=== PATIENT | male | born 1950 | race Caucasian/White ===

== ENCOUNTER → 2017-12-14 | Outpatient (CLI) | payer MEDICARE ==
[~2017-12-14] MED LIST: ATROPINE SULFATE 0.1 MG/ML 10ML SYRINGE ONE; DOBUTamine DRIP for NUC MED 250 MG in DEXTROSE/WATER 1 250ML.BAG IV ONE; METOPROLOL TARTRATE 5 MG/5 ML VIAL IVP ONE
--- NOTE | 2017-12-14 11:55 | ECHOS ---
STRESS ECHOCARDIOGRAM INDICATIONS: Chest pain. BASELINE HEART RATE: 76 BASELINE BLOOD PRESSURE: 103/65 MAXIMUM HEART RATE: 143 MAXIMUM BLOOD PRESSURE: 210/33 85% MPHR: 132 100% MPHR: 155 MAXIMUM STAGE REACHED: 5 TOTAL EXERCISE TIME: 12:30 CLINICAL INFORMATION: Patient was given dobutamine infusion according to the standard protocol, Patient also received atropine. Peak heart rate of 143 was achieved. Maximum blood pressure of 210/33 mmHg was noted. Resting EKG shows normal sinus rhythm with normal [place] interval and QRS duration and normal ST-T waves. No ST-segment depression suggestive of ischemia was noted. The baseline echocardiographic images reveal normal left ventricular chamber size with normal left ventricular systolic function. At the peak dose of dobutamine infusion. Normal increase in the wall thickness and contractility is noted. FINAL IMPRESSION: 1. This dobutamine stress echocardiographic study is negative for stress-induced ischemia. 2. EKG portion of the stress test is not suggestive of ischemia. 3. Patient complained of atypical chest pain at the peak of dobutamine infusion, without any evidence of wall motion abnormality. MMODL / IJN: [id number] /
== END | disposition home or self-care (01) ==
LOC: RADNMMAIN 09:14
PROVIDERS: ATTEND Internal Medicine Cardiovascular Disease
DX: R07.89 Other chest pain (principal)
CPT/HCPCS: 93017; C8928; Q9950; J1250; 93350

== ENCOUNTER → 2019-02-08 | Outpatient (CLI) | payer MEDICARE ==
--- NOTE | 2019-02-08 17:18 | US ---
EXAMINATION TYPE: US venous doppler duplex LE LT DATE OF EXAM: 02/08/2019 4:55 PM COMPARISON: NONE CLINICAL HISTORY: R60.9 Edema. bump on outer leg from fall. SIDE PERFORMED: Left TECHNIQUE: The lower extremity deep venous system is examined utilizing real time linear array sonog tiana with graded compression, doppler sonography and color-flow sonography. VESSELS IMAGED: External Iliac Vein (EIV) Common Femoral Vein Deep Femoral Vein Greater Saphenous Vein * Femoral Vein Popliteal Vein Small Saphenous Vein * Proximal Calf Veins (* superficial vessels) Left Leg: Negative for DVT Edema noted lower leg. At area of bump, outer calf, there is a 7.1 x 1.5 x 5.5 cm fluid collection, p ossible hematoma. IMPRESSION: No evidence of deep venous thrombosis. Complex fluid collection in the area of the concer n which could be a hematoma or seroma.
== END | disposition home or self-care (01) ==
LOC: RADUSWWP 16:27
PROVIDERS: ATTEND Internal Medicine
DX: M25.48 Effusion, other site (principal)

== ENCOUNTER 2022-02-25 13:57 | Inpatient (IN) | payer MEDICARE ==
[2022-02-25] MEDS ORDERED: VANCOMYCIN IV PER PHARMACY 1 EACH MISC MISCELLANE PRN (14:49)
[2022-02-25] MEDS ORDERED: ASPIRIN 81 MG PO STA (14:49)
[2022-02-25] MEDS ORDERED: VANCOMYCIN 2,250 MG in SODIUM CHLORIDE 0.9% 500 ML 500 ML IVPB STA (14:58)
[2022-02-25] MEDS ORDERED: DIPH,PERTUS(ACELL)TETVAC-LF 0.5 ML VIAL IM ONE (15:00)
[2022-02-25 15:53] LABS: Anisocytosis Slight; Basophils # (A) 0.1 k/uL (0-0.2); Basophils % (A) 1 %; Eosinophils # (A) 0.4 k/uL (0-0.7); Eosinophils % (A) 3 %; HCT 47.5 % (39.0-53.0); HGB 15.3 gm/dL (13.0-17.5); Hypochromasia Slight; Lymphocytes # (A) 1.3 k/uL (1.0-4.8); Lymphocytes % (A) 10 %; MCH 28.7 pg (25.0-35.0); MCHC 32.2 g/dL (31.0-37.0); MCV 89.1 fL (80.0-100.0); Mean Platelet Volume 7.9; Monocytes # (A) 0.7 k/uL (0-1.0); Monocytes % (A) 5 %; Neutrophils # (A) 10.9 k/uL (1.3-7.7); Neutrophils % (A) 80 %; Platelet Count 284 k/uL (150-450); Poikilocytosis Slight; RBC 5.33 m/uL (4.30-5.90); RDW 18.1 % (11.5-15.5); WBC 13.6 k/uL (3.8-10.6)
[2022-02-25 15:54] LABS: ALT 19 U/L (4-49); AST 38 U/L (17-59); African American GFR (CKD) >90 (>60 ml/min/1.73 sqM); Albumin 4.7 g/dL (3.5-5.0); Alkaline Phosphatase 78 U/L (38-126); Anion Gap 10 mmol/L; Blood Urea Nitrogen 21 mg/dL (9-20); Calcium 9.5 mg/dL (8.4-10.2); Carbon Dioxide 28 mmol/L (22-30); Chloride 104 mmol/L (98-107); Glucose 88 mg/dL (74-99); Non-African American GFR(CKD) >90 (>60 ml/min/1.73 sqM); Potassium 4.3 mmol/L (3.5-5.1); Sodium 142 mmol/L (137-145); Total Bilirubin 1.2 mg/dL (0.2-1.3); Total Protein 8.5 g/dL (6.3-8.2)
--- NOTE | 2022-02-25 16:02 | XR ---
EXAMINATION TYPE: XR chest 2V DATE OF EXAM: 02/25/2022 COMPARISON: 7-14 HISTORY: Shortness of breath TECHNIQUE: Frontal and lateral views of the chest are obtained. FINDINGS: Scattered senescent parenchymal changes noted. Hyperinflation compatible with COPD. No evidence for infiltrate. No evidence for atelectasis. Heart size is stable. Mediastinal structures are stable and grossly unremarkable. No evidence for hilar prominence. Degenerative changes dorsal spine. IMPRESSION: 1. No evidence for acute pulmonary disease.
--- NOTE | 2022-02-25 16:03 | XR ---
EXAMINATION TYPE: XR tibia fibula bilateral DATE OF EXAM: 02/25/2022 CLINICAL HISTORY: pain TECHNIQUE: AP and lateral images of the right tibia and fibula are obtained. COMPARISON: None. FINDINGS: There is no acute fracture/dislocation evident. The joint spaces appear within normal haines its. Soft tissue edema noted. IMPRESSION: There is no acute fracture or dislocation seen. ICD 10 NO FRACTURE, INITIAL EVALUATION
[2022-02-25] MEDS ORDERED: FUROSEMIDE 10 MG/ML 4 ML VIAL IV STA (16:33)
--- NOTE | 2022-02-25 18:14 | ED ---
General Adult HPI - General Chief complaint: Extremity Problem,Nontraumatic Stated complaint: Cellulitus Time Seen by Provider: 02/25/22 14:21 Source: patient, RN notes reviewed, old records reviewed Mode of arrival: wheelchair Limitations: physical limitation - History of Present Illness Initial comments: Patient is a 71-year-old male with past medical history remarkable for asthma, CAD, hypertension, UT, seizure disorder, chronic lower extremity edema with chronic wounds who presents emergency department after being sent in by his PCP over concern for chronic bilaterals like cellulitis. Has been ongoing for quite some months but seems to be getting worse. Failed outpatient Keflex. Patient's PCP, Dr. Valdez called ahead and would like him admitted for evaluation by the patient's vascular surgeon as well as infectious disease. Recommended IV antibiotics. He endorses a weeping wound over the left anterior milian as well as a chronic wound over the right anterior milian. Redness has gotten worse and has somewhat spread. Denies any abdominal pain, chest pain, shortness breath. Denies any fevers. States this has been ongoing for multiple months. Appears to be getting worse. States he is minimally compliant with medications. He is endorsing worsening lower extremity edema as well as mild exertional shortness of breath. Denies any history of blood clots. States he has not been taking his Lasix as prescribed. Denies any PND but does endorse orthopnea. His no other acute complaints at this time.Patient is DO NOT RESUSCITATE, DO NOT INTUBATE. Patient is no code. Confirmed with patient's and the patient. - Related Data Home Medications Medication Instructions Recorded Confirmed Pramipexole [Mirapex] 1 mg PO TID 07/06/16 02/25/22 Pregabalin [Lyrica] 75 mg PO BID 06/28/18 02/25/22 carvediloL [Coreg] 3.125 mg PO BID 06/28/18 02/25/22 Furosemide [Lasix] 40 mg PO DAILY 02/25/22 02/25/22 Melatonin 10 mg PO HS 02/25/22 02/25/22 Spironolactone [Aldactone] 25 mg PO DAILY 02/25/22 02/25/22 Allergies Allergy/AdvReac Type Severity Reaction Status Date / Time codeine Allergy Dyspnea Verified 02/25/22 16:35 Penicillins Allergy Dyspnea Verified 02/25/22 16:35 Review of Systems ROS Statement: Those systems with pertinent positive or pertinent negative responses have been documented in the HPI. Review of Systems: CONST: Denies fever EYES: Denies blurry vision ENT: Denies nasal congestion C/V: Denies Chest pain RESP: Endorses somewhat chronic exertional dyspnea GI: Denies abdominal pain : Denies dysuria SKIN: Endorses lower extremity wounds MSK: Denies joint pain. NEURO: Denies headache ROS Other: All systems not noted in ROS Statement are negative. Past Medical History Past Medical History: Asthma, Coronary Artery Disease (CAD), Hyperlipidemia, Hypertension, Myocardial Infarction (UT), Seizure Disorder Additional Past Medical History / Comment(s): restless leg, cardiomyopathy, wounds RT legs, BLE SWOLLEN AND DARK IN COLOR, LAST SEIZURE 1 WEEK AGO ON LEFT SIDE, FELL 06/03/18 GETTING UP FROM CHAIR, irritant induced asthma, hand tremors, double vision Last Myocardial Infarction Date:: 1989 History of Any Multi-Drug Resistant Organisms: None Reported Past Surgical History: Back Surgery, Cholecystectomy Additional Past Surgical History / Comment(s): brain tumor SX, 2ND DIGIT LT FOOT REMOVED, COLONOSCOPY Past Anesthesia/Blood Transfusion Reactions: No Reported Reaction Past Psychological History: No Psychological Hx Reported Smoking Status: Never smoker Past Alcohol Use History: None Reported Past Drug Use History: None Reported - Past Family History Mother Family Medical History: Cancer Additional Family Medical History / Comment(s): pancreatic Father Family Medical History: Cancer Additional Family Medical History / Comment(s): melanoma Brother(s) Family Medical History: Deep Vein Thrombosis (DVT) Daughter(s) Family Medical History: Deep Vein Thrombosis (DVT), Pulmonary Embolus General Exam - General Exam Comments Initial Comments: General: Appears in no acute distress. HEAD: Normal with no signs of head trauma. EYES: PERRLA, EOMI, conjunctiva normal, no discharge. ENT: Hearing grossly intact, normal oropharynx. RESPIRATORY: Clear breath sounds bilaterally. No wheezes, rales, or rhonchi. No increased work of breathing. No hypoxia. C/V: Regular rate and rhythm. S1 and S2 auscultated. Peripheral pulses are 2+ and intact throughout. Patient has 2-3+ pitting edema bilaterally up to the level of the knees. It is symmetrical. ABD: Abd is soft, nontender, nondistended EXT: Normal range of motion, no obvious deformity SKIN: Patient is erythema as well as venous stasis ulcer wounds located over the bilateral anterior shins. Left is worse than right. Left is approximately 8 cm in circumference and is actively oozing what appears to be a purulent material. Per patient, this is chronic. There is somewhat circumferential erythema that the patient states is worse appears to be traveling proximally. This seemed to be set of the right anterior milian, however no active oozing venous stasis wounds. Erythema is slightly worse though. Neurovascular intact in bilateral lower extremities. NEURO: Alert and oriented 4. Neurovascular intact in bilateral lower extremities. Limitations: physical limitation Course Vital Signs 02/25/22 02/25/22 14:17 17:38 Temperature 98.4 F Pulse Rate 89 79 Respiratory 16 20 Rate Blood Pressure 122/73 121/78 O2 Sat by Pulse 95 92 L Oximetry Medical Decision Making - Medical Decision Making Based on the patient's presentation and physical exam, there is concern for bilateral lower extremity cellulitis that seems to be worsening. There is also concern for possible heart failure exacerbation. Therefore cardiac labs as well as infectious labs will be obtained including blood cultures. Wound cultures will also be obtained. Will be started on vancomycin. Fluids will be held at this time over concern for heart failure. He was in agreement with this plan. EKG showed no signs of acute ischemia. Chest x-ray showed no acute cardio pulmonary process. X-ray of the tibia and fibula bilaterally showed no acute bony abnormality. No signs of osteomyelitis. Laboratory studies were remarkable for a mild leukocytosis of 13.6. Lactic acid is within normal limits. Blood cultures are pending at this time. Troponin is negative. BNP is low at 29. The remainder the labs are unremarkable. I discussed the findings with the patient. We will continue treatment and admit. Patient's vascular surgeon, Dr. Broderick as well as infectious disease Dr. Amezquita were consulted. I spoke with the admitting physician, Dr. Valdez who was in agreement this plan. - Lab Data Result diagrams: 02/25/22 15:17 02/25/22 15:17 Lab Results 02/25/22 02/25/22 02/25/22 Range/Units 15:17 15:17 15:17 WBC 13.6 H (3.8-10.6) k/uL RBC 5.33 (4.30-5.90) m/uL Hgb 15.3 (13.0-17.5) gm/dL Hct 47.5 (39.0-53.0) % MCV 89.1 (80.0-100.0) fL MCH 28.7 (25.0-35.0) pg MCHC 32.2 (31.0-37.0) g/dL RDW 18.1 H (11.5-15.5) % Plt Count 284 (150-450) k/uL MPV 7.9 Neutrophils % 80 % Lymphocytes % 10 % Monocytes % 5 % Eosinophils % 3 % Basophils % 1 % Neutrophils # 10.9 H (1.3-7.7) k/uL Lymphocytes # 1.3 (1.0-4.8) k/uL Monocytes # 0.7 (0-1.0) k/uL Eosinophils # 0.4 (0-0.7) k/uL Basophils # 0.1 (0-0.2) k/uL Hypochromasia Slight Poikilocytosis Slight Anisocytosis Slight Sodium 142 (137-145) mmol/L Potassium 4.3 (3.5-5.1) mmol/L Chloride 104 (98-107) mmol/L Carbon Dioxide 28 (22-30) mmol/L Anion Gap 10 mmol/L BUN 21 H (9-20) mg/dL Creatinine 0.80 (0.66-1.25) mg/dL Est GFR (CKD-EPI)AfAm >90 (>60 ml/min/1.73 sqM) Est GFR (CKD-EPI)NonAf >90 (>60 ml/min/1.73 sqM) Glucose 88 (74-99) mg/dL Plasma Lactic Acid Tayo 1.3 (0.7-2.0) mmol/L Calcium 9.5 (8.4-10.2) mg/dL Total Bilirubin 1.2 (0.2-1.3) mg/dL AST 38 (17-59) U/L ALT 19 (4-49) U/L Alkaline Phosphatase 78 (38-126) U/L Troponin I (0.000-0.034) ng/mL NT-Pro-B Natriuret Pep pg/mL Total Protein 8.5 H (6.3-8.2) g/dL Albumin 4.7 (3.5-5.0) g/dL 02/25/22 02/25/22 Range/Units 15:17 15:17 WBC (3.8-10.6) k/uL RBC (4.30-5.90) m/uL Hgb (13.0-17.5) gm/dL Hct (39.0-53.0) % MCV (80.0-100.0) fL MCH (25.0-35.0) pg MCHC (31.0-37.0) g/dL RDW (11.5-15.5) % Plt Count (150-450) k/uL MPV Neutrophils % % Lymphocytes % % Monocytes % % Eosinophils % % Basophils % % Neutrophils # (1.3-7.7) k/uL Lymphocytes # (1.0-4.8) k/uL Monocytes # (0-1.0) k/uL Eosinophils # (0-0.7) k/uL Basophils # (0-0.2) k/uL Hypochromasia Poikilocytosis Anisocytosis Sodium (137-145) mmol/L Potassium (3.5-5.1) mmol/L Chloride (98-107) mmol/L Carbon Dioxide (22-30) mmol/L Anion Gap mmol/L BUN (9-20) mg/dL Creatinine (0.66-1.25) mg/dL Est GFR (CKD-EPI)AfAm (>60 ml/min/1.73 sqM) Est GFR (CKD-EPI)NonAf (>60 ml/min/1.73 sqM) Glucose (74-99) mg/dL Plasma Lactic Acid Tayo (0.7-2.0) mmol/L Calcium (8.4-10.2) mg/dL Total Bilirubin (0.2-1.3) mg/dL AST (17-59) U/L ALT (4-49) U/L Alkaline Phosphatase (38-126) U/L Troponin I <0.012 (0.000-0.034) ng/mL NT-Pro-B Natriuret Pep 29 pg/mL Total Protein (6.3-8.2) g/dL Albumin (3.5-5.0) g/dL - EKG Data -: EKG Interpreted by Me EKG Comments: 12-lead Electrocardiogram Interpretation Note EKG was reviewed and interpreted by myself. 12-lead ECG performed at 1525 is interpreted by me as revealing normal sinus rhythm at a rate of at 80 beats per minute. [place] is normal. [place] interval is 190 ms, QRS durations 117 ms, QTc is 437 ms.. There were no ST or T wave abnormalities to suggest myocardial ischemia or injury. R-wave progression across the distal leg.. By my interpretation this EKG is non-diagnostic for acute ischemia. Disposition Clinical Impression: Cellulitis, Volume overload Disposition: ADMITTED IP TO THIS HOSP Condition: Stable Referrals: Niko Valdez MD [Primary Care Provider] - 1-2 days Time of Disposition: 16:34
[2022-02-25] MEDS: MELATONIN 5 MG TABLET PO SCH (22:38)
[2022-02-25] MEDS: carvediloL 3.125 MG TAB PO SCH (22:38)
[2022-02-25] MEDS: PRAMIPEXOLE 1 MG TAB PO SCH (22:38)
[2022-02-25] MEDS: PREGABALIN 75 MG CAP PO SCH (22:42)
[2022-02-26] MEDS: HEPARIN SODIUM,PORCINE/PF 5,000 UNIT/0.5 ML SYRINGE SQ SCH ×4 (00:33→23:49)
[2022-02-26] MEDS: HYDROcodone/APAP 10-325MG 1 EACH TAB PO PRN ×3 (02:04→20:12)
[2022-02-26] MEDS ORDERED: VANCOMYCIN 2,500 MG in SODIUM CHLORIDE 0.9% 500 ML 500 ML IVPB SCH (06:00)
[2022-02-26] MEDS ORDERED: FUROSEMIDE 40 MG TAB PO SCH (09:00)
[2022-02-26 09:27] LABS: HCT 39.5 % (39.6-50.0); HGB 11.7 g/dL (13.0-17.0); MCH 27.3 pg (27.0-32.0); MCHC 29.6 g/dL (32.0-37.0); MCV 92.3 fL (80.0-97.0); Mean Platelet Volume 10.1 fL (9.5-12.2); NRBC Per 100 WBC 0 /100 WBCS (0.0-0.0); Platelet Count 253 X 10*3/uL (140-440); RBC 4.28 X 10*6/uL (4.40-5.60); RDW 18.6 % (11.5-14.5); WBC 16.05 X 10*3/uL (4.50-10.00)
[2022-02-26 09:32] LABS: African American GFR (CKD) 107.4 (60.0-200.0); Anion Gap 9.8 mmol/L (10.00-18.00); BUN/Creat Ratio 23.96 Ratio (12.00-20.00); Blood Urea Nitrogen 18.4 mg/dL (9.0-27.0); Calcium 8.8 mg/dL (8.7-10.3); Non-African American GFR(CKD) 92.7 (60.0-200.0); Potassium 4.3 mmol/L (3.5-5.5)
[2022-02-26] MEDS: FUROSEMIDE 80 MG TAB PO SCH (09:49)
[2022-02-26] MEDS: carvediloL 3.125 MG TAB PO SCH ×2 (09:49→15:48)
[2022-02-26] MEDS: OXcarbazepine 150 MG TAB PO SCH ×2 (09:49→20:12)
[2022-02-26] MEDS: SPIRONOLACTONE 25 MG TAB PO SCH (09:49)
[2022-02-26] MEDS: PREGABALIN 75 MG CAP PO SCH ×2 (09:49→20:12)
[2022-02-26] MEDS: PRAMIPEXOLE 1 MG TAB PO SCH ×3 (09:50→20:12)
[2022-02-26 10:28] LABS: Basophils # (M) 0.16 X 10*3/uL (0.00-0.10); Eosinophils # (M) 0.64 X 10*3/uL (0.04-0.35); Lymphocytes # (M) 0.96 X 10*3/uL (0.90-5.00); Microcytosis (M) 2+; Monocytes # (M) 1.12 X 10*3/uL (0.20-1.00); Neutrophils % (M) 81 %; Promyelocytes # (M) 0.16 k/uL (0); Promyelocytes % 1 % (0-0)
--- NOTE | 2022-02-26 15:40 | P.HPIM ---
History of Present Illness H&P Date: 02/26/22 HISTORY OF PRESENT ILLNESS This is a 71-year-old male patient with past medical history of hypertension, hyperlipidemia, CVA, mild persistent ALLERGIC asthma, seizure disorder, Parkinson's disease, chronic diastolic heart failure, stasis dermatitis of the left lower extremity due to peripheral venous hypertension, spondylosis of the lumbar spine, obstructive sleep apnea. Patient was seen in the office yesterday for cellulitis of the both lower extremities. Patient had been on oral antibiotics for the past month without improvement and presented with a large vascular ulcer to the left lower extremity pretibial area as well as cellulitis to bilateral lower extremities. Patient was sent directly over the emergency center at [facility] for further evaluation and treatment. Patient was found to be afebrile, heart rate in the 70s and 80s, blood pressure 116/81, pulse ox 94% on room air. WBC 13.6, hemoglobin 15.3, platelet count 284. Electrolytes normal, BUN 21 creatinine 0.8. Liver function tests were normal. Lactic acid 1.3. Troponin negative. ProBNP 29. Recent hemoglobin A1c was 6.25 Nov 2021. X-ray tibia-fibula bilaterally showed no fracture. Chest x-ray revealed no acute pulmonary disease. Patient has been started on Vancomycin, Silvadene wraps, admitted to the [facility] floor and consult with Dr. Amezquita, Dr. Broderick [facility]. REVIEW OF SYSTEMS Constitutional: No fever, no chills, no night sweats. No weight change. No weakness, fatigue or lethargy. No daytime sleepiness. EENT: No headache. No blurred vision or double vision, no loss of vision. No l oss of Hearing, no ringing in the ears, no dizziness. No nasal drainage or congestion. No epistaxis. No sore throat. Lungs:Chronic shortness of breath, cough, no sputum production. No wheezing.Ch ronic dyspnea with exertion. Cardiovascular: No chest pain,reports lower extremity edema. No palpitations. No paroxysmal nocturnal dyspnea. No orthopnea. No lightheadedness or dizziness. No syncopal episodes. Abdominal: No abdominal pain. No nausea, vomiting. No diarrhea. No constipation. No bloody or tarry stools. No loss of appetite. Genitourinary: No dysuria, increased frequency, urgency. No urinary retention. Musculoskeletal: No myalgias. No muscle weakness, no gait dysfunction, no frequent falls. No back pain. No neck pain. Integumentary:Reports wounds to the bilateral lower extremities. No rash or pruritus. No unusual bruising. No change in hair or nails. Neurologic: No aphasia. No facial droop. No change in mentation. No head injury. No headache. No paralysis. No paresthesia. Psychiatric: No depression. No anxiety. No mood swings. Endocrine: No abnormal blood sugars. No weight change. No excessive sweating or thirst. No cold intolerance. MEDICAL HISTORY Hypertension Hyperlipidemia CVA Mild persistent ALLERGIC asthma Seizure disorder Parkinson's disease Chronic diastolic heart failure Stasis dermatitis Peripheral venous hypertension Spondylosis of the lumbar spine Obstructive sleep apnea SURGICAL HISTORY Meningioma brain tumor removal with right-sided craniotomy in 2003 Laminectomy in 2005 followed by PLDF in 2008 Cholecystectomy 1992 Left foot second toe amputation 1981 Colonoscopy and EGD 2016 Spinal cord stimulator 2011 SOCIAL HISTORY Patient is a nonsmoker, no alcohol use, no illicit drug use. He lives at home with his . FAMILY HISTORY Father at age 73 from metastatic melanoma with history of Parkinson's and coronary artery disease status post CABG. Mother at age 68 from pancreatic cancer and also had diabetes type 2 and coronary artery disease. Patient is 5 brothers and one has history of head and neck cancer and one with sarcoma. Other brothers have no major medical problems. Patient has 2 sisters one has squamous cell cancer and the other has no major medical problems. Patient has 4 daughters and one has SLE. PHYSICAL EXAMINATION Gen: This is a morbidly obese 71-year-old male patient sitting on the edge of the bed and appears to be in no acute respiratory distress. HEENT: Head is atraumatic, normocephalic. Pupils equal, round. Sclerae is anicteric. NECK: Supple. No JVD. No lymphadenopathy. No thyromegaly. LUNGS: Clear to auscultation. No wheezes or rhonchi. No intercostal retrac tions. HEART: First heart sound is depressed, second heart sound is normal, there is a 2/6 systolic ejection murmur at the left sternal border, no S3, no S4.. ABDOMEN: Soft. Bowel sounds are present. No masses. No tenderness. EXTREMITIES: 2+ bilateral pitting pedal edema with erythema. Also noted to the left pretibial area. Please see nursing documentation for details. NEUROLOGICAL: Patient is awake, alert and oriented x3. Cranial nerves 2 through 12 are grossly intact. ASSESSMENT AND PLAN 1. Bilateral lower extremity cellulitis. Wound culture is in progress, consult with Dr. Wynne appreciated, vancomycin has been transitioned to Salt 2 g IV piggyback every 8 hours, continue local wound care with Silvadene wraps with Moody wrap and elevation. 2. Hypertension. Continue Coreg 3.125 mg twice daily, Lasix 80 mg daily. 3. Hyperlipidemia. Low cholesterol diet. 4. History of CVA. 5. Parkinson's disease. Continue Mirapex 1 mg 3 times daily. 6. Chronic diastolic heart failure. Continue patient on Lasix 40 mg oral daily, Coreg 3.125 mg twice daily, Aldactone 25 mg daily. 7. Spondylosis of the lumbar spine. Continue Lyrica 75 mg twice daily. 8. Obstructive sleep apnea. 9. GI prophylaxis. Protonix 40 mg daily oral. 10. DVT prophylaxis. Heparin subcu. Patient will be admitted to the hospital for a minimum of 2 night stay. DISCHARGE PLAN Subacute rehab at [facility]. PT and OT consults. Impression and plan of care have been directed as dictated by the signing physician. Caitie Breaux nurse practitioner acting as scribe for signing physician. Past Medical History Past Medical History: Asthma, Coronary Artery Disease (CAD), Hyperlipidemia, Hypertension, Myocardial Infarction (VT), Seizure Disorder Additional Past Medical History / Comment(s): restless leg, cardiomyopathy, wounds RT legs, BLE SWOLLEN AND DARK IN COLOR, LAST SEIZURE 1 WEEK AGO ON LEFT SIDE, FELL 06/03/18 GETTING UP FROM CHAIR, irritant induced asthma, hand tremors, double vision Last Myocardial Infarction Date:: 1989 History of Any Multi-Drug Resistant Organisms: None Reported Past Surgical History: Back Surgery, Cholecystectomy Additional Past Surgical History / Comment(s): brain tumor SX, 2ND DIGIT LT FOOT REMOVED, COLONOSCOPY Past Anesthesia/Blood Transfusion Reactions: No Reported Reaction Past Psychological History: No Psychological Hx Reported Smoking Status: Never smoker Past Alcohol Use History: None Reported Past Drug Use History: None Reported - Past Family History Mother Family Medical History: Cancer Additional Family Medical History / Comment(s): pancreatic Father Family Medical History: Cancer Additional Family Medical History / Comment(s): melanoma Brother(s) Family Medical History: Deep Vein Thrombosis (DVT) Daughter(s) Family Medical History: Deep Vein Thrombosis (DVT), Pulmonary Embolus Medications and Allergies Home Medications Medication Instructions Recorded Confirmed Type Pramipexole [Mirapex] 1 mg PO TID 07/06/16 02/25/22 History Pregabalin [Lyrica] 75 mg PO BID 06/28/18 02/25/22 History carvediloL [Coreg] 3.125 mg PO BID 06/28/18 02/25/22 History Furosemide [Lasix] 40 mg PO DAILY 02/25/22 02/25/22 History Melatonin 10 mg PO HS 02/25/22 02/25/22 History Spironolactone [Aldactone] 25 mg PO DAILY 02/25/22 02/25/22 History Allergies Allergy/AdvReac Type Severity Reaction Status Date / Time codeine Allergy Dyspnea Verified 02/25/22 16:35 Penicillins Allergy Dyspnea Verified 02/25/22 16:35 Physical Exam Vitals: Vital Signs Temp Pulse Pulse Resp BP BP Pulse Ox 02/26/22 08:00 97.5 F L 76 16 128/66 89 L 02/26/22 02:47 97.4 F L 69 18 115/68 93 L 02/25/22 23:27 97.7 F 76 18 116/81 94 L 02/25/22 21:27 82 18 132/84 94 L 02/25/22 17:38 79 20 121/78 92 L 02/25/22 14:17 98.4 F 89 16 122/73 95 Intake and Output 02/25/22 02/26/22 02/26/22 22:59 06:59 14:59 Output Total 700 Balance -700 Output: Urine 700 Other: # Voids 2 Weight 168.283 kg Results CBC & Chem 7: 02/26/22 05:00 02/26/22 05:00 Labs: Abnormal Lab Results - Last 24 Hours (Table) 02/25/22 02/25/22 02/26/22 Range/Units 15:17 15:17 05:00 WBC 13.6 H 16.05 H (3.8-10.6) k/uL RBC 4.28 L (4.40-5.60) X 10*6/uL Hgb 11.7 L (13.0-17.0) g/dL Hct 39.5 L (39.6-50.0) % MCHC 29.6 L (32.0-37.0) g/dL RDW 18.1 H 18.6 H (11.5-15.5) % Promyelocytes % 1 H (0-0) % Neutrophils # 10.9 H (1.3-7.7) k/uL Neutrophils # (Manual) 13.00 H (2.00-8.90) X 10*3/uL Monocytes # (Manual) 1.12 H (0.20-1.00) X 10*3/uL Eosinophils # (Manual) 0.64 H (0.04-0.35) X 10*3/uL Basophils # (Manual) 0.16 H (0.00-0.10) X 10*3/uL Carbon Dioxide (20.0-27.5) mmol/L Anion Gap (10.00-18.00) mmol/L BUN 21 H (9-20) mg/dL BUN/Creatinine Ratio (12.00-20.00) Ratio Glucose (70-110) mg/dL Total Protein 8.5 H (6.3-8.2) g/dL /04/14 Range/Units 05:00 WBC (3.8-10.6) k/uL RBC (4.40-5.60) X 10*6/uL Hgb (13.0-17.0) g/dL Hct (39.6-50.0) % MCHC (32.0-37.0) g/dL RDW (11.5-15.5) % Promyelocytes % (0-0) % Neutrophils # (1.3-7.7) k/uL Neutrophils # (Manual) (2.00-8.90) X 10*3/uL Monocytes # (Manual) (0.20-1.00) X 10*3/uL Eosinophils # (Manual) (0.04-0.35) X 10*3/uL Basophils # (Manual) (0.00-0.10) X 10*3/uL Carbon Dioxide 29.0 H (20.0-27.5) mmol/L Anion Gap 9.80 L (10.00-18.00) mmol/L BUN (9-20) mg/dL BUN/Creatinine Ratio 23.96 H (12.00-20.00) Ratio Glucose 122 H (70-110) mg/dL Total Protein (6.3-8.2) g/dL Microbiology - Last 24 Hours (Table) 02/25/22 15:17 Gram Stain - Preliminary Leg - Left Wound Culture - Preliminary 02/25/22 15:17 Anaerobic Culture - Preliminary Leg - Left Thrombosis Risk Factor Assmnt - Choose All That Apply Each Factor Represents 1 point: Obesity (BMI >25), Swollen legs (current) Other Risk Factors: Yes Each Risk Factor Represents 2 Points: Age 61-74 years Thrombosis Risk Factor Assessment Total Risk Factor Score: 4 Thrombosis Risk Factor Assessment Level: Moderate Risk
[2022-02-26] MEDS: SENNOSIDES-DOCUSATE SODIUM 1 EACH TAB PO SCH (15:49)
[2022-02-26] MEDS: MELATONIN 5 MG TABLET PO SCH (20:12)
--- NOTE | 2022-02-26 23:51 | P.CONS ---
History of Present Illness - Reason for Consult Consult date: 02/26/22 Bilateral lower extremity cellulitis Requesting physician: Niko Valdez - Chief Complaint Increasing swelling or redness of the lower extremity x few days - History of Present Illness Patient is a 71-year male with a past medical history significant for lower extremity cellulitis and venous stasis ulcers, asthma coronary disease hypertension patient presented to [facility] ER last evening by advice of his PCP for with concern for bilateral lower extremity cellulitis apparently the patient has been complaining of increasing swelling and redness to bilateral lower extremity especially with the left leg and this patient who did have a open wound and some yellowish drainage patient been complaining of pain to the lower extremity more of a dull aching at times sharp 5-6 out of 10 and no radiation with the symptom the patient has been evaluated by ER physician on arrival to the ER patient was afebrile and no fever has been recorded subsequently patient did have white count of 13 point 6 repeat is up to 16.05 creatinine has been normal patient did have cultures obtained from the leg which are currently showing gram-negative patient has been started on vancomycin admitted to hospital infectious disease was consulted for further management of antibiotic therapy Review of Systems Positive point has been mentioned in the HPI rest of the systems are negative Past Medical History Past Medical History: Asthma, Coronary Artery Disease (CAD), Hyperlipidemia, Hypertension, Myocardial Infarction ([place]), Seizure Disorder Additional Past Medical History / Comment(s): restless leg, cardiomyopathy, wounds RT legs, BLE SWOLLEN AND DARK IN COLOR, LAST SEIZURE 1 WEEK AGO ON LEFT SIDE, FELL 06/03/18 GETTING UP FROM CHAIR, irritant induced asthma, hand tremors, double vision Last Myocardial Infarction Date:: 1989 History of Any Multi-Drug Resistant Organisms: None Reported Past Surgical History: Back Surgery, Cholecystectomy Additional Past Surgical History / Comment(s): brain tumor SX, 2ND DIGIT LT FOOT REMOVED, COLONOSCOPY Past Anesthesia/Blood Transfusion Reactions: No Reported Reaction Past Psychological History: No Psychological Hx Reported Smoking Status: Never smoker Past Alcohol Use History: None Reported Past Drug Use History: None Reported - Past Family History Mother Family Medical History: Cancer Additional Family Medical History / Comment(s): pancreatic Father Family Medical History: Cancer Additional Family Medical History / Comment(s): melanoma Brother(s) Family Medical History: Deep Vein Thrombosis (DVT) Daughter(s) Family Medical History: Deep Vein Thrombosis (DVT), Pulmonary Embolus Medications and Allergies Home Medications Medication Instructions Recorded Confirmed Type Pramipexole [Mirapex] 1 mg PO TID 07/06/16 02/25/22 History Pregabalin [Lyrica] 75 mg PO BID 06/28/18 02/25/22 History carvediloL [Coreg] 3.125 mg PO BID 06/28/18 02/25/22 History Furosemide [Lasix] 40 mg PO DAILY 02/25/22 02/25/22 History Melatonin 10 mg PO HS 02/25/22 02/25/22 History Spironolactone [Aldactone] 25 mg PO DAILY 02/25/22 02/25/22 History Allergies Allergy/AdvReac Type Severity Reaction Status Date / Time codeine Allergy Dyspnea Verified 02/25/22 16:35 Penicillins Allergy Dyspnea Verified 02/25/22 16:35 Physical Exam Vitals: Vital Signs Temp Pulse Pulse Resp BP BP Pulse Ox 02/26/22 14:00 98.1 F 75 17 118/74 91 L 02/26/22 08:00 97.5 F L 76 16 128/66 89 L 02/26/22 02:47 97.4 F L 69 18 115/68 93 L 02/25/22 23:27 97.7 F 76 18 116/81 94 L 02/25/22 21:27 82 18 132/84 94 L 02/25/22 17:38 79 20 121/78 92 L Intake and Output 02/26/22 02/26/22 02/26/22 06:59 14:59 22:59 Output Total 700 Balance -700 Output: Urine 700 Other: # Voids 2 Weight 168.283 kg GENERAL DESCRIPTION: Elderly male lying in bed, no distress. No tachypnea or accessory muscle of respiration use. HEENT: Shows Pallor , no scleral icterus. Oral mucous membrane is dry. No pharyngeal erythema or thrush NECK: Trachea central, no thyromegaly. LUNGS: Unlabored breathing. Clear to auscultation anteriorly. No wheeze or crackle. HEART: S1, S2, regular rate and rhythm. No loud murmur ABDOMEN: Soft, no tenderness , guarding or rigidity, no organomegaly EXTREMITIES: Diffuse swelling to bilateral lower extremity left anterior leg did have a wound with some slough tissue surrounding redness SKIN: No rash, no masses palpable. NEUROLOGICAL: The patient is awake, alert, oriented x3, mood and affect normal. Results CBC & Chem 7: 02/26/22 05:00 02/26/22 05:00 Labs: Abnormal Lab Results - Last 24 Hours (Table) 02/26/22 02/26/22 Range/Units 05:00 05:00 WBC 16.05 H (4.50-10.00) X 10*3/uL RBC 4.28 L (4.40-5.60) X 10*6/uL Hgb 11.7 L (13.0-17.0) g/dL Hct 39.5 L (39.6-50.0) % MCHC 29.6 L (32.0-37.0) g/dL RDW 18.6 H (11.5-14.5) % Promyelocytes % 1 H (0-0) % Neutrophils # (Manual) 13.00 H (2.00-8.90) X 10*3/uL Monocytes # (Manual) 1.12 H (0.20-1.00) X 10*3/uL Eosinophils # (Manual) 0.64 H (0.04-0.35) X 10*3/uL Basophils # (Manual) 0.16 H (0.00-0.10) X 10*3/uL Carbon Dioxide 29.0 H (20.0-27.5) mmol/L Anion Gap 9.80 L (10.00-18.00) mmol/L BUN/Creatinine Ratio 23.96 H (12.00-20.00) Ratio Glucose 122 H (70-110) mg/dL Microbiology - Last 24 Hours (Table) 02/25/22 15:17 Gram Stain - Preliminary Leg - Left Wound Culture - Preliminary 02/25/22 15:17 Anaerobic Culture - Preliminary Leg - Left Assessment and Plan (1) Cellulitis Current Visit: Yes Status: Acute Code(s): L03.90 - CELLULITIS, UNSPECIFIED SNOMED Code(s): 379771266 Plan: 1patient with bilateral lower extremity cellulitis left greater than the right especially with the venous stasis ulcer to the left leg and some drainage failing outpatient oral Keflex now with a local culture showing gram-negative bacilli. 2discontinue vancomycin. 3start the patient on cefepime 2 g every 8 hours 4local wound care with the Medihoney followed by moist dressing and Moody wrap to the leg to keep the swelling down. We will follow on clinical condition and cultures to further adjust medication if needed Thank you for this consultation will follow this patient along with you Time with Patient: Greater than 30
[2022-02-27] MEDS: CEFEPIME 2 GM in SODIUM CHLORIDE 0.9% 100 ML IVPB SCH ×4 (00:28→23:20)
[2022-02-27 05:27] LABS: African American GFR (CKD) >90 (>60 ml/min/1.73 sqM); Non-African American GFR(CKD) >90 (>60 ml/min/1.73 sqM)
[2022-02-27] MEDS: HYDROcodone/APAP 10-325MG 1 EACH TAB PO PRN (05:44)
[2022-02-27] MEDS: HEPARIN SODIUM,PORCINE/PF 5,000 UNIT/0.5 ML SYRINGE SQ SCH ×3 (07:56→23:23)
[2022-02-27] MEDS: PREGABALIN 75 MG CAP PO SCH ×2 (07:58→20:24)
[2022-02-27] MEDS: SPIRONOLACTONE 25 MG TAB PO SCH (07:58)
[2022-02-27] MEDS: SENNOSIDES-DOCUSATE SODIUM 1 EACH TAB PO SCH (07:58)
[2022-02-27] MEDS: OXcarbazepine 150 MG TAB PO SCH ×2 (07:59→20:25)
[2022-02-27] MEDS: FUROSEMIDE 80 MG TAB PO SCH (07:59)
[2022-02-27] MEDS: carvediloL 3.125 MG TAB PO SCH ×2 (07:59→17:02)
[2022-02-27] MEDS: PRAMIPEXOLE 1 MG TAB PO SCH ×3 (07:59→20:24)
[2022-02-27] MEDS: LOSARTAN 25 MG TAB PO SCH (13:35)
--- NOTE | 2022-02-27 13:52 | P.PN ---
Subjective Progress Note Date: 02/27/22 HISTORY OF PRESENT ILLNESS This is a 71-year-old male patient with past medical history of hypertension, h yperlipidemia, CVA, mild persistent ALLERGIC asthma, seizure disorder, Parkinson's disease, chronic diastolic heart failure, stasis dermatitis of the left lower extremity due to peripheral venous hypertension, spondylosis of the lumbar spine, obstructive sleep apnea. Patient was seen in the office yesterday for cellulitis of the both lower extremities. Patient had been on oral antibiotics for the past month without improvement and presented with a large vascular ulcer to the left lower extremity pretibial area as well as cellulitis to bilateral lower extremities. Patient was sent directly over the emergency center at [facility] for further evaluation and treatment. Patient was found to be afebrile, heart rate in the 70s and 80s, blood pressure 116/81, pulse ox 94% on room air. WBC 13.6, hemoglobin 15.3, platelet count 284. Electrolytes normal, BUN 21 creatinine 0.8. Liver function tests were normal. Lactic acid 1.3. Troponin negative. ProBNP 29. Recent hemoglobin A1c was 6.25 Nov 2021. X-ray tibia-fibula bilaterally showed no fracture. Chest x-ray revealed no acute pulmonary disease. Patient has been started on Vancomycin, Silvadene wraps, admitted to the [facility] floor and consult with Dr. Amezquita, Dr. [facility]. 02/27: Patient sitting up in the edge of the bed, he is doing better today, he continues to be on vancomycin, he continues to be on Silvadene wraps with a right lower extremity admitted honey to the left lower extremity, he has been seen in consultation by infectious disease, we'll continue current treatment plan, the plan is to transfer the patient to [facility] in the next few days when his cellulitis is better. REVIEW OF SYSTEMS Constitutional: No fever, no chills, no night sweats. No weight change. No weakness, fatigue or lethargy. No daytime sleepiness. EENT: No headache. No blurred vision or double vision, no loss of vision. No loss of Hearing, no ringing in the ears, no dizziness. No nasal drainage or congestion. No epistaxis. No sore throat. Lungs:Chronic shortness of breath, cough, no sputum production. No whe ezing.Chronic dyspnea with exertion. Cardiovascular: No chest pain,reports lower extremity edema. No palpitations. No paroxysmal nocturnal dyspnea. No orthopnea. No lightheadedness or dizziness . No syncopal episodes. Abdominal: No abdominal pain. No nausea, vomiting. No diarrhea. No const ipation. No bloody or tarry stools. No loss of appetite. Genitourinary: No dysuria, increased frequency, urgency. No urinary retention. Musculoskeletal: No myalgias. No muscle weakness, no gait dysfunction, no frequent falls. No back pain. No neck pain. Integumentary:Reports wounds to the bilateral lower extremities. No rash or pruritus. No unusual bruising. No change in hair or nails. Neurologic: No aphasia. No facial droop. No change in mentation. No head injury. No headache. No paralysis. No paresthesia. Psychiatric: No depression. No anxiety. No mood swings. Endocrine: No abnormal blood sugars. No weight change. No excessive sweating or thirst. No cold intolerance. PHYSICAL EXAMINATION Gen: This is a morbidly obese 71-year-old male patient sitting on the edge of the bed and appears to be in no acute respiratory distress. HEENT: Head is atraumatic, normocephalic. Pupils equal, round. Sclerae is anicteric. NECK: Supple. No JVD. No lymphadenopathy. No thyromegaly. LUNGS: Clear to auscultation. No wheezes or rhonchi. No intercostal retractions. HEART: First heart sound is depressed, second heart sound is normal, there is a 2/6 systolic ejection murmur at the left sternal border, no S3, no S4.. ABDOMEN: Soft. Bowel sounds are present. No masses. No tenderness. EXTREMITIES: 2+ bilateral pitting pedal edema with erythema. Also noted to the left pretibial area. Please see nursing documentation for details. NEUROLOGICAL: Patient is awake, alert and oriented x3. Cranial nerves 2 through 12 are grossly intact. ASSESSMENT AND PLAN 1. Bilateral lower extremity cellulitis. Wound culture is in progress, consult with Dr. Alirio thomas, patient was started on cefepime 2 g IV piggyback every 8 hours, continue local wound care with Silvadene wraps to the right lower extremity as well as many honey to the left lower extremity keep the leg elevated, monitor the patient very closely. Continue Lasix 80 mg orally once every day. 2. Hypertension and hypertensive cardiovascular disease. Continue Coreg 3.125 mg twice daily, we will continue to monitor the patient blood pressure very closely. 3. Hyperlipidemia. Low cholesterol diet, start the patient on atorvastatin 40 mg orally once every day. 4. History of CVA. Patient will need to be continued on aspirin 81 mg once every day as well as atorvastatin 40 mg orally once every day. 5. . Parkinsonism. Continue Mirapex 1 mg 3 times daily. 6. Chronic diastolic heart failure. Continue patient on Lasix 80 mg oral daily, Coreg 3.125 mg twice daily, Aldactone 25 mg daily, add losartan 25 mg orally once every day. 7. Spondylosis of the lumbar spine. Continue hydrocodone/acetaminophen 10/325 mg orally 1 tablet every 6 hours as needed, continue pregabalin 75 minute gram orally twice every day. 8. Obstructive sleep apnea. patient does not have any CPAP machine. 9. GI prophylaxis. Protonix 40 mg daily oral. 10. DVT prophylaxis. Heparin 5000 units subcutaneously every 8 hours. 11. Physical therapy evaluation. 12. psychotherapist social worker consultation. Objective - Vital Signs Vital signs: Vital Signs Temp 97.6 F 02/27/22 08:00 Pulse 75 02/27/22 08:00 Resp 16 02/27/22 08:00 BP 140/67 02/27/22 08:00 Pulse Ox 90 L 02/27/22 08:00 Intake & Output 02/26/22 02/27/22 02/27/22 18:59 06:59 18:59 Output Total 700 500 Balance -700 -500 Output: Urine 700 500 Other: Voiding Method Toilet Urinal # Voids 2 - Labs CBC & Chem 7: 02/26/22 05:00 02/27/22 04:43 Labs: Microbiology - Last 24 Hours (Table) 02/25/22 15:17 Gram Stain - Preliminary Leg - Left Wound Culture - Preliminary Gram Neg Bacilli 02/25/22 15:15 Blood Culture - Preliminary Blood No Growth after 24 hours 02/25/22 15:17 Blood Culture - Preliminary Blood No Growth after 24 hours
[2022-02-27] MEDS: MELATONIN 5 MG TABLET PO SCH (20:24)
[2022-02-27] MEDS: ATORVASTATIN 40 MG TAB PO SCH (20:24)
--- NOTE | 2022-02-28 00:20 | P.PN ---
Subjective Progress Note Date: 02/27/22 Principal diagnosis: Left leg wound and bilateral lower extremity cellulitis Patient is a 71 year male with a past medical history significant for venous stasis ulcer and recurrent lower extremity cellulitis admitted to the hospital with worsening swelling and redness and warmth of the left leg. On today's evaluation that is 02/27/2022, the patient denies having any fever or any chills, the patient is breathing comfortably, denies having any chest pain shortness will call for lower extremity pain and swelling has slightly decreased and no drainage Objective - Vital Signs Vital signs: Vital Signs Temp 97.6 F 02/27/22 08:00 Pulse 75 02/27/22 08:00 Resp 16 02/27/22 08:00 BP 140/67 02/27/22 08:00 Pulse Ox 90 L 02/27/22 08:00 Intake & Output 02/26/22 02/27/22 02/27/22 18:59 06:59 18:59 Output Total 700 500 Balance -700 -500 Output: Urine 700 500 Other: Voiding Method Toilet Urinal # Voids 2 - Exam GENERAL DESCRIPTION: An elderly male lying in bed in no distress RESPIRATORY SYSTEM: Unlabored breathing , decreased breath sounds at bases HEART: S1 S2 regular rate and rhythm , ABDOMEN: Soft , no tenderness EXTREMITIES: Bilateral legs are currently wrapped No drainage on the dressing - Labs CBC & Chem 7: 02/26/22 05:00 02/27/22 04:43 Labs: Microbiology - Last 24 Hours (Table) 02/25/22 15:17 Gram Stain - Preliminary Leg - Left Wound Culture - Preliminary Gram Neg Bacilli 02/25/22 15:15 Blood Culture - Preliminary Blood No Growth after 24 hours 02/25/22 15:17 Blood Culture - Preliminary Blood No Growth after 24 hours Assessment and Plan (1) Cellulitis Current Visit: Yes Status: Acute Code(s): L03.90 - CELLULITIS, UNSPECIFIED SNOMED Code(s): 911714173 Plan: 1patient with bilateral lower extremity cellulitis left greater than the right especially with the venous stasis ulcer to the left leg and some drainage faili ng outpatient oral Keflex now with a local culture showing gram-negative bacilli. 2patient to continue with cefepime 2 g every 8 hours 3-local wound care with the Medihoney followed by moist dressing and Moody wrap to the leg to keep the swelling down. Time with Patient: Less than 30
[2022-02-28] MEDS: HYDROcodone/APAP 10-325MG 1 EACH TAB PO PRN ×3 (00:58→23:43)
[2022-02-28] MEDS ORDERED: VANCOMYCIN TROUGH DUE 1 EACH MISC MISCELLANE ONE (05:00)
[2022-02-28 05:53] LABS: ALT 16 U/L (4-49); AST 31 U/L (17-59); African American GFR (CKD) >90 (>60 ml/min/1.73 sqM); Albumin 3.9 g/dL (3.5-5.0); Albumin/Globulin Ratio 1.1; Alkaline Phosphatase 69 U/L (38-126); Anion Gap 5 mmol/L; Blood Urea Nitrogen 24 mg/dL (9-20); Carbon Dioxide 36 mmol/L (22-30); Chloride 98 mmol/L (98-107); Globulin 3.4 g/dL; Glucose 112 mg/dL (74-99); Non-African American GFR(CKD) >90 (>60 ml/min/1.73 sqM); Potassium 4.5 mmol/L (3.5-5.1); Sodium 139 mmol/L (137-145); Total Bilirubin 1.1 mg/dL (0.2-1.3); Total Protein 7.3 g/dL (6.3-8.2)
[2022-02-28] MEDS: CEFEPIME 2 GM in SODIUM CHLORIDE 0.9% 100 ML IVPB SCH ×3 (08:11→23:42)
[2022-02-28] MEDS: carvediloL 3.125 MG TAB PO SCH ×2 (08:12→17:18)
[2022-02-28] MEDS: PREGABALIN 75 MG CAP PO SCH ×2 (08:12→20:25)
[2022-02-28] MEDS: ASPIRIN 81 MG PO SCH (08:12)
[2022-02-28] MEDS: PRAMIPEXOLE 1 MG TAB PO SCH ×3 (08:12→20:25)
[2022-02-28] MEDS: LOSARTAN 25 MG TAB PO SCH (08:12)
[2022-02-28] MEDS: HEPARIN SODIUM,PORCINE/PF 5,000 UNIT/0.5 ML SYRINGE SQ SCH ×3 (08:12→23:43)
[2022-02-28] MEDS: SPIRONOLACTONE 25 MG TAB PO SCH ×2 (08:12→09:02)
[2022-02-28] MEDS: OXcarbazepine 150 MG TAB PO SCH ×2 (08:12→20:25)
[2022-02-28] MEDS: FUROSEMIDE 80 MG TAB PO SCH (08:12)
[2022-02-28] MEDS: SENNOSIDES-DOCUSATE SODIUM 1 EACH TAB PO SCH (08:12)
[2022-02-28] MEDS ORDERED: IPRATROPIUM-ALBUTEROL 3 ML NEB INHALATION PRN (08:47)
[2022-02-28] MEDS: FUROSEMIDE 40 MG TAB PO SCH (09:01)
[2022-02-28 09:11] LABS: HCT 42.5 % (39.6-50.0); HGB 12.6 g/dL (13.0-17.0); MCHC 29.6 g/dL (32.0-37.0); MCV 91.2 fL (80.0-97.0); Mean Platelet Volume 10.7 fL (9.5-12.2); NRBC Per 100 WBC 0.1 /100 WBCS (0.0-0.0); Platelet Count 272 X 10*3/uL (140-440); RBC 4.66 X 10*6/uL (4.40-5.60); RDW 18.5 % (11.5-14.5); WBC 15.98 X 10*3/uL (4.50-10.00)
[2022-02-28 11:08] LABS: Basophils # (M) 0 X 10*3/uL (0.00-0.10); Eosinophils # (M) 1.28 X 10*3/uL (0.04-0.35); Lymphocytes # (M) 1.44 X 10*3/uL (0.90-5.00); Metamyelocytes % 1 % (0-0); Monocytes # (M) 0.48 X 10*3/uL (0.20-1.00); Myelocytes % 4 % (0-0); Neutrophils # (M) 11.99 X 10*3/uL (2.00-8.90); Neutrophils % (M) 75 %
[2022-02-28] MEDS: ATORVASTATIN 40 MG TAB PO SCH (20:25)
[2022-02-28] MEDS: MELATONIN 5 MG TABLET PO SCH (20:25)
--- NOTE | 2022-03-01 07:49 | P.PN ---
Subjective Progress Note Date: 02/28/22 Principal diagnosis: Left leg wound and bilateral lower extremity cellulitis Patient is a 71 year male with a past medical history significant for venous stasis ulcer and recurrent lower extremity cellulitis admitted to the hospital with worsening swelling and redness and warmth of the left leg. On today's evaluation that is 02/28/2022, the patient remains to be afebrile, the patient is breathing comfortably, the patient denies having any chest pain shortness of breath, the patient lower extremity pain and swelling has slightly decreased and no drainage Objective - Vital Signs Vital signs: Vital Signs Temp 97.8 F 02/28/22 08:00 Pulse 67 02/28/22 08:00 Resp 18 02/28/22 08:00 BP 136/69 02/28/22 08:00 Pulse Ox 98 02/28/22 08:00 Intake & Output 02/27/22 02/28/22 02/28/22 18:59 06:59 18:59 Output Total 2100 825 Balance -2100 -825 Output: Urine 2100 825 Other: Voiding Method Toilet Toilet Urinal Urinal - Exam GENERAL DESCRIPTION: An elderly male lying in bed in no distress RESPIRATORY SYSTEM: Unlabored breathing , decreased breath sounds at bases HEART: S1 S2 regular rate and rhythm , ABDOMEN: Soft , no tenderness EXTREMITIES: Left lower extremity wound with less slough tissue surrounding re dness has decreased - Labs CBC & Chem 7: 02/28/22 05:08 02/28/22 05:08 Labs: Abnormal Lab Results - Last 24 Hours (Table) 02/28/22 02/28/22 Range/Units 05:08 05:08 WBC 15.98 H (4.50-10.00) X 10*3/uL Hgb 12.6 L (13.0-17.0) g/dL MCHC 29.6 L (32.0-37.0) g/dL RDW 18.5 H (11.5-14.5) % Absolute Nucleated RBC 0.02 H (0.00-0.00) X 10*3/uL Metamyelocytes % 1 H (0-0) % Myelocytes % 4 H (0-0) % Neutrophils # (Manual) 11.99 H (2.00-8.90) X 10*3/uL Eosinophils # (Manual) 1.28 H (0.04-0.35) X 10*3/uL NRBC/100 WBC Diff 0.1 H (0.0-0.0) /100 WBCS Carbon Dioxide 36 H (22-30) mmol/L BUN 24 H (9-20) mg/dL Glucose 112 H (74-99) mg/dL Microbiology - Last 24 Hours (Table) 02/25/22 15:17 Gram Stain - Final Leg - Left Wound Culture - Final Pseudomonas aeruginosa 02/25/22 15:15 Blood Culture - Preliminary Blood No Growth after 48 hours 02/25/22 15:17 Blood Culture - Preliminary Blood No Growth after 48 hours 02/25/22 15:17 Anaerobic Culture - Preliminary Leg - Left Assessment and Plan (1) Cellulitis Current Visit: Yes Status: Acute Code(s): L03.90 - CELLULITIS, UNSPECIFIED SNOMED Code(s): 814315416 Plan: 1patient with bilateral lower extremity cellulitis left greater than the right especially with the venous stasis ulcer to the left leg and some drainage failing outpatient oral Keflex now with a local culture showing gram-negative bacilli. 2patient to continue with cefepime 2 g every 8 hours for another 24 hours 3[facility] and Moody wrap to the leg to keep the swelling down. Time with Patient: Less than 30
[2022-03-01] MEDS: FUROSEMIDE 40 MG TAB PO SCH (08:04)
[2022-03-01] MEDS: carvediloL 3.125 MG TAB PO SCH ×2 (08:04→16:40)
[2022-03-01] MEDS: SENNOSIDES-DOCUSATE SODIUM 1 EACH TAB PO SCH (08:04)
[2022-03-01] MEDS: LOSARTAN 25 MG TAB PO SCH (08:04)
[2022-03-01] MEDS: ASPIRIN 81 MG PO SCH (08:04)
[2022-03-01] MEDS: PREGABALIN 75 MG CAP PO SCH ×2 (08:05→20:36)
[2022-03-01] MEDS: SPIRONOLACTONE 25 MG TAB PO SCH (08:05)
[2022-03-01] MEDS: CEFEPIME 2 GM in SODIUM CHLORIDE 0.9% 100 ML IVPB SCH ×2 (08:06→16:41)
[2022-03-01] MEDS: HEPARIN SODIUM,PORCINE/PF 5,000 UNIT/0.5 ML SYRINGE SQ SCH ×2 (08:06→16:41)
[2022-03-01] MEDS: PRAMIPEXOLE 1 MG TAB PO SCH ×3 (08:07→20:36)
[2022-03-01] MEDS: OXcarbazepine 150 MG TAB PO SCH ×2 (08:07→20:36)
[2022-03-01] MEDS: HYDROcodone/APAP 10-325MG 1 EACH TAB PO PRN ×2 (08:08→20:36)
[2022-03-01 08:23] LABS: ALT 21 U/L (4-49); AST 36 U/L (17-59); African American GFR (CKD) >90 (>60 ml/min/1.73 sqM); Albumin 4.3 g/dL (3.5-5.0); Albumin/Globulin Ratio 1.1; Alkaline Phosphatase 76 U/L (38-126); Anion Gap 7 mmol/L; Blood Urea Nitrogen 26 mg/dL (9-20); Calcium 9.2 mg/dL (8.4-10.2); Carbon Dioxide 37 mmol/L (22-30); Chloride 98 mmol/L (98-107); Globulin 3.8 g/dL; Glucose 119 mg/dL (74-99); Non-African American GFR(CKD) >90 (>60 ml/min/1.73 sqM); Potassium 4.5 mmol/L (3.5-5.1); Sodium 142 mmol/L (137-145); Total Bilirubin 1.1 mg/dL (0.2-1.3); Total Protein 8.1 g/dL (6.3-8.2)
[2022-03-01 09:24] LABS: Magnesium 2.3 mg/dL (1.6-2.3)
[2022-03-01 11:52] LABS: HCT 45.5 % (39.6-50.0); HGB 13.8 g/dL (13.0-17.0); MCH 27.6 pg (27.0-32.0); MCHC 30.3 g/dL (32.0-37.0); Mean Platelet Volume 10.9 fL (9.5-12.2); NRBC Per 100 WBC 0 /100 WBCS (0.0-0.0); Platelet Count 299 X 10*3/uL (140-440); RDW 18.7 % (11.5-14.5); WBC 15.73 X 10*3/uL (4.50-10.00)
[2022-03-01 11:53] LABS: Basophils # (M) 0.31 X 10*3/uL (0.00-0.10); Eosinophils # (M) 0.31 X 10*3/uL (0.04-0.35); Lymphocytes # (M) 1.89 X 10*3/uL (0.90-5.00); Metamyelocytes % 1 % (0-0); Monocytes # (M) 0.63 X 10*3/uL (0.20-1.00); Myelocytes % 3 % (0-0); Neutrophils % (M) 75 %; Promyelocytes % 1 % (0-0); RBC Morphology NORMAL
[2022-03-01] MEDS: DULoxetine HCL 30 MG CAPSULE.DR PO SCH (14:30)
--- NOTE | 2022-03-01 14:45 | P.PN ---
Subjective Progress Note Date: 03/01/22 HISTORY OF PRESENT ILLNESS This is a 71-year-old male patient with past medical history of hypertension, h yperlipidemia, CVA, mild persistent ALLERGIC asthma, seizure disorder, Parkinson's disease, chronic diastolic heart failure, stasis dermatitis of the left lower extremity due to peripheral venous hypertension, spondylosis of the lumbar spine, obstructive sleep apnea. Patient was seen in the office yesterday for cellulitis of the both lower extremities. Patient had been on oral antibiotics for the past month without improvement and presented with a large vascular ulcer to the left lower extremity pretibial area as well as cellulitis to bilateral lower extremities. Patient was sent directly over the emergency center at [facility] for further evaluation and treatment. Patient was found to be afebrile, heart rate in the 70s and 80s, blood pressure 116/81, pulse ox 94% on room air. WBC 13.6, hemoglobin 15.3, platelet count 284. Electrolytes normal, BUN 21 creatinine 0.8. Liver function tests were normal. Lactic acid 1.3. Troponin negative. ProBNP 29. Recent hemoglobin A1c was 6.25 Nov 2021. X-ray tibia-fibula bilaterally showed no fracture. Chest x-ray revealed no acute pulmonary disease. Patient has been started on Vancomycin, Silvadene wraps, admitted to the MedSur floor and consult with Dr. Amezquita, [facility]. 02/27: Patient sitting up in the edge of the bed, he is doing better today, he continues to be on vancomycin, he continues to be on Silvadene wraps with a right lower extremity admitted honey to the left lower extremity, he has been seen in consultation by infectious disease, we'll continue current treatment plan, the plan is to transfer the patient to [facility] in the next few days when his cellulitis is better. 03/01: Patient is sitting up in recliner and edema and wounds are improving to the lower extremity. He states he has had a little chest pain but breathing is easier. Patient's been afebrile, heart rate 77, blood pressure 128/86, pulse ox 97% on 3 L nasal cannula. Patient started on Cymbalta 30 mg daily for depression. He denies having any headache today improved from yesterday. Repeat blood work reveals WBC 15.7, hemoglobin 13.8, platelet count 299. CO2 is 37, BUN 26 and creatinine 0.73. Blood sugar 119. Wound culture is pseudomonas aeruginosa pansensitive and patient is on cefepime. Patient has been followed by Dr. Broderick and Dr. Amezquita. REVIEW OF SYSTEMS Constitutional: No fever, no chills, no night sweats. No weight change. No weakness, fatigue or lethargy. No daytime sleepiness. EENT: No headache. No blurred vision or double vision, no loss of vision. No loss of Hearing, no ringing in the ears, no dizziness. No nasal drainage or congestion. No epistaxis. No sore throat. Lungs:Chronic shortness of breath, cough, no sputum production. No wheezing.Chronic dyspnea with exertion. Cardiovascular: No chest pain,reports lower extremity edema is improving. No palpitations. No paroxysmal nocturnal dyspnea. No orthopnea. No lightheadedness or dizziness. No syncopal episodes. Abdominal: No abdominal pain. No nausea, vomiting. No diarrhea. No constipation. No bloody or tarry stools. No loss of appetite. Genitourinary: No dysuria, increased frequency, urgency. No urinary retention. Musculoskeletal: No myalgias. No muscle weakness, no gait dysfunction, no frequent falls. No back pain. No neck pain. Integumentary:Reports wounds to the bilateral lower extremities. No rash or pruritus. No unusual bruising. No change in hair or nails. Neurologic: No aphasia. No facial droop. No change in mentation. No head injury. No headache. No paralysis. No paresthesia. Psychiatric: No depression. No anxiety. No mood swings. Endocrine: No abnormal blood sugars. No weight change. No excessive sweating or thirst. No cold intolerance. PHYSICAL EXAMINATION Gen: This is a morbidly obese 71-year-old male patient sitting in recliner and appears to be in no acute respiratory distress. HEENT: Head is atraumatic, normocephalic. Pupils equal, round. Sclerae is an icteric. NECK: Supple. No JVD. No lymphadenopathy. No thyromegaly. LUNGS: Clear to auscultation. No wheezes or rhonchi. No intercostal retractions. HEART: First heart sound is depressed, second heart sound is normal, there is a 2/6 systolic ejection murmur at the left sternal border, no S3, no S4.. ABDOMEN: Soft. Bowel sounds are present. No masses. No tenderness. EXTREMITIES: 2+ bilateral pitting pedal edema with minimal erythema. Also noted to the left pretibial area. Please see nursing documentation for details. NEUROLOGICAL: Patient is awake, alert and oriented x3. Cranial nerves 2 through 12 are grossly intact. ASSESSMENT AND PLAN 1. Bilateral lower extremity cellulitis. Wound culture is in progress, consult with Dr. Amezquita appreciated, patient was started on cefepime 2 g IV piggyback every 8 hours, continue local wound care with Silvadene wraps to the right lower extremity as well as medihoney to the left lower extremity keep the leg elevated, monitor the patient very closely. Continue Lasix 40 mg orally once every day. 2. Hypertension and hypertensive cardiovascular disease. Continue Coreg 3.125 mg twice daily, we will continue to monitor the patient blood pressure very closely. 3. Hyperlipidemia. Low cholesterol diet, start the patient on atorvastatin 40 mg orally once every day. 4. History of CVA. Patient will need to be continued on aspirin 81 mg once every day as well as atorvastatin 40 mg orally once every day. 5. Parkinsonism. Continue Mirapex 1 mg 3 times daily. 6. Chronic diastolic heart failure. Continue patient on Lasix 80 mg oral daily, Coreg 3.125 mg twice daily, Aldactone 25 mg daily, add losartan 25 mg orally once every day. 7. Spondylosis of the lumbar spine. Continue hydrocodone/acetaminophen 10/325 mg orally 1 tablet every 6 hours as needed, continue pregabalin 75 minute gram orally twice every day. 8. Obstructive sleep apnea. patient does not have any CPAP machine. 9. GI prophylaxis. Protonix 40 mg daily oral. 10. DVT prophylaxis. Heparin 5000 units subcutaneously every 8 hours. 11. Physical therapy evaluation. DISCHARGE PLAN Subacute rehab at [facility] most likely in the next 24 hours Impression and plan of care have been directed as dictated by the signing physician. Caitie Breaux nurse practitioner acting as scribe for signing physician. Objective - Vital Signs Vital signs: Vital Signs Temp 97.8 F 03/01/22 08:00 Pulse 77 03/01/22 08:00 Resp 18 03/01/22 08:00 BP 128/86 03/01/22 08:00 Pulse Ox 97 03/01/22 08:00 Intake & Output 02/28/22 03/01/22 03/01/22 18:59 06:59 18:59 Intake Total 100 Output Total 1000 400 150 Balance -900 -400 -150 Intake: IV 100 Cefepime 2 gm In Sodium 100 Chloride 0.9% 100 ml @ 25 mls/hr IVPB Q8HR [facility] Rx# :[id number] Output: Urine 1000 400 150 Other: Voiding Method Toilet Toilet Toilet Urinal Urinal Urinal # Bowel Movements 1 - Labs CBC & Chem 7: 03/01/22 07:25 03/01/22 07:25 Labs: Abnormal Lab Results - Last 24 Hours (Table) 02/26/22 03/01/22 03/01/22 Range/Units 05:00 07:25 07:25 WBC 15.73 H (4.50-10.00) X 10*3/uL MCHC 30.3 L (32.0-37.0) g/dL RDW 18.7 H (11.5-14.5) % Metamyelocytes % 1 H (0-0) % Myelocytes % 3 H (0-0) % Promyelocytes % 1 H (0-0) % Neutrophils # (Manual) 11.80 H (2.00-8.90) X 10*3/uL Basophils # (Manual) 0.31 H (0.00-0.10) X 10*3/uL Promyelocytes # (Man) 0.16 H (0) k/uL Carbon Dioxide 37 H (22-30) mmol/L BUN 26 H (9-20) mg/dL Glucose 119 H (74-99) mg/dL Microbiology - Last 24 Hours (Table) 02/25/22 15:15 Blood Culture - Preliminary Blood No Growth after 72 hours 02/25/22 15:17 Blood Culture - Preliminary Blood No Growth after 72 hours
--- NOTE | 2022-03-01 15:36 | P.GSCN ---
History of Present Illness History of present illness: 71-year-old gentleman well known to me from the past patient was seen in my office in the past had a venous study done patient has a chronic venous hypertension patient has been admitted with bilateral lower extremity cellulitis and patient has a large venous ulcer left lower extremity. Patient also has a history of coronary artery disease hypertension COPD Chest i first and second sound present patient has a crackles bilateral lung bases Abdomen is soft nontender Vascular femorals are 1+ bilateral patient has a severe bilateral lower extremity cellulitis with Brown induration the both lower extremity patient has a large venous stasis ulcer left lower extremity Plan is I will review his venous study from from my office tomorrow in the meantime continue with the local wound care and IV antibiotic follow with you Past Medical History Past Medical History: Asthma, Coronary Artery Disease (CAD), Hyperlipidemia, Hypertension, Myocardial Infarction ([place]), Seizure Disorder Additional Past Medical History / Comment(s): restless leg, cardiomyopathy, wounds RT legs, BLE SWOLLEN AND DARK IN COLOR, LAST SEIZURE 1 WEEK AGO ON LEFT SIDE, FELL 06/03/18 GETTING UP FROM CHAIR, irritant induced asthma, hand tremors, double vision Last Myocardial Infarction Date:: 1989 History of Any Multi-Drug Resistant Organisms: None Reported Past Surgical History: Back Surgery, Cholecystectomy Additional Past Surgical History / Comment(s): brain tumor SX, 2ND DIGIT LT FOOT REMOVED, COLONOSCOPY Past Anesthesia/Blood Transfusion Reactions: No Reported Reaction Past Psychological History: No Psychological Hx Reported Smoking Status: Never smoker Past Alcohol Use History: None Reported Past Drug Use History: None Reported - Past Family History Mother Family Medical History: Cancer Additional Family Medical History / Comment(s): pancreatic Father Family Medical History: Cancer Additional Family Medical History / Comment(s): melanoma Brother(s) Family Medical History: Deep Vein Thrombosis (DVT) Daughter(s) Family Medical History: Deep Vein Thrombosis (DVT), Pulmonary Embolus Medications and Allergies Home Medications Medication Instructions Recorded Confirmed Type Pramipexole [Mirapex] 1 mg PO TID 07/06/16 02/25/22 History Pregabalin [Lyrica] 75 mg PO BID 06/28/18 02/25/22 History carvediloL [Coreg] 3.125 mg PO BID 06/28/18 02/25/22 History Furosemide [Lasix] 40 mg PO DAILY 02/25/22 02/25/22 History Melatonin 10 mg PO HS 02/25/22 02/25/22 History Spironolactone [Aldactone] 25 mg PO DAILY 02/25/22 02/25/22 History Allergies Allergy/AdvReac Type Severity Reaction Status Date / Time codeine Allergy Dyspnea Verified 02/25/22 16:35 Penicillins Allergy Dyspnea Verified 02/25/22 16:35 Surgical - Exam Vital Signs Temp Pulse Resp BP Pulse Ox 98.4 F 89 16 122/73 95 02/25/22 14:17 02/25/22 14:17 02/25/22 14:17 02/25/22 14:17 02/25/22 14:17 Results - Labs 03/01/22 07:25 03/01/22 07:25 Abnormal Lab Results - Last 24 Hours (Table) 02/26/22 03/01/22 03/01/22 Range/Units 05:00 07:25 07:25 WBC 15.73 H (4.50-10.00) X 10*3/uL MCHC 30.3 L (32.0-37.0) g/dL RDW 18.7 H (11.5-14.5) % Metamyelocytes % 1 H (0-0) % Myelocytes % 3 H (0-0) % Promyelocytes % 1 H (0-0) % Neutrophils # (Manual) 11.80 H (2.00-8.90) X 10*3/uL Basophils # (Manual) 0.31 H (0.00-0.10) X 10*3/uL Promyelocytes # (Man) 0.16 H (0) k/uL Carbon Dioxide 37 H (22-30) mmol/L BUN 26 H (9-20) mg/dL Glucose 119 H (74-99) mg/dL Microbiology - Last 24 Hours (Table) 02/25/22 15:15 Blood Culture - Preliminary Blood No Growth after 72 hours 02/25/22 15:17 Blood Culture - Preliminary Blood No Growth after 72 hours Diabetes panel 03/01/22 Range/Units 07:25 Sodium 142 (137-145) mmol/L Potassium 4.5 (3.5-5.1) mmol/L Chloride 98 (98-107) mmol/L Carbon Dioxide 37 H (22-30) mmol/L BUN 26 H (9-20) mg/dL Creatinine 0.73 (0.66-1.25) mg/dL Glucose 119 H (74-99) mg/dL Calcium 9.2 (8.4-10.2) mg/dL AST 36 (17-59) U/L ALT 21 (4-49) U/L Alkaline Phosphatase 76 (38-126) U/L Total Protein 8.1 (6.3-8.2) g/dL Albumin 4.3 (3.5-5.0) g/dL Calcium panel 03/01/22 Range/Units 07:25 Calcium 9.2 (8.4-10.2) mg/dL Albumin 4.3 (3.5-5.0) g/dL Pituitary panel 03/01/22 Range/Units 07:25 Sodium 142 (137-145) mmol/L Potassium 4.5 (3.5-5.1) mmol/L Chloride 98 (98-107) mmol/L Carbon Dioxide 37 H (22-30) mmol/L BUN 26 H (9-20) mg/dL Creatinine 0.73 (0.66-1.25) mg/dL Glucose 119 H (74-99) mg/dL Calcium 9.2 (8.4-10.2) mg/dL Adrenal panel 03/01/22 Range/Units 07:25 Sodium 142 (137-145) mmol/L Potassium 4.5 (3.5-5.1) mmol/L Chloride 98 (98-107) mmol/L Carbon Dioxide 37 H (22-30) mmol/L BUN 26 H (9-20) mg/dL Creatinine 0.73 (0.66-1.25) mg/dL Glucose 119 H (74-99) mg/dL Calcium 9.2 (8.4-10.2) mg/dL Total Bilirubin 1.1 (0.2-1.3) mg/dL AST 36 (17-59) U/L ALT 21 (4-49) U/L Alkaline Phosphatase 76 (38-126) U/L Total Protein 8.1 (6.3-8.2) g/dL Albumin 4.3 (3.5-5.0) g/dL
--- NOTE | 2022-03-01 20:06 | P.PN ---
Subjective Progress Note Date: 02/28/22 HISTORY OF PRESENT ILLNESS This is a 71-year-old male patient with past medical history of hypertension, h yperlipidemia, CVA, mild persistent ALLERGIC asthma, seizure disorder, Parkinson's disease, chronic diastolic heart failure, stasis dermatitis of the left lower extremity due to peripheral venous hypertension, spondylosis of the lumbar spine, obstructive sleep apnea. Patient was seen in the office yesterday for cellulitis of the both lower extremities. Patient had been on oral antibiotics for the past month without improvement and presented with a large vascular ulcer to the left lower extremity pretibial area as well as cellulitis to bilateral lower extremities. Patient was sent directly over the emergency center at [facility] for further evaluation and treatment. Patient was found to be afebrile, heart rate in the 70s and 80s, blood pressure 116/81, pulse ox 94% on room air. WBC 13.6, hemoglobin 15.3, platelet count 284. Electrolytes normal, BUN 21 creatinine 0.8. Liver function tests were normal. Lactic acid 1.3. Troponin negative. ProBNP 29. Recent hemoglobin A1c was 6.25 Nov 2021. X-ray tibia-fibula bilaterally showed no fracture. Chest x-ray revealed no acute pulmonary disease. Patient has been started on Vancomycin, Silvadene wraps, admitted to the MedSur floor and consult with Dr. Amezquita, [facility]. 02/27: Patient sitting up in the edge of the bed, he is doing better today, he continues to be on vancomycin, he continues to be on Silvadene wraps with a right lower extremity admitted honey to the left lower extremity, he has been seen in consultation by infectious disease, we'll continue current treatment plan, the plan is to transfer the patient to [facility] in the next few days when his cellulitis is better. 02/28: patient is lying down in bed appears very depressed due to his condition and he continues to have issues with pain in the left leg along with weakness due to huge body habitus, he denies any chest pain, somewhat short of breath, less edema in both legs, no sore throat, dry mouth and no diarrhea. REVIEW OF SYSTEMS Constitutional: No fever, no chills, no night sweats. No weight change. No weakness, fatigue or lethargy. No daytime sleepiness. EENT: No headache. No blurred vision or double vision, no loss of vision. No loss of Hearing, no ringing in the ears, no dizziness. No nasal drainage or congestion. No epistaxis. No sore throat. Lungs:Chronic shortness of breath, cough, no sputum production. No wheezing.Chronic dyspnea with exertion. Cardiovascular: No chest pain,reports lower extremity edema. No palpitations. No paroxysmal nocturnal dyspnea. No orthopnea. No lightheadedness or dizzin ess. No syncopal episodes. Abdominal: No abdominal pain. No nausea, vomiting. No diarrhea. No co nstipation. No bloody or tarry stools. No loss of appetite. Genitourinary: No dysuria, increased frequency, urgency. No urinary retention. Musculoskeletal: No myalgias. No muscle weakness, no gait dysfunction, no frequent falls. No back pain. No neck pain. Integumentary:Reports wounds to the bilateral lower extremities. No rash or pruritus. No unusual bruising. No change in hair or nails. Neurologic: No aphasia. No facial droop. No change in mentation. No head injury. No headache. No paralysis. No paresthesia. Psychiatric: No depression. No anxiety. No mood swings. Endocrine: No abnormal blood sugars. No weight change. No excessive sweating or thirst. No cold intolerance. PHYSICAL EXAMINATION Gen: This is a morbidly obese 71-year-old male patient sitting on the edge of the bed and appears to be in no acute respiratory distress. HEENT: Head is atraumatic, normocephalic. Pupils equal, round. Sclerae is anicteric. NECK: Supple. No JVD. No lymphadenopathy. No thyromegaly. LUNGS: Clear to auscultation. No wheezes or rhonchi. No intercostal retractions. HEART: First heart sound is depressed, second heart sound is normal, there is a 2/6 systolic ejection murmur at the left sternal border, no S3, no S4.. ABDOMEN: Soft. Bowel sounds are present. No masses. No tenderness. EXTREMITIES: 2+ bilateral pitting pedal edema with erythema. Also noted to the left pretibial area. Please see nursing documentation for details. NEUROLOGICAL: Patient is awake, alert and oriented x3. Cranial nerves 2 through 12 are grossly intact. ASSESSMENT AND PLAN 1. Bilateral lower extremity cellulitis. Wound culture is in progress, consult with Dr. Amezquita appreciated, patient was started on cefepime 2 g IV piggyback every 8 hours, continue local wound care with Silvadene wraps to the right lower extremity as well as many honey to the left lower extremity keep the leg elevated, monitor the patient very closely. Continue Lasix 80 mg orally once every day. 2. Hypertension and hypertensive cardiovascular disease. Continue Coreg 3.125 mg twice daily, we will continue to monitor the patient blood pressure very closely. 3. Hyperlipidemia. Low cholesterol diet, start the patient on atorvastatin 40 mg orally once every day. 4. History of CVA. Patient will need to be continued on aspirin 81 mg once every day as well as atorvastatin 40 mg orally once every day. 5. . Parkinsonism. Continue Mirapex 1 mg 3 times daily. 6. Chronic diastolic heart failure. Continue patient on Lasix 80 mg oral daily, Coreg 3.125 mg twice daily, Aldactone 25 mg daily, add losartan 25 mg orally once every day. 7. Spondylosis of the lumbar spine. Continue hydrocodone/acetaminophen 10/325 mg orally 1 tablet every 6 hours as needed, continue pregabalin 75 minute gram orally twice every day. 8. Obstructive sleep apnea. patient does not have any CPAP machine. 9. GI prophylaxis. Protonix 40 mg daily oral. 10. DVT prophylaxis. Heparin 5000 units subcutaneously every 8 hours. 11. Physical therapy evaluation. 12. hothouse worker consultation. Objective - Vital Signs Vital signs: Vital Signs Temp 97.4 F L 02/28/22 02:00 Pulse 63 02/28/22 02:00 Resp 20 02/28/22 02:00 BP 119/67 02/28/22 02:00 Pulse Ox 95 02/28/22 02:00 Intake & Output 02/27/22 02/28/22 02/28/22 18:59 06:59 18:59 Output Total 2100 825 Balance -2100 -825 Output: Urine 2100 825 Other: Voiding Method Toilet Urinal - Labs CBC & Chem 7: 02/26/22 05:00 02/28/22 05:08 Labs: Abnormal Lab Results - Last 24 Hours (Table) 02/28/22 Range/Units 05:08 Carbon Dioxide 36 H (22-30) mmol/L BUN 24 H (9-20) mg/dL Glucose 112 H (74-99) mg/dL Microbiology - Last 24 Hours (Table) 02/25/22 15:17 Gram Stain - Final Leg - Left Wound Culture - Final Pseudomonas aeruginosa 02/25/22 15:15 Blood Culture - Preliminary Blood No Growth after 48 hours 02/25/22 15:17 Blood Culture - Preliminary Blood No Growth after 48 hours 02/25/22 15:17 Anaerobic Culture - Preliminary Leg - Left
[2022-03-01] MEDS: MELATONIN 5 MG TABLET PO SCH (20:35)
[2022-03-01] MEDS: ATORVASTATIN 40 MG TAB PO SCH (20:36)
--- NOTE | 2022-03-01 21:43 | P.PN ---
Subjective Progress Note Date: 03/01/22 Principal diagnosis: Left leg wound and bilateral lower extremity cellulitis Patient is a 71 year male with a past medical history significant for venous stasis ulcer and recurrent lower extremity cellulitis admitted to the hospital with worsening swelling and redness and warmth of the left leg. On today's evaluation that is 03/01/2022, the patient denies any fever or chills, the patient is breathing comfortably on nasal cannula oxygen, the patient denies having any chest pain shortness of breath, the patient lower extremity pain and swelling has slightly decreased and no further drainage Objective - Vital Signs Vital signs: Vital Signs Temp 97.8 F 03/01/22 08:00 Pulse 77 03/01/22 08:00 Resp 18 03/01/22 08:00 BP 128/86 03/01/22 08:00 Pulse Ox 97 03/01/22 08:00 Intake & Output 02/28/22 03/01/22 03/01/22 18:59 06:59 18:59 Intake Total 100 Output Total 1000 400 Balance -900 -400 Intake: IV 100 Cefepime 2 gm In Sodium 100 Chloride 0.9% 100 ml @ 25 mls/hr IVPB Q8HR [facility] Rx# :[id number] Output: Urine 1000 400 Other: Voiding Method Toilet Toilet Urinal Urinal # Bowel Movements 1 - Exam GENERAL DESCRIPTION: An elderly male lying in bed in no distress RESPIRATORY SYSTEM: Unlabored breathing , decreased breath sounds at bases HEART: S1 S2 regular rate and rhythm , ABDOMEN: Soft , no tenderness EXTREMITIES: Left lower extremity wound with less slough tissue surrounding redness has decreased - Labs CBC & Chem 7: 03/01/22 07:25 03/01/22 07:25 Labs: Abnormal Lab Results - Last 24 Hours (Table) 02/26/22 02/28/22 03/01/22 Range/Units 05:00 05:08 07:25 Metamyelocytes % 1 H (0-0) % Myelocytes % 4 H (0-0) % Neutrophils # (Manual) 11.99 H (2.00-8.90) X 10*3/uL Eosinophils # (Manual) 1.28 H (0.04-0.35) X 10*3/uL Promyelocytes # (Man) 0.16 H (0) k/uL Carbon Dioxide 37 H (22-30) mmol/L BUN 26 H (9-20) mg/dL Glucose 119 H (74-99) mg/dL Microbiology - Last 24 Hours (Table) 02/25/22 15:15 Blood Culture - Preliminary Blood No Growth after 72 hours 02/25/22 15:17 Blood Culture - Preliminary Blood No Growth after 72 hours Assessment and Plan (1) Cellulitis Current Visit: Yes Status: Acute Code(s): L03.90 - CELLULITIS, UNSPECIFIED SNOMED Code(s): 102325156 Plan: 1patient with bilateral lower extremity cellulitis left greater than the right especially with the venous stasis ulcer to the left leg and some drainage failing outpatient oral Keflex now with a local culture showing gram-negative bacilli. 2patient seemed to showing clinical improvement and will continue with cefepime 2 g every 8 hours, with a possible plan to go to the prison advised to get the midline and continue with IV cefepime for about a week 3-local wound care with the Medihoney followed by moist dressing and Moody wrap to the leg to keep the swelling down. Time with Patient: Less than 30
[2022-03-02] MEDS: CEFEPIME 2 GM in SODIUM CHLORIDE 0.9% 100 ML IVPB SCH ×3 (01:10→14:10)
[2022-03-02] MEDS: HEPARIN SODIUM,PORCINE/PF 5,000 UNIT/0.5 ML SYRINGE SQ SCH ×2 (01:10→09:55)
[2022-03-02 02:09] VITALS: RESP 16
[2022-03-02 09:29] VITALS: PULSE 63
[2022-03-02] MEDS: ASPIRIN 81 MG PO SCH (09:54)
[2022-03-02] MEDS: LOSARTAN 25 MG TAB PO SCH (09:54)
[2022-03-02] MEDS: PREGABALIN 75 MG CAP PO SCH (09:54)
[2022-03-02] MEDS: FUROSEMIDE 40 MG TAB PO SCH (09:54)
[2022-03-02] MEDS: OXcarbazepine 150 MG TAB PO SCH (09:54)
[2022-03-02] MEDS: SENNOSIDES-DOCUSATE SODIUM 1 EACH TAB PO SCH (09:54)
[2022-03-02] MEDS: carvediloL 3.125 MG TAB PO SCH (09:55)
[2022-03-02] MEDS: DULoxetine HCL 30 MG CAPSULE.DR PO SCH (09:55)
[2022-03-02] MEDS: PRAMIPEXOLE 1 MG TAB PO SCH (09:55)
[2022-03-02] MEDS: SPIRONOLACTONE 25 MG TAB PO SCH (09:55)
--- NOTE | 2022-03-02 11:09 | P.PN ---
Subjective Progress Note Date: 03/02/22 Principal diagnosis: Left leg wound and bilateral lower extremity cellulitis Patient is a 71 year male with a past medical history significant for venous stasis ulcer and recurrent lower extremity cellulitis admitted to the hospital with worsening swelling and redness and warmth of the left leg. On today's evaluation that is 03/02/2022, the patient remains to be afebrile, the patient is breathing comfortably on nasal cannula oxygen, the patient denies chest pain shortness of breath, patient did have occasional dry cough the patient lower extremity pain and swelling has slightly decreased and no further drainage Objective - Vital Signs Vital signs: Vital Signs Temp 97.8 F 03/02/22 08:00 Pulse 63 03/02/22 08:00 Resp 16 03/02/22 08:00 BP 134/77 03/02/22 08:00 Pulse Ox 96 03/02/22 08:00 Intake & Output 03/01/22 03/02/22 03/02/22 18:59 06:59 18:59 Intake Total 1080 Output Total 450 100 Balance 630 -100 Intake: Oral 1080 Output: Urine 450 100 Other: Voiding Method Toilet Toilet Urinal Urinal - Exam GENERAL DESCRIPTION: An elderly male lying in bed in no distress RESPIRATORY SYSTEM: Unlabored breathing , decreased breath sounds at bases HEART: S1 S2 regular rate and rhythm , ABDOMEN: Soft , no tenderness EXTREMITIES: Left lower extremity wound with less slough tissue surrounding redness has decreased - Labs CBC & Chem 7: 03/01/22 07:25 03/01/22 07:25 Labs: Abnormal Lab Results - Last 24 Hours (Table) 03/01/22 Range/Units 07:25 WBC 15.73 H (4.50-10.00) X 10*3/uL MCHC 30.3 L (32.0-37.0) g/dL RDW 18.7 H (11.5-14.5) % Metamyelocytes % 1 H (0-0) % Myelocytes % 3 H (0-0) % Promyelocytes % 1 H (0-0) % Neutrophils # (Manual) 11.80 H (2.00-8.90) X 10*3/uL Basophils # (Manual) 0.31 H (0.00-0.10) X 10*3/uL Microbiology - Last 24 Hours (Table) 02/25/22 15:17 Anaerobic Culture - Final Leg - Left 02/25/22 15:15 Blood Culture - Preliminary Blood No Growth after 96 hours 02/25/22 15:17 Blood Culture - Preliminary Blood No Growth after 96 hours Assessment and Plan (1) Cellulitis Current Visit: Yes Status: Acute Code(s): L03.90 - CELLULITIS, UNSPECIFIED SNOMED Code(s): 503940833 Plan: 1patient with bilateral lower extremity cellulitis left greater than the right especially with the venous stasis ulcer to the left leg and some drainage failing outpatient oral Keflex now with a local culture showing gram-negative bacilli. 2patient has showing overall clinical improvement and will continue with cefepime 2 g every 8 hours, patient will get the midline and continue with IV cefepime for about a week on [facility] 3-local wound care with the Medihoney followed by moist dressing and Moody wrap to the leg to keep the swelling down. Time with Patient: Less than 30
--- NOTE | 2022-03-02 11:49 | P.DS ---
Providers Date of admission: 02/25/22 16:34 Expected date of discharge: 03/02/22 Attending physician: Niko Valdez Consults: 02/25/22 16:34 Consult Physician Routine Consulting Provider: Efe Broderick Consult Reason/Comments: BLLE cellulitis Do you want consulting provider notified?: Yes 02/25/22 16:35 Consult Physician Routine Consulting Provider: Manny Amezquita Consult Reason/Comments: BLLE cellulitis Do you want consulting provider notified?: Yes Primary care physician: Niko Valdez [facility] Course: HISTORY OF PRESENT ILLNESS This is a 71-year-old male patient with past medical history of hypertension, hyperlipidemia, CVA, mild persistent ALLERGIC asthma, seizure disorder, Parkinson's disease, chronic diastolic heart failure, stasis dermatitis of the left lower extremity due to peripheral venous hypertension, spondylosis of the lumbar spine, obstructive sleep apnea. Patient was seen in the office yesterday for cellulitis of the both lower extremities. Patient had been on oral antibiotics for the past month without improvement and presented with a large vascular ulcer to the left lower extremity pretibial area as well as cellulitis to bilateral lower extremities. Patient was sent directly over the emergency center at [facility] for further evaluation and treatment. Patient was found to be afebrile, heart rate in the 70s and 80s, blood pressure 116/81, pulse ox 94% on room air. WBC 13.6, hemoglobin 15.3, platelet count 284. Electrolytes normal, BUN 21 creatinine 0.8. Liver function tests were normal. Lactic acid 1.3. Troponin negative. ProBNP 29. Recent hemoglobin A1c was 6.25 Nov 2021. X-ray tibia-fibula bilaterally showed no fracture. Chest x-ray revealed no acute pulmonary disease. Patient has been started on Vancomycin, Silvadene wraps, [facility] and consult with Dr. Amezquita, Dr. Broderick [facility]. 02/27: Patient sitting up in the edge of the bed, he is doing better today, he continues to be on vancomycin, he continues to be on Silvadene wraps with a right lower extremity admitted honey to the left lower extremity, he has been seen in consultation by infectious disease, we'll continue current treatment plan, the plan is to transfer the patient to [facility] in the next few days when his cellulitis is better. 03/01: Patient is sitting up in recliner and edema and wounds are improving to the lower extremity. He states he has had a little chest pain but breathing is easier. Patient's been afebrile, heart rate 77, blood pressure 128/86, pulse ox 97% on 3 L nasal cannula. Patient started on Cymbalta 30 mg daily for depression. He denies having any headache today improved from yesterday. Repeat blood work reveals WBC 15.7, hemoglobin 13.8, platelet count 299. CO2 is 37, BUN 26 and creatinine 0.73. Blood sugar 119. Wound culture is pseudomonas aeruginosa pansensitive and patient is on cefepime. Patient has been followed by Dr. Broderick and Dr. Amezquita. 03/02: Dr. Amezquita has recommended midline and IV cefepime for a week. Patient has been afebrile, heart rate 63, blood pressure 134/77, pulse ox 96% on 3 L nasal cannula. lower extremity edema is improved. Patient states that he is not eating well, not much appetite. Discharge plan is for subacute rehab at [facility]. Patient will be discharged to [facility] once arrangements are completed. DISCHARGE DIAGNOSES 1. Bilateral lower extremity cellulitis. Continue local wound care with Silvadene wraps to the right lower extremity as well as medihoney to the left lower extremity keep the leg elevated. 2. Hypertension and hypertensive cardiovascular disease. 3. Hyperlipidemia. 4. History of CVA. 5. Parkinsonism. 6. Chronic diastolic heart failure. 7. Spondylosis of the lumbar spine. 8. Obstructive sleep apnea. . DISCHARGE PLAN Subacute rehab at [facility] Greater than 35 minutes was utilized and coordinating patient's discharge. Impression and plan of care have been directed as dictated by the signing physic ian. Caitie Breaux nurse practitioner acting as scribe for signing physician. Patient Condition at Discharge: Stable Plan - Discharge Summary Discharge Rx Participant: Yes New Discharge Prescriptions: New Losartan [Cozaar] 25 mg PO DAILY tab DULoxetine HCL [Cymbalta] 30 mg PO DAILY Atorvastatin [Lipitor] 40 mg PO HS tab OXcarbazepine [Trileptal] 150 mg PO BID tab Spironolactone [Aldactone] 12.5 mg PO DAILY #30 tab Aspirin 81 mg PO DAILY Ipratropium-Albuterol Nebulize [Duoneb 0.5 mg-3 mg/3 ml Soln] 3 ml INHALATION RT-QID PRN ml PRN Reason: Shortness Of Breath Or Wheezing Cefepime [Maxipime] 2 gm IVPB Q8HR #21 each HYDROcodone/APAP 10-325MG [Bayard 10-325] 1 each PO Q6HR PRN #12 tab PRN Reason: Pain Sennosides-Docusate Sodium [Senokot-S] 2 each PO DAILY tab SILVER sulfADIAZINE CREAM [Silvadene Cream] 1 applic TOPICAL DAILY cream Continue Pramipexole [Mirapex] 1 mg PO TID carvediloL [Coreg] 3.125 mg PO BID Furosemide [Lasix] 40 mg PO DAILY Melatonin 10 mg PO HS Pregabalin [Lyrica] 75 mg PO BID #6 cap Discontinued Spironolactone [Aldactone] 25 mg PO DAILY Discharge Medication List Pramipexole [Mirapex] 1 mg PO TID 07/06/16 [History] carvediloL [Coreg] 3.125 mg PO BID 06/28/18 [History] Furosemide [Lasix] 40 mg PO DAILY 02/25/22 [History] Melatonin 10 mg PO HS 02/25/22 [History] Aspirin 81 mg PO DAILY 03/02/22 [Rx] Atorvastatin [Lipitor] 40 mg PO HS tab 03/02/22 [Rx] Cefepime [Maxipime] 2 gm IVPB Q8HR #21 each 03/02/22 [Rx] DULoxetine HCL [Cymbalta] 30 mg PO DAILY 03/02/22 [Rx] HYDROcodone/APAP 10-325MG [Bayard 10-325] 1 each PO Q6HR PRN #12 tab 03/02/22 [Rx] Ipratropium-Albuterol Nebulize [Duoneb 0.5 mg-3 mg/3 ml Soln] 3 ml INHALATION RT-QID PRN ml 03/02/22 [Rx] Losartan [Cozaar] 25 mg PO DAILY tab 03/02/22 [Rx] OXcarbazepine [Trileptal] 150 mg PO BID tab 03/02/22 [Rx] Pregabalin [Lyrica] 75 mg PO BID #6 cap 03/02/22 [Rx] SILVER sulfADIAZINE CREAM [Silvadene Cream] 1 applic TOPICAL DAILY cream 03/02/22 [Rx] Sennosides-Docusate Sodium [Senokot-S] 2 each PO DAILY tab 03/02/22 [Rx] Spironolactone [Aldactone] 12.5 mg PO DAILY #30 tab 03/02/22 [Rx] Follow up Appointment(s)/Referral(s): Niko Valdez MD [Primary Care Provider] - 1 Week (at [facility] [NON-STAFF] - 1 Week (w Dr. Broderick ) Patient Instructions/Handouts: Cellulitis (GEN) Activity/Diet/Wound Care/Special Instructions: Daily Wound Care: 1. Right Leg - apply silvadene, cover wounds with ABD pad, wrap with kerlex, then wrap with RAMOS wrap from calf to just above the toes. 2. Left Leg - apply metahoney to open wound and wrap with RAMOS wrap from calf to just above the toes. Discharge Disposition: TRANSFER TO SNF/ECF
[2022-03-02] MEDS ORDERED: LIDOCAINE 1% INJ 10MG/ML (5 ML VIAL-PF) SQ ONE ×2 (15:18→15:21)
[2022-03-02 16:31] VITALS: BP 117/68; TEMP 97.5
--- NOTE | 2022-03-03 09:14 | IR ---
PICC LINE PLACEMENT: HISTORY: Infection requiring long-term antibiotic therapy PROCEDURE: Ultrasound and fluoroscopic guidance of PICC line placement. COMPLICATIONS: None ANESTHESIA: 1. 1% Lidocaine locally. FINDINGS/TECHNIQUE: The procedure was explained to the patient. The risks, complications, benefits and alternatives were discussed and any questions were answered. Informed consent was obtained. The patient was placed supine on the fluoroscopic table and prepped and draped in the usual sterile fash ion. Utilizing a 21 gauge needle and sonographic and fluoroscopic guidance, access in the left basi lic vein was achieved and there is placement of a 0.018 guidewire. The vein is patent. A 4-F sheath was placed over the guidewire. The guidewire and dilator were removed and a 4-F. PICC line was plac ed through the sheath with the tip at the level of the SVC. The sheath was removed, the catheter was flushed and sutured into position. The patient was stable throughout the procedure and remained sta ble upon discharge from the Department of Radiology. The vein puncture was patent under ultrasound. A storm scale image was obtained to document patency of the vein punctured. All elements of the maximal barrier technique were utilized. FLUOROSCOPY TIME: 0.2 minutes and 1 images submitted IMPRESSION: Successful PICC line placement under ultrasound and fluoroscopic guidance.
== END 2022-03-02 16:41 | DRG 300 ==
LOC: EC 13:57 → 4SSUR 16:34
PROVIDERS: ADMIT Internal Medicine; ATTEND Internal Medicine
PROC: B518YZA Fluoroscopy of Superior Vena Cava using Other Contrast, Guidance (ICD-10-PCS; 2022-03-02)
PROC: B548ZZA Ultrasonography of Superior Vena Cava, Guidance (ICD-10-PCS; 2022-03-02)
PROC: 02HV33Z Insertion of Infusion Device into Superior Vena Cava, Percutaneous Approach (ICD-10-PCS; principal; 2022-03-02 17:55)
DX: I83.228 Varicose veins of left lower extremity with both ulcer of other part of lower extremity and inflammation (principal); L03.116 Cellulitis of left lower limb; I50.32 Chronic diastolic (congestive) heart failure; I42.9 Cardiomyopathy, unspecified; L03.115 Cellulitis of right lower limb; Z20.822 Contact with and (suspected) exposure to COVID-19; E78.5 Hyperlipidemia, unspecified; G47.33 Obstructive sleep apnea (adult) (pediatric); I11.0 Hypertensive heart disease with heart failure; M47.816 Spondylosis without myelopathy or radiculopathy, lumbar region; I25.10 Atherosclerotic heart disease of native coronary artery without angina pectoris; J44.9 Chronic obstructive pulmonary disease, unspecified; F32.A Depression, unspecified; T50.1X6A Underdosing of loop [high-ceiling] diuretics, initial encounter; Z66 Do not resuscitate; G20 Parkinson's disease; G25.81 Restless legs syndrome; J45.30 Mild persistent asthma, uncomplicated; G40.909 Epilepsy, unspecified, not intractable, without status epilepticus; Z88.0 Allergy status to penicillin; I25.2 Old myocardial infarction; Z79.899 Other long term (current) drug therapy; Z86.73 Personal history of transient ischemic attack (TIA), and cerebral infarction without residual deficits; Z89.422 Acquired absence of other left toe(s); Z90.49 Acquired absence of other specified parts of digestive tract; Z80.0 Family history of malignant neoplasm of digestive organs; Z80.8 Family history of malignant neoplasm of other organs or systems; Z82.0 Family history of epilepsy and other diseases of the nervous system; Z82.49 Family history of ischemic heart disease and other diseases of the circulatory system; Z83.3 Family history of diabetes mellitus
CPT/HCPCS: 36410; 36415; 36573; 71046; 76937; 80048; 80053; 82565; 83605; 83735; 83880; 84484; 85025; 87040; 87070; 87075; 87077; 87186; 87205; 87635; 90471; 90715; 93005; 94640; 94760; 96365; 96366; 96375; 99285

== ENCOUNTER 2022-05-10 13:17 | Inpatient (IN) | payer MEDICARE ==
[2022-05-10] MEDS ORDERED: SODIUM CHLORIDE 0.9% 1,000 ML IV STA (15:25)
[2022-05-10] MEDS ORDERED: HYDROcodone/APAP 7.5-325MG 1 EACH TAB PO ONE (15:27)
--- NOTE | 2022-05-10 15:37 | ED ---
Extremity Problem HPI - General Source: patient, RN notes reviewed Mode of arrival: ambulatory Limitations: no limitations - History of Present Illness MD Complaint: extremity pain, extremity swelling Location: bilateral lower extremity Radiation: distal Quality: burning <Yanna Moss - Last Filed: 05/10/22 17:15> <PavanbeatrizBam Kyaw - Last Filed: 05/10/22 18:53> - General Chief complaint: Extremity Problem,Nontraumatic Stated complaint: wound care, cellulitis Time Seen by Provider: 05/10/22 15:02 - History of Present Illness Initial comments: This is a 71-year-old male who presents to the emergency department for bilateral lower extremity cellulitis. He was admitted here from 02/25 - 03/02 for the same issue and was discharged with a midline with IV cefepime for one week. He is following up with Dr. Broderick at the wound center, and was getting progressively better until this morning, when he noticed a substantial increase in swelling and redness to the lower extremities. Also states that they are burning. He contacted the wound center, who called his primary care provider's office, and both of them instructed him to come to the emergency department. Denies any fevers, chills, sore throat, cough, dyspnea, chest pain, palpitations, abdominal pain, nausea, vomiting, diarrhea, back pain, or headaches. (Yanna Moss) - Related Data Home Medications Medication Instructions Recorded Confirmed Pramipexole [Mirapex] 1 mg PO TID 07/06/16 05/10/22 carvediloL [Coreg] 3.125 mg PO BID 06/28/18 05/10/22 Furosemide [Lasix] 40 mg PO DAILY 02/25/22 05/10/22 Melatonin [Melatonin ER] 10 mg PO HS 02/25/22 05/10/22 Atorvastatin [Lipitor] 40 mg PO DAILY 05/10/22 05/10/22 HYDROcodone/APAP 10-325MG [Foristell 1 tab PO BID 05/10/22 05/10/22 10-325] Previous Rx's Medication Instructions Recorded Aspirin 81 mg PO DAILY 03/02/22 DULoxetine HCL [Cymbalta] 30 mg PO DAILY 03/02/22 Ipratropium-Albuterol Nebulize 3 ml INHALATION RT-QID PRN ml 03/02/22 [Duoneb 0.5 mg-3 mg/3 ml Soln] Losartan [Cozaar] 25 mg PO DAILY tab 03/02/22 Pregabalin [Lyrica] 75 mg PO BID #6 cap 03/02/22 Spironolactone [Aldactone] 12.5 mg PO DAILY #30 tab 03/02/22 Allergies Allergy/AdvReac Type Severity Reaction Status Date / Time codeine Allergy Dyspnea Verified 05/10/22 16:55 Penicillins Allergy Dyspnea Verified 05/10/22 16:55 Review of Systems ROS Other: All systems not noted in ROS Statement are negative. <Yanna Moss - Last Filed: 05/10/22 17:15> ROS Other: All systems not noted in ROS Statement are negative. <Bam Pereira - Last Filed: 05/10/22 18:53> ROS Statement: Those systems with pertinent positive or pertinent negative responses have been documented in the HPI. Past Medical History Past Medical History: Asthma, Coronary Artery Disease (CAD), Hyperlipidemia, Hypertension, Myocardial Infarction ([place]), Seizure Disorder Additional Past Medical History / Comment(s): restless leg, cardiomyopathy, wounds RT legs, BLE SWOLLEN AND DARK IN COLOR, LAST SEIZURE 1 WEEK AGO ON LEFT SIDE, FELL 06/03/18 GETTING UP FROM CHAIR, irritant induced asthma, hand tremors, double vision Last Myocardial Infarction Date:: 1989 History of Any Multi-Drug Resistant Organisms: None Reported Past Surgical History: Back Surgery, Cholecystectomy Additional Past Surgical History / Comment(s): brain tumor SX, 2ND DIGIT LT FOOT REMOVED, COLONOSCOPY Past Anesthesia/Blood Transfusion Reactions: No Reported Reaction Past Psychological History: No Psychological Hx Reported Smoking Status: Never smoker Past Alcohol Use History: None Reported Past Drug Use History: None Reported - Past Family History Mother Family Medical History: Cancer Additional Family Medical History / Comment(s): pancreatic Father Family Medical History: Cancer Additional Family Medical History / Comment(s): melanoma Brother(s) Family Medical History: Deep Vein Thrombosis (DVT) Daughter(s) Family Medical History: Deep Vein Thrombosis (DVT), Pulmonary Embolus <Yanna Moss - Last Filed: 05/10/22 17:15> General Exam Limitations: no limitations General appearance: alert, in distress Head exam: Present: atraumatic, normocephalic, normal inspection Respiratory exam: Present: normal lung sounds bilaterally. Absent: respiratory distress, wheezes, rales, rhonchi, stridor Cardiovascular Exam: Present: regular rate, normal rhythm, normal heart sounds. Absent: systolic murmur, diastolic murmur, rubs, gallop, clicks Extremities exam: Present: other (Swelling, erythema, and increased heat to the bilateral lower extremities beginning just below the patellas and spreading distally. 2+ dorsalis pedis and tibialis posterior pulses bilaterally. Capillary refill less than 1 second.) Neurological exam: Present: alert, oriented X3, CN II-XII intact Psychiatric exam: Present: normal affect, normal mood Skin exam: Present: warm, dry <Yanna Moss - Last Filed: 05/10/22 17:15> Course Vital Signs 05/10/22 05/10/22 05/10/22 13:37 15:11 18:46 Temperature 99.1 F 98.2 F 98 F Pulse Rate 80 75 Respiratory 20 24 18 Rate Blood Pressure 126/61 148/73 O2 Sat by Pulse 96 100 Oximetry Medical Decision Making - Lab Data Result diagrams: 05/10/22 14:25 05/10/22 14:25 - Radiology Data Radiology results: report reviewed, image reviewed <Yanna Moss - Last Filed: 05/10/22 17:15> - Lab Data Result diagrams: 05/10/22 14:25 05/10/22 14:25 <Bam Pereira - Last Filed: 05/10/22 18:53> - Medical Decision Making This is a 71-year-old male who presents to the emergency department for bilateral lower extremity cellulitis. Lab work, including wound and blood cultures obtained. The patient will be started on IV cefepime, which he was on last time and this treated the infection effectively. Consults placed for Dr. Broderick, vascular surgery, and Dr. Amezquita, infectious disease. Patient will be admitted to medicine for IV antibiotics and further management. This case was discussed in detail with the attending ED physician. Presentation, findings, and treatment plan discussed in detail as well. (Yanna Moss) - Lab Data Lab Results 07/18/22 07/18/22 07/18/22 Range/Units 14:25 14:25 14:25 WBC 19.0 H (3.8-10.6) k/uL RBC 4.09 L (4.30-5.90) m/uL Hgb 11.8 L (13.0-17.5) gm/dL Hct 37.4 L (39.0-53.0) % MCV 91.4 (80.0-100.0) fL MCH 28.9 (25.0-35.0) pg MCHC 31.7 (31.0-37.0) g/dL RDW 17.9 H (11.5-15.5) % Plt Count 271 (150-450) k/uL MPV 7.9 Neutrophils % 84 % Lymphocytes % 6 % Monocytes % 5 % Eosinophils % 3 % Basophils % 1 % Neutrophils # 15.9 H (1.3-7.7) k/uL Lymphocytes # 1.1 (1.0-4.8) k/uL Monocytes # 1.0 (0-1.0) k/uL Eosinophils # 0.6 (0-0.7) k/uL Basophils # 0.1 (0-0.2) k/uL Hypochromasia Slight Anisocytosis Slight Sodium 138 (137-145) mmol/L Potassium 4.3 (3.5-5.1) mmol/L Chloride 100 (98-107) mmol/L Carbon Dioxide 33 H (22-30) mmol/L Anion Gap 5 mmol/L BUN 14 (9-20) mg/dL Creatinine 0.62 L (0.66-1.25) mg/dL Est GFR (CKD-EPI)AfAm >90 (>60 ml/min/1.73 sqM) Est GFR (CKD-EPI)NonAf >90 (>60 ml/min/1.73 sqM) Glucose 86 (74-99) mg/dL Plasma Lactic Acid Tayo 1.0 (0.7-2.0) mmol/L Calcium 9.1 (8.4-10.2) mg/dL Total Bilirubin 1.1 (0.2-1.3) mg/dL AST 25 (17-59) U/L ALT 19 (4-49) U/L Alkaline Phosphatase 74 (38-126) U/L Total Protein 6.5 (6.3-8.2) g/dL Albumin 3.7 (3.5-5.0) g/dL Disposition <Yanna Moss - Last Filed: 05/10/22 17:15> <Bam Pereira - Last Filed: 05/10/22 18:53> Clinical Impression: Bilateral lower leg cellulitis Disposition: ADMITTED IP TO THIS HOSP
[2022-05-10] MEDS ORDERED: HYDROcodone/APAP 5-325MG 1 EACH TAB PO PRN (15:39)
[2022-05-10] MEDS ORDERED: NALOXONE 0.4 MG/ML 1 ML VIAL IV PRN (15:39)
[2022-05-10] MEDS ORDERED: ACETAMINOPHEN TAB 325 MG TAB PO PRN (15:39)
[2022-05-10] MEDS ORDERED: HYDROcodone/APAP 10-325MG 1 EACH TAB PO PRN (15:46)
[2022-05-10] MEDS ORDERED: CEFEPIME 2 GM in SODIUM CHLORIDE 0.9% 100 ML IVPB STA (15:51)
[2022-05-10 16:40] LABS: Anisocytosis Slight; Basophils # (A) 0.1 k/uL (0-0.2); Basophils % (A) 1 %; Eosinophils # (A) 0.6 k/uL (0-0.7); Eosinophils % (A) 3 %; HCT 37.4 % (39.0-53.0); HGB 11.8 gm/dL (13.0-17.5); Hypochromasia Slight; Lymphocytes # (A) 1.1 k/uL (1.0-4.8); Lymphocytes % (A) 6 %; MCH 28.9 pg (25.0-35.0); MCHC 31.7 g/dL (31.0-37.0); MCV 91.4 fL (80.0-100.0); Mean Platelet Volume 7.9; Monocytes % (A) 5 %; Neutrophils # (A) 15.9 k/uL (1.3-7.7); Neutrophils % (A) 84 %; Platelet Count 271 k/uL (150-450); RBC 4.09 m/uL (4.30-5.90); RDW 17.9 % (11.5-15.5)
[2022-05-10 16:50] LABS: ALT 19 U/L (4-49); AST 25 U/L (17-59); African American GFR (CKD) >90 (>60 ml/min/1.73 sqM); Albumin 3.7 g/dL (3.5-5.0); Alkaline Phosphatase 74 U/L (38-126); Anion Gap 5 mmol/L; Blood Urea Nitrogen 14 mg/dL (9-20); Calcium 9.1 mg/dL (8.4-10.2); Carbon Dioxide 33 mmol/L (22-30); Chloride 100 mmol/L (98-107); Glucose 86 mg/dL (74-99); Non-African American GFR(CKD) >90 (>60 ml/min/1.73 sqM); Potassium 4.3 mmol/L (3.5-5.1); Sodium 138 mmol/L (137-145); Total Bilirubin 1.1 mg/dL (0.2-1.3); Total Protein 6.5 g/dL (6.3-8.2)
[2022-05-10] MEDS ORDERED: CLINDAMYCIN 150 MG CAP PO SCH (18:30)
[2022-05-10] MEDS ORDERED: IPRATROPIUM-ALBUTEROL 3 ML NEB INHALATION PRN (20:02)
[2022-05-10] MEDS ORDERED: SILVER sulfADIAZINE Cream 400 GM 1 APPLIC APPLIC TOPICAL SCH (21:00)
[2022-05-10] MEDS: MELATONIN 5 MG TABLET PO SCH (21:09)
[2022-05-10] MEDS: carvediloL 3.125 MG TAB PO SCH (21:09)
[2022-05-10] MEDS: PREGABALIN 75 MG CAP PO SCH (21:09)
[2022-05-10] MEDS: FUROSEMIDE 10 MG/ML 10 ML VIAL IV SCH (21:10)
[2022-05-10] MEDS: CEFEPIME 2 GM in SODIUM CHLORIDE 0.9% 100 ML IVPB SCH (21:10)
[2022-05-10] MEDS: PRAMIPEXOLE 1 MG TAB PO SCH (21:23)
[2022-05-10] MEDS: HYDROcodone/APAP 10-325MG 1 EACH TAB PO PRN (23:37)
[2022-05-11] MEDS: CEFEPIME 2 GM in SODIUM CHLORIDE 0.9% 100 ML IVPB SCH ×3 (06:27→21:13)
[2022-05-11] MEDS: DULoxetine HCL 30 MG CAPSULE.DR PO SCH (08:08)
[2022-05-11] MEDS: PREGABALIN 75 MG CAP PO SCH ×2 (08:08→21:13)
[2022-05-11] MEDS: SPIRONOLACTONE 25 MG TAB PO SCH (08:08)
[2022-05-11] MEDS: LOSARTAN 25 MG TAB PO SCH (08:08)
[2022-05-11] MEDS: carvediloL 3.125 MG TAB PO SCH ×2 (08:08→16:33)
[2022-05-11] MEDS: ENOXAPARIN 40 MG/0.4 ML SYRINGE SQ SCH (08:08)
[2022-05-11] MEDS: ASPIRIN 81 MG PO SCH (08:08)
[2022-05-11] MEDS: PRAMIPEXOLE 1 MG TAB PO SCH ×3 (08:08→21:13)
[2022-05-11] MEDS: ATORVASTATIN 40 MG TAB PO SCH (08:08)
[2022-05-11] MEDS: FUROSEMIDE 10 MG/ML 10 ML VIAL IV SCH ×3 (09:07→20:15)
[2022-05-11 09:23] LABS: Anisocytosis Slight; Basophils # (A) 0.1 k/uL (0-0.2); Basophils % (A) 1 %; Eosinophils # (A) 0.6 k/uL (0-0.7); Eosinophils % (A) 4 %; HCT 36.3 % (39.0-53.0); HGB 11.8 gm/dL (13.0-17.5); Hypochromasia Slight; Lymphocytes # (A) 0.8 k/uL (1.0-4.8); Lymphocytes % (A) 5 %; MCH 30.3 pg (25.0-35.0); MCHC 32.4 g/dL (31.0-37.0); MCV 93.5 fL (80.0-100.0); Mean Platelet Volume 8.4; Monocytes # (A) 0.8 k/uL (0-1.0); Monocytes % (A) 5 %; Neutrophils # (A) 15.1 k/uL (1.3-7.7); Neutrophils % (A) 85 %; Platelet Count 283 k/uL (150-450); Poikilocytosis Slight; RBC 3.88 m/uL (4.30-5.90); RDW 18.2 % (11.5-15.5); WBC 17.7 k/uL (3.8-10.6)
[2022-05-11 09:24] LABS: ALT 20 U/L (4-49); AST 24 U/L (17-59); African American GFR (CKD) >90 (>60 ml/min/1.73 sqM); Albumin 3.5 g/dL (3.5-5.0); Albumin/Globulin Ratio 1.3; Alkaline Phosphatase 76 U/L (38-126); Anion Gap 3 mmol/L; Blood Urea Nitrogen 16 mg/dL (9-20); Calcium 8.3 mg/dL (8.4-10.2); Carbon Dioxide 33 mmol/L (22-30); Chloride 102 mmol/L (98-107); Globulin 2.8 g/dL; Glucose 148 mg/dL (74-99); Non-African American GFR(CKD) >90 (>60 ml/min/1.73 sqM); Potassium 4.7 mmol/L (3.5-5.1); Sodium 138 mmol/L (137-145); Total Bilirubin 1.4 mg/dL (0.2-1.3); Total Protein 6.3 g/dL (6.3-8.2)
--- NOTE | 2022-05-11 14:28 | P.GSCN ---
History of Present Illness History of present illness: 71-year-old gentleman patient has been coming to the wound clinic for bilateral leg swelling. Patient has been admitted before with marked cellulitis of the both lower extremity in the past treated with an IV antibiotic and local care yesterday came to the wound clinic he had a marked swelling of the both lower extremity with redness and cellulitis and very short of breath great patient has history of coronary artery disease also patient has a history of hypertension controlled with medication Neck is supple Chest the patient has a distant breath sound bilateral first and second sound present Abdomen protuberant no peritoneal sign vascular femorals are 1+ bilateral patient has a marked cellulitis and swelling of the both lower extremity below the knee bilaterally. Plan is patient was seen by infectious disease patient IV antibiotic both lower extremity leg elevation with the one pillow follow with you Past Medical History Past Medical History: Asthma, Coronary Artery Disease (CAD), Hyperlipidemia, Hypertension, Myocardial Infarction ([place]), Seizure Disorder Additional Past Medical History / Comment(s): restless leg, cardiomyopathy, wounds RT legs, BLE SWOLLEN AND DARK IN COLOR, frequent falls, irritant induced asthma, hand tremors, double vision Last Myocardial Infarction Date:: 1989 History of Any Multi-Drug Resistant Organisms: None Reported Past Surgical History: Back Surgery, Cholecystectomy Additional Past Surgical History / Comment(s): brain tumor SX, 2ND DIGIT LT FOOT REMOVED, COLONOSCOPY Past Anesthesia/Blood Transfusion Reactions: No Reported Reaction Past Psychological History: No Psychological Hx Reported Smoking Status: Never smoker Past Alcohol Use History: None Reported Past Drug Use History: None Reported - Past Family History Mother Family Medical History: Cancer Additional Family Medical History / Comment(s): pancreatic Father Family Medical History: Cancer Additional Family Medical History / Comment(s): melanoma Brother(s) Family Medical History: Deep Vein Thrombosis (DVT) Daughter(s) Family Medical History: Deep Vein Thrombosis (DVT), Pulmonary Embolus Medications and Allergies Home Medications Medication Instructions Recorded Confirmed Type Pramipexole [Mirapex] 1 mg PO TID 07/06/16 05/10/22 History carvediloL [Coreg] 3.125 mg PO BID 06/28/18 05/10/22 History Furosemide [Lasix] 40 mg PO DAILY 02/25/22 05/10/22 History Melatonin [Melatonin ER] 10 mg PO HS 02/25/22 05/10/22 History Aspirin 81 mg PO DAILY 03/02/22 05/10/22 Rx DULoxetine HCL [Cymbalta] 30 mg PO DAILY 03/02/22 05/10/22 Rx Ipratropium-Albuterol Nebulize 3 ml INHALATION RT-QID PRN ml 03/02/22 05/10/22 Rx [Duoneb 0.5 mg-3 mg/3 ml Soln] Losartan [Cozaar] 25 mg PO DAILY tab 03/02/22 05/10/22 Rx Pregabalin [Lyrica] 75 mg PO BID #6 cap 03/02/22 05/10/22 Rx Spironolactone [Aldactone] 12.5 mg PO DAILY #30 tab 03/02/22 05/10/22 Rx Atorvastatin [Lipitor] 40 mg PO DAILY 05/10/22 05/10/22 History HYDROcodone/APAP 10-325MG [[place] 1 tab PO BID 05/10/22 05/10/22 History 10-325] Allergies Allergy/AdvReac Type Severity Reaction Status Date / Time codeine Allergy Dyspnea Verified 05/10/22 16:55 Penicillins Allergy Dyspnea Verified 05/10/22 16:55 Surgical - Exam Vital Signs Temp Pulse Resp BP Pulse Ox 99.1 F 80 20 126/61 96 05/10/22 13:37 05/10/22 13:37 05/10/22 13:37 05/10/22 13:37 05/10/22 13:37 Results - Labs 05/11/22 08:52 05/11/22 08:52 Abnormal Lab Results - Last 24 Hours (Table) 05/10/22 05/10/22 05/11/22 Range/Units 14:25 14:25 08:52 WBC 19.0 H 17.7 H (3.8-10.6) k/uL RBC 4.09 L 3.88 L (4.30-5.90) m/uL Hgb 11.8 L 11.8 L (13.0-17.5) gm/dL Hct 37.4 L 36.3 L (39.0-53.0) % RDW 17.9 H 18.2 H (11.5-15.5) % Neutrophils # 15.9 H 15.1 H (1.3-7.7) k/uL Lymphocytes # 0.8 L (1.0-4.8) k/uL Carbon Dioxide 33 H (22-30) mmol/L Creatinine 0.62 L (0.66-1.25) mg/dL Glucose (74-99) mg/dL Calcium (8.4-10.2) mg/dL Total Bilirubin (0.2-1.3) mg/dL 05/11/22 Range/Units 08:52 WBC (3.8-10.6) k/uL RBC (4.30-5.90) m/uL Hgb (13.0-17.5) gm/dL Hct (39.0-53.0) % RDW (11.5-15.5) % Neutrophils # (1.3-7.7) k/uL Lymphocytes # (1.0-4.8) k/uL Carbon Dioxide 33 H (22-30) mmol/L Creatinine (0.66-1.25) mg/dL Glucose 148 H (74-99) mg/dL Calcium 8.3 L (8.4-10.2) mg/dL Total Bilirubin 1.4 H (0.2-1.3) mg/dL Diabetes panel 05/10/22 05/11/22 Range/Units 14:25 08:52 Sodium 138 138 (137-145) mmol/L Potassium 4.3 4.7 (3.5-5.1) mmol/L Chloride 100 102 (98-107) mmol/L Carbon Dioxide 33 H 33 H (22-30) mmol/L BUN 14 16 (9-20) mg/dL Creatinine 0.62 L 0.66 (0.66-1.25) mg/dL Glucose 86 148 H (74-99) mg/dL Calcium 9.1 8.3 L (8.4-10.2) mg/dL AST 25 24 (17-59) U/L ALT 19 20 (4-49) U/L Alkaline Phosphatase 74 76 (38-126) U/L Total Protein 6.5 6.3 (6.3-8.2) g/dL Albumin 3.7 3.5 (3.5-5.0) g/dL Calcium panel 05/10/22 05/11/22 Range/Units 14:25 08:52 Calcium 9.1 8.3 L (8.4-10.2) mg/dL Albumin 3.7 3.5 (3.5-5.0) g/dL Pituitary panel 05/10/22 05/11/22 Range/Units 14:25 08:52 Sodium 138 138 (137-145) mmol/L Potassium 4.3 4.7 (3.5-5.1) mmol/L Chloride 100 102 (98-107) mmol/L Carbon Dioxide 33 H 33 H (22-30) mmol/L BUN 14 16 (9-20) mg/dL Creatinine 0.62 L 0.66 (0.66-1.25) mg/dL Glucose 86 148 H (74-99) mg/dL Calcium 9.1 8.3 L (8.4-10.2) mg/dL Adrenal panel 05/10/22 05/11/22 Range/Units 14:25 08:52 Sodium 138 138 (137-145) mmol/L Potassium 4.3 4.7 (3.5-5.1) mmol/L Chloride 100 102 (98-107) mmol/L Carbon Dioxide 33 H 33 H (22-30) mmol/L BUN 14 16 (9-20) mg/dL Creatinine 0.62 L 0.66 (0.66-1.25) mg/dL Glucose 86 148 H (74-99) mg/dL Calcium 9.1 8.3 L (8.4-10.2) mg/dL Total Bilirubin 1.1 1.4 H (0.2-1.3) mg/dL AST 25 24 (17-59) U/L ALT 19 20 (4-49) U/L Alkaline Phosphatase 74 76 (38-126) U/L Total Protein 6.5 6.3 (6.3-8.2) g/dL Albumin 3.7 3.5 (3.5-5.0) g/dL
[2022-05-11] MEDS ORDERED: FUROSEMIDE 40 MG TAB PO STA (17:26)
[2022-05-11] MEDS: MELATONIN 5 MG TABLET PO SCH (21:13)
--- NOTE | 2022-05-11 23:38 | P.CONS ---
History of Present Illness - Reason for Consult Consult date: 05/11/22 Bilateral lower extremity cellulitis Requesting physician: Yanna Moss - Chief Complaint Increasing swelling redness to lower extremity x few days - History of Present Illness Patient is a 71-year male with a past medical he significant for bilateral lower extremity venous stasis ulcer and cellulitis for the patient to follow with the wound care physician apparently mentioned wounds are all healed up however patient was evaluated in the wound care center yesterday and was noticed to have significant swelling to bilateral lower extremity concerning for cellulitis for the patient was sent to the ER patient mention his legs have been getting more swollen and red over the last few days patient denies any history of any trauma patient complaining of pain to the leg more for the leg and to sharp 5-6 out of 10 no radiation patient on presentation the hospital did have low-grade fever of 99.1 F patient did have white count of 20,000 with a left shift kidney function has been normal blood cultures obtained which are currently pending patient was started on cefepime admit to the hospital infectious disease was consulted for further management of antibiotic therapy Review of Systems Positive point has been mentioned in the HPI rest of the systems are negative Past Medical History Past Medical History: Asthma, Coronary Artery Disease (CAD), Hyperlipidemia, Hypertension, Myocardial Infarction ([place]), Seizure Disorder Additional Past Medical History / Comment(s): restless leg, cardiomyopathy, wounds RT legs, BLE SWOLLEN AND DARK IN COLOR, frequent falls, irritant induced asthma, hand tremors, double vision Last Myocardial Infarction Date:: 1989 History of Any Multi-Drug Resistant Organisms: None Reported Past Surgical History: Back Surgery, Cholecystectomy Additional Past Surgical History / Comment(s): brain tumor SX, 2ND DIGIT LT FOOT REMOVED, COLONOSCOPY Past Anesthesia/Blood Transfusion Reactions: No Reported Reaction Past Psychological History: No Psychological Hx Reported Smoking Status: Never smoker Past Alcohol Use History: None Reported Past Drug Use History: None Reported - Past Family History Mother Family Medical History: Cancer Additional Family Medical History / Comment(s): pancreatic Father Family Medical History: Cancer Additional Family Medical History / Comment(s): melanoma Brother(s) Family Medical History: Deep Vein Thrombosis (DVT) Daughter(s) Family Medical History: Deep Vein Thrombosis (DVT), Pulmonary Embolus Medications and Allergies Home Medications Medication Instructions Recorded Confirmed Type Pramipexole [Mirapex] 1 mg PO TID 07/06/16 05/10/22 History carvediloL [Coreg] 3.125 mg PO BID 06/28/18 05/10/22 History Melatonin [Melatonin ER] 10 mg PO HS 02/25/22 05/10/22 History Aspirin 81 mg PO DAILY 03/02/22 05/10/22 Rx DULoxetine HCL [Cymbalta] 30 mg PO DAILY 03/02/22 05/10/22 Rx Ipratropium-Albuterol Nebulize 3 ml INHALATION RT-QID PRN ml 03/02/22 05/10/22 Rx [Duoneb 0.5 mg-3 mg/3 ml Soln] Losartan [Cozaar] 25 mg PO DAILY tab 03/02/22 05/10/22 Rx Spironolactone [Aldactone] 12.5 mg PO DAILY #30 tab 03/02/22 05/10/22 Rx Atorvastatin [Lipitor] 40 mg PO DAILY 05/10/22 05/10/22 History Acetaminophen Tab [Tylenol] 650 mg PO Q6HR PRN tab 05/19/22 Rx Enoxaparin [Lovenox] 40 mg SQ DAILY each 05/19/22 Rx Fluconazole [Diflucan] 200 mg PO DAILY 10 Days #20 tab 05/19/22 Rx Furosemide [Lasix] 40 mg PO BID #0 05/19/22 05/10/22 Rx HYDROcodone/APAP 10-325MG [[place] 1 tab PO BID #6 tab 05/19/22 Rx 10-325] Pantoprazole [Protonix] 40 mg PO AC-BRKFST tab 05/19/22 Rx Pregabalin [Lyrica] 75 mg PO BID #6 cap 05/19/22 Rx Sennosides-Docusate Sodium 1 each PO BID tab 05/19/22 Rx [Senokot-S] Vancomycin 2,000 mg IVPB Q12HR 10 Days #20 05/19/22 Rx each Allergies Allergy/AdvReac Type Severity Reaction Status Date / Time codeine Allergy Dyspnea Verified 05/10/22 16:55 Penicillins Allergy Dyspnea Verified 05/10/22 16:55 Physical Exam Vitals: Vital Signs Temp Pulse Pulse Pulse Resp BP BP 05/11/22 04:44 97.4 F L 80 18 102/68 05/10/22 23:35 88 20 116/74 05/10/22 20:20 98.6 F 81 81 18 147/91 05/10/22 18:46 98 F 75 18 148/73 05/10/22 15:11 98.2 F 24 05/10/22 13:37 99.1 F 80 20 126/61 Pulse Ox 05/11/22 04:44 94 L 05/10/22 23:35 92 L 05/10/22 20:20 94 L 05/10/22 18:46 100 05/10/22 15:11 05/10/22 13:37 96 Intake and Output 05/10/22 05/11/22 05/11/22 22:59 06:59 14:59 Intake Total 520 240 Output Total 200 600 Balance 320 -360 Intake: Oral 520 240 Output: Urine 200 600 Other: Voiding Method Urinal Urinal Weight 158.757 kg GENERAL DESCRIPTION: And daily male lying in bed, no distress. No tachypnea or accessory muscle of respiration use. HEENT: Shows Pallor , no scleral icterus. Oral mucous membrane is dry. No pharyngeal erythema or thrush NECK: Trachea central, no thyromegaly. LUNGS: Unlabored breathing. Clear to auscultation anteriorly. No wheeze or crackle. HEART: S1, S2, regular rate and rhythm. No loud murmur ABDOMEN: Soft, no tenderness , guarding or rigidity, no organomegaly EXTREMITIES: Bilateral lower extremity with diffuse swelling and redness which is warm and tender to touch SKIN: No rash, no masses palpable. NEUROLOGICAL: The patient is awake, alert, oriented x3, mood and affect normal. Results CBC & Chem 7: 05/19/22 07:12 05/19/22 07:12 Labs: Abnormal Lab Results - Last 24 Hours (Table) 05/10/22 05/10/22 05/11/22 Range/Units 14:25 14:25 08:52 WBC 19.0 H 17.7 H (3.8-10.6) k/uL RBC 4.09 L 3.88 L (4.30-5.90) m/uL Hgb 11.8 L 11.8 L (13.0-17.5) gm/dL Hct 37.4 L 36.3 L (39.0-53.0) % RDW 17.9 H 18.2 H (11.5-15.5) % Neutrophils # 15.9 H 15.1 H (1.3-7.7) k/uL Lymphocytes # 0.8 L (1.0-4.8) k/uL Carbon Dioxide 33 H (22-30) mmol/L Creatinine 0.62 L (0.66-1.25) mg/dL Glucose (74-99) mg/dL Calcium (8.4-10.2) mg/dL Total Bilirubin (0.2-1.3) mg/dL 05/11/22 Range/Units 08:52 WBC (3.8-10.6) k/uL RBC (4.30-5.90) m/uL Hgb (13.0-17.5) gm/dL Hct (39.0-53.0) % RDW (11.5-15.5) % Neutrophils # (1.3-7.7) k/uL Lymphocytes # (1.0-4.8) k/uL Carbon Dioxide 33 H (22-30) mmol/L Creatinine (0.66-1.25) mg/dL Glucose 148 H (74-99) mg/dL Calcium 8.3 L (8.4-10.2) mg/dL Total Bilirubin 1.4 H (0.2-1.3) mg/dL Assessment and Plan (1) Bilateral lower leg cellulitis Status: Acute Code(s): L03.116 - CELLULITIS OF LEFT LOWER LIMB; L03.115 - CELLULITIS OF RIGHT LOWER LIMB SNOMED Code(s): 483470445 Plan: 1patient presented hospital with increasing swelling and redness to bilateral lower extremity in this patient did have a history of recurrent lower extremity cellulitis likely from gram-positive skin hayden gram-negative infection less likely but not entirely l excluded. 2penicillin allergy regimen number of antibiotics safe to use. 3Marked area of redness and apply Moody wrap from just above the toe to below the knee to keep the swelling down. 4continue cefepime 2 g every 8 hours. We will follow on clinical condition and cultures to further adjust medication if needed Thank you for this consultation will follow this patient along with you Time with Patient: Greater than 30
[2022-05-12] MEDS: HYDROcodone/APAP 10-325MG 1 EACH TAB PO PRN (02:54)
[2022-05-12] MEDS: CEFEPIME 2 GM in SODIUM CHLORIDE 0.9% 100 ML IVPB SCH ×3 (06:09→21:39)
[2022-05-12] MEDS ORDERED: FUROSEMIDE 20 MG TAB PO STA (07:33)
[2022-05-12] MEDS: FUROSEMIDE 10 MG/ML 10 ML VIAL IV SCH ×2 (07:35→15:42)
--- NOTE | 2022-05-12 07:35 | P.PN ---
Subjective Progress Note Date: 05/11/22 HISTORY OF PRESENT ILLNESS This is a 71-year-old male patient with past medical history of hypertension, h yperlipidemia, CVA, mild persistent ALLERGIC asthma, seizure disorder, Parkinson's disease, chronic diastolic heart failure, stasis dermatitis of the left lower extremity due to peripheral venous hypertension, spondylosis of the lumbar spine, obstructive sleep apnea. Patient was seen in the office yesterday for cellulitis of the both lower extremities. Patient had been on oral antibiotics for the past month without improvement and presented with a large vascular ulcer to the left lower extremity pretibial area as well as cellulitis to bilateral lower extremities. Patient was sent directly over the emergency center at [facility] for further evaluation and treatment. Patient was found to be afebrile, heart rate in the 70s and 80s, blood pressure 116/81, pulse ox 94% on room air. WBC 13.6, hemoglobin 15.3, platelet count 284. Electrolytes normal, BUN 21 creatinine 0.8. Liver function tests were normal. Lactic acid 1.3. Troponin negative. ProBNP 29. Recent hemoglobin A1c was 6.25 Nov 2021. X-ray tibia-fibula bilaterally showed no fracture. Chest x-ray revealed no acute pulmonary disease. Patient has been started on Vancomycin, Silvadene wraps, admitted to the MedSurg floor and consult with Dr. Amezquita, Dr. Broderick and [facility]. 05/11: Infectious disease recommends cefepime 2 g IV every 8 hours and consult is in place with Dr. Broderick his wound care physician. Accicath placed for IV access. No surgical intervention is planned. Patient has been afebrile and hem odynamically stable. Leukocytosis slightly improved at 17.7. Troponins are negative on 3 draws. Blood cultures showing no growth at 24 hours. Wound cultures uncollected. REVIEW OF SYSTEMS Constitutional: No fever, no chills, no night sweats. No weight change. No weakness, fatigue or lethargy. No daytime sleepiness. EENT: No headache. No blurred vision or double vision, no loss of vision. No loss of Hearing, no ringing in the ears, no dizziness. No nasal drainage or congestion. No epistaxis. No sore throat. Lungs:Chronic shortness of breath, cough, no sputum production. No wheezi ng.Chronic dyspnea with exertion. Cardiovascular: No chest pain,reports lower extremity edema. No palpitations. No paroxysmal nocturnal dyspnea. No orthopnea. No lightheadedness or dizziness. No syncopal episodes. Abdominal: No abdominal pain. No nausea, vomiting. No diarrhea. No constipa tion. No bloody or tarry stools. No loss of appetite. Genitourinary: No dysuria, increased frequency, urgency. No urinary retention. Musculoskeletal: No myalgias. No muscle weakness, no gait dysfunction, no frequent falls. No back pain. No neck pain. Integumentary:Reports wounds to the bilateral lower extremities. No rash or pruritus. No unusual bruising. No change in hair or nails. Neurologic: No aphasia. No facial droop. No change in mentation. No head injury. No headache. No paralysis. No paresthesia. Psychiatric: No depression. No anxiety. No mood swings. Endocrine: No abnormal blood sugars. No weight change. No excessive sweating or thirst. PHYSICAL EXAMINATION Gen: This is a morbidly obese 71-year-old male patient sitting on the edge of the bed and appears to be in no acute respiratory distress. HEENT: Head is atraumatic, normocephalic. Pupils equal, round. Sclerae is anicteric. NECK: Supple. No JVD. No lymphadenopathy. No thyromegaly. LUNGS: Clear to auscultation. No wheezes or rhonchi. No intercostal retractions. HEART: First heart sound is depressed, second heart sound is normal, there is a 2/6 systolic ejection murmur at the left sternal border, no S3, no S4.. ABDOMEN: Soft. Bowel sounds are present. No masses. No tenderness. EXTREMITIES: 2+ bilateral pitting pedal edema with erythema. Also noted to the left pretibial area. Please see nursing documentation for details. NEUROLOGICAL: Patient is awake, alert and oriented x3. Cranial nerves 2 through 12 are grossly intact. ASSESSMENT AND PLAN 1. Bilateral lower extremity cellulitis. Wound culture is not collected, consult with Dr. Amezquita appreciated, vancomycin has been transitioned to cefepime 2 g IV piggyback every 8 hours, continue local wound care with Silvadene wraps with Moody wrap and elevation. 2. Hypertension. Continue Coreg 3.125 mg twice daily, Lasix 80 mg daily. 3. Hyperlipidemia. Low cholesterol diet. 4. History of CVA. 5. Parkinson's disease. Continue Mirapex 1 mg 3 times daily. 6. Chronic diastolic heart failure. Continue patient on Lasix 40 mg oral daily, Coreg 3.125 mg twice daily, Aldactone 25 mg daily. 7. Spondylosis of the lumbar spine. Continue Lyrica 75 mg twice daily. 8. Obstructive sleep apnea. 9. GI prophylaxis. Protonix 40 mg daily oral. 10. DVT prophylaxis. Heparin subcu. Objective - Vital Signs Vital signs: Vital Signs Temp 97.9 F 05/11/22 11:10 Pulse 78 05/11/22 11:10 Resp 18 05/11/22 11:10 BP 119/70 05/11/22 11:10 Pulse Ox 92 L 05/11/22 11:10 FiO2 Intake & Output 05/10/22 05/11/22 05/11/22 18:59 06:59 18:59 Intake Total 760 Output Total 800 Balance -40 Weight 158.757 kg 158.757 kg Intake: Oral 760 Output: Urine 800 Other: Voiding Method Urinal Urinal - Labs CBC & Chem 7: 05/11/22 08:52 05/11/22 08:52 Labs: Abnormal Lab Results - Last 24 Hours (Table) 05/10/22 05/10/22 05/11/22 Range/Units 14:25 14:25 08:52 WBC 19.0 H 17.7 H (3.8-10.6) k/uL RBC 4.09 L 3.88 L (4.30-5.90) m/uL Hgb 11.8 L 11.8 L (13.0-17.5) gm/dL Hct 37.4 L 36.3 L (39.0-53.0) % RDW 17.9 H 18.2 H (11.5-15.5) % Neutrophils # 15.9 H 15.1 H (1.3-7.7) k/uL Lymphocytes # 0.8 L (1.0-4.8) k/uL Carbon Dioxide 33 H (22-30) mmol/L Creatinine 0.62 L (0.66-1.25) mg/dL Glucose (74-99) mg/dL Calcium (8.4-10.2) mg/dL Total Bilirubin (0.2-1.3) mg/dL 05/11/22 Range/Units 08:52 WBC (3.8-10.6) k/uL RBC (4.30-5.90) m/uL Hgb (13.0-17.5) gm/dL Hct (39.0-53.0) % RDW (11.5-15.5) % Neutrophils # (1.3-7.7) k/uL Lymphocytes # (1.0-4.8) k/uL Carbon Dioxide 33 H (22-30) mmol/L Creatinine (0.66-1.25) mg/dL Glucose 148 H (74-99) mg/dL Calcium 8.3 L (8.4-10.2) mg/dL Total Bilirubin 1.4 H (0.2-1.3) mg/dL
[2022-05-12] MEDS: DULoxetine HCL 30 MG CAPSULE.DR PO SCH (08:00)
[2022-05-12] MEDS: PREGABALIN 75 MG CAP PO SCH ×2 (08:00→21:38)
--- NOTE | 2022-05-12 08:00 | P.PN ---
Progress Note - Text 71-year-old gentleman history of obesity, history of shortness of breath patient has been coming to the wound clinic he came with marked cellulitis or swelling of the both lower extremity patient was treated with IV antibiotic under both leg elevation patient is under care of of the internal medicine cellulitis of the lower extremity is less we will continue with IV antibiotic and both leg elevation
[2022-05-12] MEDS: carvediloL 3.125 MG TAB PO SCH ×2 (08:01→15:42)
[2022-05-12] MEDS: ASPIRIN 81 MG PO SCH (08:01)
[2022-05-12] MEDS: ATORVASTATIN 40 MG TAB PO SCH (08:01)
[2022-05-12] MEDS: ENOXAPARIN 40 MG/0.4 ML SYRINGE SQ SCH (08:01)
[2022-05-12] MEDS: LOSARTAN 25 MG TAB PO SCH (08:01)
[2022-05-12] MEDS: SPIRONOLACTONE 25 MG TAB PO SCH (08:02)
[2022-05-12] MEDS: PRAMIPEXOLE 1 MG TAB PO SCH ×3 (08:02→21:38)
[2022-05-12] MEDS ORDERED: LIDOCAINE 1% INJ 10MG/ML (5 ML VIAL-PF) SQ ONE (09:14)
--- NOTE | 2022-05-12 09:39 | IR ---
PICC LINE PLACEMENT: HISTORY: Infection requiring long-term antibiotic therapy PROCEDURE: Ultrasound and fluoroscopic guidance of PICC line placement. COMPLICATIONS: None ANESTHESIA: 1. 1% Lidocaine locally. FINDINGS/TECHNIQUE: The procedure was explained to the patient. The risks, complications, benefits and alternatives were discussed and any questions were answered. Informed consent was obtained. The patient was placed supine on the fluoroscopic table and prepped and draped in the usual sterile fash ion. Utilizing a 21 gauge needle and sonographic and fluoroscopic guidance, access in the left basi lic vein was achieved and there is placement of a 0.018 guidewire. The vein is patent. A 4-F sheath was placed over the guidewire. The guidewire and dilator were removed and a 4-F. PICC line was plac ed through the sheath with the tip at the level of the SVC. The sheath was removed, the catheter was flushed and sutured into position. The patient was stable throughout the procedure and remained sta ble upon discharge from the Department of Radiology. The vein puncture was patent under ultrasound. A storm scale image was obtained to document patency of the vein punctured. All elements of the maximal barrier technique were utilized. FLUOROSCOPY TIME: 0.2 minutes of fluoroscopy and one image submitted IMPRESSION: Successful PICC line placement under ultrasound and fluoroscopic guidance.
[2022-05-12 09:42] LABS: HCT 35.6 % (39.6-50.0); HGB 10.8 g/dL (13.0-17.0); MCH 28.3 pg (27.0-32.0); MCHC 30.3 g/dL (32.0-37.0); MCV 93.4 fL (80.0-97.0); Mean Platelet Volume 10.8 fL (9.5-12.2); NRBC Per 100 WBC 0 /100 WBCS (0.0-0.0); Platelet Count 271 X 10*3/uL (140-440); RBC 3.81 X 10*6/uL (4.40-5.60); RDW 18.3 % (11.5-14.5); WBC 19.22 X 10*3/uL (4.50-10.00)
[2022-05-12 09:51] LABS: African American GFR (CKD) 122.1 (60.0-200.0); Anion Gap 10.2 mmol/L (10.00-18.00); BUN/Creat Ratio 31.49 Ratio (12.00-20.00); Blood Urea Nitrogen 17.7 mg/dL (9.0-27.0); Calcium 8.7 mg/dL (8.7-10.3); Carbon Dioxide 30.3 mmol/L (20.0-27.5); INR 1.01 (0.90-1.11); Non-African American GFR(CKD) 105.4 (60.0-200.0); Potassium 4.2 mmol/L (3.5-5.5); Prothrombin Time 11.4 sec (9.9-11.9)
[2022-05-12 10:29] LABS: Basophils # (M) 0 X 10*3/uL (0.00-0.10); Eosinophils # (M) 0.77 X 10*3/uL (0.04-0.35); Lymphocytes # (M) 1.73 X 10*3/uL (0.90-5.00); Monocytes # (M) 1.73 X 10*3/uL (0.20-1.00); Myelocytes % 2 % (0-0); Neutrophils # (M) 14.61 X 10*3/uL (2.00-8.90); Neutrophils % (M) 76 %
--- NOTE | 2022-05-12 10:35 | P.CONS ---
History of Present Illness - Reason for Consult Consult date: 05/12/22 wound care - History of Present Illness This is a 71 y/o male being seen by the wound care center for open ulceration of left anterior lower extremity. Patient follows with Dr. Broderick in the wound care center. Dr. Broderick did order Silvadene cream to the site and previous to that he ordered Hydrofera Blue. Patient states that the Silvadene cream does not help and he refused it last night. Due to the difficulty of getting Hydrofera Blue in the inpatient setting we will change to absorptive Silver at this time. Patient has a non-pressure ulceration to the left anterior lower extremity measuring approximately 1.5 x 0.1 x 0.2 cm with fat layer exposure minimal slough noted with granulation wound edges are attached to the wound base. Patient will return to the wound care center upon discharge. Review Of Systems: Constitutional: No fever, no chills, no night sweats. No weight change. No weakness, fatigue or lethargy. No daytime sleepiness. Integumentary:reports wounds, no lesions. No rash or pruritus. No unusual bruising. No change in hair or nails. Physical exam: General Appearance: Alert, cooperative, no distress, appears stated age. Skin: See HPI all other Skin color, texture, tugor normal, no rashes or lesions. Neurologic: Alert oriented x3 Assessment: 1. Nonpressure ulceration of left anterior lower extremity with fat layer exposure 2. Cellulitis bilateral lower extremities Plan: 1. Apply absorptive silver moistened, saline moistened gauze, dry gauze, rolled gauze and secure with paper tape. May utilize Eucerin to any dry areas including the feet. Patient will follow-up in the wound care center upon discharge the wound care center will call the patient with the appointment time. Thank you for the consultation any questions to contact the wound care center DNP note has been reviewed and discussed with Dr. Gonzalez and the impression and plan of care has been directed as dictated. Past Medical History Past Medical History: Asthma, Coronary Artery Disease (CAD), Hyperlipidemia, Hypertension, Myocardial Infarction ([place]), Seizure Disorder Additional Past Medical History / Comment(s): restless leg, cardiomyopathy, wounds RT legs, BLE SWOLLEN AND DARK IN COLOR, frequent falls, irritant induced asthma, hand tremors, double vision Last Myocardial Infarction Date:: 1989 History of Any Multi-Drug Resistant Organisms: None Reported Past Surgical History: Back Surgery, Cholecystectomy Additional Past Surgical History / Comment(s): brain tumor SX, 2ND DIGIT LT FOOT REMOVED, COLONOSCOPY Past Anesthesia/Blood Transfusion Reactions: No Reported Reaction Past Psychological History: No Psychological Hx Reported Smoking Status: Never smoker Past Alcohol Use History: None Reported Past Drug Use History: None Reported - Past Family History Mother Family Medical History: Cancer Additional Family Medical History / Comment(s): pancreatic Father Family Medical History: Cancer Additional Family Medical History / Comment(s): melanoma Brother(s) Family Medical History: Deep Vein Thrombosis (DVT) Daughter(s) Family Medical History: Deep Vein Thrombosis (DVT), Pulmonary Embolus Medications and Allergies Home Medications Medication Instructions Recorded Confirmed Type Pramipexole [Mirapex] 1 mg PO TID 07/06/16 05/10/22 History carvediloL [Coreg] 3.125 mg PO BID 06/28/18 05/10/22 History Furosemide [Lasix] 40 mg PO DAILY 02/25/22 05/10/22 History Melatonin [Melatonin ER] 10 mg PO HS 02/25/22 05/10/22 History Aspirin 81 mg PO DAILY 03/02/22 05/10/22 Rx DULoxetine HCL [Cymbalta] 30 mg PO DAILY 03/02/22 05/10/22 Rx Ipratropium-Albuterol Nebulize 3 ml INHALATION RT-QID PRN ml 03/02/22 05/10/22 Rx [Duoneb 0.5 mg-3 mg/3 ml Soln] Losartan [Cozaar] 25 mg PO DAILY tab 03/02/22 05/10/22 Rx Pregabalin [Lyrica] 75 mg PO BID #6 cap 03/02/22 05/10/22 Rx Spironolactone [Aldactone] 12.5 mg PO DAILY #30 tab 03/02/22 05/10/22 Rx Atorvastatin [Lipitor] 40 mg PO DAILY 05/10/22 05/10/22 History HYDROcodone/APAP 10-325MG [Man 1 tab PO BID 05/10/22 05/10/22 History 10-325] Allergies Allergy/AdvReac Type Severity Reaction Status Date / Time codeine Allergy Dyspnea Verified 05/10/22 16:55 Penicillins Allergy Dyspnea Verified 05/10/22 16:55 Physical Exam Vitals: Vital Signs Temp Pulse Pulse Resp BP Pulse Ox 05/12/22 07:55 74 132/69 05/12/22 05:00 97.8 F 69 16 124/73 96 05/11/22 21:00 97.4 F L 65 16 96/52 92 L 05/11/22 11:10 97.9 F 78 18 119/70 92 L Intake and Output 05/11/22 05/12/22 05/12/22 22:59 06:59 14:59 Output Total 300 525 125 Balance -300 -525 -125 Output: Urine 300 525 125 Other: Voiding Method Urinal # Voids 3 Results CBC & Chem 7: 05/12/22 05:35 05/12/22 05:35 Labs: Abnormal Lab Results - Last 24 Hours (Table) 05/12/22 05/12/22 Range/Units 05:35 05:35 WBC 19.22 H (4.50-10.00) X 10*3/uL RBC 3.81 L (4.40-5.60) X 10*6/uL Hgb 10.8 L (13.0-17.0) g/dL Hct 35.6 L (39.6-50.0) % MCHC 30.3 L (32.0-37.0) g/dL RDW 18.3 H (11.5-14.5) % Carbon Dioxide 30.3 H (20.0-27.5) mmol/L BUN/Creatinine Ratio 31.49 H (12.00-20.00) Ratio Microbiology - Last 24 Hours (Table) 05/10/22 14:25 Blood Culture - Preliminary Blood No Growth after 24 hours Assessment and Plan (1) Non-pressure chronic ulcer of other part of left lower leg with fat layer exposed Current Visit: Yes Status: Acute Code(s): L97.822 - NON-PRS CHRONIC ULCER OTH PRT L LOW LEG W FAT LAYER EXPOSED SNOMED Code(s): 29849326 (2) Bilateral lower leg cellulitis Current Visit: Yes Status: Acute Code(s): L03.116 - CELLULITIS OF LEFT LOWER LIMB; L03.115 - CELLULITIS OF RIGHT LOWER LIMB SNOMED Code(s): 727030037
[2022-05-12] MEDS ORDERED: MINERAL OIL-WHITE PETROLATUM 120 GM JAR TOPICAL PRN (11:29)
--- NOTE | 2022-05-12 13:29 | P.PN ---
Subjective Progress Note Date: 05/12/22 HISTORY OF PRESENT ILLNESS This is a 71-year-old male patient with past medical history of hypertension, h yperlipidemia, CVA, mild persistent ALLERGIC asthma, seizure disorder, Parkinson's disease, chronic diastolic heart failure, stasis dermatitis of the left lower extremity due to peripheral venous hypertension, spondylosis of the lumbar spine, obstructive sleep apnea. Patient was seen in the office yesterday for cellulitis of the both lower extremities. Patient had been on oral antibiotics for the past month without improvement and presented with a large vascular ulcer to the left lower extremity pretibial area as well as cellulitis to bilateral lower extremities. Patient was sent directly over the emergency center at [facility] for further evaluation and treatment. Patient was found to be afebrile, heart rate in the 70s and 80s, blood pressure 116/81, pulse ox 94% on room air. WBC 13.6, hemoglobin 15.3, platelet count 284. Electrolytes normal, BUN 21 creatinine 0.8. Liver function tests were normal. Lactic acid 1.3. Troponin negative. ProBNP 29. Recent hemoglobin A1c was 6.25 Nov 2021. X-ray tibia-fibula bilaterally showed no fracture. Chest x-ray revealed no acute pulmonary disease. Patient has been started on Vancomycin, Silvadene wraps, admitted to the MedSurg floor and consult with Dr. Amezquita, Dr. Broderick and Wound Center. 05/11: Infectious disease recommends cefepime 2 g IV every 8 hours and consult is in place with Dr. Broderick his wound care physician. Accicath placed for IV access. No surgical intervention is planned. Patient has been afebrile and hem odynamically stable. Leukocytosis slightly improved at 17.7. Troponins are negative on 3 draws. Blood cultures showing no growth at 24 hours. Wound cultures uncollected. 05/12: Patient is continued on cefepime. Repeat blood work reveals WBC 19.2, hemoglobin 10.8 and a platelet count 271. INR is 1.0. CO2 30 otherwise electrolytes and renal function within normal limits. Blood sugar 107. Calcium 8.7. Wound culture is uncollected and blood cultures showing no growth after 24 hours. REVIEW OF SYSTEMS Constitutional: No fever, no chills, no night sweats. No weight change. No weakness, fatigue or lethargy. No daytime sleepiness. EENT: No headache. No blurred vision or double vision, no loss of vision. No loss of Hearing, no ringing in the ears, no dizziness. No nasal drainage or congestion. No epistaxis. No sore throat. Lungs:Chronic shortness of breath, cough, no sputum production. No wheezing.Chronic dyspnea with exertion. Cardiovascular: No chest pain,reports lower extremity edema. No palpitations. No paroxysmal nocturnal dyspnea. No orthopnea. No lightheadedness or dizziness. No syncopal episodes. Abdominal: No abdominal pain. No nausea, vomiting. No diarrhea. No constipation. No bloody or tarry stools. No loss of appetite. Genitourinary: No dysuria, increased frequency, urgency. No urinary retention. Musculoskeletal: No myalgias. No muscle weakness, no gait dysfunction, no frequent falls. No back pain. No neck pain. Integumentary:Reports wounds to the bilateral lower extremities. No rash or pruritus. No unusual bruising. No change in hair or nails. Neurologic: No aphasia. No facial droop. No change in mentation. No head injury. No headache. No paralysis. No paresthesia. Psychiatric: No depression. No anxiety. No mood swings. Endocrine: No abnormal blood sugars. No weight change. No excessive sweating or thirst. PHYSICAL EXAMINATION Gen: This is a morbidly obese 71-year-old male patient sitting on the edge of the bed and appears to be in no acute respiratory distress. HEENT: Head is atraumatic, normocephalic. Pupils equal, round. Sclerae is anicteric. NECK: Supple. No JVD. No lymphadenopathy. No thyromegaly. LUNGS: Clear to auscultation. No wheezes or rhonchi. No intercostal retractions. HEART: First heart sound is depressed, second heart sound is normal, there is a 2/6 systolic ejection murmur at the left sternal border, no S3, no S4.. ABDOMEN: Soft. Bowel sounds are present. No masses. No tenderness. EXTREMITIES: 1+ bilateral pitting pedal edema with erythema. Also noted to the left pretibial area. Please see nursing documentation for details. NEUROLOGICAL: Patient is awake, alert and oriented x3. Cranial nerves 2 through 12 are grossly intact. ASSESSMENT AND PLAN 1. Bilateral lower extremity cellulitis. Wound culture is not collected, consult with Dr. Amezquita appreciated, vancomycin has been transitioned to cefepime 2 g IV piggyback every 8 hours, continue local wound care per wound healing center: absorptive silver moistened, saline moistened gauze, dry gauze, rolled gauze and secure with paper tape. May utilize Eucerin to any dry areas including the feet. Patient will follow-up in the wound care center upon discharge the wound care center will call the patient with the appointment time. 2. Hypertension. Continue Coreg 3.125 mg twice daily, Lasix 80 mg daily. 3. Hyperlipidemia. Low cholesterol diet. 4. History of CVA. 5. Parkinson's disease. Continue Mirapex 1 mg 3 times daily. 6. Chronic diastolic heart failure. Continue patient on Lasix 40 mg oral daily, Coreg 3.125 mg twice daily, Aldactone 25 mg daily. 7. Spondylosis of the lumbar spine. Continue Lyrica 75 mg twice daily. 8. Obstructive sleep apnea. 9. GI prophylaxis. Protonix 40 mg daily oral. 10. DVT prophylaxis. Heparin subcu. DISCHARGE PLAN Most likely return home with homecare. Impression and plan of care have been directed as dictated by the signing physician. Caitie Breaux nurse practitioner acting as scribe for signing physician. Objective - Vital Signs Vital signs: Vital Signs Temp 97.8 F 05/12/22 05:00 Pulse 74 05/12/22 07:55 Resp 16 05/12/22 05:00 BP 132/69 05/12/22 07:55 Pulse Ox 96 05/12/22 05:00 FiO2 Intake & Output 05/11/22 05/12/22 05/12/22 18:59 06:59 18:59 Output Total 300 525 125 Balance -300 -525 -125 Output: Urine 300 525 125 Other: Voiding Method Urinal Urinal # Voids 3 - Labs CBC & Chem 7: 05/12/22 05:35 05/12/22 05:35 Labs: Abnormal Lab Results - Last 24 Hours (Table) 05/12/22 05/12/22 Range/Units 05:35 05:35 WBC 19.22 H (4.50-10.00) X 10*3/uL RBC 3.81 L (4.40-5.60) X 10*6/uL Hgb 10.8 L (13.0-17.0) g/dL Hct 35.6 L (39.6-50.0) % MCHC 30.3 L (32.0-37.0) g/dL RDW 18.3 H (11.5-14.5) % Myelocytes % 2 H (0-0) % Neutrophils # (Manual) 14.61 H (2.00-8.90) X 10*3/uL Monocytes # (Manual) 1.73 H (0.20-1.00) X 10*3/uL Eosinophils # (Manual) 0.77 H (0.04-0.35) X 10*3/uL Carbon Dioxide 30.3 H (20.0-27.5) mmol/L BUN/Creatinine Ratio 31.49 H (12.00-20.00) Ratio Microbiology - Last 24 Hours (Table) 05/10/22 14:25 Blood Culture - Preliminary Blood No Growth after 24 hours
[2022-05-12] MEDS: MELATONIN 5 MG TABLET PO SCH (21:38)
[2022-05-13] MEDS: HYDROcodone/APAP 10-325MG 1 EACH TAB PO PRN ×3 (00:15→23:37)
[2022-05-13] MEDS: CEFEPIME 2 GM in SODIUM CHLORIDE 0.9% 100 ML IVPB SCH ×2 (05:52→14:56)
[2022-05-13] MEDS: FUROSEMIDE 10 MG/ML 10 ML VIAL IV SCH ×2 (08:14→15:08)
[2022-05-13] MEDS: carvediloL 3.125 MG TAB PO SCH ×2 (08:30→16:44)
[2022-05-13] MEDS: ATORVASTATIN 40 MG TAB PO SCH (08:31)
[2022-05-13] MEDS: PANTOPRAZOLE 40 MG TABLET PO SCH (08:31)
[2022-05-13] MEDS: ASPIRIN 81 MG PO SCH (08:31)
[2022-05-13] MEDS: DULoxetine HCL 30 MG CAPSULE.DR PO SCH (08:32)
[2022-05-13] MEDS: PRAMIPEXOLE 1 MG TAB PO SCH ×3 (08:34→20:32)
[2022-05-13] MEDS: LOSARTAN 25 MG TAB PO SCH (08:34)
[2022-05-13] MEDS: ENOXAPARIN 40 MG/0.4 ML SYRINGE SQ SCH (08:34)
[2022-05-13] MEDS: SPIRONOLACTONE 25 MG TAB PO SCH (08:35)
[2022-05-13] MEDS: PREGABALIN 75 MG CAP PO SCH ×2 (08:35→20:31)
[2022-05-13 08:56] LABS: HGB 10.6 g/dL (13.0-17.0); MCH 28.3 pg (27.0-32.0); MCHC 30.3 g/dL (32.0-37.0); MCV 93.6 fL (80.0-97.0); Mean Platelet Volume 10.7 fL (9.5-12.2); NRBC Per 100 WBC 0.1 /100 WBCS (0.0-0.0); Platelet Count 294 X 10*3/uL (140-440); RBC 3.74 X 10*6/uL (4.40-5.60); RDW 17.9 % (11.5-14.5); WBC 18.05 X 10*3/uL (4.50-10.00)
[2022-05-13 09:08] LABS: African American GFR (CKD) 118.9 (60.0-200.0); Anion Gap 6.1 mmol/L (10.00-18.00); BUN/Creat Ratio 30.33 Ratio (12.00-20.00); Blood Urea Nitrogen 18.2 mg/dL (9.0-27.0); Calcium 8.8 mg/dL (8.7-10.3); Carbon Dioxide 34.9 mmol/L (20.0-27.5); Non-African American GFR(CKD) 102.6 (60.0-200.0); Potassium 4.1 mmol/L (3.5-5.5)
[2022-05-13] MEDS ORDERED: ONDANSETRON 4 MG/2 ML VIAL IVP PRN (10:38)
[2022-05-13] MEDS ORDERED: VANCOMYCIN IV PER PHARMACY 1 EACH MISC MISCELLANE PRN (14:44)
--- NOTE | 2022-05-13 14:48 | P.PN ---
Subjective Progress Note Date: 05/13/22 HISTORY OF PRESENT ILLNESS This is a 71-year-old male patient with past medical history of hypertension, h yperlipidemia, CVA, mild persistent ALLERGIC asthma, seizure disorder, Parkinson's disease, chronic diastolic heart failure, stasis dermatitis of the left lower extremity due to peripheral venous hypertension, spondylosis of the lumbar spine, obstructive sleep apnea. Patient was seen in the office yesterday for cellulitis of the both lower extremities. Patient had been on oral antibiotics for the past month without improvement and presented with a large vascular ulcer to the left lower extremity pretibial area as well as cellulitis to bilateral lower extremities. Patient was sent directly over the emergency center at [facility] for further evaluation and treatment. Patient was found to be afebrile, heart rate in the 70s and 80s, blood pressure 116/81, pulse ox 94% on room air. WBC 13.6, hemoglobin 15.3, platelet count 284. Electrolytes normal, BUN 21 creatinine 0.8. Liver function tests were normal. Lactic acid 1.3. Troponin negative. ProBNP 29. Recent hemoglobin A1c was 6.25 Nov 2021. X-ray tibia-fibula bilaterally showed no fracture. Chest x-ray revealed no acute pulmonary disease. Patient has been started on Vancomycin, Silvadene wraps, admitted to the MedSurg floor and consult with Dr. Amezquita, Dr. Broderick and Wound Center. 05/11: Infectious disease recommends cefepime 2 g IV every 8 hours and consult is in place with Dr. Broderick his wound care physician. Accicath placed for IV access. No surgical intervention is planned. Patient has been afebrile and hem odynamically stable. Leukocytosis slightly improved at 17.7. Troponins are negative on 3 draws. Blood cultures showing no growth at 24 hours. Wound cultures uncollected. 05/12: Patient is continued on cefepime. Repeat blood work reveals WBC 19.2, hemoglobin 10.8 and a platelet count 271. INR is 1.0. CO2 30 otherwise electrolytes and renal function within normal limits. Blood sugar 107. Calcium 8.7. Wound culture is uncollected and blood cultures showing no growth after 24 hours. 05/13: Patient has been afebrile, heart rate 60, blood pressure 123/75, pulse ox 96% on 2 L nasal cannula. Wound culture is in progress. Blood culture no growth at 48 hours. Patient is continued on cefepime 2 g IV piggyback every 8 hours. Local wound care is in place. Patient is refusing to have leg wrapped. A PICC line was placed for IV access. Repeat blood work reveals WBC 18.0, hemoglobin 10.6, platelet count 294. BUN 18 and creatinine 0.6. CO2 34. Blood sugar 110. Right leg wound presumptive MRSA and antibiotics will be changed to vancomycin pharmacy to dose. Patient is complaining that he is feeling weak and having difficulty getting to the bathroom to use the urinal or stand to use the urinal for which a condom catheter has been ordered and also Lasix afternoon dose changed to 3 PM. Consult with PT and OT added. REVIEW OF SYSTEMS Constitutional: No fever, no chills, no night sweats. No weight change. Reports weakness, reports fatigue no lethargy. No daytime sleepiness. EENT: No headache. No blurred vision or double vision, no loss of vision. No loss of Hearing, no ringing in the ears, no dizziness. No nasal drainage or congestion. No epistaxis. No sore throat. Lungs:Chronic shortness of breath, cough, no sputum production. No wheezing.Chronic dyspnea with exertion. Cardiovascular: No chest pain,reports lower extremity edema. No palpitations. No paroxysmal nocturnal dyspnea. No orthopnea. No lightheadedness or dizziness. No syncopal episodes. Abdominal: No abdominal pain. No nausea, vomiting. No diarrhea. No constipation. No bloody or tarry stools. No loss of appetite. Genitourinary: No dysuria, increased frequency, urgency. No urinary retention. Musculoskeletal: No myalgias. No muscle weakness, no gait dysfunction, no frequent falls. No back pain. No neck pain. Integumentary:Reports wounds to the bilateral lower extremities. No rash or pruritus. No unusual bruising. No change in hair or nails. Neurologic: No aphasia. No facial droop. No change in mentation. No head injury. No headache. No paralysis. No paresthesia. Psychiatric: No depression. No anxiety. No mood swings. Endocrine: No abnormal blood sugars. No weight change. No excessive sweating or thirst. PHYSICAL EXAMINATION Gen: This is a morbidly obese 71-year-old male patient sitting on the edge of the bed and appears to be in no acute respiratory distress. HEENT: Head is atraumatic, normocephalic. Pupils equal, round. Sclerae is anicte lc. NECK: Supple. No JVD. No lymphadenopathy. No thyromegaly. LUNGS: Clear to auscultation. No wheezes or rhonchi. No intercostal retractions. HEART: First heart sound is depressed, second heart sound is normal, there is a 2/6 systolic ejection murmur at the left sternal border, no S3, no S4.. ABDOMEN: Soft. Bowel sounds are present. No masses. No tenderness. EXTREMITIES: 1+ bilateral pitting pedal edema with erythema. Also noted to the left pretibial area. Please see nursing documentation for details. NEUROLOGICAL: Patient is awake, alert and oriented x3. Cranial nerves 2 through 12 are grossly intact. ASSESSMENT AND PLAN 1. Bilateral lower extremity cellulitis. Wound culture is presumptive MRSA, consult with Dr. Alirio thomas, cefepime transitioned to vancomycin pharmacy dosing, continue local wound care per wound healing center: absorptive silver moistened, saline moistened gauze, dry gauze, rolled gauze and secure with paper tape. May utilize Eucerin to any dry areas including the feet. Patient will follow-up in the wound care center upon discharge the wound care center will call the patient with the appointment time. Patient is refusing to have leg wrapped. 2. Hypertension. Continue Coreg 3.125 mg twice daily, Lasix 80 mg daily. 3. Hyperlipidemia. Low cholesterol diet. 4. History of CVA. 5. Parkinson's disease. Continue Mirapex 1 mg 3 times daily. 6. Chronic diastolic heart failure. Continue patient on Lasix 40 mg oral daily, Coreg 3.125 mg twice daily, Aldactone 25 mg daily. 7. Spondylosis of the lumbar spine. Continue Lyrica 75 mg twice daily. 8. Obstructive sleep apnea. 9. GI prophylaxis. Protonix 40 mg daily oral. 10. DVT prophylaxis. Heparin subcu. DISCHARGE PLAN Most likely return home with [facility]. PT and OT consults Impression and plan of care have been directed as dictated by the signing physician. Caitie Breaux nurse practitioner acting as scribe for signing physician. Objective - Vital Signs Vital signs: Vital Signs Temp 97.7 F 05/13/22 05:00 Pulse 68 07/21/22 05:00 Resp 16 05/13/22 05:00 BP 123/75 05/13/22 05:00 Pulse Ox 96 05/13/22 05:00 FiO2 Intake & Output 05/12/22 05/13/22 05/13/22 18:59 06:59 18:59 Intake Total 240 Output Total 725 325 Balance -485 -325 Intake: Oral 240 Output: Urine 725 325 Other: Voiding Method Urinal Urinal # Voids 2 # Bowel Movements 1 - Labs CBC & Chem 7: 05/13/22 06:13 05/13/22 06:13 Labs: Abnormal Lab Results - Last 24 Hours (Table) 05/12/22 05/12/22 Range/Units 05:35 05:35 WBC 19.22 H (4.50-10.00) X 10*3/uL RBC 3.81 L (4.40-5.60) X 10*6/uL Hgb 10.8 L (13.0-17.0) g/dL Hct 35.6 L (39.6-50.0) % MCHC 30.3 L (32.0-37.0) g/dL RDW 18.3 H (11.5-14.5) % Myelocytes % 2 H (0-0) % Neutrophils # (Manual) 14.61 H (2.00-8.90) X 10*3/uL Monocytes # (Manual) 1.73 H (0.20-1.00) X 10*3/uL Eosinophils # (Manual) 0.77 H (0.04-0.35) X 10*3/uL Carbon Dioxide 30.3 H (20.0-27.5) mmol/L BUN/Creatinine Ratio 31.49 H (12.00-20.00) Ratio Microbiology - Last 24 Hours (Table) 05/10/22 14:25 Blood Culture - Preliminary Blood No Growth after 48 hours 05/12/22 08:45 Wound Culture - Preliminary Leg - Right
--- NOTE | 2022-05-13 15:10 | P.PN ---
Subjective Progress Note Date: 05/12/22 Principal diagnosis: Bilateral lower extremity cellulitis Patient is a 71-year male with a past medical history significant for bilateral lower extremity ulcers and history of recurrent cellulitis presented to hospital with an episode of lower extremity cellulitis. On today's evaluation that is 05/12/2022, patient denies having any fever or any chills, the patient is breathing slightly comfortably denies having any chest pain shortness with occasional cough no abdominal pain overall swelling and redness to the legs has slightly decreased in intensity Objective - Vital Signs Vital signs: Vital Signs Temp 98.2 F 05/12/22 12:48 Pulse 74 05/12/22 07:55 Resp 20 05/12/22 12:48 BP 124/69 05/12/22 12:48 Pulse Ox 90 L 05/12/22 12:48 FiO2 Intake & Output 05/11/22 05/12/22 05/12/22 18:59 06:59 18:59 Output Total 300 525 125 Balance -300 -525 -125 Output: Urine 300 525 125 Other: Voiding Method Urinal Urinal Urinal # Voids 3 - Exam GENERAL DESCRIPTION: Elderly male lying in bed, no distress. No tachypnea or accessory muscle of respiration use. LUNGS: Unlabored breathing. Decreased breath sound at the base HEART: S1, S2, regular rate and rhythm. No loud murmur ABDOMEN: Soft, no tenderness , guarding or rigidity, no organomegaly EXTREMITIES: Diffuse swelling to bilateral lower extremity redness is slightly decreased - Labs CBC & Chem 7: 05/13/22 06:13 05/13/22 06:13 Labs: Abnormal Lab Results - Last 24 Hours (Table) 05/12/22 05/12/22 Range/Units 05:35 05:35 WBC 19.22 H (4.50-10.00) X 10*3/uL RBC 3.81 L (4.40-5.60) X 10*6/uL Hgb 10.8 L (13.0-17.0) g/dL Hct 35.6 L (39.6-50.0) % MCHC 30.3 L (32.0-37.0) g/dL RDW 18.3 H (11.5-14.5) % Myelocytes % 2 H (0-0) % Neutrophils # (Manual) 14.61 H (2.00-8.90) X 10*3/uL Monocytes # (Manual) 1.73 H (0.20-1.00) X 10*3/uL Eosinophils # (Manual) 0.77 H (0.04-0.35) X 10*3/uL Carbon Dioxide 30.3 H (20.0-27.5) mmol/L BUN/Creatinine Ratio 31.49 H (12.00-20.00) Ratio Microbiology - Last 24 Hours (Table) 05/10/22 14:25 Blood Culture - Preliminary Blood No Growth after 24 hours Assessment and Plan (1) Bilateral lower leg cellulitis Current Visit: Yes Status: Acute Code(s): L03.116 - CELLULITIS OF LEFT LOWER LIMB; L03.115 - CELLULITIS OF RIGHT LOWER LIMB SNOMED Code(s): 593882933 Plan: 1patient presented hospital with increasing swelling and redness to bilateral lower extremity in this patient did have a history of recurrent lower extremity cellulitis likely from gram-positive skin hayden gram-negative infection less likely but not entirely l excluded. 2penicillin allergy regimen number of antibiotics safe to use. 3Patient advised to continue with Moody wrap from just above the toe to below the knee to keep the swelling down. 4patient to continue with cefepime 2 g every 8 hours and monitor clinical course closely Time with Patient: Less than 30
[2022-05-13] MEDS: VANCOMYCIN 2,250 MG in SODIUM CHLORIDE 0.9% 500 ML 500 ML IVPB SCH ×2 (15:49→23:39)
[2022-05-13] MEDS: MELATONIN 5 MG TABLET PO SCH (20:31)
[2022-05-14] MEDS: IPRATROPIUM-ALBUTEROL 3 ML NEB INHALATION PRN ×5 (04:54→23:05)
--- NOTE | 2022-05-14 05:03 | XR ---
EXAMINATION TYPE: XR chest 1V DATE OF EXAM: 05/14/2022 COMPARISON: 02/25/2022 HISTORY: Short of breath TECHNIQUE: FINDINGS: Heart is moderately enlarged. There is mild pulmonary vascular congestion. No definite pleu ral effusion. There is neurostimulator in the thoracic spine. IMPRESSION: Moderate cardiomegaly which appears worse than old exam. There is probably some congestiv e heart failure. Pulmonary congestion appears new compared to old exam.
[2022-05-14] MEDS: FUROSEMIDE 10 MG/ML 10 ML VIAL IV SCH ×2 (05:13→15:54)
[2022-05-14] MEDS: PRAMIPEXOLE 1 MG TAB PO SCH ×3 (08:18→20:46)
[2022-05-14] MEDS: PREGABALIN 75 MG CAP PO SCH ×2 (08:18→20:48)
[2022-05-14] MEDS: ASPIRIN 81 MG PO SCH (08:18)
[2022-05-14] MEDS: PANTOPRAZOLE 40 MG TABLET PO SCH (08:18)
[2022-05-14] MEDS: carvediloL 3.125 MG TAB PO SCH ×2 (08:18→17:35)
[2022-05-14] MEDS: SPIRONOLACTONE 25 MG TAB PO SCH (08:18)
[2022-05-14] MEDS: ATORVASTATIN 40 MG TAB PO SCH (08:18)
[2022-05-14] MEDS: LOSARTAN 25 MG TAB PO SCH (08:18)
[2022-05-14] MEDS: ENOXAPARIN 40 MG/0.4 ML SYRINGE SQ SCH (08:19)
[2022-05-14] MEDS: DULoxetine HCL 30 MG CAPSULE.DR PO SCH (08:20)
[2022-05-14] MEDS: VANCOMYCIN 2,250 MG in SODIUM CHLORIDE 0.9% 500 ML 500 ML IVPB SCH ×3 (08:22→22:44)
--- NOTE | 2022-05-14 13:33 | P.PN ---
Subjective Progress Note Date: 05/14/22 HISTORY OF PRESENT ILLNESS This is a 71-year-old male patient with past medical history of hypertension, h yperlipidemia, CVA, mild persistent ALLERGIC asthma, seizure disorder, Parkinson's disease, chronic diastolic heart failure, stasis dermatitis of the left lower extremity due to peripheral venous hypertension, spondylosis of the lumbar spine, obstructive sleep apnea. Patient was seen in the office yesterday for cellulitis of the both lower extremities. Patient had been on oral antibiotics for the past month without improvement and presented with a large vascular ulcer to the left lower extremity pretibial area as well as cellulitis to bilateral lower extremities. Patient was sent directly over the emergency center at [facility] for further evaluation and treatment. Patient was found to be afebrile, heart rate in the 70s and 80s, blood pressure 116/81, pulse ox 94% on room air. WBC 13.6, hemoglobin 15.3, platelet count 284. Electrolytes normal, BUN 21 creatinine 0.8. Liver function tests were normal. Lactic acid 1.3. Troponin negative. ProBNP 29. Recent hemoglobin A1c was 6.25 Nov 2021. X-ray tibia-fibula bilaterally showed no fracture. Chest x-ray revealed no acute pulmonary disease. Patient has been started on Vancomycin, Silvadene wraps, admitted to the MedSurg floor and consult with Dr. Amezquita, Dr. Broderick [facility]. 05/11: Infectious disease recommends cefepime 2 g IV every 8 hours and consult is in place with Dr. Broderick his wound care physician. Accicath placed for IV access. No surgical intervention is planned. Patient has been afebrile and hem odynamically stable. Leukocytosis slightly improved at 17.7. Troponins are negative on 3 draws. Blood cultures showing no growth at 24 hours. Wound cultures uncollected. 05/12: Patient is continued on cefepime. Repeat blood work reveals WBC 19.2, hemoglobin 10.8 and a platelet count 271. INR is 1.0. CO2 30 otherwise electrolytes and renal function within normal limits. Blood sugar 107. Calcium 8.7. Wound culture is uncollected and blood cultures showing no growth after 24 hours. 05/13: Patient has been afebrile, heart rate 60, blood pressure 123/75, pulse ox 96% on 2 L nasal cannula. Wound culture is in progress. Blood culture no growth at 48 hours. Patient is continued on cefepime 2 g IV piggyback every 8 hours. Local wound care is in place. Patient is refusing to have leg wrapped. A PICC line was placed for IV access. Repeat blood work reveals WBC 18.0, hemoglobin 10.6, platelet count 294. BUN 18 and creatinine 0.6. CO2 34. Blood sugar 110. Right leg wound presumptive MRSA and antibiotics will be changed to vancomycin pharmacy to dose. Patient is complaining that he is feeling weak and having difficulty getting to the bathroom to use the urinal or stand to use the urinal for which a condom catheter has been ordered and also Lasix afternoon dose changed to 3 PM. Consult with PT and OT added. 05/14: Patient states that he is urinating well and frequently. He condom cath was attempted but he states that gone through 5 condom catheters that will not stay in place. He has been seen by Dr. Broderick regarding the wound on the left leg and cleared for discharge. Patient does have erythema and warmth to the right lower extremity. PT has evaluated and recommended subacute rehab. Patient's nurse states it took 2 people to get him out of bed. Patient is adamant that he will only go home and is not interested in subacute rehab. Patient is afebrile, heart rate 63, blood pressure 113/63, pulse ox 91% on 3 L nasal cannula. Patient may require home oxygen therapy at the time of discharge. Repeat blood work is ordered for tomorrow. REVIEW OF SYSTEMS Constitutional: No fever, no chills, no night sweats. No weight change. Reports weakness, reports fatigue no lethargy. No daytime sleepiness. EENT: No headache. No blurred vision or double vision, no loss of vision. No loss of Hearing, no ringing in the ears, no dizziness. No nasal drainage or congestion. No epistaxis. No sore throat. Lungs:Chronic shortness of breath, cough, no sputum production. No wheezing.Chronic dyspnea with exertion. Cardiovascular: No chest pain,reports lower extremity edema. No palpitations. No paroxysmal nocturnal dyspnea. No orthopnea. No lightheadedness or dizziness. No syncopal episodes. Abdominal: No abdominal pain. No nausea, vomiting. No diarrhea. No constipation. No bloody or tarry stools. No loss of appetite. Genitourinary: No dysuria, increased frequency, urgency. No urinary retention. Musculoskeletal: No myalgias. No muscle weakness, no gait dysfunction, no frequent falls. No back pain. No neck pain. Integumentary:Reports wounds to the bilateral lower extremities. erythema to the right lower extremity. No rash or pruritus. No unusual bruising. No change in hair or nails. Neurologic: No aphasia. No facial droop. No change in mentation. No head injury. No headache. No paralysis. No paresthesia. Psychiatric: No depression. No anxiety. No mood swings. Endocrine: No abnormal blood sugars. No weight change. No excessive sweating or thirst. PHYSICAL EXAMINATION Gen: This is a morbidly obese 71-year-old male patientresting and bed and appears to be in no acute respiratory distress. HEENT: Head is atraumatic, normocephalic. Pupils equal, round. Sclerae is anicteric. NECK: Supple. No JVD. No lymphadenopathy. No thyromegaly. LUNGS: Clear to auscultation. No wheezes or rhonchi. No intercostal retractions. HEART: First heart sound is depressed, second heart sound is normal, there is a 2/6 systolic ejection murmur at the left sternal border, no S3, no S4.. ABDOMEN: Soft. Bowel sounds are present. No masses. No tenderness. EXTREMITIES: 1+ bilateral pitting pedal edema with erythema and warmth to the right lower extremity. Left-sided pretibial wound with dressing in place. Erythema and edema improved. NEUROLOGICAL: Patient is awake, alert and oriented x3. Cranial nerves 2 through 12 are grossly intact. ASSESSMENT AND PLAN 1. Bilateral lower extremity cellulitis. Wound culture positive foronsult with Dr. Alirio dominguez patient onomycin pharmacy dosing, continue local wound care per wound healing center: absorptive silver moistened, saline moistened gauze, dry gauze, rolled gauze and secure with paper tape. May utilize Eucerin to any dry areas including the feet. Patient will follow-up in the wound care center upon discharge the wound care center will call the patient with the appointment time. Patient is refusing to have leg wrapped.continue IV Lasix 60 mg 8 AM and 3 PM. 2. Hypertension. Continue Coreg 3.125 mg twice daily, Lasix 60 mg IV at 8 AM and 3 PM. 3. Hyperlipidemia. Low cholesterol diet. 4. History of CVA. 5. Parkinson's disease. Continue Mirapex 1 mg 3 times daily. 6. Chronic diastolic heart failure. Continue patient on Lasix, Coreg 3.125 mg twice daily, Aldactone 25 mg daily. 7. Spondylosis of the lumbar spine. Continue Lyrica 75 mg twice daily. 8. Obstructive sleep apnea. 9. GI prophylaxis. Protonix 40 mg daily oral. 10. DVT prophylaxis. Heparin subcu. DISCHARGE PLAN Home with [facility]. PT and OT consultsrecommended subacute rehab but patient is adamant that he is going home. Impression and plan of care have been directed as dictated by the signing physician. Caitie Breaux nurse practitioner acting as scribe for signing physician. Objective - Vital Signs Vital signs: Vital Signs Temp 98.5 F 05/14/22 12:50 Pulse 63 05/14/22 12:50 Resp 28 H 05/14/22 12:50 BP 113/63 05/14/22 12:50 Pulse Ox 91 L 05/14/22 12:50 FiO2 Intake & Output 05/13/22 05/14/22 05/14/22 18:59 06:59 18:59 Intake Total 500 Output Total 4375 550 Balance -4375 500 -550 Intake: Intake, IV Titration 500 Amount Vancomycin 2,250 mg In 500 Sodium Chloride 0.9% 500 ml 500 ml @ 167 mls/hr IVPB Q8H [facility] Rx#: [id number] Output: Urine 4375 550 Other: Voiding Method Urinal Urinal External Catheter # Voids 0 - Labs CBC & Chem 7: 05/13/22 06:13 05/13/22 06:13 Labs: Microbiology - Last 24 Hours (Table) 05/12/22 08:45 Gram Stain - Final Leg - Right Wound Culture - Final Methicillin resist S. aureus 05/10/22 14:25 Blood Culture - Preliminary Blood No Growth after 72 hours
[2022-05-14] MEDS: MELATONIN 5 MG TABLET PO SCH (20:46)
[2022-05-14] MEDS: HYDROcodone/APAP 10-325MG 1 EACH TAB PO PRN (22:50)
[2022-05-15] MEDS: IPRATROPIUM-ALBUTEROL 3 ML NEB INHALATION PRN ×6 (02:58→23:18)
[2022-05-15] MEDS ORDERED: VANCOMYCIN TROUGH DUE 1 EACH MISC MISCELLANE ONE (06:00)
[2022-05-15 07:44] LABS: Anisocytosis Slight; HCT 33.9 % (39.0-53.0); HGB 11.4 gm/dL (13.0-17.5); Hypochromasia Slight; MCH 30.5 pg (25.0-35.0); MCHC 33.7 g/dL (31.0-37.0); MCV 90.7 fL (80.0-100.0); Mean Platelet Volume 8.1; Platelet Count 344 k/uL (150-450); Poikilocytosis Slight; RBC 3.73 m/uL (4.30-5.90)
[2022-05-15 08:20] LABS: African American GFR (CKD) >90 (>60 ml/min/1.73 sqM); Anion Gap 5 mmol/L; Blood Urea Nitrogen 20 mg/dL (9-20); Calcium 8.8 mg/dL (8.4-10.2); Carbon Dioxide 34 mmol/L (22-30); Chloride 100 mmol/L (98-107); Glucose 108 mg/dL (74-99); Non-African American GFR(CKD) >90 (>60 ml/min/1.73 sqM); Potassium 4.6 mmol/L (3.5-5.1); Sodium 139 mmol/L (137-145)
[2022-05-15] MEDS: DULoxetine HCL 30 MG CAPSULE.DR PO SCH (08:23)
[2022-05-15] MEDS: carvediloL 3.125 MG TAB PO SCH ×2 (08:23→17:28)
[2022-05-15] MEDS: ENOXAPARIN 40 MG/0.4 ML SYRINGE SQ SCH (08:23)
[2022-05-15] MEDS: ASPIRIN 81 MG PO SCH (08:23)
[2022-05-15] MEDS: FUROSEMIDE 10 MG/ML 10 ML VIAL IV SCH ×2 (08:24→15:30)
[2022-05-15] MEDS: LOSARTAN 25 MG TAB PO SCH (08:24)
[2022-05-15] MEDS: PREGABALIN 75 MG CAP PO SCH ×2 (08:24→20:43)
[2022-05-15] MEDS: PANTOPRAZOLE 40 MG TABLET PO SCH (08:24)
[2022-05-15] MEDS: VANCOMYCIN 2,250 MG in SODIUM CHLORIDE 0.9% 500 ML 500 ML IVPB SCH ×2 (08:24→20:48)
[2022-05-15] MEDS: SPIRONOLACTONE 25 MG TAB PO SCH (08:24)
[2022-05-15] MEDS: ATORVASTATIN 40 MG TAB PO SCH (08:24)
[2022-05-15] MEDS: PRAMIPEXOLE 1 MG TAB PO SCH ×3 (08:25→23:11)
[2022-05-15] MEDS: HYDROcodone/APAP 10-325MG 1 EACH TAB PO PRN ×2 (08:29→23:01)
[2022-05-15 10:41] VITALS: BMI 48.8
--- NOTE | 2022-05-15 16:54 | P.PN ---
Subjective Progress Note Date: 05/13/22 Principal diagnosis: Bilateral lower extremity cellulitis Patient is a 71-year male with a past medical history significant for bilateral lower extremity ulcers and history of recurrent cellulitis presented to hospital with an episode of lower extremity cellulitis. On today's evaluation that is 05/13/2022, patient remains to be afebrile, the patient is breathing slightly comfortably, the patient denies having any chest pain shortness with occasional cough no abdominal pain overall swelling and redness to the legs has slightly decreased in intensity Objective - Vital Signs Vital signs: Vital Signs Temp 98.3 F 05/13/22 13:26 Pulse 71 05/13/22 13:26 Resp 20 05/13/22 13:26 BP 112/71 05/13/22 13:26 Pulse Ox 92 L 05/13/22 13:26 FiO2 Intake & Output 05/12/22 05/13/22 05/13/22 18:59 06:59 18:59 Intake Total 240 Output Total 388 223 2775 Balance -953 -325 -2079 Intake: Oral 240 Output: Urine 032 978 0631 Other: Voiding Method Urinal Urinal Urinal # Voids 2 # Bowel Movements 1 - Exam GENERAL DESCRIPTION: Elderly male lying in bed, no distress. No tachypnea or accessory muscle of respiration use. LUNGS: Unlabored breathing. Decreased breath sound at the base HEART: S1, S2, regular rate and rhythm. No loud murmur ABDOMEN: Soft, no tenderness , guarding or rigidity, no organomegaly EXTREMITIES: Diffuse swelling to bilateral lower extremity redness is slightly decreased - Labs CBC & Chem 7: 05/15/22 06:51 05/15/22 06:51 Labs: Abnormal Lab Results - Last 24 Hours (Table) 05/13/22 05/13/22 Range/Units 06:13 06:13 WBC 18.05 H (4.50-10.00) X 10*3/uL RBC 3.74 L (4.40-5.60) X 10*6/uL Hgb 10.6 L (13.0-17.0) g/dL Hct 35.0 L (39.6-50.0) % MCHC 30.3 L (32.0-37.0) g/dL RDW 17.9 H (11.5-14.5) % Absolute Nucleated RBC 0.02 H (0.00-0.00) X 10*3/uL NRBC/100 WBC Diff 0.1 H (0.0-0.0) /100 WBCS Carbon Dioxide 34.9 H (20.0-27.5) mmol/L Anion Gap 6.10 L (10.00-18.00) mmol/L BUN/Creatinine Ratio 30.33 H (12.00-20.00) Ratio Microbiology - Last 24 Hours (Table) 05/12/22 08:45 Gram Stain - Preliminary Leg - Right Wound Culture - Preliminary Presumptive MRSA 05/10/22 14:25 Blood Culture - Preliminary Blood No Growth after 48 hours Assessment and Plan (1) Bilateral lower leg cellulitis Current Visit: Yes Status: Acute Code(s): L03.116 - CELLULITIS OF LEFT LOWER LIMB; L03.115 - CELLULITIS OF RIGHT LOWER LIMB SNOMED Code(s): 706205738 Plan: 1patient presented hospital with increasing swelling and redness to bilateral lower extremity in this patient did have a history of recurrent lower extremity cellulitis likely from gram-positive skin hayden gram-negative infection less likely but not entirely excluded. 2 Patient advised to continue with Moody wrap from just above the toe to below the knee to keep the swelling down. 4patient to continue with cefepime 2 g every 8 hours while waiting for the cultures to finalize Time with Patient: Less than 30
--- NOTE | 2022-05-15 16:55 | P.PN ---
Subjective Progress Note Date: 05/14/22 Principal diagnosis: Bilateral lower extremity cellulitis Patient is a 71-year male with a past medical history significant for bilateral lower extremity ulcers and history of recurrent cellulitis presented to hospital with an episode of lower extremity cellulitis. On today's evaluation that is 05/14/2022, patient continues to be afebrile, the patient is breathing slightly comfortably on nasal cannula oxygen, the patient denies chest pain , did have occasional cough no abdominal pain overall swelling and redness to the legs has slightly decreased in intensity Objective - Vital Signs Vital signs: Vital Signs Temp 98.5 F 05/14/22 12:50 Pulse 63 05/14/22 12:50 Resp 28 H 05/14/22 12:50 BP 113/63 05/14/22 12:50 Pulse Ox 91 L 05/14/22 12:50 FiO2 Intake & Output 05/13/22 05/14/22 05/14/22 18:59 06:59 18:59 Intake Total 500 Output Total 4375 550 Balance -4375 500 -550 Intake: Intake, IV Titration 500 Amount Vancomycin 2,250 mg In 500 Sodium Chloride 0.9% 500 ml 500 ml @ 167 mls/hr IVPB Q8H [facility] Rx#: [id number] Output: Urine 4375 550 Other: Voiding Method Urinal Urinal External Catheter # Voids 0 - Exam GENERAL DESCRIPTION: Elderly male lying in bed, no distress. No tachypnea or accessory muscle of respiration use. LUNGS: Unlabored breathing. Decreased breath sound at the base HEART: S1, S2, regular rate and rhythm. No loud murmur ABDOMEN: Soft, no tenderness , guarding or rigidity, no organomegaly EXTREMITIES: Diffuse swelling to bilateral lower extremity redness is slightly decreased - Labs CBC & Chem 7: 05/15/22 06:51 05/15/22 06:51 Labs: Microbiology - Last 24 Hours (Table) 05/12/22 08:45 Gram Stain - Final Leg - Right Wound Culture - Final Methicillin resist S. aureus 05/10/22 14:25 Blood Culture - Preliminary Blood No Growth after 72 hours Assessment and Plan (1) Bilateral lower leg cellulitis Current Visit: Yes Status: Acute Code(s): L03.116 - CELLULITIS OF LEFT LOWER LIMB; L03.115 - CELLULITIS OF RIGHT LOWER LIMB SNOMED Code(s): 503103608 Plan: 1patient presented hospital with increasing swelling and redness to bilateral lower extremity in this patient did have a history of recurrent lower extremity cellulitis likely from gram-positive skin hayden gram-negative infection less likely but not entirely excluded. 2 Patient advised to continue with Moody wrap from just above the toe to below the knee to keep the swelling down. 4patient local culture finalized MRSA cefepime has been discontinued vancomycin has been added Time with Patient: Less than 30
--- NOTE | 2022-05-15 16:57 | P.PN ---
Subjective Progress Note Date: 05/15/22 Principal diagnosis: Bilateral lower extremity cellulitis Patient is a 71-year male with a past medical history significant for bilateral lower extremity ulcers and history of recurrent cellulitis presented to hospital with an episode of lower extremity cellulitis. On today's evaluation that is 05/15/2022, patient denies any fever or any chills, the patient is breathing slightly comfortably on nasal cannula oxygen, the patient denies chest pain, the patient did have occasional cough but no sputum, no abdominal pain overall swelling and redness to the legs has slightly decreased in intensity and there is no drainage Objective - Vital Signs Vital signs: Vital Signs Temp 98.1 F 05/15/22 11:31 Pulse 68 05/15/22 15:41 Resp 20 05/15/22 11:31 BP 103/62 05/15/22 11:31 Pulse Ox 92 L 05/15/22 11:31 FiO2 Intake & Output 05/14/22 05/15/22 05/15/22 18:59 06:59 18:59 Intake Total 590 Output Total 6100 049 5707 Balance -1850 290 -1200 Weight 158.757 kg Intake: Oral 590 Output: Urine 9716 373 5515 Other: Voiding Method External Catheter External Catheter Urinal # Voids 0 - Exam GENERAL DESCRIPTION: Elderly male lying in bed, no distress. No tachypnea or accessory muscle of respiration use. LUNGS: Unlabored breathing. Decreased breath sound at the base HEART: S1, S2, regular rate and rhythm. No loud murmur ABDOMEN: Soft, no tenderness , guarding or rigidity, no organomegaly EXTREMITIES: Diffuse swelling to bilateral lower extremity redness is slightly decreased - Labs CBC & Chem 7: 05/15/22 06:51 05/15/22 06:51 Labs: Abnormal Lab Results - Last 24 Hours (Table) 05/15/22 05/15/22 Range/Units 06:51 06:51 WBC 16.0 H (3.8-10.6) k/uL RBC 3.73 L (4.30-5.90) m/uL Hgb 11.4 L (13.0-17.5) gm/dL Hct 33.9 L (39.0-53.0) % RDW 18.0 H (11.5-15.5) % Carbon Dioxide 34 H (22-30) mmol/L Creatinine 0.65 L (0.66-1.25) mg/dL Glucose 108 H (74-99) mg/dL Microbiology - Last 24 Hours (Table) 05/10/22 14:25 Blood Culture - Preliminary Blood No Growth after 96 hours Assessment and Plan (1) Bilateral lower leg cellulitis Current Visit: Yes Status: Acute Code(s): L03.116 - CELLULITIS OF LEFT LOWER LIMB; L03.115 - CELLULITIS OF RIGHT LOWER LIMB SNOMED Code(s): 078689686 Plan: 1patient presented hospital with increasing swelling and redness to bilateral lower extremity in this patient did have a history of recurrent lower extremity cellulitis likely from gram-positive skin hayden gram-negative infection less likely but not entirely excluded. 2 Patient advised to continue with Moody wrap from just above the toe to below the knee to keep the swelling down. 4patient local culture finalized MRSA , for which the patient is currently being treated with vancomycin keeping in mind patient is going to subacute rehab may consider short course of IV Vanco on discharge Time with Patient: Less than 30
[2022-05-15] MEDS: SENNOSIDES-DOCUSATE SODIUM 1 EACH TAB PO SCH (20:43)
[2022-05-15] MEDS: MELATONIN 5 MG TABLET PO SCH (20:43)
[2022-05-16] MEDS: IPRATROPIUM-ALBUTEROL 3 ML NEB INHALATION PRN ×4 (02:59→18:45)
[2022-05-16 06:20] LABS: African American GFR (CKD) >90 (>60 ml/min/1.73 sqM); Non-African American GFR(CKD) >90 (>60 ml/min/1.73 sqM)
[2022-05-16] MEDS: FUROSEMIDE 10 MG/ML 10 ML VIAL IV SCH ×2 (08:06→16:40)
[2022-05-16] MEDS: PANTOPRAZOLE 40 MG TABLET PO SCH (08:07)
[2022-05-16] MEDS: PRAMIPEXOLE 1 MG TAB PO SCH ×3 (08:07→21:17)
[2022-05-16] MEDS: LOSARTAN 25 MG TAB PO SCH (08:07)
[2022-05-16] MEDS: PREGABALIN 75 MG CAP PO SCH ×2 (08:07→21:17)
[2022-05-16] MEDS: SENNOSIDES-DOCUSATE SODIUM 1 EACH TAB PO SCH ×2 (08:07→21:17)
[2022-05-16] MEDS: carvediloL 3.125 MG TAB PO SCH ×2 (08:07→16:40)
[2022-05-16] MEDS: ATORVASTATIN 40 MG TAB PO SCH (08:07)
[2022-05-16] MEDS: VANCOMYCIN 2,250 MG in SODIUM CHLORIDE 0.9% 500 ML 500 ML IVPB SCH ×2 (08:07→22:14)
[2022-05-16] MEDS: DULoxetine HCL 30 MG CAPSULE.DR PO SCH (08:07)
[2022-05-16] MEDS: HYDROcodone/APAP 10-325MG 1 EACH TAB PO PRN (08:07)
[2022-05-16] MEDS: ENOXAPARIN 40 MG/0.4 ML SYRINGE SQ SCH (08:07)
[2022-05-16] MEDS: SPIRONOLACTONE 25 MG TAB PO SCH (08:07)
[2022-05-16] MEDS: ASPIRIN 81 MG PO SCH (08:07)
[2022-05-16] MEDS ORDERED: VANCOMYCIN TROUGH DUE 1 EACH MISC MISCELLANE ONE (20:00)
[2022-05-16] MEDS: MELATONIN 5 MG TABLET PO SCH (21:16)
--- NOTE | 2022-05-17 00:43 | P.PN ---
Subjective Progress Note Date: 05/15/22 This is a 71-year-old male patient with past medical history of hypertension, hyperlipidemia, CVA, mild persistent ALLERGIC asthma, seizure disorder, Parkinson's disease, chronic diastolic heart failure, stasis dermatitis of the left lower extremity due to peripheral venous hypertension, spondylosis of the lumbar spine, obstructive sleep apnea. Patient was seen in the office yesterday for cellulitis of the both lower extremities. Patient had been on oral antibiotics for the past month without improvement and presented with a large vascular ulcer to the left lower extremity pretibial area as well as cellulitis to bilateral lower extremities. Patient was sent directly over the emergency center at [facility] for further evaluation and treatment. Patient was found to be afebrile, heart rate in the 70s and 80s, blood pressure 116/81, pulse ox 94% on room air. WBC 13.6, hemoglobin 15.3, platelet count 284. Electrolytes normal, BUN 21 creatinine 0.8. Liver function tests were normal. Lactic acid 1.3. Troponin negative. ProBNP 29. Recent hemoglobin A1c was 6.25 Nov 2021. X-ray tibia-fibula bilaterally showed no fracture. Chest x-ray revealed no acute pulmonary disease. Patient has been started on Vancomycin, Silvadene wraps, admitted to the MedSur floor and consult with Dr. Amezquita, [facility]. 05/11: Infectious disease recommends cefepime 2 g IV every 8 hours and consult is in place with Dr. Broderick his wound care physician. Accicath placed for IV access. No surgical intervention is planned. Patient has been afebrile and hemodynamically stable. Leukocytosis slightly improved at 17.7. Troponins are negative on 3 draws. Blood cultures showing no growth at 24 hours. Wound cultures uncollected. 05/12: Patient is continued on cefepime. Repeat blood work reveals WBC 19.2, hemoglobin 10.8 and a platelet count 271. INR is 1.0. CO2 30 otherwise el ectrolytes and renal function within normal limits. Blood sugar 107. Calcium 8.7. Wound culture is uncollected and blood cultures showing no growth after 24 hours. 05/13: Patient has been afebrile, heart rate 60, blood pressure 123/75, pulse ox 96% on 2 L nasal cannula. Wound culture is in progress. Blood culture no growth at 48 hours. Patient is continued on cefepime 2 g IV piggyback every 8 hours. Local wound care is in place. Patient is refusing to have leg wrapped. A PICC line was placed for IV access. Repeat blood work reveals WBC 18.0, hemoglobin 10.6, platelet count 294. BUN 18 and creatinine 0.6. CO2 34. Blood sugar 110. Right leg wound presumptive MRSA and antibiotics will be changed to vancomycin pharmacy to dose. Patient is complaining that he is feeling weak and having difficulty getting to the bathroom to use the urinal or stand to use the urinal for which a condom catheter has been ordered and also Lasix afternoon dose changed to 3 PM. Consult with PT and OT added. 05/14: Patient states that he is urinating well and frequently. He condom cath was attempted but he states that gone through 5 condom catheters that will not stay in place. He has been seen by Dr. Broderick regarding the wound on the left leg and cleared for discharge. Patient does have erythema and warmth to the right lower extremity. PT has evaluated and recommended subacute rehab. Patient's nurse states it took 2 people to get him out of bed. Patient is adamant that he will only go home and is not interested in subacute rehab. Patient is afebrile, heart rate 63, blood pressure 113/63, pulse ox 91% on 3 L nasal cannula. Patient may require home oxygen therapy at the time of discharge. Repeat blood work is ordered for tomorrow. 05/15/2022 Patient is currently sitting in recliner. Appetite and oriented x3. Bilateral lower extremity chronic swelling. Redness is improving. No complaints of fever or chills. No nausea vomiting abdominal diarrhea. No cough or sputum production. Laboratory showed WBC 16.0 hemoglobin 11.4 and platelets 344 BUN 20 and creatinine 0.65. Patient is being current on antibiotics of oral vancomycin. Wound cultures are growing MRSA. ID is on board. REVIEW OF SYSTEMS Constitutional: No fever, no chills, no night sweats. No weight change. Reports weakness, reports fatigue no lethargy. No daytime sleepiness. EENT: No headache. No blurred vision or double vision, no loss of vision. No loss of Hearing, no ringing in the ears, no dizziness. No nasal drainage or congestion. No epistaxis. No sore throat. Lungs:Chronic shortness of breath, cough, no sputum production. No wheezing.Chronic dyspnea with exertion. Cardiovascular: No chest pain,reports lower extremity edema. No palpitations. No paroxysmal nocturnal dyspnea. No orthopnea. No lightheadedness or dizziness. No syncopal episodes. Abdominal: No abdominal pain. No nausea, vomiting. No diarrhea. No constipation. No bloody or tarry stools. No loss of appetite. Genitourinary: No dysuria, increased frequency, urgency. No urinary retention. Musculoskeletal: No myalgias. No muscle weakness, no gait dysfunction, no frequent falls. No back pain. No neck pain. Integumentary:Reports wounds to the bilateral lower extremities. erythema to the right lower extremity. No rash or pruritus. No unusual bruising. No change in hair or nails. Neurologic: No aphasia. No facial droop. No change in mentation. No head injury. No headache. No paralysis. No paresthesia. Psychiatric: No depression. No anxiety. No mood swings. Endocrine: No abnormal blood sugars. No weight change. No excessive sweating or thirst. PHYSICAL EXAMINATION Gen: This is a morbidly obese 71-year-old male patientresting and bed and appears to be in no acute respiratory distress. HEENT: Head is atraumatic, normocephalic. Pupils equal, round. Sclerae is anic teric. NECK: Supple. No JVD. No lymphadenopathy. No thyromegaly. LUNGS: Clear to auscultation. No wheezes or rhonchi. No intercostal retractions. HEART: First heart sound is depressed, second heart sound is normal, there is a 2/6 systolic ejection murmur at the left sternal border, no S3, no S4.. ABDOMEN: Soft. Bowel sounds are present. No masses. No tenderness. EXTREMITIES: 1+ bilateral pitting pedal edema with erythema and warmth to the right lower extremity. Left-sided pretibial wound with dressing in place. Erythema and edema improved. NEUROLOGICAL: Patient is awake, alert and oriented x3. Cranial nerves 2 through 12 are grossly intact. ASSESSMENT AND PLAN 1. Bilateral lower extremity cellulitis. Wound culture positive for MRSA continue patient vancomycin pharmacy dosing, continue local wound care per wound healing center: absorptive silver moistened, saline moistened gauze, dry gauze, rolled gauze and secure with paper tape. May utilize Eucerin to any dry areas including the feet. Patient will follow-up in the wound care center upon discharge the wound care center will call the patient with the appointment time. Patient is refusing to have leg wrapped.continue IV Lasix 60 mg 8 AM and 3 PM. 2. Hypertension. Continue Coreg 3.125 mg twice daily, Lasix 60 mg IV at 8 AM and 3 PM. 3. Hyperlipidemia. Low cholesterol diet. 4. History of CVA. 5. Parkinson's disease. Continue Mirapex 1 mg 3 times daily. 6. Chronic diastolic heart failure. Continue patient on Lasix, Coreg 3.125 mg twice daily, Aldactone 25 mg daily. 7. Spondylosis of the lumbar spine. Continue Lyrica 75 mg twice daily. 8. Obstructive sleep apnea. 9. GI prophylaxis. Protonix 40 mg daily oral. 10. DVT prophylaxis. Heparin subcu. DISCHARGE PLAN Home with [facility]. PT and OT consultsrecommended subacute rehab but patient is adamant that he is going home. Objective - Vital Signs Vital signs: Vital Signs Temp 98.1 F 05/15/22 11:31 Pulse 72 05/15/22 11:46 Resp 20 05/15/22 11:31 BP 103/62 05/15/22 11:31 Pulse Ox 92 L 05/15/22 11:31 FiO2 Intake & Output 05/14/22 05/15/22 05/15/22 18:59 06:59 18:59 Intake Total 590 Output Total 1850 300 Balance -1850 290 Weight 158.757 kg Intake: Oral 590 Output: Urine 1850 300 Other: Voiding Method External Catheter External Catheter Urinal # Voids 0 - Labs CBC & Chem 7: 05/15/22 06:51 05/16/22 05:44 Labs: Abnormal Lab Results - Last 24 Hours (Table) 05/15/22 05/15/22 Range/Units 06:51 06:51 WBC 16.0 H (3.8-10.6) k/uL RBC 3.73 L (4.30-5.90) m/uL Hgb 11.4 L (13.0-17.5) gm/dL Hct 33.9 L (39.0-53.0) % RDW 18.0 H (11.5-15.5) % Carbon Dioxide 34 H (22-30) mmol/L Creatinine 0.65 L (0.66-1.25) mg/dL Glucose 108 H (74-99) mg/dL Microbiology - Last 24 Hours (Table) 05/10/22 14:25 Blood Culture - Preliminary Blood No Growth after 96 hours 05/12/22 08:45 Gram Stain - Final Leg - Right Wound Culture - Final Methicillin resist S. aureus
--- NOTE | 2022-05-17 00:46 | P.PN ---
Subjective Progress Note Date: 05/16/22 This is a 71-year-old male patient with past medical history of hypertension, hyperlipidemia, CVA, mild persistent ALLERGIC asthma, seizure disorder, Parkinson's disease, chronic diastolic heart failure, stasis dermatitis of the left lower extremity due to peripheral venous hypertension, spondylosis of the lumbar spine, obstructive sleep apnea. Patient was seen in the office yesterday for cellulitis of the both lower extremities. Patient had been on oral antibiotics for the past month without improvement and presented with a large vascular ulcer to the left lower extremity pretibial area as well as cellulitis to bilateral lower extremities. Patient was sent directly over the emergency center at [facility] for further evaluation and treatment. Patient was found to be afebrile, heart rate in the 70s and 80s, blood pressure 116/81, pulse ox 94% on room air. WBC 13.6, hemoglobin 15.3, platelet count 284. Electrolytes normal, BUN 21 creatinine 0.8. Liver function tests were normal. Lactic acid 1.3. Troponin negative. ProBNP 29. Recent hemoglobin A1c was 6.25 Nov 2021. X-ray tibia-fibula bilaterally showed no fracture. Chest x-ray revealed no acute pulmonary disease. Patient has been started on Vancomycin, Silvadene wraps, admitted to the MedSur floor and consult with Dr. Amezquita, Dr[facility]. 05/11: Infectious disease recommends cefepime 2 g IV every 8 hours and consult is in place with Dr. Broderick his wound care physician. Accicath placed for IV access. No surgical intervention is planned. Patient has been afebrile and hemodynamically stable. Leukocytosis slightly improved at 17.7. Troponins are negative on 3 draws. Blood cultures showing no growth at 24 hours. Wound cultures uncollected. 05/12: Patient is continued on cefepime. Repeat blood work reveals WBC 19.2, hemoglobin 10.8 and a platelet count 271. INR is 1.0. CO2 30 otherwise el ectrolytes and renal function within normal limits. Blood sugar 107. Calcium 8.7. Wound culture is uncollected and blood cultures showing no growth after 24 hours. 05/13: Patient has been afebrile, heart rate 60, blood pressure 123/75, pulse ox 96% on 2 L nasal cannula. Wound culture is in progress. Blood culture no growth at 48 hours. Patient is continued on cefepime 2 g IV piggyback every 8 hours. Local wound care is in place. Patient is refusing to have leg wrapped. A PICC line was placed for IV access. Repeat blood work reveals WBC 18.0, hemoglobin 10.6, platelet count 294. BUN 18 and creatinine 0.6. CO2 34. Blood sugar 110. Right leg wound presumptive MRSA and antibiotics will be changed to vancomycin pharmacy to dose. Patient is complaining that he is feeling weak and having difficulty getting to the bathroom to use the urinal or stand to use the urinal for which a condom catheter has been ordered and also Lasix afternoon dose changed to 3 PM. Consult with PT and OT added. 05/14: Patient states that he is urinating well and frequently. He condom cath was attempted but he states that gone through 5 condom catheters that will not stay in place. He has been seen by Dr. Broderick regarding the wound on the left leg and cleared for discharge. Patient does have erythema and warmth to the right lower extremity. PT has evaluated and recommended subacute rehab. Patient's nurse states it took 2 people to get him out of bed. Patient is adamant that he will only go home and is not interested in subacute rehab. Patient is afebrile, heart rate 63, blood pressure 113/63, pulse ox 91% on 3 L nasal cannula. Patient may require home oxygen therapy at the time of discharge. Repeat blood work is ordered for tomorrow. 05/15/2022 Patient is currently sitting in recliner. Appetite and oriented x3. Bilateral lower extremity chronic swelling. Redness is improving. No complaints of fever or chills. No nausea vomiting abdominal diarrhea. No cough or sputum production. Laboratory showed WBC 16.0 hemoglobin 11.4 and platelets 344 BUN 20 and creatinine 0.65. Patient is being current on antibiotics of oral vancomycin. Wound cultures are growing MRSA. ID is on board. 05/16/2022 Patient is currently in the recliner. No complaints of worsening pain. B ilateral lower extremity redness is improving. Patient does have chronic leg swelling. 1.7 MRSA and patient is being continued on vancomycin. Afebrile. No nausea vomiting abdominal pain or diarrhea. No headache or dizziness or lightheadedness. Tolerating oral diet. Follow-up CBC and BMP tomorrow. Continue stool softeners. REVIEW OF SYSTEMS Constitutional: No fever, no chills, no night sweats. No weight change. Reports weakness, reports fatigue no lethargy. No daytime sleepiness. EENT: No headache. No blurred vision or double vision, no loss of vision. No loss of Hearing, no ringing in the ears, no dizziness. No nasal drainage or congestion. No epistaxis. No sore throat. Lungs:Chronic shortness of breath, cough, no sputum production. No wheezing.Chronic dyspnea with exertion. Cardiovascular: No chest pain,reports lower extremity edema. No palpitations. No paroxysmal nocturnal dyspnea. No orthopnea. No lightheadedness or dizziness. No syncopal episodes. Abdominal: No abdominal pain. No nausea, vomiting. No diarrhea. No constipation. No bloody or tarry stools. No loss of appetite. Genitourinary: No dysuria, increased frequency, urgency. No urinary retention. Musculoskeletal: No myalgias. No muscle weakness, no gait dysfunction, no frequent falls. No back pain. No neck pain. Integumentary:Reports wounds to the bilateral lower extremities. erythema to the right lower extremity. No rash or pruritus. No unusual bruising. No change in hair or nails. Neurologic: No aphasia. No facial droop. No change in mentation. No head injury. No headache. No paralysis. No paresthesia. Psychiatric: No depression. No anxiety. No mood swings. Endocrine: No abnormal blood sugars. No weight change. No excessive sweating or thirst. PHYSICAL EXAMINATION Gen: This is a morbidly obese 71-year-old male patientresting and bed and appears to be in no acute respiratory distress. HEENT: Head is atraumatic, normocephalic. Pupils equal, round. Sclerae is anicteric. NECK: Supple. No JVD. No lymphadenopathy. No thyromegaly. LUNGS: Clear to auscultation. No wheezes or rhonchi. No intercostal retractions. HEART: First heart sound is depressed, second heart sound is normal, there is a 2/6 systolic ejection murmur at the left sternal border, no S3, no S4.. ABDOMEN: Soft. Bowel sounds are present. No masses. No tenderness. EXTREMITIES: 1+ bilateral pitting pedal edema with erythema and warmth to the right lower extremity. Left-sided pretibial wound with dressing in place. Erythema and edema improved. NEUROLOGICAL: Patient is awake, alert and oriented x3. Cranial nerves 2 through 12 are grossly intact. ASSESSMENT AND PLAN 1. Bilateral lower extremity cellulitis. Wound culture positive for MRSA continue patient vancomycin pharmacy dosing, continue local wound care per wound healing center: absorptive silver moistened, saline moistened gauze, dry gauze, rolled gauze and secure with paper tape. May utilize Eucerin to any dry areas including the feet. Patient will follow-up in the wound care center upon discharge the wound care center will call the patient with the appointment time. Patient is refusing to have leg wrapped.continue IV Lasix 60 mg 8 AM and 3 PM. 2. Hypertension. Continue Coreg 3.125 mg twice daily, Lasix 60 mg IV at 8 AM and 3 PM. 3. Hyperlipidemia. Low cholesterol diet. 4. History of CVA. 5. Parkinson's disease. Continue Mirapex 1 mg 3 times daily. 6. Chronic diastolic heart failure. Continue patient on Lasix, Coreg 3.125 mg twice daily, Aldactone 25 mg daily. 7. Spondylosis of the lumbar spine. Continue Lyrica 75 mg twice daily. 8. Obstructive sleep apnea. 9. GI prophylaxis. Protonix 40 mg daily oral. 10. DVT prophylaxis. Heparin subcu. DISCHARGE PLAN Home with [facility]. PT and OT consultsrecommended subacute rehab but patient is adamant that he is going home. Objective - Vital Signs Vital signs: Vital Signs Temp 98 F 05/16/22 20:39 Pulse 80 05/16/22 20:39 Resp 18 05/16/22 20:39 BP 117/67 05/16/22 20:39 Pulse Ox 92 L 05/16/22 20:39 FiO2 Intake & Output 05/16/22 05/16/22 05/17/22 06:59 18:59 06:59 Intake Total 500 Output Total 800 Balance 500 -800 Intake: Oral 500 Output: Urine 800 Other: Voiding Method Urinal Urinal # Voids 2 - Labs CBC & Chem 7: 05/15/22 06:51 05/16/22 05:44 Labs: Microbiology - Last 24 Hours (Table) 05/10/22 14:25 Blood Culture - Final Blood No Growth after 144 hours
[2022-05-17] MEDS: IPRATROPIUM-ALBUTEROL 3 ML NEB INHALATION PRN ×6 (01:11→20:26)
[2022-05-17 07:02] LABS: Anisocytosis Slight; HCT 35.8 % (39.0-53.0); HGB 11.9 gm/dL (13.0-17.5); Hypochromasia Slight; MCH 29.8 pg (25.0-35.0); MCHC 33.2 g/dL (31.0-37.0); MCV 89.8 fL (80.0-100.0); Mean Platelet Volume 8.2; Platelet Count 367 k/uL (150-450); Poikilocytosis Slight; RBC 3.98 m/uL (4.30-5.90); RDW 17.8 % (11.5-15.5); WBC 18.3 k/uL (3.8-10.6)
[2022-05-17 07:49] LABS: African American GFR (CKD) 89 (>60 ml/min/1.73 sqM); Anion Gap 4 mmol/L; Blood Urea Nitrogen 23 mg/dL (9-20); Carbon Dioxide 35 mmol/L (22-30); Chloride 102 mmol/L (98-107); Non-African American GFR(CKD) 77 (>60 ml/min/1.73 sqM); Sodium 141 mmol/L (137-145)
[2022-05-17] MEDS: DULoxetine HCL 30 MG CAPSULE.DR PO SCH (08:03)
[2022-05-17] MEDS: PANTOPRAZOLE 40 MG TABLET PO SCH (08:03)
[2022-05-17] MEDS: PREGABALIN 75 MG CAP PO SCH ×2 (08:03→21:22)
[2022-05-17] MEDS: SENNOSIDES-DOCUSATE SODIUM 1 EACH TAB PO SCH ×2 (08:03→21:22)
[2022-05-17] MEDS: SPIRONOLACTONE 25 MG TAB PO SCH (08:03)
[2022-05-17] MEDS: ENOXAPARIN 40 MG/0.4 ML SYRINGE SQ SCH (08:03)
[2022-05-17] MEDS: ASPIRIN 81 MG PO SCH (08:03)
[2022-05-17] MEDS: ATORVASTATIN 40 MG TAB PO SCH (08:03)
[2022-05-17] MEDS: carvediloL 3.125 MG TAB PO SCH ×2 (08:03→17:38)
[2022-05-17] MEDS: LOSARTAN 25 MG TAB PO SCH (08:03)
[2022-05-17] MEDS: PRAMIPEXOLE 1 MG TAB PO SCH ×3 (08:03→21:24)
[2022-05-17] MEDS: FUROSEMIDE 10 MG/ML 10 ML VIAL IV SCH ×2 (08:04→15:48)
[2022-05-17] MEDS: VANCOMYCIN 2,250 MG in SODIUM CHLORIDE 0.9% 500 ML 500 ML IVPB SCH (08:05)
[2022-05-17 08:16] LABS: Glucose 119 mg/dL (74-99); Potassium 5.6 mmol/L (3.5-5.1)
--- NOTE | 2022-05-17 08:56 | P.PN ---
Subjective Progress Note Date: 05/16/22 Principal diagnosis: Bilateral lower extremity cellulitis Patient is a 71-year male with a past medical history significant for bilateral lower extremity ulcers and history of recurrent cellulitis presented to hospital with an episode of lower extremity cellulitis. On today's evaluation that is 05/16/2022, patient remains to be afebrile, the patient is breathing comfortably on nasal cannula oxygen, the patient denies chest pain, the patient did have occasional cough but no sputum production, the patient denies abdominal pain, the patient swelling and redness to the legs has slightly decreased in intensity and there is no drainage Objective - Vital Signs Vital signs: Vital Signs Temp 97.8 F 05/16/22 15:00 Pulse 78 05/16/22 15:00 Resp 18 05/16/22 15:00 BP 125/70 05/16/22 15:00 Pulse Ox 95 05/16/22 15:00 FiO2 32 05/16/22 15:00 Intake & Output 05/16/22 15:59 Intake Total Output Total 800 Balance -800 Intake: Oral Output: Urine 800 Other: Voiding Method Urinal # Voids - Exam GENERAL DESCRIPTION: Elderly male lying in bed, no distress. No tachypnea or accessory muscle of respiration use. LUNGS: Unlabored breathing. Decreased breath sound at the base HEART: S1, S2, regular rate and rhythm. No loud murmur ABDOMEN: Soft, no tenderness , guarding or rigidity, no organomegaly EXTREMITIES: Diffuse swelling to bilateral lower extremity redness is slightly decreased - Labs CBC & Chem 7: 05/17/22 06:23 05/17/22 06:23 Labs: Abnormal Lab Results - Last 24 Hours (Table) 05/17/22 05/17/22 Range/Units 06:23 06:23 WBC 18.3 H (3.8-10.6) k/uL RBC 3.98 L (4.30-5.90) m/uL Hgb 11.9 L (13.0-17.5) gm/dL Hct 35.8 L (39.0-53.0) % RDW 17.8 H (11.5-15.5) % Potassium 5.6 H (3.5-5.1) mmol/L Carbon Dioxide 35 H (22-30) mmol/L BUN 23 H (9-20) mg/dL Glucose 119 H (74-99) mg/dL Microbiology - Last 24 Hours (Table) 05/10/22 14:25 Blood Culture - Final Blood No Growth after 144 hours Assessment and Plan (1) Bilateral lower leg cellulitis Current Visit: Yes Status: Acute Code(s): L03.116 - CELLULITIS OF LEFT LOWER LIMB; L03.115 - CELLULITIS OF RIGHT LOWER LIMB SNOMED Code(s): 588110998 Plan: 1patient presented hospital with increasing swelling and redness to bilateral lower extremity in this patient did have a history of recurrent lower extremity cellulitis likely from gram-positive skin hayden gram-negative infection less likely but not entirely excluded. 2 Patient advised to continue with Moody wrap from just above the toe to below the knee to keep the swelling down. 4patient local culture finalized MRSA , patient to continue with with vancom ycin, patient is going to subacute rehab may consider short course of IV Vanco 10 days on discharge Time with Patient: Less than 30
[2022-05-17 09:16] LABS: Band Neutrophils % 2 %; Eosinophils # (M) 0.37 k/uL (0-0.7); Metamyelocytes # (M) 0.55 k/uL (0); Metamyelocytes % 3 %; Myelocytes # (M) 0.73 k/uL (0); Myelocytes % 4 %; Neutrophils % (M) 78 %; Nucleated Red Blood Cells 0 /100 WBC (0-0); Total Cells Counted 200
--- NOTE | 2022-05-17 14:29 | PN ---
PROGRESS NOTE DATE OF SERVICE: 05/17/2022 This 71-year-old gentleman who was admitted with bilateral lower extremity cellulitis on IV antibiotics. No chest pain. No palpitations. No fever. PHYSICAL EXAMINATION: Pulse is 77, blood pressure 104/60, respiration 19. Chest clear to auscultation. Cardiovascular: S1, S2. Abdomen: Soft. Legs: Bilateral leg cellulitis. LABS: Reviewed. ASSESSMENT: 1. Acute bilateral leg cellulitis. 2. Hypertension. 3. Hyperlipidemia. 4. Multiple medical issues. RECOMMENDATIONS AND DISCUSSION: I recommend to continue current management. Continue the antibiotics. Continue with the monitoring, local treatment, dressing. Further recommendations to follow. MMODL / IJN: [id number] /
[2022-05-17] MEDS: VANCOMYCIN 2,000 MG in SODIUM CHLORIDE 0.9% 500 ML 500 ML IVPB SCH (21:22)
[2022-05-17] MEDS: MELATONIN 5 MG TABLET PO SCH (21:22)
--- NOTE | 2022-05-17 23:50 | P.PN ---
Subjective Progress Note Date: 05/17/22 Principal diagnosis: Bilateral lower extremity cellulitis Patient is a 71-year male with a past medical history significant for bilateral lower extremity ulcers and history of recurrent cellulitis presented to hospital with an episode of lower extremity cellulitis. On today's evaluation that is 05/17/2022, patient continues to be afebrile, the patient is breathing comfortably on nasal cannula oxygen, the patient denies chest pain, the patient did have occasional cough but not bringing up any sputum, the patient denies abdominal pain, the patient swelling and redness to the legs has decreased in intensity denies any drainage Objective - Vital Signs Vital signs: Vital Signs Temp 98.1 F 05/17/22 11:43 Pulse 77 05/17/22 12:09 Resp 19 05/17/22 11:43 BP 104/66 05/17/22 11:43 Pulse Ox 93 L 05/17/22 11:43 FiO2 32 05/17/22 01:16 Intake & Output 05/16/22 05/17/22 05/17/22 18:59 06:59 18:59 Intake Total 240 Output Total 800 400 Balance -800 240 -400 Intake: Oral 240 Output: Urine 800 400 Other: Voiding Method Urinal Urinal # Voids 3 1 - Exam GENERAL DESCRIPTION: Elderly male lying in bed, no distress. No tachypnea or accessory muscle of respiration use. LUNGS: Unlabored breathing. Decreased breath sound at the base HEART: S1, S2, regular rate and rhythm. No loud murmur ABDOMEN: Soft, no tenderness , guarding or rigidity, no organomegaly EXTREMITIES: Diffuse swelling to bilateral lower extremity redness is slightly decreased - Labs CBC & Chem 7: 05/17/22 06:23 05/17/22 06:23 Labs: Abnormal Lab Results - Last 24 Hours (Table) 05/17/22 05/17/22 Range/Units 06:23 06:23 WBC 18.3 H (3.8-10.6) k/uL RBC 3.98 L (4.30-5.90) m/uL Hgb 11.9 L (13.0-17.5) gm/dL Hct 35.8 L (39.0-53.0) % RDW 17.8 H (11.5-15.5) % Neutrophils # (Manual) 14.60 H (1.3-7.7) k/uL Monocytes # (Manual) 1.10 H (0-1.0) k/uL Metamyelocytes # (Man) 0.55 H (0) k/uL Myelocytes # (Manual) 0.73 H (0) k/uL Potassium 5.6 H (3.5-5.1) mmol/L Carbon Dioxide 35 H (22-30) mmol/L BUN 23 H (9-20) mg/dL Glucose 119 H (74-99) mg/dL Microbiology - Last 24 Hours (Table) 05/10/22 14:25 Blood Culture - Final Blood No Growth after 144 hours Assessment and Plan (1) Bilateral lower leg cellulitis Current Visit: Yes Status: Acute Code(s): L03.116 - CELLULITIS OF LEFT LOWER LIMB; L03.115 - CELLULITIS OF RIGHT LOWER LIMB SNOMED Code(s): 879277739 Plan: 1patient presented hospital with increasing swelling and redness to bilateral lower extremity in this patient did have a history of recurrent lower extremity cellulitis likely from gram-positive skin hayden gram-negative infection less likely but not entirely excluded. 2 Patient advised to continue with Moody wrap from just above the toe to below the knee to keep the swelling down. 4patient local culture finalized MRSA , patient lower extremity cellulitis seemed to have decreased in intensity however the patient still have elevated white count is slightly concerning, continue the vancomycin will repeat his CBC and CRP with a.m. lab Time with Patient: Less than 30
[2022-05-18] MEDS: IPRATROPIUM-ALBUTEROL 3 ML NEB INHALATION PRN ×6 (00:27→19:18)
[2022-05-18] MEDS: HYDROcodone/APAP 10-325MG 1 EACH TAB PO PRN (04:36)
[2022-05-18 06:34] LABS: African American GFR (CKD) >90 (>60 ml/min/1.73 sqM); Anion Gap 4 mmol/L; Blood Urea Nitrogen 21 mg/dL (9-20); C Reactive Protein 5.4 mg/dL (<1.0); Calcium 9.3 mg/dL (8.4-10.2); Carbon Dioxide 38 mmol/L (22-30); Chloride 95 mmol/L (98-107); Glucose 140 mg/dL (74-99); Non-African American GFR(CKD) >90 (>60 ml/min/1.73 sqM); Potassium 4.7 mmol/L (3.5-5.1); Sodium 137 mmol/L (137-145)
[2022-05-18 06:40] LABS: Anisocytosis Slight; HCT 36.4 % (39.0-53.0); HGB 12.5 gm/dL (13.0-17.5); Hypochromasia Slight; MCH 30.5 pg (25.0-35.0); MCHC 34.3 g/dL (31.0-37.0); Mean Platelet Volume 8.4; Platelet Count 346 k/uL (150-450); Poikilocytosis Moderate; RBC 4.09 m/uL (4.30-5.90); RDW 17.7 % (11.5-15.5); WBC 19.9 k/uL (3.8-10.6)
[2022-05-18 07:19] LABS: Band Neutrophils % 13 %; Eosinophils # (M) 1.19 k/uL (0-0.7); Lymphocytes # (M) 1.59 k/uL (1.0-4.8); Metamyelocytes # (M) 1.19 k/uL (0); Metamyelocytes % 6 %; Neutrophils % (M) 65 %; Nucleated Red Blood Cells 0 /100 WBC (0-0); Polychromasia Present; Total Cells Counted 200
[2022-05-18 07:21] LABS: Large Platelets Present
[2022-05-18 07:22] LABS: Ovalocytes Present
[2022-05-18] MEDS: FUROSEMIDE 10 MG/ML 10 ML VIAL IV SCH ×2 (08:04→15:46)
[2022-05-18] MEDS: ATORVASTATIN 40 MG TAB PO SCH (08:05)
[2022-05-18] MEDS: ASPIRIN 81 MG PO SCH (08:05)
[2022-05-18] MEDS: SENNOSIDES-DOCUSATE SODIUM 1 EACH TAB PO SCH ×2 (08:05→20:49)
[2022-05-18] MEDS: SPIRONOLACTONE 25 MG TAB PO SCH (08:05)
[2022-05-18] MEDS: carvediloL 3.125 MG TAB PO SCH ×2 (08:05→16:35)
[2022-05-18] MEDS: ENOXAPARIN 40 MG/0.4 ML SYRINGE SQ SCH (08:05)
[2022-05-18] MEDS: PANTOPRAZOLE 40 MG TABLET PO SCH (08:05)
[2022-05-18] MEDS: LOSARTAN 25 MG TAB PO SCH (08:05)
[2022-05-18] MEDS: PRAMIPEXOLE 1 MG TAB PO SCH ×3 (08:05→21:01)
[2022-05-18] MEDS: PREGABALIN 75 MG CAP PO SCH ×2 (08:05→20:58)
[2022-05-18] MEDS: DULoxetine HCL 30 MG CAPSULE.DR PO SCH (08:05)
[2022-05-18] MEDS: VANCOMYCIN 2,000 MG in SODIUM CHLORIDE 0.9% 500 ML 500 ML IVPB SCH ×2 (08:06→20:58)
[2022-05-18] MEDS: FLUCONAZOLE 100 MG TAB PO SCH (13:23)
--- NOTE | 2022-05-18 14:31 | P.PN ---
Subjective Progress Note Date: 05/18/22 This is a 71-year-old male patient with past medical history of hypertension, hyperlipidemia, CVA, mild persistent ALLERGIC asthma, seizure disorder, Parkinson's disease, chronic diastolic heart failure, stasis dermatitis of the left lower extremity due to peripheral venous hypertension, spondylosis of the lumbar spine, obstructive sleep apnea. Patient was seen in the office yesterday for cellulitis of the both lower extremities. Patient had been on oral antibiotics for the past month without improvement and presented with a large vascular ulcer to the left lower extremity pretibial area as well as cellulitis to bilateral lower extremities. Patient was sent directly over the emergency center at [facility] for further evaluation and treatment. Patient was found to be afebrile, heart rate in the 70s and 80s, blood pressure 116/81, pulse ox 94% on room air. WBC 13.6, hemoglobin 15.3, platelet count 284. Electrolytes normal, BUN 21 creatinine 0.8. Liver function tests were normal. Lactic acid 1.3. Troponin negative. ProBNP 29. Recent hemoglobin A1c was 6.25 Nov 2021. X-ray tibia-fibula bilaterally showed no fracture. Chest x-ray revealed no acute pulmonary disease. Patient has been started on Vancomycin, Silvadene wraps, admitted to the [facility] floor and consult with Dr. Amezquita, Dr. Broderick [facility]. 05/11: Infectious disease recommends cefepime 2 g IV every 8 hours and consult is in place with Dr. Broderick his wound care physician. Accicath placed for IV acce ss. No surgical intervention is planned. Patient has been afebrile and hemodynamically stable. Leukocytosis slightly improved at 17.7. Troponins are negative on 3 draws. Blood cultures showing no growth at 24 hours. Wound cultures uncollected. 05/12: Patient is continued on cefepime. Repeat blood work reveals WBC 19.2, hemoglobin 10.8 and a platelet count 271. INR is 1.0. CO2 30 otherwise electrolytes and renal function within normal limits. Blood sugar 107. Calcium 8.7. Wound culture is uncollected and blood cultures showing no growth after 24 hours. 05/13: Patient has been afebrile, heart rate 60, blood pressure 123/75, pulse ox 96% on 2 L nasal cannula. Wound culture is in progress. Blood culture no growth at 48 hours. Patient is continued on cefepime 2 g IV piggyback every 8 hours. Local wound care is in place. Patient is refusing to have leg wrapped. A PICC line was placed for IV access. Repeat blood work reveals WBC 18.0, hemoglobin 10.6, platelet count 294. BUN 18 and creatinine 0.6. CO2 34. Blood sugar 110. Right leg wound presumptive MRSA and antibiotics will be changed to vancomycin pharmacy to dose. Patient is complaining that he is feeling weak and having difficulty getting to the bathroom to use the urinal or stand to use the urinal for which a condom catheter has been ordered and also Lasix afternoon dose changed to 3 PM. Consult with PT and OT added. 05/14: Patient states that he is urinating well and frequently. He condom cath was attempted but he states that gone through 5 condom catheters that will not stay in place. He has been seen by Dr. Broderick regarding the wound on the left leg and cleared for discharge. Patient does have erythema and warmth to the right lower extremity. PT has evaluated and recommended subacute rehab. Patient's nurse states it took 2 people to get him out of bed. Patient is adamant that he will only go home and is not interested in subacute rehab. Patient is afebrile, heart rate 63, blood pressure 113/63, pulse ox 91% on 3 L nasal cannula. Patient may require home oxygen therapy at the time of discharge. Repeat blood work is ordered for tomorrow. 05/15/2022 Patient is currently sitting in recliner. Appetite and oriented x3. Bilateral lower extremity chronic swelling. Redness is improving. No complaints of fever or chills. No nausea vomiting abdominal diarrhea. No cough or sputum production. Laboratory showed WBC 16.0 hemoglobin 11.4 and platelets 344 BUN 20 and creatinine 0.65. Patient is being current on antibiotics of oral vancomycin. Wound cultures are growing MRSA. ID is on board. 05/16/2022 Patient is currently in the recliner. No complaints of worsening pain. Bilateral lower extremity redness is improving. Patient does have chronic leg swelling. 1.7 MRSA and patient is being continued on vancomycin. Afebrile. No nausea vomiting abdominal pain or diarrhea. No headache or dizziness or lightheadedness. Tolerating oral diet. Follow-up CBC and BMP tomorrow. Continue stool softeners. 05/17/2022 Patient is seen and evaluated and follow-up currently sitting up in the chair. Infectious disease is following for cellulitis of bilateral lower extremities and cultures have finalized showing MRSA. Patient is maintained on IV vancomycin and has received a PICC line and initially was adamant against going to rehab but is now agreeable and social work following working on discharge planning. Patient is continued on IV antibiotics with ID following an WBC is elevated and trending up and Diflucan has been added and will follow-up with repeat labs in a.m. Patient is currently afebrile and denies chest pain or shortness of breath. Patient is anxious to get going and would like to go home. Patient also continues on IV Lasix twice daily and recommend elevating the lower extremities while at rest. Review of systems: Constitutional: No reports of fatigue, fever, or chills Cardiovascular: No reports of chest pain or palpitations Respiratory: No reports of shortness of breath or cough GI: No reports of nausea, vomiting, or diarrhea : No reports of dysuria or retention Neurovascular: reports of generalized weakness and lower extremity swelling All medications have been reviewed Active Medications Acetaminophen (Acetaminophen Tab 325 Mg Tab) 650 mg PO Q6HR PRN PRN Reason: Mild Pain or Fever > 100.5 Last Admin: 05/11/22 08:16 Dose: 650 mg Hydrocodone Bitart/Acetaminophen (Hydrocodone/Apap 10-325mg 1 Each Tab) 1 each PO Q4H PRN PRN Reason: Severe Pain Last Admin: 05/18/22 04:36 Dose: 1 each Albuterol/Ipratropium (Ipratropium-Albuterol 3 Ml Neb) 3 ml INHALATION RT-Q4H PRN PRN Reason: Shortness Of Breath Or Wheezing Last Admin: 05/18/22 11:04 Dose: 3 ml Aspirin (Aspirin 81 Mg) 81 mg PO DAILY [facility] Last Admin: 05/18/22 08:05 Dose: 81 mg Atorvastatin Calcium (Atorvastatin 40 Mg Tab) 40 mg PO DAILY [facility] Last Admin: 05/18/22 08:05 Dose: 40 mg Carvedilol (Carvedilol 3.125 Mg Tab) 3.125 mg PO AC-BID [facility] Last Admin: 05/18/22 08:05 Dose: 3.125 mg Duloxetine HCl (Duloxetine Hcl 30 Mg Capsule.Dr) 30 mg PO DAILY [facility] Last Admin: 05/18/22 08:05 Dose: 30 mg Enoxaparin Sodium (Enoxaparin 40 Mg/0.4 Ml Syringe) 40 mg SQ DAILY [facility] Last Admin: 05/18/22 08:05 Dose: 40 mg Fluconazole (Fluconazole 100 Mg Tab) 200 mg PO DAILY [facility]; Protocol Last Admin: 05/18/22 13:23 Dose: 200 mg Furosemide (Furosemide 10 Mg/Ml 10 Ml Vial) 60 mg IV Q12HR@0800,1500 [facility] Last Admin: 05/18/22 08:04 Dose: 60 mg Vancomycin HCl 2,000 mg/ (Sodium Chloride) 500 mls @ 167 mls/hr IVPB Q12HR [facility] Last Admin: 05/18/22 08:06 Dose: 167 mls/hr Losartan Potassium (Losartan 25 Mg Tab) 25 mg PO DAILY [facility] Last Admin: 05/18/22 08:05 Dose: 25 mg Melatonin (Melatonin 5 Mg Tablet) 10 mg PO HS [facility] Last Admin: 05/17/22 21:22 Dose: 10 mg Miscellaneous Information (Vancomycin Trough Due 1 Each Misc) 1 each MISCELLANE ONCE ONE Stop: 05/19/22 08:01 Multi-Ingred Cream/Lotion/Oil/Oint (Mineral Oil-White Petrolatum 120 Gm Jar) 1 applic TOPICAL BID PRN; Protocol PRN Reason: Dry Skin Last Admin: 05/12/22 13:39 Dose: 1 applic Naloxone HCl (Naloxone 0.4 Mg/Ml 1 Ml Vial) 0.2 mg IV Q2M PRN PRN Reason: Opioid Reversal Ondansetron HCl (Ondansetron 4 Mg/2 Ml Vial) 4 mg IVP Q6HR PRN PRN Reason: Nausea And Vomiting Pantoprazole Sodium (Pantoprazole 40 Mg Tablet) 40 mg PO AC-BRKFST [facility] Last Admin: 05/18/22 08:05 Dose: 40 mg Pramipexole Dihydrochloride (Pramipexole 1 Mg Tab) 1 mg PO TID [facility] Last Admin: 05/18/22 08:05 Dose: 1 mg Pregabalin (Pregabalin 75 Mg Cap) 75 mg PO BID [facility] Last Admin: 05/18/22 08:05 Dose: 75 mg Senna/Docusate Sodium (Sennosides-Docusate Sodium 1 Each Tab) 1 each PO BID [facility] Last Admin: 05/18/22 08:05 Dose: 1 each Spironolactone (Spironolactone 25 Mg Tab) 12.5 mg PO DAILY [facility] Last Admin: 05/18/22 08:05 Dose: 12.5 mg PHYSICAL EXAMINATION Gen: This is a morbidly obese 71-year-old male, awake, alert and oriented 3, well-developed, well-nourished. HEENT: Head is atraumatic, normocephalic. Pupils equal, round. Sclerae is anicteric. NECK: Supple. No JVD. No lymphadenopathy. No thyromegaly. LUNGS: Diminished breath sounds bilaterally with some scattered rhonchi noted HEART: S1, S2 muffled ABDOMEN: Soft. Bowel sounds are present. No masses. No tenderness. EXTREMITIES: 1+ bilateral pitting pedal edema with erythema and warmth to the right lower extremity. Left-sided pretibial wound with dressing in place. Er ythema and edema slightly improved. NEUROLOGICAL: Patient is awake, alert and oriented x3. Cranial nerves 2 through 12 are grossly intact. ASSESSMENT: -Bilateral lower extremity cellulitis. Cultures positive for MRSA continue -Leukocytosis, possibly secondary to above -Hypertension -Hyperlipidemia -History of CVA. -Parkinson's disease -Chronic diastolic heart failure -Spondylosis of the lumbar spine -Obstructive sleep apnea. -GI prophylaxis. Protonix 40 mg daily oral. - DVT prophylaxis. Heparin subcu. -Full code Plan: Patient will be continued on vancomycin and recommend repeat labs. Infectious disease is following and white blood count is trending up and is currently 19.9 Diflucan being added Recommend repeat labs in the morning Recommend continuing local wound care and encouraged to increase activity as tolerated Encourage the patient elevate lower extremities while at rest Social work is following as patient is now agreeable to rehab and would like to go to [place] Insurance authorization has been submitted and awaiting approval Recommend PT/OT to continue to follow The impression and plan of care has been dictated by Raysa Escobar, Nurse Practitioner as directed. Dr. Daniel MD I have performed a history and examination and MDM of this patient, discussed the same with the dictator, and agree with the dictator's assessment and plan as written ,documented as a scribe. Based on total visit time, I have performed more than 50% of the visit. Objective - Vital Signs Vital signs: Vital Signs Temp 98.4 F 05/18/22 11:18 Pulse 76 05/18/22 11:18 Resp 20 05/18/22 11:18 BP 105/66 05/18/22 11:18 Pulse Ox 94 L 05/18/22 11:18 FiO2 32 05/17/22 01:16 Intake & Output 05/17/22 05/18/22 05/18/22 18:59 06:59 18:59 Intake Total 120 Output Total 2150 300 200 Balance -2150 -180 -200 Intake: Oral 120 Output: Urine 2150 300 200 Other: Voiding Method Urinal Urinal # Voids 5 - Labs CBC & Chem 7: 05/18/22 05:54 05/18/22 05:54 Labs: Abnormal Lab Results - Last 24 Hours (Table) 05/18/22 05/18/22 Range/Units 05:54 05:54 WBC 19.9 H (3.8-10.6) k/uL RBC 4.09 L (4.30-5.90) m/uL Hgb 12.5 L (13.0-17.5) gm/dL Hct 36.4 L (39.0-53.0) % RDW 17.7 H (11.5-15.5) % Neutrophils # (Manual) 15.50 H (1.3-7.7) k/uL Eosinophils # (Manual) 1.19 H (0-0.7) k/uL Metamyelocytes # (Man) 1.19 H (0) k/uL Chloride 95 L (98-107) mmol/L Carbon Dioxide 38 H (22-30) mmol/L BUN 21 H (9-20) mg/dL Creatinine 0.65 L (0.66-1.25) mg/dL Glucose 140 H (74-99) mg/dL C-Reactive Protein 5.4 H (<1.0) mg/dL
[2022-05-18] MEDS: MELATONIN 5 MG TABLET PO SCH (20:58)
--- NOTE | 2022-05-18 22:36 | P.PN ---
Subjective Progress Note Date: 05/18/22 Principal diagnosis: Bilateral lower extremity cellulitis Patient is a 71-year male with a past medical history significant for bilateral lower extremity ulcers and history of recurrent cellulitis presented to hospital with an episode of lower extremity cellulitis. On today's evaluation that is 05/18/2022, patient remains to be afebrile, the patient is breathing comfortably on nasal cannula oxygen, the patient denies chest pain, the patient did have occasional dry cough , the patient denies abdominal pain and no diarrhea, the patient swelling and redness to the legs has decreased in intensity Objective - Vital Signs Vital signs: Vital Signs Temp 98.2 F 05/18/22 05:00 Pulse 85 05/18/22 11:14 Resp 20 05/18/22 08:00 BP 117/70 05/18/22 05:00 Pulse Ox 93 L 05/18/22 07:25 FiO2 32 05/17/22 01:16 Intake & Output 05/17/22 05/18/22 05/18/22 18:59 06:59 18:59 Intake Total 120 Output Total 2150 300 200 Balance -2150 -180 -200 Intake: Oral 120 Output: Urine 2150 300 200 Other: Voiding Method Urinal Urinal # Voids 5 - Exam GENERAL DESCRIPTION: Elderly male lying in bed, no distress. No tachypnea or accessory muscle of respiration use. LUNGS: Unlabored breathing. Decreased breath sound at the base HEART: S1, S2, regular rate and rhythm. No loud murmur ABDOMEN: Soft, no tenderness , guarding or rigidity, no organomegaly EXTREMITIES: Diffuse swelling to bilateral lower extremity redness is slightly decreased - Labs CBC & Chem 7: 05/18/22 05:54 05/18/22 05:54 Labs: Abnormal Lab Results - Last 24 Hours (Table) 05/18/22 05/18/22 Range/Units 05:54 05:54 WBC 19.9 H (3.8-10.6) k/uL RBC 4.09 L (4.30-5.90) m/uL Hgb 12.5 L (13.0-17.5) gm/dL Hct 36.4 L (39.0-53.0) % RDW 17.7 H (11.5-15.5) % Neutrophils # (Manual) 15.50 H (1.3-7.7) k/uL Eosinophils # (Manual) 1.19 H (0-0.7) k/uL Metamyelocytes # (Man) 1.19 H (0) k/uL Chloride 95 L (98-107) mmol/L Carbon Dioxide 38 H (22-30) mmol/L BUN 21 H (9-20) mg/dL Creatinine 0.65 L (0.66-1.25) mg/dL Glucose 140 H (74-99) mg/dL C-Reactive Protein 5.4 H (<1.0) mg/dL Assessment and Plan (1) Bilateral lower leg cellulitis Current Visit: Yes Status: Acute Code(s): L03.116 - CELLULITIS OF LEFT LOWER LIMB; L03.115 - CELLULITIS OF RIGHT LOWER LIMB SNOMED Code(s): 325741131 Plan: 1patient presented hospital with increasing swelling and redness to bilateral lower extremity in this patient did have a history of recurrent lower extremity cellulitis likely from gram-positive skin hayden gram-negative infection less likely but not entirely excluded. 2 Patient advised to continue with Moody wrap from just above the toe to below the knee to keep the swelling down. 4patient local culture finalized MRSA , patient lower extremity cellulitis seemed to have decreased in intensity however the patient still have elevated white count is slightly concerning, there is no evidence of any abscess clinically to the left lower leg and no abdominal tenderness, we will empirically add Diflucan and see clinical response continue with vancomycin repeat the CBC tomorrow discussed with the admitting team Time with Patient: Less than 30
[2022-05-19] MEDS: IPRATROPIUM-ALBUTEROL 3 ML NEB INHALATION PRN ×4 (00:19→15:36)
[2022-05-19] MEDS: HYDROcodone/APAP 10-325MG 1 EACH TAB PO PRN ×2 (02:12→09:08)
[2022-05-19 05:30] VITALS: RESP 18
[2022-05-19] MEDS ORDERED: VANCOMYCIN TROUGH DUE 1 EACH MISC MISCELLANE ONE (08:00)
[2022-05-19 08:33] LABS: African American GFR (CKD) >90 (>60 ml/min/1.73 sqM); Blood Urea Nitrogen 20 mg/dL (9-20); Calcium 8.8 mg/dL (8.4-10.2); Chloride 95 mmol/L (98-107); Glucose 106 mg/dL (74-99); Non-African American GFR(CKD) >90 (>60 ml/min/1.73 sqM); Potassium 3.9 mmol/L (3.5-5.1); Sodium 138 mmol/L (137-145)
[2022-05-19 08:37] LABS: Anisocytosis Slight; HGB 12.4 gm/dL (13.0-17.5); Hypochromasia Slight; MCH 29.9 pg (25.0-35.0); MCHC 32.5 g/dL (31.0-37.0); MCV 91.9 fL (80.0-100.0); Platelet Count 334 k/uL (150-450); Poikilocytosis Slight; RBC 4.14 m/uL (4.30-5.90); RDW 17.9 % (11.5-15.5); WBC 17.2 k/uL (3.8-10.6)
[2022-05-19 08:39] LABS: Anion Gap 6 mmol/L; Carbon Dioxide 37 mmol/L (22-30)
[2022-05-19] MEDS: SPIRONOLACTONE 25 MG TAB PO SCH (09:07)
[2022-05-19] MEDS: PRAMIPEXOLE 1 MG TAB PO SCH (09:08)
[2022-05-19] MEDS: ATORVASTATIN 40 MG TAB PO SCH (09:09)
[2022-05-19] MEDS: carvediloL 3.125 MG TAB PO SCH (09:09)
[2022-05-19] MEDS: LOSARTAN 25 MG TAB PO SCH (09:09)
[2022-05-19] MEDS: DULoxetine HCL 30 MG CAPSULE.DR PO SCH (09:09)
[2022-05-19] MEDS: ASPIRIN 81 MG PO SCH (09:09)
[2022-05-19] MEDS: PREGABALIN 75 MG CAP PO SCH (09:09)
[2022-05-19] MEDS: FLUCONAZOLE 100 MG TAB PO SCH (09:09)
[2022-05-19] MEDS: PANTOPRAZOLE 40 MG TABLET PO SCH (09:09)
[2022-05-19] MEDS: SENNOSIDES-DOCUSATE SODIUM 1 EACH TAB PO SCH (09:09)
[2022-05-19] MEDS: FUROSEMIDE 10 MG/ML 10 ML VIAL IV SCH (09:10)
[2022-05-19] MEDS: VANCOMYCIN 2,000 MG in SODIUM CHLORIDE 0.9% 500 ML 500 ML IVPB SCH (09:10)
[2022-05-19] MEDS: ENOXAPARIN 40 MG/0.4 ML SYRINGE SQ SCH (09:10)
[2022-05-19 11:04] LABS: Band Neutrophils % 2 %; Eosinophils # (M) 0.69 k/uL (0-0.7); Lymphocytes # (M) 1.03 k/uL (1.0-4.8); Metamyelocytes # (M) 0.52 k/uL (0); Metamyelocytes % 3 %; Monocytes # (M) 0.86 k/uL (0-1.0); Myelocytes # (M) 0.69 k/uL (0); Myelocytes % 4 %; Neutrophils % (M) 78 %; Nucleated Red Blood Cells 0 /100 WBC (0-0); Total Cells Counted 200
[2022-05-19 11:59] VITALS: BP 106/66; TEMP 98.4
--- NOTE | 2022-05-19 13:39 | P.DS ---
Providers Date of admission: 05/10/22 15:53 Expected date of discharge: 05/19/22 Attending physician: Niko Valdez Consults: 05/10/22 15:39 Consult Physician Urgent Consulting Provider: Efe Broderick Consult Reason/Comments: bilateral lower extremity cellulitis Do you want consulting provider notified?: Yes Consult Physician Urgent Consulting Provider: Manny Amezquita Consult Reason/Comments: Bilateral lower extremity cellulitis Do you want consulting provider notified?: Yes Primary care physician: Niko Valdez Hospital Course: Final diagnosis -Bilateral lower extremity cellulitis. Cultures positive for MRSA -Leukocytosis, possibly secondary to above -Hypertension -Hyperlipidemia -History of CVA. -Parkinson's disease -Chronic diastolic heart failure -Spondylosis of the lumbar spine -Obstructive sleep apnea. -GI prophylaxis -DVT prophylaxis -Full code Discharge disposition Patient is being discharged in a stable condition with guarded prognosis to [facility] . Patient will follow-up with Dr. Valdez in the outpatient setting upon discharge. Patient is to continue with IV antibiotics in the form of vancomycin with pharmacy to dose for the next 10 days. Patient also will continue on oral Diflucan 200 mg daily for the next 10 days as well patient is to continue with local wound care and follow-up at the wound care center with Dr. Amezquita as scheduled. Total time taken is greater than 35 minutes. Hospital course This is a 71-year-old male who was recently admitted with bilateral lower extremity cellulitis with cultures growing MRSA and has been maintained on local wound care with infectious disease following closely. Patient will continue with IV vancomycin with pharmacy to dose every 12 hours for the next 10 days and also oral Diflucan 200 mg daily for the next 10 days. Patient did receive a PICC line and will need outpatient follow-up at the wound center with Dr. Amezquita in the next 1-2 weeks. Encourage the patient elevate lower extremities while at rest. Patient was maintained on Lasix and will continue with Lasix 40 mg twice daily and recommend repeat CBC, BMP, magnesium in the next 2-3 days. Recommend to continue with Lovenox subcutaneous daily for DVT prophylaxis. Currently no reports of chest pain, shortness of breath, or palpitations. Patient is afebrile. No reports of nausea or vomiting and patient is tolerating diet. Patient will be going to [facility] today. Physical exam: Gen: This is a 71-year-old male awake, alert and oriented 3, morbidly obese, well-developed, well-nourished HEENT: Head is atraumatic, normocephalic. Pupils equal, round. Sclerae is anicteric. NECK: Supple. No JVD. No lymphadenopathy. No thyromegaly. LUNGS: Clear to auscultation. No wheezes or rhonchi. No intercostal retractions. HEART: Regular rate and rhythm. No murmur. ABDOMEN: Soft. Bowel sounds are present. No masses. No tenderness. EXTREMITIES: Generalized pedal edema. No calf tenderness. Bilateral lower extremity discoloration with some mild redness and swelling NEUROLOGICAL: Patient is awake, alert and oriented x3. Cranial nerves 2 through 12 are grossly intact. Diffusely weak Please refer to medication reconciliation sheet for a list of medications. The impression and plan of care has been dictated by Raysa Escobar, Nurse Practitioner as directed. Dr. Gallo MD I have performed a history and examination and MDM of this patient, discussed the same with the dictator, and agree with the dictator's assessment and plan as written ,documented as a scribe. Based on total visit time, I have performed more than 50% of the visit. Patient Condition at Discharge: Stable Plan - Discharge Summary Discharge Rx Participant: No New Discharge Prescriptions: New Enoxaparin [Lovenox] 40 mg SQ DAILY each Fluconazole [Diflucan] 200 mg PO DAILY 10 Days #20 tab Pantoprazole [Protonix] 40 mg PO AC-BRKFST tab Sennosides-Docusate Sodium [Senokot-S] 1 each PO BID tab Acetaminophen Tab [Tylenol] 650 mg PO Q6HR PRN tab PRN Reason: Mild Pain Or Fever > 100.5 Vancomycin 2,000 mg IVPB Q12HR 10 Days #20 each Continue Pramipexole [Mirapex] 1 mg PO TID carvediloL [Coreg] 3.125 mg PO BID Melatonin [Melatonin ER] 10 mg PO HS Losartan [Cozaar] 25 mg PO DAILY tab DULoxetine HCL [Cymbalta] 30 mg PO DAILY Spironolactone [Aldactone] 12.5 mg PO DAILY #30 tab Aspirin 81 mg PO DAILY Ipratropium-Albuterol Nebulize [Duoneb 0.5 mg-3 mg/3 ml Soln] 3 ml INHALATION RT-QID PRN ml PRN Reason: Shortness Of Breath Or Wheezing Atorvastatin [Lipitor] 40 mg PO DAILY Pregabalin [Lyrica] 75 mg PO BID #6 cap Changed Furosemide [Lasix] 40 mg PO BID #0 HYDROcodone/APAP 10-325MG [[place] 10-325] 1 tab PO BID #6 tab Discharge Medication List Pramipexole [Mirapex] 1 mg PO TID 07/06/16 [History] carvediloL [Coreg] 3.125 mg PO BID 06/28/18 [History] Melatonin [Melatonin ER] 10 mg PO HS 02/25/22 [History] Aspirin 81 mg PO DAILY 03/02/22 [Rx] DULoxetine HCL [Cymbalta] 30 mg PO DAILY 03/02/22 [Rx] Ipratropium-Albuterol Nebulize [Duoneb 0.5 mg-3 mg/3 ml Soln] 3 ml INHALATION RT-QID PRN ml 03/02/22 [Rx] Losartan [Cozaar] 25 mg PO DAILY tab 03/02/22 [Rx] Spironolactone [Aldactone] 12.5 mg PO DAILY #30 tab 03/02/22 [Rx] Atorvastatin [Lipitor] 40 mg PO DAILY 05/10/22 [History] Acetaminophen Tab [Tylenol] 650 mg PO Q6HR PRN tab 05/19/22 [Rx] Enoxaparin [Lovenox] 40 mg SQ DAILY each 05/19/22 [Rx] Fluconazole [Diflucan] 200 mg PO DAILY 10 Days #20 tab 05/19/22 [Rx] Furosemide [Lasix] 40 mg PO BID #0 05/19/22 [Rx] HYDROcodone/APAP 10-325MG [[place] 10-325] 1 tab PO BID #6 tab 05/19/22 [Rx] Pantoprazole [Protonix] 40 mg PO AC-BRKFST tab 05/19/22 [Rx] Pregabalin [Lyrica] 75 mg PO BID #6 cap 05/19/22 [Rx] Sennosides-Docusate Sodium [Senokot-S] 1 each PO BID tab 05/19/22 [Rx] Vancomycin 2,000 mg IVPB Q12HR 10 Days #20 each 05/19/22 [Rx] Follow up Appointment(s)/Referral(s): Niko Valdez MD [Primary Care Provider] - 1-[address] [facility], [NON-STAFF] - 1 Week [facility] [NON-STAFF] - As Needed ([facility] - P: [phone] - COVERAGE: 80% until $2,100 out of pocket it met, then covered at 100% - IN OFFICE, HOME, TEACH & TRAIN) [facility], [REFERRING] - As Needed ([facility] - COVERAGE: 100% MEDICATION & SUPPLIES) [facility] [NON-STAFF] - 1 Week Ambulatory/Diagnostic Orders: Complete Blood Count w/diff [LAB.AMB] Time Frame: 3 Days, Location: None Selected Activity/Diet/Wound Care/Special Instructions: Patient is going to [facility] Activity as tolerated Follow-up with primary care provider on discharge Continue with local wound care Left lower extremity cleanse daily with normal saline and apply Aquasol silver with a 4 x 4 and Kerlix in use Aquasol silver to the open area on the left lower leg and wrapped with Kerlix and continue using Eucerin cream moisturizer to bilateral feet Recommend repeat labs of CBC BMP and magnesium in 2-3 days Patient is to continue with Diflucan for 10 days Continue with IV antibiotics per infectious disease with pharmacy to dose the Vanco for 10 days Follow-up with infectious disease in the outpatient setting Continue heart healthy diet Discharge Disposition: TRANSFER TO SNF/ECF
[2022-05-19 15:47] VITALS: PULSE 77
--- NOTE | 2022-05-25 08:23 | P.HPIM ---
History of Present Illness H&P Date: 05/10/22 HISTORY OF PRESENT ILLNESS This is a 71-year-old male patient with past medical history of hypertension, hyperlipidemia, CVA, mild persistent ALLERGIC asthma, seizure disorder, Parkinson's disease, chronic diastolic heart failure, stasis dermatitis of the left lower extremity due to peripheral venous hypertension, spondylosis of the lumbar spine, obstructive sleep apnea. Patient was seen in the office yesterday for cellulitis of the both lower extremities. Patient had been on oral antibiotics for the past month without improvement and presented with a large vascular ulcer to the left lower extremity pretibial area as well as cellulitis to bilateral lower extremities. Patient was sent directly over the emergency center at [facility] for further evaluation and treatment. Patient was found to be afebrile, heart rate in the 70s and 80s, blood pressure 116/81, pulse ox 94% on room air. WBC 13.6, hemoglobin 15.3, platelet count 284. Electrolytes normal, BUN 21 creatinine 0.8. Liver function tests were normal. Lactic acid 1.3. Troponin negative. ProBNP 29. Recent hemoglobin A1c was 6.25 Nov 2021. X-ray tibia-fibula bilaterally showed no fracture. Chest x-ray revealed no acute pulmonary disease. Patient has been started on Vancomycin, Silvadene wraps, admitted to the [facility] floor and consult with Dr. Amezquita, [facility]. REVIEW OF SYSTEMS Constitutional: No fever, no chills, no night sweats. No weight change. No weakness, fatigue or lethargy. No daytime sleepiness. EENT: No headache. No blurred vision or double vision, no loss of vision. No l oss of Hearing, no ringing in the ears, no dizziness. No nasal drainage or congestion. No epistaxis. No sore throat. Lungs:Chronic shortness of breath, cough, no sputum production. No wheezing.Ch ronic dyspnea with exertion. Cardiovascular: No chest pain,reports lower extremity edema. No palpitations. No paroxysmal nocturnal dyspnea. No orthopnea. No lightheadedness or dizziness. No syncopal episodes. Abdominal: No abdominal pain. No nausea, vomiting. No diarrhea. No constipation. No bloody or tarry stools. No loss of appetite. Genitourinary: No dysuria, increased frequency, urgency. No urinary retention. Musculoskeletal: No myalgias. No muscle weakness, no gait dysfunction, no frequent falls. No back pain. No neck pain. Integumentary:Reports wounds to the bilateral lower extremities. No rash or pruritus. No unusual bruising. No change in hair or nails. Neurologic: No aphasia. No facial droop. No change in mentation. No head injury. No headache. No paralysis. No paresthesia. Psychiatric: No depression. No anxiety. No mood swings. Endocrine: No abnormal blood sugars. No weight change. No excessive sweating or thirst. No cold intolerance. MEDICAL HISTORY Hypertension Hyperlipidemia CVA Mild persistent ALLERGIC asthma Seizure disorder Parkinson's disease Chronic diastolic heart failure Stasis dermatitis Peripheral venous hypertension Spondylosis of the lumbar spine Obstructive sleep apnea SURGICAL HISTORY Meningioma brain tumor removal with right-sided craniotomy in 2003 Laminectomy in 2005 followed by PLDF in 2008 Cholecystectomy 1992 Left foot second toe amputation 1981 Colonoscopy and EGD 2016 Spinal cord stimulator 2011 SOCIAL HISTORY Patient is a nonsmoker, no alcohol use, no illicit drug use. He lives at home with his . FAMILY HISTORY Father at age 73 from metastatic melanoma with history of Parkinson's and coronary artery disease status post CABG. Mother at age 68 from pancreatic cancer and also had diabetes type 2 and coronary artery disease. Patient is 5 brothers and one has history of head and neck cancer and one with sarcoma. Other brothers have no major medical problems. Patient has 2 sisters one has squamous cell cancer and the other has no major medical problems. Patient has 4 daughters and one has SLE. PHYSICAL EXAMINATION Gen: This is a morbidly obese 71-year-old male patient sitting on the edge of the bed and appears to be in no acute respiratory distress. HEENT: Head is atraumatic, normocephalic. Pupils equal, round. Sclerae is anicteric. NECK: Supple. No JVD. No lymphadenopathy. No thyromegaly. LUNGS: Clear to auscultation. No wheezes or rhonchi. No intercostal retrac tions. HEART: First heart sound is depressed, second heart sound is normal, there is a 2/6 systolic ejection murmur at the left sternal border, no S3, no S4.. ABDOMEN: Soft. Bowel sounds are present. No masses. No tenderness. EXTREMITIES: 2+ bilateral pitting pedal edema with erythema. Also noted to the left pretibial area. Please see nursing documentation for details. NEUROLOGICAL: Patient is awake, alert and oriented x3. Cranial nerves 2 through 12 are grossly intact. ASSESSMENT AND PLAN 1. Bilateral lower extremity cellulitis. Wound culture is in progress, consult with Dr. Amezquita appreciated, vancomycin has been transitioned to Cefepime 2 g IV piggyback every 8 hours, continue local wound care with Silvadene wraps with Moody wrap and elevation. 2. Hypertension. Continue Coreg 3.125 mg twice daily, Lasix 80 mg daily. 3. Hyperlipidemia. Low cholesterol diet. 4. History of CVA. 5. Parkinson's disease. Continue Mirapex 1 mg 3 times daily. 6. Chronic diastolic heart failure. Continue patient on Lasix 40 mg oral daily, Coreg 3.125 mg twice daily, Aldactone 25 mg daily. 7. Spondylosis of the lumbar spine. Continue Lyrica 75 mg twice daily. 8. Obstructive sleep apnea. 9. GI prophylaxis. Protonix 40 mg daily oral. 10. DVT prophylaxis. Heparin subcu. Patient will be admitted to the hospital for a minimum of 2 night stay. Past Medical History Past Medical History: Asthma, Coronary Artery Disease (CAD), Hyperlipidemia, Hypertension, Myocardial Infarction ([place]), Seizure Disorder Additional Past Medical History / Comment(s): restless leg, cardiomyopathy, wounds RT legs, BLE SWOLLEN AND DARK IN COLOR, LAST SEIZURE 1 WEEK AGO ON LEFT SIDE, FELL 06/03/18 GETTING UP FROM CHAIR, irritant induced asthma, hand tremors, double vision Last Myocardial Infarction Date:: 1989 History of Any Multi-Drug Resistant Organisms: None Reported Past Surgical History: Back Surgery, Cholecystectomy Additional Past Surgical History / Comment(s): brain tumor SX, 2ND DIGIT LT FOOT REMOVED, COLONOSCOPY Past Anesthesia/Blood Transfusion Reactions: No Reported Reaction Past Psychological History: No Psychological Hx Reported Smoking Status: Never smoker Past Alcohol Use History: None Reported Past Drug Use History: None Reported - Past Family History Mother Family Medical History: Cancer Additional Family Medical History / Comment(s): pancreatic Father Family Medical History: Cancer Additional Family Medical History / Comment(s): melanoma Brother(s) Family Medical History: Deep Vein Thrombosis (DVT) Daughter(s) Family Medical History: Deep Vein Thrombosis (DVT), Pulmonary Embolus Medications and Allergies Home Medications Medication Instructions Recorded Confirmed Type Pramipexole [Mirapex] 1 mg PO TID 07/06/16 05/10/22 History carvediloL [Coreg] 3.125 mg PO BID 06/28/18 05/10/22 History Melatonin [Melatonin ER] 10 mg PO HS 02/25/22 05/10/22 History Aspirin 81 mg PO DAILY 03/02/22 05/10/22 Rx DULoxetine HCL [Cymbalta] 30 mg PO DAILY 03/02/22 05/10/22 Rx Ipratropium-Albuterol Nebulize 3 ml INHALATION RT-QID PRN ml 03/02/22 05/10/22 Rx [Duoneb 0.5 mg-3 mg/3 ml Soln] Losartan [Cozaar] 25 mg PO DAILY tab 03/02/22 05/10/22 Rx Spironolactone [Aldactone] 12.5 mg PO DAILY #30 tab 03/02/22 05/10/22 Rx Atorvastatin [Lipitor] 40 mg PO DAILY 05/10/22 05/10/22 History Acetaminophen Tab [Tylenol] 650 mg PO Q6HR PRN tab 05/19/22 Rx Enoxaparin [Lovenox] 40 mg SQ DAILY each 05/19/22 Rx Fluconazole [Diflucan] 200 mg PO DAILY 10 Days #20 tab 05/19/22 Rx Furosemide [Lasix] 40 mg PO BID #0 05/19/22 05/10/22 Rx HYDROcodone/APAP 10-325MG [[place] 1 tab PO BID #6 tab 05/19/22 Rx 10-325] Pantoprazole [Protonix] 40 mg PO AC-BRKFST tab 05/19/22 Rx Pregabalin [Lyrica] 75 mg PO BID #6 cap 05/19/22 Rx Sennosides-Docusate Sodium 1 each PO BID tab 05/19/22 Rx [Senokot-S] Vancomycin 2,000 mg IVPB Q12HR 10 Days #20 05/19/22 Rx each Allergies Allergy/AdvReac Type Severity Reaction Status Date / Time codeine Allergy Dyspnea Verified 05/10/22 16:55 Penicillins Allergy Dyspnea Verified 05/10/22 16:55 Physical Exam Vitals: Vital Signs Temp Pulse Resp BP Pulse Ox 05/10/22 18:46 98 F 75 18 148/73 100 05/10/22 15:11 98.2 F 24 05/10/22 13:37 99.1 F 80 20 126/61 96 Intake and Output 05/10/22 05/10/22 05/10/22 06:59 14:59 22:59 Other: Weight 158.757 kg Results CBC & Chem 7: 05/19/22 07:12 05/19/22 07:12 Labs: Abnormal Lab Results - Last 24 Hours (Table) 05/10/22 05/10/22 Range/Units 14:25 14:25 WBC 19.0 H (3.8-10.6) k/uL RBC 4.09 L (4.30-5.90) m/uL Hgb 11.8 L (13.0-17.5) gm/dL Hct 37.4 L (39.0-53.0) % RDW 17.9 H (11.5-15.5) % Neutrophils # 15.9 H (1.3-7.7) k/uL Carbon Dioxide 33 H (22-30) mmol/L Creatinine 0.62 L (0.66-1.25) mg/dL
--- NOTE | 2022-05-26 23:05 | P.PN ---
Subjective Progress Note Date: 05/19/22 Principal diagnosis: Bilateral lower extremity cellulitis Patient is a 71-year male with a past medical history significant for bilateral lower extremity ulcers and history of recurrent cellulitis presented to hospital with an episode of lower extremity cellulitis. On today's evaluation that is 05/19/2022, patient continues to be afebrile, the patient is breathing comfortably on nasal cannula oxygen, the patient denies chest pain, the patient with occasional dry cough , the patient denies abdominal pain and no diarrhea, the patient swelling and redness to the legs has decreased in intensity Objective - Vital Signs Vital signs: Vital Signs Temp 97.5 F L 05/19/22 05:00 Pulse 77 05/19/22 07:51 Resp 18 05/19/22 05:00 BP 127/74 05/19/22 05:00 Pulse Ox 93 L 05/19/22 07:38 FiO2 32 05/17/22 01:16 Intake & Output 05/18/22 05/19/22 05/19/22 18:59 06:59 18:59 Intake Total 360 500 Output Total 1800 800 Balance -1440 -300 Intake: Intake, IV Titration 500 Amount Vancomycin 2,000 mg In 500 Sodium Chloride 0.9% 500 ml 500 ml @ 167 mls/hr IVPB Q12HR [facility] Rx#: [id number] Oral 360 Output: Urine 1800 800 Other: Voiding Method Urinal Urinal - Exam GENERAL DESCRIPTION: Elderly male lying in bed, no distress. No tachypnea or accessory muscle of respiration use. LUNGS: Unlabored breathing. Decreased breath sound at the base HEART: S1, S2, regular rate and rhythm. No loud murmur ABDOMEN: Soft, no tenderness , guarding or rigidity, no organomegaly EXTREMITIES: Diffuse swelling to bilateral lower extremity redness is slightly decreased - Labs CBC & Chem 7: 05/19/22 07:12 05/19/22 07:12 Labs: Abnormal Lab Results - Last 24 Hours (Table) 05/19/22 05/19/22 Range/Units 07:12 07:12 WBC 17.2 H (3.8-10.6) k/uL RBC 4.14 L (4.30-5.90) m/uL Hgb 12.4 L (13.0-17.5) gm/dL Hct 38.0 L (39.0-53.0) % RDW 17.9 H (11.5-15.5) % Chloride 95 L (98-107) mmol/L Carbon Dioxide 37 H (22-30) mmol/L Glucose 106 H (74-99) mg/dL Assessment and Plan (1) Bilateral lower leg cellulitis Status: Acute Code(s): L03.116 - CELLULITIS OF LEFT LOWER LIMB; L03.115 - CELLULITIS OF RIGHT LOWER LIMB SNOMED Code(s): 116952589 Plan: 1patient presented hospital with increasing swelling and redness to bilateral lower extremity in this patient did have a history of recurrent lower extremity cellulitis likely from gram-positive skin hayden gram-negative infection less likely but not entirely excluded. 2 Patient advised to continue with Moody wrap from just above the toe to below the knee to keep the swelling down. 4patient local culture finalized MRSA , patient lower extremity cellulitis seemed to have decreased in intensity however the patient still have elevated white count is slightly concerning, there is no evidence of any abscess clinically to the left lower leg and no abdominal tenderness, the patient white count is trending down with the addition of Diflucan and is recommending contin uing oral Diflucan as well as vancomycin for 10 days and a close outpatient follow-up discussed with the nurse practitioner working on discharge Time with Patient: Less than 30
== END 2022-05-19 16:30 | DRG 603 ==
LOC: EC 13:17 → 5NMEDONC 15:53
PROVIDERS: ADMIT Internal Medicine; ATTEND Internal Medicine
PROC: 05HF33Z Insertion of Infusion Device into Left Cephalic Vein, Percutaneous Approach (ICD-10-PCS; 2022-05-11 07:30)
PROC: 02HV33Z Insertion of Infusion Device into Superior Vena Cava, Percutaneous Approach (ICD-10-PCS; principal; 2022-05-12 09:03)
DX: L03.115 Cellulitis of right lower limb (principal); L97.822 Non-pressure chronic ulcer of other part of left lower leg with fat layer exposed; I42.9 Cardiomyopathy, unspecified; I50.32 Chronic diastolic (congestive) heart failure; Z68.42 Body mass index [BMI] 45.0-49.9, adult; L03.116 Cellulitis of left lower limb; B95.62 Methicillin resistant Staphylococcus aureus infection as the cause of diseases classified elsewhere; E78.5 Hyperlipidemia, unspecified; G20 Parkinson's disease; G25.81 Restless legs syndrome; G40.909 Epilepsy, unspecified, not intractable, without status epilepticus; I11.0 Hypertensive heart disease with heart failure; R29.6 Repeated falls; G47.33 Obstructive sleep apnea (adult) (pediatric); I25.10 Atherosclerotic heart disease of native coronary artery without angina pectoris; I25.2 Old myocardial infarction; I83.019 Varicose veins of right lower extremity with ulcer of unspecified site; I83.029 Varicose veins of left lower extremity with ulcer of unspecified site; E66.01 Morbid (severe) obesity due to excess calories; J45.909 Unspecified asthma, uncomplicated; M47.816 Spondylosis without myelopathy or radiculopathy, lumbar region; Z79.2 Long term (current) use of antibiotics; Z79.82 Long term (current) use of aspirin; Z79.899 Other long term (current) drug therapy; Z80.8 Family history of malignant neoplasm of other organs or systems; Z86.14 Personal history of Methicillin resistant Staphylococcus aureus infection; Z86.73 Personal history of transient ischemic attack (TIA), and cerebral infarction without residual deficits; Z91.81 History of falling; Z28.310 Unvaccinated for COVID-19; Z89.422 Acquired absence of other left toe(s); Z88.5 Allergy status to narcotic agent; Z88.0 Allergy status to penicillin
CPT/HCPCS: 36410; 36573; 71045; 76937; 80048; 80053; 80202; 82565; 83605; 84484; 85025; 85027; 85610; 86140; 87040; 87070; 87077; 87186; 87205; 93005; 94640; 94760; 99284

== ENCOUNTER 2022-09-05 08:56 | Observation (INO) | payer MEDICARE ==
[2022-09-05] MEDS ORDERED: NITROGLYCERIN OINT 1 INCH/GM PACKET TOPICAL STA (09:01)
--- NOTE | 2022-09-05 09:05 | ED ---
General Adult HPI - General Chief complaint: Chest Pain Stated complaint: chest pressure Time Seen by Provider: 09/05/22 08:57 Source: patient, EMS, RN notes reviewed Mode of arrival: EMS Limitations: no limitations - History of Present Illness Initial comments: Patient is a pleasant 72-year-old male presenting to the emergency department with concerns with chest pressure. Onset of symptoms was around an hour ago. Discomfort was moderate to severe, mild following aspirin and nitro glycerin by EMS. Patient did have some similar symptoms yesterday. Patient did have a little bit of sweating and shortness of breath associated. No nausea. No radi ation. - Related Data Home Medications Medication Instructions Recorded Confirmed Pramipexole [Mirapex] 1 mg PO TID 07/06/16 05/10/22 carvediloL [Coreg] 3.125 mg PO BID 06/28/18 05/10/22 Melatonin [Melatonin ER] 10 mg PO HS 02/25/22 05/10/22 Atorvastatin [Lipitor] 40 mg PO DAILY 05/10/22 05/10/22 Previous Rx's Medication Instructions Recorded Aspirin 81 mg PO DAILY 03/02/22 DULoxetine HCL [Cymbalta] 30 mg PO DAILY 03/02/22 Ipratropium-Albuterol Nebulize 3 ml INHALATION RT-QID PRN ml 03/02/22 [Duoneb 0.5 mg-3 mg/3 ml Soln] Losartan [Cozaar] 25 mg PO DAILY tab 03/02/22 Spironolactone [Aldactone] 12.5 mg PO DAILY #30 tab 03/02/22 Acetaminophen Tab [Tylenol] 650 mg PO Q6HR PRN tab 05/19/22 Enoxaparin [Lovenox] 40 mg SQ DAILY each 05/19/22 Fluconazole [Diflucan] 200 mg PO DAILY 10 Days #20 tab 05/19/22 Furosemide [Lasix] 40 mg PO BID #0 05/19/22 HYDROcodone/APAP 10-325MG [[place] 1 tab PO BID #6 tab 05/19/22 10-325] Pantoprazole [Protonix] 40 mg PO AC-BRKFST tab 05/19/22 Pregabalin [Lyrica] 75 mg PO BID #6 cap 05/19/22 Sennosides-Docusate Sodium 1 each PO BID tab 05/19/22 [Senokot-S] Vancomycin 2,000 mg IVPB Q12HR 10 Days #20 05/19/22 each Allergies Allergy/AdvReac Type Severity Reaction Status Date / Time codeine Allergy Dyspnea Verified 09/05/22 09:01 Penicillins Allergy Dyspnea Verified 09/05/22 09:01 Review of Systems ROS Statement: Those systems with pertinent positive or pertinent negative responses have been documented in the HPI. ROS Other: All systems not noted in ROS Statement are negative. Constitutional: Denies: fever Eyes: Denies: eye pain ENT: Denies: ear pain Respiratory: Reports: as per HPI. Denies: cough Cardiovascular: Reports: as per HPI, chest pain Endocrine: Denies: fatigue Gastrointestinal: Denies: abdominal pain Genitourinary: Denies: dysuria Musculoskeletal: Denies: back pain Skin: Denies: rash Neurological: Denies: weakness Past Medical History Past Medical History: Asthma, Coronary Artery Disease (CAD), Hyperlipidemia, Hypertension, Myocardial Infarction ([place]), Seizure Disorder Additional Past Medical History / Comment(s): restless leg, cardiomyopathy, wounds RT legs, BLE SWOLLEN AND DARK IN COLOR, frequent falls, irritant induced asthma, hand tremors, double visionvision Last Myocardial Infarction Date:: 1989 History of Any Multi-Drug Resistant Organisms: MRSA Date of last positivie culture/infection: 05/12/22 MDRO Source:: Right Leg Past Surgical History: Back Surgery, Cholecystectomy Additional Past Surgical History / Comment(s): brain tumor SX, 2ND DIGIT LT FOOT REMOVED, COLONOSCOPY Past Anesthesia/Blood Transfusion Reactions: No Reported Reaction Past Psychological History: No Psychological Hx Reported Smoking Status: Never smoker Past Alcohol Use History: None Reported Past Drug Use History: None Reported - Past Family History Mother Family Medical History: Cancer Additional Family Medical History / Comment(s): pancreatic Father Family Medical History: Cancer Additional Family Medical History / Comment(s): melanoma Brother(s) Family Medical History: Deep Vein Thrombosis (DVT) Daughter(s) Family Medical History: Deep Vein Thrombosis (DVT), Pulmonary Embolus General Exam Limitations: no limitations General appearance: alert, in no apparent distress Head exam: Present: normocephalic Eye exam: Present: normal appearance Neck exam: Present: normal inspection Respiratory exam: Present: normal lung sounds bilaterally. Absent: chest wall tenderness Cardiovascular Exam: Present: regular rate, normal rhythm, normal heart sounds Expanded Peripheral pulses: 2+: Radial (R), Radial (L), Dorsalis Pedis (R), Dorsalis Pedis (L) GI/Abdominal exam: Present: soft. Absent: tenderness Extremities exam: Present: pedal edema (+1 bilateral, legs are wrapped). Absent: calf tenderness Neurological exam: Present: alert Psychiatric exam: Present: normal affect, normal mood Skin exam: Present: normal color Course Vital Signs 09/05/22 08:59 Pulse Rate 78 Respiratory 18 Rate Blood Pressure 127/76 O2 Sat by Pulse 94 L Oximetry EKG Findings - EKG Comments: EKG Findings:: Interpreted by myself sinus rhythm 72. NM 199. QRS 105. QT 392. QTC 416. Left axis. Incomplete right bundle-branch block. No acute ST c hange. Poor R-wave progression. Medical Decision Making - Medical Decision Making Patient reevaluated and resting comfortably in bed. Patient updated on results and plan. Dr. Valdez has been paged Case was discussed with Dr. Valdez, who will admit his patient and does request computed tomography scan of the chest as well as pulmonary consult. - Lab Data Result diagrams: 09/05/22 09:21 09/05/22 09:21 Lab Results 09/05/22 09/05/22 09/05/22 Range/Units 09:21 09:21 09:21 WBC 17.8 H (3.8-10.6) k/uL RBC 4.62 (4.30-5.90) m/uL Hgb 13.1 (13.0-17.5) gm/dL Hct 40.6 (39.0-53.0) % MCV 87.9 (80.0-100.0) fL MCH 28.3 (25.0-35.0) pg MCHC 32.2 (31.0-37.0) g/dL RDW 18.2 H (11.5-15.5) % Plt Count 224 (150-450) k/uL MPV 8.6 Neutrophils % 85 % Lymphocytes % 5 % Monocytes % 6 % Eosinophils % 2 % Basophils % 1 % Neutrophils # 15.2 H (1.3-7.7) k/uL Lymphocytes # 0.9 L (1.0-4.8) k/uL Monocytes # 1.1 H (0-1.0) k/uL Eosinophils # 0.4 (0-0.7) k/uL Basophils # 0.1 (0-0.2) k/uL Hypochromasia Slight Poikilocytosis Slight Anisocytosis Slight PT 10.9 (9.0-12.0) sec INR 1.0 (<1.2) APTT 25.0 (22.0-30.0) sec D-Dimer 0.61 H (<0.60) mg/L FEU Sodium 136 L (137-145) mmol/L Potassium 4.6 (3.5-5.1) mmol/L Chloride 93 L (98-107) mmol/L Carbon Dioxide 37 H (22-30) mmol/L Anion Gap 6 mmol/L BUN 31 H (9-20) mg/dL Creatinine 1.09 (0.66-1.25) mg/dL Est GFR (CKD-EPI)AfAm 79 (>60 ml/min/1.73 sqM) Est GFR (CKD-EPI)NonAf 68 (>60 ml/min/1.73 sqM) Glucose 142 H (74-99) mg/dL Calcium 9.0 (8.4-10.2) mg/dL Magnesium 2.4 H (1.6-2.3) mg/dL Total Bilirubin 0.9 (0.2-1.3) mg/dL AST 23 (17-59) U/L ALT 32 (4-49) U/L Alkaline Phosphatase 79 (38-126) U/L Troponin I (0.000-0.034) ng/mL NT-Pro-B Natriuret Pep pg/mL Total Protein 6.5 (6.3-8.2) g/dL Albumin 4.0 (3.5-5.0) g/dL 09/05/22 09/05/22 Range/Units 09:21 09:21 WBC (3.8-10.6) k/uL RBC (4.30-5.90) m/uL Hgb (13.0-17.5) gm/dL Hct (39.0-53.0) % MCV (80.0-100.0) fL MCH (25.0-35.0) pg MCHC (31.0-37.0) g/dL RDW (11.5-15.5) % Plt Count (150-450) k/uL MPV Neutrophils % % Lymphocytes % % Monocytes % % Eosinophils % % Basophils % % Neutrophils # (1.3-7.7) k/uL Lymphocytes # (1.0-4.8) k/uL Monocytes # (0-1.0) k/uL Eosinophils # (0-0.7) k/uL Basophils # (0-0.2) k/uL Hypochromasia Poikilocytosis Anisocytosis PT (9.0-12.0) sec INR (<1.2) APTT (22.0-30.0) sec D-Dimer (<0.60) mg/L FEU Sodium (137-145) mmol/L Potassium (3.5-5.1) mmol/L Chloride (98-107) mmol/L Carbon Dioxide (22-30) mmol/L Anion Gap mmol/L BUN (9-20) mg/dL Creatinine (0.66-1.25) mg/dL Est GFR (CKD-EPI)AfAm (>60 ml/min/1.73 sqM) Est GFR (CKD-EPI)NonAf (>60 ml/min/1.73 sqM) Glucose (74-99) mg/dL Calcium (8.4-10.2) mg/dL Magnesium (1.6-2.3) mg/dL Total Bilirubin (0.2-1.3) mg/dL AST (17-59) U/L ALT (4-49) U/L Alkaline Phosphatase (38-126) U/L Troponin I <0.012 (0.000-0.034) ng/mL NT-Pro-B Natriuret Pep 16 pg/mL Total Protein (6.3-8.2) g/dL Albumin (3.5-5.0) g/dL - Radiology Data Radiology results: image reviewed (Chest x-ray also interpreted by myself does show cardiomegaly with some increased interstitial markings) Disposition Clinical Impression: Chest pain Disposition: ADMITTED IP TO THIS [facility] Is patient prescribed a controlled substance at d/c from ED?: No Time of Disposition: 10:17
[2022-09-05 09:43] LABS: Magnesium 2.4 mg/dL (1.6-2.3); Potassium 4.6 mmol/L (3.5-5.1); Total Bilirubin 0.9 mg/dL (0.2-1.3); Total Protein 6.5 g/dL (6.3-8.2)
[2022-09-05 09:46] LABS: Anisocytosis Slight; Basophils # (A) 0.1 k/uL (0-0.2); Basophils % (A) 1 %; Eosinophils # (A) 0.4 k/uL (0-0.7); Eosinophils % (A) 2 %; HCT 40.6 % (39.0-53.0); HGB 13.1 gm/dL (13.0-17.5); Hypochromasia Slight; Lymphocytes # (A) 0.9 k/uL (1.0-4.8); Lymphocytes % (A) 5 %; MCH 28.3 pg (25.0-35.0); MCHC 32.2 g/dL (31.0-37.0); MCV 87.9 fL (80.0-100.0); Mean Platelet Volume 8.6; Monocytes # (A) 1.1 k/uL (0-1.0); Monocytes % (A) 6 %; Neutrophils # (A) 15.2 k/uL (1.3-7.7); Neutrophils % (A) 85 %; Platelet Count 224 k/uL (150-450); Poikilocytosis Slight; RBC 4.62 m/uL (4.30-5.90); RDW 18.2 % (11.5-15.5); WBC 17.8 k/uL (3.8-10.6)
[2022-09-05 09:48] LABS: Prothrombin Time 10.9 sec (9.0-12.0)
--- NOTE | 2022-09-05 09:55 | XR ---
EXAMINATION TYPE: XR chest 2V DATE OF EXAM: 09/05/2022 COMPARISON: 05/14/2022 HISTORY: Shortness of breath TECHNIQUE: Frontal and lateral views of the chest are obtained. FINDINGS: Scattered senescent parenchymal changes noted. Hyperinflation compatible with COPD. No evidence for infiltrate. No evidence for atelectasis. Heart size is stable. Pulmonary venous congestion without overt failure. Mediastinal structures are stable and grossly unremarkable. No evidence for hilar prominence. Degenerative changes dorsal spine. IMPRESSION: 1. Pulmonary venous congestion without overt failure.
[2022-09-05] MEDS ORDERED: NITROGLYCERIN SL TABS 0.4 MG TAB SUBLINGUAL PRN (10:17)
--- NOTE | 2022-09-05 11:33 | CT ---
EXAMINATION TYPE: CT angio chest DATE OF EXAM: 09/05/2022 COMPARISON: None HISTORY: SOB, chest pain CT DLP: 1002.1 mGycm CONTRAST: CT chest with contrast and 3D reconstruction with MIP imaging is performed with IV Contrast, patient injected with 100 mL of Isovue 370. Contrast-enhanced CT of the chest was performed through the course of the pulmonary arteries with taylor g and mediastinal window settings submitted. 3D reconstruction with MIP imaging was also performed. PULMONARY ARTERIES: The pulmonary arteries and their major tributaries are patent. I do not see maico dence for sizable filling defect to suggest pulmonary embolic process. LUNGS: The lungs are clear and free of infiltrate. Bibasilar compressive atelectasis. No pulmonary no dule or mass is detected. No pleural effusion. MEDIASTINUM: Thoracic aorta is of normal caliber,. The heart is moderately enlarged. Pulmonary venou s congestion without overt failure. No pleural effusion. No evidence for mediastinal mass. No medias tinal lymph nodes greater than 1cm. HILAR STRUCTURES: No evidence for mass. No hilar lymph nodes greater than 1 cm. UPPER ABDOMEN: No significant abnormality is seen. IMPRESSION: 1. No evidence for Pulmonary embolism at this time.
[2022-09-05] MEDS ORDERED: ENSURE ENLIVE PO PRN (14:29)
[2022-09-05] MEDS: NITROGLYCERIN OINT 1 INCH/GM PACKET TOPICAL SCH ×3 (15:43→23:19)
[2022-09-05] MEDS ORDERED: HYDROcodone/APAP 5-325MG 1 EACH TAB PO PRN (16:59)
[2022-09-05] MEDS: OXcarbazepine 150 MG TAB PO SCH (17:57)
[2022-09-05] MEDS: CIPROFLOXACIN HCL 500 MG TAB PO SCH (17:57)
[2022-09-05] MEDS: PREGABALIN 75 MG CAP PO SCH (17:57)
[2022-09-05] MEDS: ATORVASTATIN 40 MG TAB PO SCH (17:58)
[2022-09-05] MEDS: carvediloL 3.125 MG TAB PO SCH (17:58)
--- NOTE | 2022-09-05 18:06 | P.HPIM ---
History of Present Illness H&P Date: 09/05/22 Chief Complaint: Chest pain 72-year-old male presenting to the emergency department with concerns with chest pressure. Onset of symptoms was around an hour ago. Discomfort was moderate to severe, mild following aspirin and nitro glycerin by EMS. Patient did have some similar symptoms yesterday. Patient did have a little bit of sweating and shortness of breath associated. No nausea. No radiation. EKG Findings:: Interpreted by myself sinus rhythm 72. OK 199. QRS 105. QT 392. QTC 416. Left axis. Incomplete right bundle-branch block. No acute ST change. Poor R-wave progression. Blood work completed reveals elevated to be wheezy of 17.8, hemoglobin 13.1 and platelet count of 224; sodium 136, potassium 4.6, BUN/creatinine of 31/1.09 and blood glucose of 142 Chest x-ray reveals pulmonary vascular congestion without overt failure Review of Systems REVIEW OF SYSTEMS: CONSTITUTIONAL: No fever, no malaise, no fatigue. HEENT: No recent visual problems or hearing problems. Denied any sore throat. CARDIOVASCULAR: No chest pain, orthopnea, PND, no palpitations, no syncope. PULMONARY: No shortness of breath, no cough, no hemoptysis. GASTROINTESTINAL: No diarrhea, no nausea, no vomiting, no abdominal pain. NEUROLOGICAL: No headaches, no weakness, no numbness. HEMATOLOGICAL: Denies any bleeding or petechiae. GENITOURINARY: Denies any burning micturition, frequency, or urgency. MUSCULOSKELETAL/RHEUMATOLOGICAL: Denies any joint pain, swelling, or any muscle pain. ENDOCRINE: Denies any polyuria or polydipsia. The rest of the 14-point review of systems is negative. Past Medical History Past Medical History: Asthma, Coronary Artery Disease (CAD), Hyperlipidemia, Hypertension, Myocardial Infarction ([place]), Seizure Disorder Additional Past Medical History / Comment(s): restless leg, cardiomyopathy, wounds RT legs, BLE SWOLLEN AND DARK IN COLOR, frequent falls, irritant induced asthma, hand tremors, double visionvision Last Myocardial Infarction Date:: 1989 History of Any Multi-Drug Resistant Organisms: MRSA Date of last positivie culture/infection: 05/12/22 MDRO Source:: Left Leg Past Surgical History: Back Surgery, Cholecystectomy Additional Past Surgical History / Comment(s): brain tumor SX, 2ND DIGIT LT FOOT REMOVED, COLONOSCOPY Past Anesthesia/Blood Transfusion Reactions: No Reported Reaction Past Psychological History: No Psychological Hx Reported Smoking Status: Never smoker Past Alcohol Use History: None Reported Past Drug Use History: None Reported - Past Family History Mother Family Medical History: Cancer Additional Family Medical History / Comment(s): pancreatic Father Family Medical History: Cancer Additional Family Medical History / Comment(s): melanoma Brother(s) Family Medical History: Deep Vein Thrombosis (DVT) Daughter(s) Family Medical History: Deep Vein Thrombosis (DVT), Pulmonary Embolus Medications and Allergies Home Medications Medication Instructions Recorded Confirmed Type Pramipexole [Mirapex] 1 mg PO TID@0600,1400,2200 07/06/16 09/05/22 History carvediloL [Coreg] 3.125 mg PO BID@0800,1700 06/28/18 09/05/22 History Melatonin [Melatonin ER] 10 mg PO HS@2100 02/25/22 09/05/22 History Atorvastatin [Lipitor] 40 mg PO DAILY@1700 05/10/22 09/05/22 History Acetaminophen [Tylenol 8 Hour] 650 mg PO Q4H PRN 09/05/22 09/05/22 History Ciprofloxacin HCl [Cipro] 500 mg PO BID@0800,1700 09/05/22 09/05/22 History Ensure Enlive 1 can PO DAILY PRN 09/05/22 09/05/22 History Furosemide [Lasix] 40 mg PO BID@0600,1400 09/05/22 09/05/22 History HYDROcodone/APAP 5-325MG [[place] 1 tab PO Q6H PRN 09/05/22 09/05/22 History 5-325] Levothyroxine Sodium [Synthroid] 50 mcg PO DAILY@0600 09/05/22 09/05/22 History Losartan [Cozaar] 25 mg PO DAILY@0800 09/05/22 09/05/22 History Magnesium Hydroxide [Milk of 7,200 mg PO DAILY PRN 09/05/22 09/05/22 History Magnesia Concentrate] Na Phos,M-B/Na Phos,Di-Ba [Fleet 133 ml RECTAL DAILY PRN 09/05/22 09/05/22 History Adult] OXcarbazepine [Trileptal] 150 mg PO BID@0800,1700 09/05/22 09/05/22 History Pantoprazole [Protonix] 40 mg PO DAILY@0600 09/05/22 09/05/22 History Pregabalin [Lyrica] 75 mg PO BID@0800,1700 09/05/22 09/05/22 History Sennosides-Docusate Sodium 2 tab PO HS@2100 09/05/22 09/05/22 History [Senokot-S] Spironolactone [Aldactone] 25 mg PO DAILY@0800 09/05/22 09/05/22 History Sulfamethox-Tmp 800-160Mg [Bactrim 1 tab PO BID@0800,2100 09/05/22 09/05/22 History DS 800-160 mg] bisacodyL [Dulcolax] 10 mg RECTAL DAILY PRN 09/05/22 09/05/22 History Allergies Allergy/AdvReac Type Severity Reaction Status Date / Time codeine Allergy Dyspnea Verified 09/05/22 13:58 Penicillins Allergy Dyspnea Verified 09/05/22 13:58 Physical Exam Vitals: Vital Signs Temp Pulse Pulse Resp BP BP Pulse Ox 09/05/22 15:33 18 09/05/22 15:00 97.6 F 74 16 127/70 97 09/05/22 13:16 97.9 F 70 20 106/68 94 L 09/05/22 08:59 78 18 127/76 94 L Intake and Output 09/05/22 09/05/22 09/05/22 06:59 14:59 22:59 Intake Total 240 Output Total 220 Balance 240 -220 Intake: Oral 240 Output: Urine 220 Other: Weight 160.572 kg General appearance: alert, in no apparent distress Head exam: Present: normocephalic Eye exam: Present: normal appearance Neck exam: Present: normal inspection Respiratory exam: Present: normal lung sounds bilaterally. Absent: chest wall tenderness Cardiovascular Exam: Present: regular rate, normal rhythm, normal heart sounds Expanded Peripheral pulses: 2+: Radial (R), Radial (L), Dorsalis Pedis (R), Dorsalis Pedis (L) GI/Abdominal exam: Present: soft. Absent: tenderness Extremities exam: Present: pedal edema (+1 bilateral, legs are wrapped). Absent: calf tenderness Neurological exam: Present: alert Psychiatric exam: Present: normal affect, normal mood Skin exam: Present: normal color Results CBC & Chem 7: 09/05/22 09:21 09/05/22 09:21 Labs: Abnormal Lab Results - Last 24 Hours (Table) 09/05/22 09/05/22 09/05/22 Range/Units 09:21 09:21 09:21 WBC 17.8 H (3.8-10.6) k/uL RDW 18.2 H (11.5-15.5) % Neutrophils # 15.2 H (1.3-7.7) k/uL Lymphocytes # 0.9 L (1.0-4.8) k/uL Monocytes # 1.1 H (0-1.0) k/uL D-Dimer 0.61 H (<0.60) mg/L FEU Sodium 136 L (137-145) mmol/L Chloride 93 L (98-107) mmol/L Carbon Dioxide 37 H (22-30) mmol/L BUN 31 H (9-20) mg/dL Glucose 142 H (74-99) mg/dL Magnesium 2.4 H (1.6-2.3) mg/dL Thrombosis Risk Factor Assmnt - Choose All That Apply Other Risk Factors: Yes Each Risk Factor Represents 2 Points: Age 61-74 years Other congenital or acquired thrombophilia - If yes, enter type in comment: No Thrombosis Risk Factor Assessment Total Risk Factor Score: 2 Thrombosis Risk Factor Assessment Level: Low Risk Assessment and Plan Assessment: 1. Chest pain rule out acute coronary syndrome - Patient is admitted to telemetry; monitor EKG and trend troponin - Patient has been placed on aspirin, statin and beta blockers - Consult cardiology for further recommendations 2. Elevated d-dimer; CT chest completed does not reveal any acute pulmonary embolism 3. Acute exacerbation CHF; chest x-ray revealed pulmonary vascular congestion without overt failure; we will hold off on diuretic therapy at this time given mild renal injury 4. Mild MATT; monitor renal function and lites closely; no new complaints at this time given Pulmonary vascular congestion on chest x-ray 5. Marked leukocytosis; likely reactive; no signs of septicemia or infection; we will monitor CBC closely with plans to initiate sepsis workup if white blood count continues to trend up or patient shows signs of infection; we will order repeat CBC, CRP and pro-calcitonin; chest x-ray does not show any acute infectious process 6. Hyperlipidemia; Lipitor 40 mg by mouth daily at bedtime 7. Hypertension; Coreg 3.125 mg twice a day; Cozaar 25 mg daily 8. Hypothyroidism; levothyroxine 50 MCG daily
[2022-09-05] MEDS: MELATONIN 5 MG TABLET PO SCH (20:53)
[2022-09-05] MEDS: PRAMIPEXOLE 1 MG TAB PO SCH (20:53)
[2022-09-05] MEDS: SENNOSIDES-DOCUSATE SODIUM 1 EACH TAB PO SCH (20:56)
[2022-09-05 22:50] LABS: Appearance,Urine Cloudy (Clear); Bilirubin,Urine Negative (Negative); Blood,Urine Negative (Negative); Color,Urine Yellow; Glucose,Urine (UA) Negative (Negative); Ketones,Urine Negative (Negative); Leukocyte Esterase,Urine Negative (Negative); Mucus,Urine Rare /hpf; Nitrite,Urine Negative (Negative); PH, Urine 5.5 (5.0-8.0); Protein,Urine Trace (Negative); RBC,Urine 2 /hpf (0-5); Squamous Epithelial Cell,Urine <1 /hpf (0-4); Uric Acid Crystals,Urine Many /hpf; Urobilinogen,Urine <2.0 mg/dL (<2.0); WBC,Urine 1 /hpf (0-5)
[2022-09-06] MEDS: ACETAMINOPHEN TAB 325 MG TAB PO PRN (03:21)
[2022-09-06] MEDS: NITROGLYCERIN OINT 1 INCH/GM PACKET TOPICAL SCH (05:40)
[2022-09-06] MEDS: FUROSEMIDE 40 MG TAB PO SCH ×2 (05:42→14:13)
[2022-09-06] MEDS: PANTOPRAZOLE 40 MG TABLET PO SCH (05:42)
[2022-09-06] MEDS: PRAMIPEXOLE 1 MG TAB PO SCH ×3 (05:42→21:41)
[2022-09-06] MEDS: LEVOTHYROXINE 50 MCG TAB PO SCH (05:42)
[2022-09-06] MEDS ORDERED: HEPARIN SODIUM,PORCINE 10,000 UNIT in SODIUM CHLORIDE 0.9% 1,000 ML IRRIGATION PRN (07:00)
[2022-09-06] MEDS ORDERED: NITROGLYCERIN SL TABS 0.4 MG TAB SUBLINGUAL PRN (07:47)
[2022-09-06] MEDS ORDERED: ASPIRIN 325 MG TAB PO STA (07:47)
[2022-09-06] MEDS ORDERED: ATORVASTATIN 80 MG TAB PO STA (07:47)
[2022-09-06] MEDS ORDERED: ALPRAZolam 0.5 MG TAB PO PRN (07:47)
[2022-09-06] MEDS ORDERED: ALPRAZolam 0.25 MG TAB PO PRN (07:47)
--- NOTE | 2022-09-06 07:47 | P.CRDCN ---
History of Present Illness Consult date: 09/06/22 History of present illness: History of Present Illness: The patient is a 72-year-old male with a known history of CAD according to him by cardiac catheterization in the , did not require intervention, history of hypertension, hyperlipidemia and peripheral vessel disease who presents with an episode of chest discomfort, occurred at rest radiating to the neck associated with dyspnea. The patient is limited in his physical activity, has dyspnea on exertion. He has chronic peripheral edema but no PND or orthopnea. He has dizziness but no syncope. He has no PND or orthopnea. He had no recent cardiac workup. After admission his enzymes were unremarkable and he had no acute ST segment changes. He underwent a CT angiogram of the chest that showed no evidence of pulmonary embolism. His coronary risk factors are negative for smoking or diabetes. He has hypertension and hyperlipidemia. Medications: Trileptal, Lyrica, Lasix 40 mg twice a day, Coreg 3.125 mg twice a day, Aldactone 25 mg daily, losartan 25 mg daily, Lipitor 40 mg daily, Synthroid Review of Systems: Respiratory: He has chronic dyspnea on exertion with no recent wheezing GI: No nausea or vomiting . No history of peptic ulcer disease. No recent GI bleed. : No hematuria or dysuria. Nervous System: He has a prior history of stroke in the and history of seizure Physical Examination: 72-year-old male, alert oriented no apparent distress ,Blood pressure 136/50, Heart rate 70 Head: Normocephalic. Eyes: Sclerae nonicteric. Neck: Good carotid upstroke, no bruit, no jugular venous distention. Lungs: Clear to auscultation. Heart: Regular rate and rhythm, S1-S2, no S3, no rub. Systolic ejection murmur, 2/6. Abdomen: Soft mild epigastric and right upper quadrant tenderness, positive bowel sounds no organomegaly. Extremities: +1 edema, intact distal pulses. Pressure stockings in place Labs: BUN 31, creatinine 1.09. Potassium 4.6. D-dimer 0.61. Troponin less than 0.012, 0.015, less than 0.012. NT proBNP 16. White blood cell 17.8. Computed tomography scan of the chest with no evidence of pulmonary embolism. EKG: Sinus mechanism with left axis deviation and poor R-wave progression Impression: 1. Chest discomfort, radiating to the neck in a patient with prior history of CAD. No evidence of myocardial infarction but his symptoms are suggestive of angina pectoris 2. History of hypertension 3. History of hyperlipidemia 4. Prior history of peripheral vascular disease obtain Plan: 1. Obtain an echocardiogram with Doppler 2. Continue medical therapy 3. I have recommended to proceed with cardiac catheterization, the risks and the complications were discussed with the patient 4. Depending on his progress further recommendations will be made 5. Thank you for this consult we will follow with you Past Medical History Past Medical History: Asthma, Coronary Artery Disease (CAD), Hyperlipidemia, Hypertension, Myocardial Infarction ([place]), Seizure Disorder Additional Past Medical History / Comment(s): restless leg, cardiomyopathy, wounds RT legs, BLE SWOLLEN AND DARK IN COLOR, frequent falls, irritant induced asthma, hand tremors, double visionvision Last Myocardial Infarction Date:: 1989 History of Any Multi-Drug Resistant Organisms: MRSA Date of last positivie culture/infection: 05/12/22 MDRO Source:: Left Leg Past Surgical History: Back Surgery, Cholecystectomy Additional Past Surgical History / Comment(s): brain tumor SX, 2ND DIGIT LT FOOT REMOVED, COLONOSCOPY Past Anesthesia/Blood Transfusion Reactions: No Reported Reaction Past Psychological History: No Psychological Hx Reported Smoking Status: Never smoker Past Alcohol Use History: None Reported Past Drug Use History: None Reported - Past Family History Mother Family Medical History: Cancer Additional Family Medical History / Comment(s): pancreatic Father Family Medical History: Cancer Additional Family Medical History / Comment(s): melanoma Brother(s) Family Medical History: Deep Vein Thrombosis (DVT) Daughter(s) Family Medical History: Deep Vein Thrombosis (DVT), Pulmonary Embolus Medications and Allergies Home Medications Medication Instructions Recorded Confirmed Type Pramipexole [Mirapex] 1 mg PO TID@0600,1400,2200 07/06/16 09/05/22 History carvediloL [Coreg] 3.125 mg PO BID@0800,1700 06/28/18 09/05/22 History Melatonin [Melatonin ER] 10 mg PO HS@2100 02/25/22 09/05/22 History Atorvastatin [Lipitor] 40 mg PO DAILY@1700 05/10/22 09/05/22 History Acetaminophen [Tylenol 8 Hour] 650 mg PO Q4H PRN 09/05/22 09/05/22 History Ciprofloxacin HCl [Cipro] 500 mg PO BID@0800,1700 09/05/22 09/05/22 History Ensure Enlive 1 can PO DAILY PRN 09/05/22 09/05/22 History Furosemide [Lasix] 40 mg PO BID@0600,1400 09/05/22 09/05/22 History HYDROcodone/APAP 5-325MG [[place] 1 tab PO Q6H PRN 09/05/22 09/05/22 History 5-325] Levothyroxine Sodium [Synthroid] 50 mcg PO DAILY@0600 09/05/22 09/05/22 History Losartan [Cozaar] 25 mg PO DAILY@0800 09/05/22 09/05/22 History Magnesium Hydroxide [Milk of 7,200 mg PO DAILY PRN 09/05/22 09/05/22 History Magnesia Concentrate] Na Phos,M-B/Na Phos,Di-Ba [Fleet 133 ml RECTAL DAILY PRN 09/05/22 09/05/22 History Adult] OXcarbazepine [Trileptal] 150 mg PO BID@0800,1700 09/05/22 09/05/22 History Pantoprazole [Protonix] 40 mg PO DAILY@0600 09/05/22 09/05/22 History Pregabalin [Lyrica] 75 mg PO BID@0800,1700 09/05/22 09/05/22 History Sennosides-Docusate Sodium 2 tab PO HS@2100 09/05/22 09/05/22 History [Senokot-S] Spironolactone [Aldactone] 25 mg PO DAILY@0800 09/05/22 09/05/22 History Sulfamethox-Tmp 800-160Mg [Bactrim 1 tab PO BID@0800,2100 09/05/22 09/05/22 History DS 800-160 mg] bisacodyL [Dulcolax] 10 mg RECTAL DAILY PRN 09/05/22 09/05/22 History Allergies Allergy/AdvReac Type Severity Reaction Status Date / Time codeine Allergy Dyspnea Verified 09/05/22 13:58 Penicillins Allergy Dyspnea Verified 09/05/22 13:58 Physical Exam Vitals: Vital Signs Temp Pulse Pulse Resp BP BP Pulse Ox 09/06/22 00:49 97.4 F L 72 15 136/52 94 L 09/05/22 20:00 97.6 F 80 16 140/61 95 09/05/22 15:33 18 09/05/22 15:00 97.6 F 74 16 127/70 97 09/05/22 13:16 97.9 F 70 20 106/68 94 L 09/05/22 08:59 78 18 127/76 94 L Intake and Output 09/05/22 09/06/22 09/06/22 22:59 06:59 14:59 Intake Total 236 Output Total 720 350 Balance -484 -350 Intake: Oral 236 Output: Urine 720 350 Other: Voiding Method External Catheter External Catheter # Voids 1 Results 09/05/22 09:21 09/05/22 09:21 Cardiac Enzymes 09/05/22 09/05/22 09/05/22 Range/Units 09:21 09:21 12:00 AST 23 (17-59) U/L Troponin I <0.012 0.015 (0.000-0.034) ng/mL 09/05/22 Range/Units 15:22 AST (17-59) U/L Troponin I <0.012 (0.000-0.034) ng/mL Coagulation 09/05/22 Range/Units 09:21 PT 10.9 (9.0-12.0) sec APTT 25.0 (22.0-30.0) sec CBC 09/05/22 Range/Units 09:21 WBC 17.8 H (3.8-10.6) k/uL RBC 4.62 (4.30-5.90) m/uL Hgb 13.1 (13.0-17.5) gm/dL Hct 40.6 (39.0-53.0) % Plt Count 224 (150-450) k/uL Comprehensive Metabolic Panel 09/05/22 Range/Units 09:21 Sodium 136 L (137-145) mmol/L Potassium 4.6 (3.5-5.1) mmol/L Chloride 93 L (98-107) mmol/L Carbon Dioxide 37 H (22-30) mmol/L BUN 31 H (9-20) mg/dL Creatinine 1.09 (0.66-1.25) mg/dL Glucose 142 H (74-99) mg/dL Calcium 9.0 (8.4-10.2) mg/dL AST 23 (17-59) U/L ALT 32 (4-49) U/L Alkaline Phosphatase 79 (38-126) U/L Total Protein 6.5 (6.3-8.2) g/dL Albumin 4.0 (3.5-5.0) g/dL Current Medications Generic Name Dose Route Start Last Admin Trade Name Freq PRN Reason Stop Dose Admin Acetaminophen 650 mg 09/05/22 14:29 09/06/22 03:21 Acetaminophen Tab 325 Mg Tab PO 650 mg Q4H PRN Administration Pain or Fever > 100.5 Hydrocodone Bitart/Acetaminophen 1 each 09/05/22 16:59 Hydrocodone/Apap 5-325mg 1 Each Tab PO Q6H PRN Pain Aspirin 325 mg 09/06/22 09:00 Aspirin 325 Mg Tab PO DAILY [facility] Atorvastatin Calcium 40 mg 09/05/22 17:00 09/05/22 17:58 Atorvastatin 40 Mg Tab PO 40 mg DAILY@1700 [facility] Administration Carvedilol 3.125 mg 09/05/22 17:00 09/05/22 17:58 Carvedilol 3.125 Mg Tab PO 3.125 mg BID@0800,1700 [facility] Administration Ciprofloxacin 500 mg 09/05/22 17:00 09/05/22 17:57 Ciprofloxacin Hcl 500 Mg Tab PO 500 mg BID@0800,1700 [facility] Administration Protocol Furosemide 40 mg 09/06/22 06:00 09/06/22 05:42 Furosemide 40 Mg Tab PO 40 mg BID@0600,1400 [facility] Administration Levothyroxine Sodium 50 mcg 09/06/22 06:00 09/06/22 05:42 Levothyroxine 50 Mcg Tab PO 50 mcg DAILY@0600 [facility] Administration Losartan Potassium 25 mg 09/06/22 08:00 Losartan 25 Mg Tab PO DAILY@0800 [facility] Melatonin 10 mg 09/05/22 21:00 09/05/22 20:53 Melatonin 5 Mg Tablet PO 10 mg HS@2100 [facility] Administration Nitroglycerin 0.4 mg 09/05/22 10:17 Nitroglycerin Sl Tabs 0.4 Mg Tab SUBLINGUAL Q5M PRN Chest Pain Nitroglycerin 1 inch 09/05/22 13:00 09/06/22 05:40 Nitroglycerin Oint 1 Inch/Gm Packet TOPICAL Not Given Q6HR [facility] Oxcarbazepine 150 mg 09/05/22 17:00 09/05/22 17:57 Oxcarbazepine 150 Mg Tab PO 150 mg BID@0800,1700 [facility] Administration Pantoprazole Sodium 40 mg 09/06/22 06:00 09/06/22 05:42 Pantoprazole 40 Mg Tablet PO 40 mg DAILY@0600 [facility] Administration Pramipexole Dihydrochloride 1 mg 09/05/22 22:00 09/06/22 05:42 Pramipexole 1 Mg Tab PO 1 mg TID@0600,1400,2200 [facility] Administration Pregabalin 75 mg 09/05/22 17:00 09/05/22 17:57 Pregabalin 75 Mg Cap PO 75 mg BID@0800,1700 [facility] Administration Senna/Docusate Sodium 2 each 09/05/22 21:00 09/05/22 20:56 Sennosides-Docusate Sodium 1 Each Tab PO Not Given HS@2100 [facility] Spironolactone 25 mg 09/06/22 08:00 Spironolactone 25 Mg Tab PO DAILY@0800 [facility] Intake and Output 09/05/22 09/06/22 09/06/22 22:59 06:59 14:59 Intake Total 236 Output Total 720 350 Balance -484 -350 Intake: Oral 236 Output: Urine 720 350 Other: Voiding Method External Catheter External Catheter # Voids 1 09/05/22 09:21 09/05/22 09:21
[2022-09-06] MEDS ORDERED: ASPIRIN 325 MG TAB PO SCH (09:00)
[2022-09-06 09:11] LABS: HCT 39.2 % (39.6-50.0); HGB 11.9 g/dL (13.0-17.0); MCH 27.8 pg (27.0-32.0); MCHC 30.4 g/dL (32.0-37.0); MCV 91.6 fL (80.0-97.0); Mean Platelet Volume 10.9 fL (9.5-12.2); NRBC Per 100 WBC 0 /100 WBCS (0.0-0.0); Platelet Count 186 X 10*3/uL (140-440); RBC 4.28 X 10*6/uL (4.40-5.60); RDW 19.3 % (11.5-14.5); WBC 15.45 X 10*3/uL (4.50-10.00)
--- NOTE | 2022-09-06 09:13 | P.PN ---
Subjective Progress Note Date: 09/06/22 HISTORY OF PRESENT ILLNESS This is a 72-year-old male patient with past medical history of hypertension, h yperlipidemia, CVA, mild persistent ALLERGIC asthma, seizure disorder, Parkinson's disease, chronic diastolic heart failure, stasis dermatitis of the left lower extremity due to peripheral venous hypertension, spondylosis of the lumbar spine, obstructive sleep apnea. He presented to the emergency department with concerns with chest pressure. Onset of symptoms was around an hour ago. Discomfort was moderate to severe, mild following aspirin and nitro glycerin by EMS. Patient did have some similar symptoms yesterday. Patient did have a little bit of sweating and shortness of breath associated. No nausea. No radiation. EKG Findings:: Interpreted by myself sinus rhythm 72. NM 199. QRS 105. QT 392. QTC 416. Left axis. Incomplete right bundle-branch block. No acute ST change. Poor R-wave progression. Blood work completed reveals elevated to be wheezy of 17.8, hemoglobin 13.1 and platelet count of 224; sodium 136, potassium 4.6, BUN/creatinine of 31/1.09 and blood glucose of 142 Chest x-ray reveals pulmonary vascular congestion without overt failure 09/06: Patient has been seen by cardiology and is scheduled for left heart catheterization today with Dr. Connolly. Troponins have been negative on 3 draws. Patient states he continues has shortness of breath and mild pressure in his chest but not as bad as yesterday. Patient denies any pain with deep breathing. He is currently on 5 L nasal cannula with pulse ox at 97%. He's been afebrile, heart rate in the 70s and 80s, blood pressure 131/74.. REVIEW OF SYSTEMS Constitutional: No fever, no chills, no night sweats. No weight change. Reports weakness, reports fatigue no lethargy. No daytime sleepiness. EENT: No headache. No blurred vision or double vision, no loss of vision. No loss of Hearing, no ringing in the ears, no dizziness. No nasal drainage or congestion. No epistaxis. No sore throat. Lungs:Chronic shortness of breath, cough, no sputum production. No wheezing.Chronic dyspnea with exertion. Cardiovascular: Reports chest pain,reports chronic lower extremity edema. No palpitations. No paroxysmal nocturnal dyspnea. No orthopnea. No lightheadedness or dizziness. No syncopal episodes. Abdominal: No abdominal pain. No nausea, vomiting. No diarrhea. No cons tipation. No bloody or tarry stools. No loss of appetite. Genitourinary: No dysuria, increased frequency, urgency. No urinary retention. Musculoskeletal: No myalgias. No muscle weakness, no gait dysfunction, no frequent falls. No back pain. No neck pain. Integumentary:Reports wounds to the bilateral lower extremities. erythema to the right lower extremity. No rash or pruritus. No unusual bruising. No change in hair or nails. Neurologic: No aphasia. No facial droop. No change in mentation. No head injury. No headache. No paralysis. No paresthesia. Psychiatric: No depression. No anxiety. No mood swings. Endocrine: No abnormal blood sugars. No weight change. No excessive sweating or thirst. PHYSICAL EXAMINATION Gen: This is a morbidly obese 72-year-old male patient resting and bed and appears to be in no acute respiratory distress. HEENT: Head is atraumatic, normocephalic. Pupils equal, round. Sclerae is anicteric. NECK: Supple. No JVD. No lymphadenopathy. No thyromegaly. LUNGS: Clear to auscultation. No wheezes or rhonchi. No intercostal retractions. HEART: First heart sound is depressed, second heart sound is normal, there is a 2/6 systolic ejection murmur at the left sternal border, no S3, no S4.. ABDOMEN: Soft. Bowel sounds are present. No masses. No tenderness. EXTREMITIES: 1+ bilateral pedal edema, bilateral lower extremities wound dressin gs in place and covered with Moody wrap NEUROLOGICAL: Patient is awake, alert and oriented x3. Cranial nerves 2 through 12 are grossly intact. ASSESSMENT AND PLAN 1. Chest pain with radiation to the neck, troponins negative 3. Patient has been seen by cardiology and scheduled for cardiac catheterization, echocardiogram has been ordered, continue patient on aspirin 81 mg daily, atorvastatin 40 mg daily, Coreg 3.125 mg twice daily, Lasix 40 mg twice daily 2. Hypertension. Continue Coreg 3.125 mg twice daily, Lasix 40 mg oral twice daily, losartan 25 mg daily, MiraLAX L 25 mg daily. 3. Hyperlipidemia. Low cholesterol diet, continue patient on atorvastatin 40 mg daily. 4. History of CVA. 5. Parkinson's disease. Continue Mirapex 1 mg 3 times daily. 6. Chronic diastolic heart failure. Continue patient on Lasix, Coreg 3.125 mg twice daily, Aldactone 25 mg daily. 7. Spondylosis of the lumbar spine. Continue Lyrica 75 mg twice daily. 8. Obstructive sleep apnea. 9. Bilateral lower extremity cellulitis. Continue patient on ciprofloxacin 500 mg twice daily, local wound care ordered according to previous orders from [facility]. 10. GI prophylaxis. Protonix 40 mg daily oral. 10. DVT prophylaxis. Heparin drip DISCHARGE PLAN Return to [facility] for subacute rehab. Impression and plan of care have been directed as dictated by the signing physician. Caitie Breaux nurse practitioner acting as scribe for signing physician. Objective - Vital Signs Vital signs: Vital Signs Temp 97.4 F L 09/06/22 00:49 Pulse 72 09/06/22 00:49 Resp 15 09/06/22 00:49 BP 136/52 09/06/22 00:49 Pulse Ox 94 L 09/06/22 00:49 FiO2 Intake & Output 09/05/22 09/06/22 09/06/22 18:59 06:59 18:59 Intake Total 476 Output Total 420 650 Balance 56 -650 Weight 160.572 kg Intake: Oral 476 Output: Urine 420 650 Other: Voiding Method External Catheter External Catheter # Voids 1 - Labs CBC & Chem 7: 09/05/22 09:21 09/05/22 09:21 Labs: Abnormal Lab Results - Last 24 Hours (Table) 09/05/22 09/05/22 09/05/22 Range/Units 09:21 09:21 09:21 WBC 17.8 H (3.8-10.6) k/uL RDW 18.2 H (11.5-15.5) % Neutrophils # 15.2 H (1.3-7.7) k/uL Lymphocytes # 0.9 L (1.0-4.8) k/uL Monocytes # 1.1 H (0-1.0) k/uL D-Dimer 0.61 H (<0.60) mg/L FEU Sodium 136 L (137-145) mmol/L Chloride 93 L (98-107) mmol/L Carbon Dioxide 37 H (22-30) mmol/L BUN 31 H (9-20) mg/dL Glucose 142 H (74-99) mg/dL Magnesium 2.4 H (1.6-2.3) mg/dL Ur Specific [place] (1.001-1.035) Urine Protein (Negative) Uric Acid Crystals (None) /hpf Urine Mucus (None) /hpf 09/05/22 Range/Units 19:25 WBC (3.8-10.6) k/uL RDW (11.5-15.5) % Neutrophils # (1.3-7.7) k/uL Lymphocytes # (1.0-4.8) k/uL Monocytes # (0-1.0) k/uL D-Dimer (<0.60) mg/L FEU Sodium (137-145) mmol/L Chloride (98-107) mmol/L Carbon Dioxide (22-30) mmol/L BUN (9-20) mg/dL Glucose (74-99) mg/dL Magnesium (1.6-2.3) mg/dL Ur Specific [place] 1.050 H (1.001-1.035) Urine Protein Trace H (Negative) Uric Acid Crystals Many H (None) /hpf Urine Mucus Rare H (None) /hpf
[2022-09-06] MEDS ORDERED: IV FLUID CONTINUATION 1,000 ML IV ONE (09:46)
[2022-09-06] MEDS ORDERED: fentaNYL (PF) 50 MCG/ML 2 ML AMP ONE (09:47)
[2022-09-06] MEDS ORDERED: VERAPAMIL 2.5 MG/ML 2 ML AMP ONE (09:47)
[2022-09-06] MEDS ORDERED: fentaNYL (PF) 50 MCG/ML 2 ML AMP IV ONE (09:48)
[2022-09-06] MEDS ORDERED: LIDOCAINE 1% INJ 10MG/ML (30 ML VIAL-PF) SQ ONE (09:49)
[2022-09-06] MEDS ORDERED: MIDAZOLAM 2 MG/2 ML VIAL IV ONE (09:50)
[2022-09-06] MEDS ORDERED: VERAPAMIL SYRINGE (5 MG/10 ML) IV ONE (09:51)
[2022-09-06 09:55] LABS: African American GFR (CKD) 104.9 (60.0-200.0); BUN/Creat Ratio 28.75 Ratio (12.00-20.00); Calcium 9.4 mg/dL (8.7-10.3); Carbon Dioxide 32.3 mmol/L (20.0-27.5); Chloride 95 mmol/L (96-109); Chol/HDL Ratio 3.28 Ratio; Glucose 112 mg/dL (70-110); LDL Cholesterol,Calculated 45.1 mg/dL (0.0-131.0); Non-African American GFR(CKD) 90.5 (60.0-200.0); Potassium 5.2 mmol/L (3.5-5.5); Sodium 139 mmol/L (135-145)
[2022-09-06] MEDS ORDERED: IOPAMIDOL-370 125ML BTL INJ ONE (10:05)
[2022-09-06] MEDS ORDERED: RX INFO: IV CONTRAST WAS GIVEN 1 EACH MISC MISCELLANE PRN (10:18)
--- NOTE | 2022-09-06 10:23 | P.CARDCATH ---
Date of Procedure: 09/06/22 Description of Procedure: Cardiac Catheterization: The patient is a 72-year-old male with a history of hypertension and hyperlipidemia who presented with chest discomfort, radiating to the neck with dyspnea. He had no acute enzyme changes or EKG changes. Recommendations were made regarding cardiac catheterization, the risks and the complications were discussed with the patient who is in full understanding and agreement. Procedure Description: Patient was brought to nitriles lab technician in fasting semi-sedated state after receiving Fentanyl and Benadryl achieiving moderate conscious sedated state. Using Xylocaine Anesthesia and Seldinger technique, a 6-Slovenian sheath was introduced in the right radial artery . Subsequently, selective coronary angiography was performed using a 5-Slovenian 3.5 bend Sonya catheter. Multiple views of the coronary artery including hemiaxial views were obtained. The 5-Slovenian Pigtail catheter was used to cross the aortic valve and LVEDP was calculated. Following that, catheter and sheath were removed. Hemostasis was obtained with deployment of TR band . There was no immediate complication. Patient was returned to room in stable condition. Of note, the patient received a total of 5000 units of intravenous heparin as well as intra-arterial verapamil. Findings: Left main: This is a large size vessel, bifurcating into LAD and circumflex, left main has no high-grade stenosis LAD: This is a large size vessel, reaching to the apex, the LAD has no high- grade stenosis Left circumflex: This is a nondominant vessel, giving rise to 2 large obtuse marginal branch, the left circumflex and its branches have no evidence of high- grade stenosis RCA: This is a large dominant vessel, bifurcating into PDA and PLV, the PDA reaches to the inferoapical wall. The RCA and its branches have no evidence of high-grade stenosis Left Ventriculogram: Not performed Hemodynamics: There was no gradient across the aortic valve, LVEDP was 12-14 mmHg Conclusion: 1. Normal coronary arteries 2. Right dominance 3. Normal LVEDP Recommendations: In view of the anatomy I see no evidence of significant disease to explain his chest discomfort from the cardiac standpoint, he will continue on his present medical regimen. The findings and the recommendations were discussed with the patient and the family and they were in full understanding and agreement. Duration of sedation is 23 minutes.
[2022-09-06] MEDS ORDERED: SODIUM CHLORIDE 0.9% 1,000 ML IV SCH (10:30)
[2022-09-06] MEDS: LOSARTAN 25 MG TAB PO SCH (10:38)
[2022-09-06] MEDS: OXcarbazepine 150 MG TAB PO SCH ×2 (10:38→17:25)
[2022-09-06] MEDS: carvediloL 3.125 MG TAB PO SCH ×2 (10:38→17:25)
[2022-09-06] MEDS: CIPROFLOXACIN HCL 500 MG TAB PO SCH ×2 (10:38→17:25)
[2022-09-06] MEDS: PREGABALIN 75 MG CAP PO SCH ×2 (10:38→17:25)
[2022-09-06] MEDS: SPIRONOLACTONE 25 MG TAB PO SCH (10:38)
[2022-09-06 10:51] LABS: Basophils # (M) 0 X 10*3/uL (0.00-0.10); Eosinophils # (M) 0.15 X 10*3/uL (0.04-0.35); Lymphocytes # (M) 0.46 X 10*3/uL (0.90-5.00); Microcytosis (M) 2+; Monocytes # (M) 0.93 X 10*3/uL (0.20-1.00); Myelocytes % 3 % (0-0); Neutrophils # (M) 13.44 X 10*3/uL (2.00-8.90); Neutrophils % (M) 87 %
--- NOTE | 2022-09-06 11:55 | P.CNPUL ---
History of Present Illness Consult date: 09/06/22 Requesting physician: Niko Valdez Reason for consult: dyspnea, chest pain Chief complaint: Chest pain, shortness of breath History of present illness: This is 72-year-old male patient with a known history of hyperlipidemia, hypertension, myocardial infarction, seizures, brain tumor status post surgical resection, obesity, chronic bronchial asthma. Lifelong nonsmoker. He presented to the emergency room yesterday with chest pressure approximate hour prior to his arrival. He did take aspirin and was given nitro glycerin sublingual by EMS with some improvement. He did have shortness of breath. EKG reveals sinus rhythm with a incomplete right bundle branch block. Troponins negative 3. ProBNP 16. White count 15. Hemoglobin 12. Sodium 139. Potassium 5.2. BUN 23. Creatinine 0.8. Glucose 112. Chest x-ray revealed pulmonary venous congestion without overt heart failure. CT angiogram ruled out pulmonary embolism. Lungs are free and clear of infiltrate. Some basilar atelectasis. No masses or nodules. No effusion. He is seen today in consultation on the regular medical floor. He is currently resting comfortably in bed. Awake and alert in no acute distress. He is on 5 L/m per nasal cannula. He does have home oxygen usually at 3 L/m. He does have obstructive sleep apnea and utilizes CPAP at home as well. He has been initiated on oral diuretics. The plan is for cardiac catheterization this morning. Review of Systems REVIEW OF SYSTEMS: CONSTITUTIONAL: Denies any recent significant weight loss or weight gain. EYES: Denies change in vision. EARS, NOSE, MOUTH, THROAT: Denies headaches, denies sore throat. CARDIOVASCULAR: Positive for chest pain, no palpitations or syncopal episodes. RESPIRATORY: Positive for shortness of breath, cough, congestion no hemoptysis. GASTROINTESTINAL: Denies change in appetite, denies abdominal pain GENITOURINARY: Denies hematuria, denies infections. MUSKULOSKELETAL: Denies pain, denies swelling. INTEGUMENTARY: Denies rash, denies eczema. NEUROLOGICAL: Denies recent memory loss, no recent seizure activity. PSYCHIATRIC: Denies anxiety, denies depression. HEMATOLOGIC/LYMPHATIC: Denies anemia, denies enlarged lymph nodes. Past Medical History Past Medical History: Asthma, Coronary Artery Disease (CAD), Hyperlipidemia, Hypertension, Myocardial Infarction (IA), Seizure Disorder Additional Past Medical History / Comment(s): restless leg, cardiomyopathy, wounds RT legs, BLE SWOLLEN AND DARK IN COLOR, frequent falls, irritant induced asthma, hand tremors, double visionvision Last Myocardial Infarction Date:: 1989 History of Any Multi-Drug Resistant Organisms: MRSA Date of last positivie culture/infection: 05/12/22 MDRO Source:: Left Leg Past Surgical History: Back Surgery, Cholecystectomy Additional Past Surgical History / Comment(s): brain tumor SX, 2ND DIGIT LT FOOT REMOVED, COLONOSCOPY Past Anesthesia/Blood Transfusion Reactions: No Reported Reaction Past Psychological History: No Psychological Hx Reported Smoking Status: Never smoker Past Alcohol Use History: None Reported Past Drug Use History: None Reported - Past Family History Mother Family Medical History: Cancer Additional Family Medical History / Comment(s): pancreatic Father Family Medical History: Cancer Additional Family Medical History / Comment(s): melanoma Brother(s) Family Medical History: Deep Vein Thrombosis (DVT) Daughter(s) Family Medical History: Deep Vein Thrombosis (DVT), Pulmonary Embolus Medications and Allergies Home Medications Medication Instructions Recorded Confirmed Type Pramipexole [Mirapex] 1 mg PO TID@0600,1400,2200 07/06/16 09/05/22 History carvediloL [Coreg] 3.125 mg PO BID@0800,1700 06/28/18 09/05/22 History Melatonin [Melatonin ER] 10 mg PO HS@2100 02/25/22 09/05/22 History Atorvastatin [Lipitor] 40 mg PO DAILY@1700 05/10/22 09/05/22 History Acetaminophen [Tylenol 8 Hour] 650 mg PO Q4H PRN 09/05/22 09/05/22 History Ciprofloxacin HCl [Cipro] 500 mg PO BID@0800,1700 09/05/22 09/05/22 History Ensure Enlive 1 can PO DAILY PRN 09/05/22 09/05/22 History Furosemide [Lasix] 40 mg PO BID@0600,1400 09/05/22 09/05/22 History HYDROcodone/APAP 5-325MG [[place] 1 tab PO Q6H PRN 09/05/22 09/05/22 History 5-325] Levothyroxine Sodium [Synthroid] 50 mcg PO DAILY@0600 09/05/22 09/05/22 History Losartan [Cozaar] 25 mg PO DAILY@0800 09/05/22 09/05/22 History Magnesium Hydroxide [Milk of 7,200 mg PO DAILY PRN 09/05/22 09/05/22 History Magnesia Concentrate] Na Phos,M-B/Na Phos,Di-Ba [Fleet 133 ml RECTAL DAILY PRN 09/05/22 09/05/22 History Adult] OXcarbazepine [Trileptal] 150 mg PO BID@0800,1700 09/05/22 09/05/22 History Pantoprazole [Protonix] 40 mg PO DAILY@0600 09/05/22 09/05/22 History Pregabalin [Lyrica] 75 mg PO BID@0800,1700 09/05/22 09/05/22 History Sennosides-Docusate Sodium 2 tab PO HS@2100 09/05/22 09/05/22 History [Senokot-S] Spironolactone [Aldactone] 25 mg PO DAILY@0800 09/05/22 09/05/22 History Sulfamethox-Tmp 800-160Mg [Bactrim 1 tab PO BID@0800,2100 09/05/22 09/05/22 History DS 800-160 mg] bisacodyL [Dulcolax] 10 mg RECTAL DAILY PRN 09/05/22 09/05/22 History Allergies Allergy/AdvReac Type Severity Reaction Status Date / Time codeine Allergy Dyspnea Verified 09/05/22 13:58 Penicillins Allergy Dyspnea Verified 09/05/22 13:58 Physical Exam Vitals: Vital Signs Temp Pulse Resp BP BP Pulse Ox 09/06/22 11:15 78 118/76 98 09/06/22 11:00 82 126/72 97 09/06/22 10:45 78 135/79 97 09/06/22 10:30 98.1 F 83 19 105/66 96 09/06/22 07:00 97.4 F L 76 19 131/74 97 09/06/22 00:49 97.4 F L 72 15 136/52 94 L 09/05/22 20:00 97.6 F 80 16 140/61 95 09/05/22 15:33 18 09/05/22 15:00 97.6 F 74 16 127/70 97 09/05/22 13:16 97.9 F 70 20 106/68 94 L Intake and Output 09/05/22 09/06/22 09/06/22 22:59 06:59 14:59 Intake Total 236 100 Output Total 720 350 Balance -484 -350 100 Intake: IV 100 Oral 236 Output: Urine 720 350 Other: Voiding Method External Catheter External Catheter # Voids 1 GENERAL EXAM: Alert, doesn't, obese 72-year-old male patient, on 5 L nasal cannula, comfortable in no apparent distress. HEAD: Normocephalic. EYES: Normal reaction of pupils, equal size. NOSE: Clear with pink turbinates. THROAT: No erythema or exudates. NECK: No masses, no JVD. CHEST: No chest wall deformity. LUNGS: Equal air entry with faint crackles in the posterior bases. CVS: S1 and S2 normal with no audible murmur, regular rhythm. ABDOMEN: No hepatosplenomegaly, normal bowel sounds, no guarding or rigidity. SPINE: No scoliosis or deformity SKIN: No rashes CENTRAL NERVOUS SYSTEM: No focal deficits, tone is normal in all 4 extremities. EXTREMITIES: There is no peripheral edema. No clubbing, no cyanosis. Peripheral pulses are intact. Results - Laboratory Findings CBC and BMP: 09/06/22 05:03 09/06/22 05:03 PT/INR, D-dimer PT 10.9 sec (9.0-12.0) 09/05/22 09:21 INR 1.0 (<1.2) 09/05/22 09:21 D-Dimer 0.61 mg/L FEU (<0.60) H 09/05/22 09:21 Abnormal lab findings: Abnormal Labs 09/05/22 09/05/22 09/05/22 09:21 09:21 09:21 WBC 17.8 H RBC Hgb Hct MCHC RDW 18.2 H Myelocytes % Neutrophils # 15.2 H Neutrophils # (Manual) Lymphocytes # 0.9 L Lymphocytes # (Manual) Monocytes # 1.1 H D-Dimer 0.61 H Sodium 136 L Chloride 93 L Carbon Dioxide 37 H BUN 31 H BUN/Creatinine Ratio Glucose 142 H Magnesium 2.4 H C-Reactive Protein Triglycerides HDL Cholesterol Ur Specific [place] Urine Protein Uric Acid Crystals Urine Mucus 09/05/22 09/06/22 09/06/22 19:25 05:03 05:03 WBC 15.45 H RBC 4.28 L Hgb 11.9 L Hct 39.2 L MCHC 30.4 L RDW 19.3 H Myelocytes % 3 H Neutrophils # Neutrophils # (Manual) 13.44 H Lymphocytes # Lymphocytes # (Manual) 0.46 L Monocytes # D-Dimer Sodium Chloride 95 L Carbon Dioxide 32.3 H BUN BUN/Creatinine Ratio 28.75 H Glucose 112 H Magnesium C-Reactive Protein 3.20 H Triglycerides 157.00 H HDL Cholesterol 33.50 L Ur Specific [place] 1.050 H Urine Protein Trace H Uric Acid Crystals Many H Urine Mucus Rare H - Diagnostic Findings Chest x-ray: image reviewed Assessment and Plan Assessment: Chest pain of unclear etiology. Pulmonary embolism ruled out. Cardiac cath revealed normal coronary arteries. Acute on chronic hypoxemic respiratory failure History of mild intermittent chronic bronchial asthma Hypertension Hypothyroidism Hyperlipidemia History of diastolic congestive heart failure Obesity Obstructive sleep apnea on CPAP History of brain tumor status post surgery History of lower extremity cellulitis with previous MRSA Plan: The patient was seen and evaluated Chest x-ray, labs and medications reviewed Normal coronary arteries Continue medical treatment Titrate the FiO2 as tolerated We will continue to follow and make further recommendations based on his clinical status I have personally seen and examined the patient, performed the documentation and the assessment and plan as written. Number of minutes spent on the visit: 20.
[2022-09-06] MEDS: ATORVASTATIN 40 MG TAB PO SCH (17:25)
[2022-09-06] MEDS: MELATONIN 5 MG TABLET PO SCH (21:41)
[2022-09-06] MEDS: SENNOSIDES-DOCUSATE SODIUM 1 EACH TAB PO SCH (21:41)
[2022-09-07 03:43] LABS: African American GFR (CKD) 71 (>60 ml/min/1.73 sqM); Blood Urea Nitrogen 32 mg/dL (9-20); Calcium 8.7 mg/dL (8.4-10.2); Chloride 92 mmol/L (98-107); Glucose 125 mg/dL (74-99); Non-African American GFR(CKD) 61 (>60 ml/min/1.73 sqM); Potassium 4.6 mmol/L (3.5-5.1); Sodium 137 mmol/L (137-145)
[2022-09-07 03:50] LABS: Anion Gap 4 mmol/L
[2022-09-07 03:57] LABS: Carbon Dioxide 41 mmol/L (22-30)
[2022-09-07] MEDS: FUROSEMIDE 40 MG TAB PO SCH ×2 (04:50→15:16)
[2022-09-07] MEDS: PRAMIPEXOLE 1 MG TAB PO SCH ×2 (04:54→15:15)
[2022-09-07] MEDS: ACETAMINOPHEN TAB 325 MG TAB PO PRN (04:54)
[2022-09-07] MEDS: LEVOTHYROXINE 50 MCG TAB PO SCH (04:54)
[2022-09-07] MEDS: PANTOPRAZOLE 40 MG TABLET PO SCH (04:54)
[2022-09-07 05:34] VITALS: RESP 18
--- NOTE | 2022-09-07 06:49 | P.PN ---
Subjective Progress Note Date: 09/07/22 Principal diagnosis: Chest pain. This is 72-year-old male patient with a known history of hyperlipidemia, hypertension, myocardial infarction, seizures, brain tumor status post surgical resection, obesity, chronic bronchial asthma. Lifelong nonsmoker. He presented to the emergency room yesterday with chest pressure approximate hour prior to his arrival. He did take aspirin and was given nitro glycerin sublingual by EMS with some improvement. He did have shortness of breath. EKG reveals sinus rhythm with a incomplete right bundle branch block. Troponins negative 3. ProBNP 16. White count 15. Hemoglobin 12. Sodium 139. Potassium 5.2. BUN 23. Creatinine 0.8. Glucose 112. Chest x-ray revealed pulmonary venous congestion without overt heart failure. CT angiogram ruled out pulmonary embolism. Lungs are free and clear of infiltrate. Some basilar atelectasis. No masses or nodules. No effusion. He is seen today in consultation on the regular medical floor. He is currently resting comfortably in bed. Awake and alert in no acute distress. He is on 5 L/m per nasal cannula. He does have home oxygen usually at 3 L/m. He does have obstructive sleep apnea and utilizes CPAP at home as well. He has been initiated on oral diuretics. The plan is for cardiac catheterization this morning. Progress note dated 09/07/2022. 72-year-old male seen yesterday in consultation. He has a history of hyperlipidemia, hypertension, myocardial infarction, seizures, brain tumor, and chronic bronchial asthma. Is a lifelong nonsmoker. He presented to the emerge ncy department with chest pain. He's currently on 5 L. He denies any significant shortness of breath. He does admit to some coughing overnight, with minimal phlegm. He is currently on 5 L. No IV fluids are running. Labs today include a sodium 137, potassium 4.6, chlorides 92, CO2 41, BUN 32, creatinine 1.20. Cardiac catheterization performed yesterday, shows relatively normal coronary arteries. Objective - Vital Signs Vital signs: Vital Signs Temp 98.1 F 09/07/22 02:47 Pulse 71 09/07/22 02:47 Resp 18 09/07/22 02:47 BP 130/69 09/07/22 02:47 Pulse Ox 97 09/07/22 02:47 FiO2 Intake & Output 09/06/22 09/06/22 09/07/22 06:59 18:59 06:59 Intake Total 100 Output Total 650 500 450 Balance -650 -400 -450 Intake: IV 100 Output: Urine 650 500 450 Other: Voiding Method External Catheter External Catheter # Voids 1 1 1 - Exam No acute distress, oriented 3. Currently on 5 L of oxygen. HEENT examination is grossly unremarkable. Neck supple. Full range of motion. No adenopathy thyromegaly or neck vein distention. Cardiovascular examination reveals regular rhythm rate. S1-S2 normal. No S3 or S4. No discernible murmur noted. Heart rate 71 bpm. Lungs reveal mostly normal breath sounds. Faint basilar crackles are noted. No wheezes or rhonchi. Saturations are 97%. Abdomen is obese. Bowel sounds are noted. No masses or tenderness. Extremities are intact. Legs are wrapped. Mild edema noted. No cyanosis or clubbing. Skin is without rash or lesion. Neurologic examination is brief but nonfocal. - Labs CBC & Chem 7: 09/06/22 05:03 09/07/22 03:04 Labs: Abnormal Lab Results - Last 24 Hours (Table) 09/06/22 09/06/22 09/07/22 Range/Units 05:03 05:03 03:04 WBC 15.45 H (4.50-10.00) X 10*3/uL RBC 4.28 L (4.40-5.60) X 10*6/uL Hgb 11.9 L (13.0-17.0) g/dL Hct 39.2 L (39.6-50.0) % MCHC 30.4 L (32.0-37.0) g/dL RDW 19.3 H (11.5-14.5) % Myelocytes % 3 H (0-0) % Neutrophils # (Manual) 13.44 H (2.00-8.90) X 10*3/uL Lymphocytes # (Manual) 0.46 L (0.90-5.00) X 10*3/uL Chloride 95 L 92 L (96-109) mmol/L Carbon Dioxide 32.3 H 41 H* (20.0-27.5) mmol/L BUN 32 H (9-20) mg/dL BUN/Creatinine Ratio 28.75 H (12.00-20.00) Ratio Glucose 112 H 125 H (70-110) mg/dL C-Reactive Protein 3.20 H (0.00-0.80) mg/dL Triglycerides 157.00 H (0.00-149.00) mg/dL HDL Cholesterol 33.50 L (40.00-60.00) mg/dL Assessment and Plan Assessment: Chest pain, with normal coronary arteries by cardiac catheterization. No evidence of pulmonary embolism. Acute on chronic hypoxemic respiratory failure. History of mild intermittent chronic bronchial asthma. Hypertension. Hypothyroidism. Hyperlipidemia. History of diastolic CHF. Obesity, with possible Pickwickian syndrome. Obstructive sleep apnea syndrome, on CPAP. History of brain tumor. Lower extremity cellulitis/edema, with previous MRSA infection. Plan: Progress note dated 09/07/2022. The patient's cardiac catheterization, reveal normal coronary arteries. The patient remains on 5 L. That can be titrated down. The patient had a pretty uneventful night last night although he did admit to some mild coughing and phlegm production. The patient should have follow-up in our office, both for the sleep apnea, and for his asthma, and, for possible Pickwickian syndrome. We will continue to follow as needed. I will add Symbicort to his regimen, and a rescue inhaler. Time with Patient: Less than 30
[2022-09-07] MEDS ORDERED: HEPARIN SODIUM,PORCINE 2,500 UNIT in SODIUM CHLORIDE 0.9% 250 ML IRRIGATION PRN (07:00)
[2022-09-07] MEDS ORDERED: SYMBICORT 160-4.5 MCG INHALER INHALATION SCH (08:00)
--- NOTE | 2022-09-07 08:06 | P.PN ---
Subjective Progress Note Date: 09/07/22 PROGRESS NOTE The patient is a 72-year-old male who presented with symptoms of chest discomfort, dyspnea. He has a history of hypertension and hyperlipidemia. He underwent cardiac catheterization that showed no evidence of obstructive disease. He has no further chest discomfort but continues to be dyspneic, he has a cough, productive of thick sputum. Medications: Lipitor 40 mg daily, Coreg 3.125 mg twice a day, Lasix 40 mg twice a day, Cozaar 25 mg daily, aspirin once a day, Trileptal, Aldactone 25 mg daily PHYSICAL EXAMINATION: Blood pressure 130/69 heart rate 70 LUNGS: Few crackles bilaterally HEART: Regular rate and rhythm, S1, S2. No S3. systolic systolic ejection murmur ABDOMEN: Soft, nontender, no organomegaly EXTREMETIES: +1 edema, pressure stocking in place. Right radial pulse intact LAB: BUN 32, creatinine 1.2 IMPRESSION: 1. Chest discomfort with no evidence of obstructive disease 2. Dyspnea on exertion with no clear evidence of CHF 3. History of hypertension 4. History of hyperlipidemia PLAN: 1. Continue present cardiac treatment 2. Discharged home from the cardiac standpoint 3. Follow-up as an outpatient Objective - Vital Signs Vital signs: Vital Signs Temp 98.1 F 09/07/22 02:47 Pulse 71 09/07/22 02:47 Resp 18 09/07/22 02:47 BP 130/69 09/07/22 02:47 Pulse Ox 97 09/07/22 02:47 FiO2 Intake & Output 09/06/22 09/07/22 09/07/22 18:59 06:59 18:59 Intake Total 100 Output Total 500 450 Balance -400 -450 Intake: IV 100 Output: Urine 500 450 Other: Voiding Method External Catheter # Voids 1 1 - Labs CBC & Chem 7: 09/06/22 05:03 09/07/22 03:04 Labs: Abnormal Lab Results - Last 24 Hours (Table) 09/06/22 09/06/22 09/07/22 Range/Units 05:03 05:03 03:04 WBC 15.45 H (4.50-10.00) X 10*3/uL RBC 4.28 L (4.40-5.60) X 10*6/uL Hgb 11.9 L (13.0-17.0) g/dL Hct 39.2 L (39.6-50.0) % MCHC 30.4 L (32.0-37.0) g/dL RDW 19.3 H (11.5-14.5) % Myelocytes % 3 H (0-0) % Neutrophils # (Manual) 13.44 H (2.00-8.90) X 10*3/uL Lymphocytes # (Manual) 0.46 L (0.90-5.00) X 10*3/uL Chloride 95 L 92 L (96-109) mmol/L Carbon Dioxide 32.3 H 41 H* (20.0-27.5) mmol/L BUN 32 H (9-20) mg/dL BUN/Creatinine Ratio 28.75 H (12.00-20.00) Ratio Glucose 112 H 125 H (70-110) mg/dL C-Reactive Protein 3.20 H (0.00-0.80) mg/dL Triglycerides 157.00 H (0.00-149.00) mg/dL HDL Cholesterol 33.50 L (40.00-60.00) mg/dL
--- NOTE | 2022-09-07 08:07 | P.DS ---
Providers Date of admission: 09/06/22 10:18 Expected date of discharge: 09/07/22 Attending physician: Niko Valdez Consults: 09/05/22 10:17 Consult Physician Urgent Consulting Provider: Samir Gann Consult Reason/Comments: cp Do you want consulting provider notified?: Yes 09/05/22 10:59 Consult Physician Urgent Consulting Provider: Dorian Pereyra Consult Reason/Comments: cp, hypoxia Do you want consulting provider notified?: Yes Primary care physician: Niko Valdez Hospital Course: HISTORY OF PRESENT ILLNESS This is a 72-year-old male patient with past medical history of hypertension, hyperlipidemia, CVA, mild persistent ALLERGIC asthma, seizure disorder, Parkinson's disease, chronic diastolic heart failure, stasis dermatitis of the left lower extremity due to peripheral venous hypertension, spondylosis of the lumbar spine, obstructive sleep apnea. He presented to the emergency department with concerns with chest pressure. Onset of symptoms was around an hour ago. Discomfort was moderate to severe, mild following aspirin and nitro glycerin by EMS. Patient did have some similar symptoms yesterday. Patient did have a little bit of sweating and shortness of breath associated. No nausea. No radiation. EKG Findings:: Interpreted by myself sinus rhythm 72. KS 199. QRS 105. QT 392. QTC 416. Left axis. Incomplete right bundle-branch block. No acute ST change. Poor R-wave progression. Blood work completed reveals elevated to be wheezy of 17.8, hemoglobin 13.1 and platelet count of 224; sodium 136, potassium 4.6, BUN/creatinine of 31/1.09 and blood glucose of 142 Chest x-ray reveals pulmonary vascular congestion without overt failure 09/06: Patient has been seen by cardiology and is scheduled for left heart corbin terization today with Dr. Connolly. Troponins have been negative on 3 draws. Patient states he continues has shortness of breath and mild pressure in his chest but not as bad as yesterday. Patient denies any pain with deep breathing. He is currently on 5 L nasal cannula with pulse ox at 97%. He's been afebrile, heart rate in the 70s and 80s, blood pressure 131/74.. 09/07: Yesterday, patient underwent cardiac catheterization with Dr. Connolly that revealed normal coronary arteries, right dominance, normal LVEDP. Recommendations are for continuing his medical regime. Patient has also been se en and followed by pulmonary medicine with recommendations to titrate oxygen down to his baseline of 3 L, follow-up in the office regarding asthma and possible pickwickian syndrome and sleep apnea. Pulmonary medicine is signed off and following on an as-needed basis. Symbicort and rescue inhaler has been added to his medication regime. Patient denies having any chest pain but complains of right upper quadrant pain which she states he's had for a week. He states he really felt it when he moved from the bed to the table for the procedure yesterday. He also states he had an episode of vertigo. We will plan to discharge on meclizine if any further episodes should occur at [facility]. Patient will be weaned down to 3 L of oxygen which is his baseline. Patient does state that the updrafts and loosen up some phlegm that is now coughing up. Patient has been afebrile, heart rate 71, blood pressure 130/69 and pulse ox 97%. Blood work reveals a CO2 of 41, BUN 32 and creatinine 1.2. Glucose 125. Patient will be discharged back to [facility] today in stable condition. DISCHARGE DIAGNOSES 1. Chest pain with radiation to the neck, troponins negative 3, negative cardiac catheterization. 2. Hypertension. 3. Hyperlipidemia. 4. History of CVA. 5. Parkinson's disease. 6. Chronic diastolic heart failure. 7. Spondylosis of the lumbar spine. 8. Obstructive sleep apnea. 9. Bilateral lower extremity cellulitis. DISCHARGE PLAN Return to [facility] for subacute rehab. Greater than 35 minutes was utilized and coordinating patient's discharge. Impression and plan of care have been directed as dictated by the signing physician. Caitie Breaux nurse practitioner acting as scribe for signing physician. Plan - Discharge Summary Discharge Rx Participant: Yes New Discharge Prescriptions: New Meclizine [Antivert] 25 mg PO TID PRN #30 tab PRN Reason: dizziness Budesonide-Formot 160-4.5 Mcg [Symbicort 160-4.5 Mcg Inhaler] 2 puff INHALATION RT-BID #1 each Albuterol Inhaler [Ventolin Hfa Inhaler] 2 puff INHALATION RT-TID #1 each Continue Pramipexole [Mirapex] 1 mg PO TID@0600,1400,2200 carvediloL [Coreg] 3.125 mg PO BID@0800,1700 Melatonin [Melatonin ER] 10 mg PO HS@2100 bisacodyL [Dulcolax] 10 mg RECTAL DAILY PRN PRN Reason: Constipation Furosemide [Lasix] 40 mg PO BID@0600,1400 Losartan [Cozaar] 25 mg PO DAILY@0800 Na Phos,M-B/Na Phos,Di-Ba [Fleet Adult] 133 ml RECTAL DAILY PRN PRN Reason: Constipation OXcarbazepine [Trileptal] 150 mg PO BID@0800,1700 Pantoprazole [Protonix] 40 mg PO DAILY@0600 Spironolactone [Aldactone] 25 mg PO DAILY@0800 Atorvastatin [Lipitor] 40 mg PO DAILY@1700 Ensure Enlive 1 can PO DAILY PRN PRN Reason: PER REQUEST Acetaminophen [Tylenol 8 Hour] 650 mg PO Q4H PRN PRN Reason: Pain Or Fever > 100.5 Levothyroxine Sodium [Synthroid] 50 mcg PO DAILY@0600 Magnesium Hydroxide [Milk of Magnesia Concentrate] 7,200 mg PO DAILY PRN PRN Reason: Constipation Sennosides-Docusate Sodium [Senokot-S] 2 tab PO HS@2100 HYDROcodone/APAP 5-325MG [[facility] 5-325] 1 tab PO Q6H PRN #12 tab PRN Reason: Pain Changed Pregabalin [Lyrica] 75 mg PO BID@0800,1700 #6 cap Discontinued Sulfamethox-Tmp 800-160Mg [Bactrim DS 800-160 mg] 1 tab PO BID@0800,2100 Ciprofloxacin HCl [Cipro] 500 mg PO BID@0800,1700 Discharge Medication List Pramipexole [Mirapex] 1 mg PO TID@0600,1400,2200 07/06/16 [History] carvediloL [Coreg] 3.125 mg PO BID@0800,1700 06/28/18 [History] Melatonin [Melatonin ER] 10 mg PO HS@2100 02/25/22 [History] Atorvastatin [Lipitor] 40 mg PO DAILY@1700 05/10/22 [History] Acetaminophen [Tylenol 8 Hour] 650 mg PO Q4H PRN 09/05/22 [History] Ensure Enlive 1 can PO DAILY PRN 09/05/22 [History] Furosemide [Lasix] 40 mg PO BID@0600,1400 09/05/22 [History] Levothyroxine Sodium [Synthroid] 50 mcg PO DAILY@0600 09/05/22 [History] Losartan [Cozaar] 25 mg PO DAILY@0800 09/05/22 [History] Magnesium Hydroxide [Milk of Magnesia Concentrate] 7,200 mg PO DAILY PRN 09/05/22 [History] Na Phos,M-B/Na Phos,Di-Ba [Fleet Adult] 133 ml RECTAL DAILY PRN 09/05/22 [History] OXcarbazepine [Trileptal] 150 mg PO BID@0800,1700 09/05/22 [History] Pantoprazole [Protonix] 40 mg PO DAILY@0600 09/05/22 [History] Sennosides-Docusate Sodium [Senokot-S] 2 tab PO HS@2100 09/05/22 [History] Spironolactone [Aldactone] 25 mg PO DAILY@0800 09/05/22 [History] bisacodyL [Dulcolax] 10 mg RECTAL DAILY PRN 09/05/22 [History] Albuterol Inhaler [Ventolin Hfa Inhaler] 2 puff INHALATION RT-TID #1 each 09/07/22 [Rx] Budesonide-Formot 160-4.5 Mcg [Symbicort 160-4.5 Mcg Inhaler] 2 puff INHALATION RT-BID #1 each 09/07/22 [Rx] HYDROcodone/APAP 5-325MG [[facility] 5-325] 1 tab PO Q6H PRN #12 tab 09/07/22 [Rx] Meclizine [Antivert] 25 mg PO TID PRN #30 tab 09/07/22 [Rx] Pregabalin [Lyrica] 75 mg PO BID@0800,1700 #6 cap 09/07/22 [Rx] Follow up Appointment(s)/Referral(s): Niko Valdez MD [Primary Care Provider] - 1 Week (at [facility]) Jbo Burns MD [Family Provider] - 2 Weeks Discharge Disposition: TRANSFER TO SNF/ECF
[2022-09-07] MEDS: CIPROFLOXACIN HCL 500 MG TAB PO SCH ×2 (08:39→15:16)
[2022-09-07] MEDS: SPIRONOLACTONE 25 MG TAB PO SCH (08:39)
[2022-09-07] MEDS: LOSARTAN 25 MG TAB PO SCH (08:39)
[2022-09-07] MEDS: carvediloL 3.125 MG TAB PO SCH ×2 (08:40→16:57)
[2022-09-07] MEDS: PREGABALIN 75 MG CAP PO SCH ×2 (08:40→16:57)
[2022-09-07] MEDS: OXcarbazepine 150 MG TAB PO SCH ×2 (08:40→16:57)
[2022-09-07] MEDS ORDERED: ASPIRIN 81 MG PO SCH (09:00)
[2022-09-07] MEDS: ALBUTEROL HFA INHALER INHALATION SCH ×2 (09:24→12:45)
[2022-09-07 09:25] LABS: HCT 38.5 % (39.6-50.0); HGB 11.5 g/dL (13.0-17.0); MCH 27.9 pg (27.0-32.0); MCHC 29.9 g/dL (32.0-37.0); MCV 93.4 fL (80.0-97.0); Mean Platelet Volume 11.4 fL (9.5-12.2); NRBC Per 100 WBC 0 /100 WBCS (0.0-0.0); Platelet Count 165 X 10*3/uL (140-440); RBC 4.12 X 10*6/uL (4.40-5.60); WBC 14.35 X 10*3/uL (4.50-10.00)
--- NOTE | 2022-09-07 10:22 | CA ---
Transthoracic Echo Report Name: Tahir Sanchez Age: 72 Gender: M : 1950 Exam Date: 09/07/2022 08:15 Exam Location: [facility] Ht (in): 72 Wt (lb): 354 Ordering Physician: Dania Connolly MD ([id number]) Attending/Referring Phys: Java Development Manager Radha Lainez RDCS Procedure CPT: Indications: CP Cardiac Hx: Technical Quality: Fair Contrast 1: Total Dose (mL): Contrast 2: Total Dose (mL): MEASUREMENTS (Male / Female) Normal Values 2D ECHO LV Diastolic Diameter PLAX 5.4 cm 4.2 - 5.9 / 3.9 - 5.3 cm LV Systolic Diameter PLAX 3.5 cm IVS Diastolic Thickness 1.6 cm 0.6 - 1.0 / 0.6 - 0.9 cm LVPW Diastolic Thickness 1.4 cm 0.6 - 1.0 / 0.6 - 0.9 cm LV Relative Wall Thickness 0.6 RV Internal Dim ED PLAX 3.8 cm LA Systolic Diameter LX 3.6 cm 3.0 - 4.0 / 2.7 - 3.8 cm M-MODE Aortic Root Diameter MM 4.5 cm MV E Point Septal Separation 0.5 cm AV Cusp Separation MM 2.0 cm DOPPLER AV Peak Velocity 174.1 cm/s AV Peak Gradient 12.1 mmHg MV Area PHT 2.7 cm??? Mitral E Point Velocity 88.3 cm/s Mitral A Point Velocity 71.4 cm/s Mitral E to A Ratio 1.2 MV Deceleration Time 285.2 ms TR Peak Velocity 208.5 cm/s TR Peak Gradient 17.4 mmHg Right Ventricular Systolic Press 22.4 mmHg FINDINGS Left Ventricle Left ventricular ejection fraction is estimated at 55-60 %. Left ventricular cavity size normal. Moderate concentric left ventricular hypertrophy. Right Ventricle Moderate right ventricular dilatation. Right ventricular systolic pressure within normal limits. Right Atrium Normal right atrial size. Left Atrium Normal left atrial size. No evidence for an atrial septal defect. Mitral Valve Structurally normal mitral valve. No mitral stenosis, or prolapse. Mitral annular calcification. Mild mitral regurgitation Aortic Valve Trileaflet aortic valve. No aortic valve stenosis or regurgitation.aortic valve sclerosis. Tricuspid Valve Trace to mild tricuspid regurgitation.structurally normal tricuspid valve. Pulmonic Valve Pulmonic valve not well visualized. Pericardium Normal pericardium. No pericardial effusion. Aorta Mild aortic dilatation at the level of the sinuses of valsalva 45 mm CONCLUSIONS 1. Normal left ventricle size and systolic function with moderate concentric LVH 2. Mild mitral and tricuspid regurgitation 3. Mildly dilated ascending aorta. Previewed by: Dr. Dania Connolly MD (Electronically Signed) Final Date: 07 September 2022 10:21
[2022-09-07 13:19] VITALS: BP 95/49; PULSE 75; TEMP 98.2
[2022-09-07] MEDS: ATORVASTATIN 40 MG TAB PO SCH (15:16)
== END 2022-09-07 18:41 ==
LOC: EC 08:56 → 6NMEDSUR 10:18 → INTOOBSV 09-06 10:18 → OBSVTOIN 09-06 10:18 → UNDODISIN 09-07 18:41
PROVIDERS: ADMIT Internal Medicine; ATTEND Internal Medicine
DX: R07.89 Other chest pain (principal); L03.116 Cellulitis of left lower limb; L03.115 Cellulitis of right lower limb; I25.10 Atherosclerotic heart disease of native coronary artery without angina pectoris; E78.5 Hyperlipidemia, unspecified; I25.2 Old myocardial infarction; J96.21 Acute and chronic respiratory failure with hypoxia; G40.909 Epilepsy, unspecified, not intractable, without status epilepticus; G25.81 Restless legs syndrome; I42.9 Cardiomyopathy, unspecified; I45.19 Other right bundle-branch block; I11.0 Hypertensive heart disease with heart failure; E03.9 Hypothyroidism, unspecified; I50.32 Chronic diastolic (congestive) heart failure; N17.9 Acute kidney failure, unspecified; J45.30 Mild persistent asthma, uncomplicated; I73.9 Peripheral vascular disease, unspecified; G20 Parkinson's disease; M47.816 Spondylosis without myelopathy or radiculopathy, lumbar region; I87.2 Venous insufficiency (chronic) (peripheral); G47.33 Obstructive sleep apnea (adult) (pediatric); E66.01 Morbid (severe) obesity due to excess calories; I08.1 Rheumatic disorders of both mitral and tricuspid valves; J98.11 Atelectasis; Z79.899 Other long term (current) drug therapy; Z79.82 Long term (current) use of aspirin; Z88.0 Allergy status to penicillin; Z88.5 Allergy status to narcotic agent; Z90.49 Acquired absence of other specified parts of digestive tract; Z80.8 Family history of malignant neoplasm of other organs or systems; Z80.0 Family history of malignant neoplasm of digestive organs; Z83.2 Family history of diseases of the blood and blood-forming organs and certain disorders involving the immune mechanism; Z86.73 Personal history of transient ischemic attack (TIA), and cerebral infarction without residual deficits; Z86.14 Personal history of Methicillin resistant Staphylococcus aureus infection; Z20.822 Contact with and (suspected) exposure to COVID-19; Z68.42 Body mass index [BMI] 45.0-49.9, adult
CPT/HCPCS: 99285; 36415; 94640 ×2; 94760; 93005; 93306; 97163; 97167; 93458; 36410; 76937; 85379; 83880; 80061; 80053; 80048 ×2; 83735; 84484; 85025 ×2; 85027; 85610; 85730; 86140; 81001; 84145; 87635; 71046; 71275; G0378 ×3; C1769 ×2; C1894; J2250; J2001; J3010; J1644; Q9967 ×2

== ENCOUNTER 2023-02-11 13:22 | Inpatient (IN) | payer MEDICARE ==
[2023-02-11] MEDS ORDERED: CEFEPIME 2 GM in SODIUM CHLORIDE 0.9% 100 ML IVPB STA (13:35)
--- NOTE | 2023-02-11 13:37 | ED ---
General Adult HPI - General Chief complaint: Shortness of Breath Stated complaint: sob Time Seen by Provider: 02/11/23 13:24 Source: patient, EMS Mode of arrival: EMS Limitations: no limitations - History of Present Illness Initial comments: Dictation was produced using [employer] dictation software. please excuse any grammatical, word or spelling errors. Chief Complaint: 72-year-old male multiple comorbidities presents to the ER for dyspnea and nausea with cellulitis. History of Present Illness: Patient is a 72-year-old male here history is limited secondary to patient's medical status. Patient brought in by EMS from home. Patient allegedly was dyspneic. His recently admitted to the neighboring hospital for similar issue. He is currently being treated for lower extremity cellulitis bilaterally. EMS states that patient was very wheezy. They placed him on noninvasive ventilation and given breathing treatment which improved his symptoms are related allegedly had persistent upper field wheezing. EMS reports hypoxia upon initial arrival with saturations in the mid to low 80s. Patient is dyspneic unable to provide detailed history - Related Data Home Medications Medication Instructions Recorded Confirmed Pramipexole [Mirapex] 1 mg PO TID 07/06/16 02/11/23 carvediloL [Coreg] 3.125 mg PO BID 06/28/18 02/11/23 Atorvastatin [Lipitor] 40 mg PO HS 05/10/22 02/11/23 Levothyroxine Sodium [Synthroid] 50 mcg PO DAILY 09/05/22 02/11/23 Losartan [Cozaar] 25 mg PO DAILY 09/05/22 02/11/23 OXcarbazepine [Trileptal] 150 mg PO BID 09/05/22 02/11/23 Pantoprazole [Protonix] 40 mg PO AC-BRKFST 09/05/22 02/11/23 Spironolactone [Aldactone] 25 mg PO DAILY 09/05/22 02/11/23 HYDROcodone/APAP 10-325MG [[place] 1 tab PO Q12H PRN 02/11/23 02/11/23 10-325] Pregabalin [Lyrica] 150 mg PO DAILY 02/11/23 02/11/23 Allergies Allergy/AdvReac Type Severity Reaction Status Date / Time codeine Allergy Dyspnea Verified 02/11/23 16:22 Penicillins Allergy Dyspnea Verified 02/11/23 16:22 Review of Systems ROS Statement: Those systems with pertinent positive or pertinent negative responses have been documented in the HPI. ROS Other: All systems not noted in ROS Statement are negative. Past Medical History Past Medical History: Asthma, Coronary Artery Disease (CAD), Hyperlipidemia, Hypertension, Myocardial Infarction (HI), Seizure Disorder Additional Past Medical History / Comment(s): restless leg, cardiomyopathy, wounds RT legs, BLE SWOLLEN AND DARK IN COLOR, frequent falls, irritant induced asthma, hand tremors, double visionvision Last Myocardial Infarction Date:: 1989 History of Any Multi-Drug Resistant Organisms: MRSA Date of last positivie culture/infection: 05/12/22 MDRO Source:: Left Leg Past Surgical History: Back Surgery, Cholecystectomy Additional Past Surgical History / Comment(s): brain tumor SX, 2ND DIGIT LT FOOT REMOVED, COLONOSCOPY Past Anesthesia/Blood Transfusion Reactions: No Reported Reaction Past Psychological History: No Psychological Hx Reported Smoking Status: Never smoker Past Alcohol Use History: None Reported Past Drug Use History: None Reported - Past Family History Mother Family Medical History: Cancer Additional Family Medical History / Comment(s): pancreatic Father Family Medical History: Cancer Additional Family Medical History / Comment(s): melanoma Brother(s) Family Medical History: Deep Vein Thrombosis (DVT) Daughter(s) Family Medical History: Deep Vein Thrombosis (DVT), Pulmonary Embolus General Exam - General Exam Comments Initial Comments: PHYSICAL EXAM: General Impression: Obese, dyspneic, CPAP in place HEENT: Normocephalic atraumatic, extra-ocular movements intact, pupils equal and reactive to light bilaterally, mucous membranes moist. Cardiovascular: Heart regular rate and rhythm Chest: Bilateral breath sounds Abdomen: abdomen soft, non-tender, non-distended, no organomegaly Musculoskeletal: Pulses present and equal in all extremities, no peripheral edema Motor: no focal deficits noted Neurological: CN II-XII grossly intact, no focal motor or sensory deficits noted Skin: Bilateral erythema in lymphedema to the tibial areas Psych: Normal affect and mood Limitations: no limitations Course Vital Signs 02/11/23 02/11/23 02/11/23 13:23 13:29 13:30 Temperature 101.5 F H Pulse Rate 108 H Respiratory 40 H Rate Blood Pressure 143/88 O2 Sat by Pulse 93 L Oximetry Fraction of 50 50 Inspired Oxygen (FIO2) 02/11/23 02/11/23 02/11/23 13:50 13:53 14:54 Temperature Pulse Rate 100 92 Respiratory 18 28 H Rate Blood Pressure 144/55 O2 Sat by Pulse 98 99 Oximetry Fraction of Inspired Oxygen (FIO2) 02/11/23 16:14 Temperature Pulse Rate Respiratory Rate Blood Pressure O2 Sat by Pulse Oximetry Fraction of 50 Inspired Oxygen (FIO2) Procedures - Sepsis Sepsis Focused Exam #1 Time Sepsis Criteria Met: 48 Sepsis Focused Exam Date: 02/11/23 Sepsis Focused Exam Time: Sepsis Focused Exam Complete: Yes Vital Signs & RN Notes Reviewed: Yes Capillary Refill: < 2 Seconds: Fingers, Toes Peripheral Pulses: Normal: Radial (R), Radial (L), Posterior Tibialis (R), Posterior Tibialis (L), Dorsalis Pedis (R), Dorsalis Pedis (L) Skin Color: Normal for Patient Respiratory Exam: wheezes Cardiovascular Exam: regular rate Medical Decision Making - Medical Decision Making Was pt. sent in by a medical professional or institution (Dr. PA, ARMORED CABLE MACHINE OPERATOR, urgent care, hospital, or [facility]...) When possible be specific @ -No Did you speak to anyone other than the patient for history (EMS, parent, family, police, friend...)? What history was obtained from this source @ -EMS Did you review nursing and triage notes (agree or disagree)? Why? @ -I reviewed and agree with nursing and triage notes Were old charts reviewed (outside hosp., previous admission, EMS record, old EKG, old radiological studies, urgent care reports/EKG's, [facility] records)? Report findings @ -Chart was reviewed showing that lasted patient was admitted to the hospital for a similar issue. He is evaluated by pulmonary for obesity hypoventilation syndrome. She also had cellulitis at that time. Differential Diagnosis (chest pain, altered mental status, abdominal pain women, abdominal pain men, vaginal bleeding, musculoskeletal, weakness, fever, dyspnea, syncope, headache, dizziness, GI bleed, back pain, seizure, CVA, palpatations, mental health)? @ -Differential Fever: Pneumonia, viral URI, endocarditis, myocarditis, pericarditis, otitis, si nusitis, peritonsillar Abscess, retropharyngeal Abscess, epiglottitis, peritonitis, appendicitis, Christal cystitis, diverticulitis, hepatitis, colitis, UTI, PID, TOA, pyelonephritis, prostatitis, epididymitis, meningitis, encephalitis, pulmonary embolism, CVA, thyroid storm, pancreatitis, adrenal lillie is, cavernous sinus thrombosis, this is not meant to be an all-inclusive list. EKG interpreted by me (3pts min.). @ -See above X-rays interpreted by me (1pt min.). @ -Chest x-ray is unremarkable. Bilateral tib-fib x-rays do not show any soft tissue gas or evidence to suggest osteomyelitis CT interpreted by me (1pt min.). @ -None done U/S interpreted by me (1pt. min.). @ -None done What testing was considered but not performed or refused? (CT, X-rays, U/S, labs)? Why? @ -None What meds were considered but not given or refused? Why? @ -None Did you discuss the management of the patient with other professionals (professionals i.e. , PA, ARMORED CABLE MACHINE OPERATOR, lab, RT, psych nurse, child protective services social worker, account support associate, teacher, juvenile officer, test case developer)? Give summary @ -Case discussed with Dr. Valdez for admission Was smoking cessation discussed for >3mins.? @ -No Was critical care preformed (if so, how long)? @ -No Were there social determinants of health that impacted care today? How? (Homelessness, low income, unemployed, alcoholism, drug addiction, transportation, low edu. Level, literacy, decrease access to med. care, fci, rehab)? @ -No Was there de-escalation of care discussed even if they declined (Discuss DNR or withdrawal of care, Hospice)? DNR status @ -No What co-morbidities impacted this encounter? (DM, HTN, Smoking, COPD, CAD, Cancer, CVA, ARF, Chemo, Hep., AIDS, mental health diagnosis, sleep apnea, morbid obesity)? @ -History of MRSA, dyslipidemia hypertension seizure disorder Was patient admitted / discharged? Hospital course, mention meds given and route, prescriptions, significant lab abnormalities, going to OR and other pertinent info. @ -72 Year-old male presents emergency department for dyspnea and lower extremity cellulitis. Patient had a temperature of 101.5 axillary. Clinical presentation concerning for sepsis given that his respiratory rate is 40. One week. Patient stable on BiPAP. Chart review shows the patient has since history of respiratory issues. In August of last year was admitted for hypoxic respiratory failure evaluated by pulmonology. Patient states that it is like most of his symptoms or around his baseline. Laboratory evaluation ob tained. Leukocytosis 27.2. Hemoglobin is 10.7 which is near his baseline. Rest of labs within acceptable limits. 4 panel viral testing is negative. Patient does not have any decubitus ulcers. She does have lower extremity cellulitis bilaterally left worse than right. No other obvious infectious source. Patient started broad-spectrum antibiotics. No hypotension. Fluids were given gently given he has history of diastolic heart failure and we do not want to precipitate heart failure. Will be admitted with constipation pulmonology and infectious disease. Undiagnosed new problem with uncertain prognosis? @ -No Drug Therapy requiring intensive monitoring for toxicity (Heparin, Nitro, Insulin, Cardizem)? @ -No Were any procedures done? @ -No Diagnosis/symptom? Acute, or Chronic, or Acute on Chronic? Uncomplicated (without systemic symptoms) or Complicated (systemic symptoms)? @ -1. SIRS/sepsis, secondary to cellulitis, 2. Respiratory failure Side effects of treatment? @ -No Exacerbation, Progression, or Severe Exacerbation? @ -No Poses a threat to life or bodily function? How? (Chest pain, USA, HI, pneumonia, PE, COPD, DKA, ARF, appy, cholecystitis, CVA, Diverticulitis, Homicidal, Suicidal, threat to staff... and all critical care pts) @ -yes - Lab Data Result diagrams: 02/11/23 14:27 02/11/23 14:27 Lab Results 02/11/23 02/11/23 02/11/23 Range/Units 13:31 14:15 14:27 WBC 27.2 H (3.8-10.6) k/uL RBC 3.79 L (4.30-5.90) m/uL Hgb 10.7 L (13.0-17.5) gm/dL Hct 34.4 L (39.0-53.0) % MCV 90.7 (80.0-100.0) fL MCH 28.1 (25.0-35.0) pg MCHC 31.0 (31.0-37.0) g/dL RDW 19.8 H (11.5-15.5) % Plt Count 358 (150-450) k/uL MPV 8.0 Neutrophils % (Manual) 89 % Band Neuts % (Manual) 4 % Monocytes % (Manual) 2 % Metamyelocytes % 2 % Myelocytes % 4 % Neutrophils # (Manual) 25.20 H (1.3-7.7) k/uL Monocytes # (Manual) 0.54 (0-1.0) k/uL Metamyelocytes # (Man) 0.54 H (0) k/uL Myelocytes # (Manual) 1.09 H (0) k/uL Nucleated RBCs 0 (0-0) /100 WBC Manual Slide Review Performed Toxic Granulation Present Hypochromasia Moderate Poikilocytosis Moderate Anisocytosis Slight PT (9.0-12.0) sec INR (<1.2) APTT (22.0-30.0) sec Sodium (137-145) mmol/L Potassium (3.5-5.1) mmol/L Chloride (98-107) mmol/L Carbon Dioxide (22-30) mmol/L Anion Gap mmol/L BUN (9-20) mg/dL Creatinine (0.66-1.25) mg/dL Est GFR (CKD-EPI)AfAm (>60 ml/min/1.73 sqM) Est GFR (CKD-EPI)NonAf (>60 ml/min/1.73 sqM) Glucose (74-99) mg/dL Plasma Lactic Acid Tayo (0.7-2.0) mmol/L Calcium (8.4-10.2) mg/dL Magnesium (1.6-2.3) mg/dL Total Bilirubin (0.2-1.3) mg/dL AST (17-59) U/L ALT (4-49) U/L Alkaline Phosphatase (38-126) U/L Troponin I (0.000-0.034) ng/mL NT-Pro-B Natriuret Pep pg/mL Total Protein (6.3-8.2) g/dL Albumin (3.5-5.0) g/dL Urine Color Yellow Urine Appearance Cloudy (Clear) Urine pH 5.0 (5.0-8.0) Ur Specific [place] 1.022 (1.001-1.035) Urine Protein 1+ H (Negative) Urine Glucose (UA) Trace H (Negative) Urine Ketones Negative (Negative) Urine Blood Negative (Negative) Urine Nitrite Negative (Negative) Urine Bilirubin Negative (Negative) Urine Urobilinogen <2.0 (<2.0) mg/dL Ur Leukocyte Esterase Negative (Negative) Urine RBC 1 (0-5) /hpf Urine WBC 1 (0-5) /hpf Urine Bacteria Rare H (None) /hpf Urine Mucus Many H (None) /hpf Influenza Type A (PCR) Not Detected (Not Detectd) Influenza Type B (PCR) Not Detected (Not Detectd) RSV (PCR) Not Detected (Not Detectd) SARS-CoV-2 (PCR) Not Detected (Not Detectd) 02/11/23 02/11/23 02/11/23 Range/Units 14:27 14:27 14:27 WBC (3.8-10.6) k/uL RBC (4.30-5.90) m/uL Hgb (13.0-17.5) gm/dL Hct (39.0-53.0) % MCV (80.0-100.0) fL MCH (25.0-35.0) pg MCHC (31.0-37.0) g/dL RDW (11.5-15.5) % Plt Count (150-450) k/uL MPV Neutrophils % (Manual) % Band Neuts % (Manual) % Monocytes % (Manual) % Metamyelocytes % % Myelocytes % % Neutrophils # (Manual) (1.3-7.7) k/uL Monocytes # (Manual) (0-1.0) k/uL Metamyelocytes # (Man) (0) k/uL Myelocytes # (Manual) (0) k/uL Nucleated RBCs (0-0) /100 WBC Manual Slide Review Toxic Granulation Hypochromasia Poikilocytosis Anisocytosis PT 11.4 (9.0-12.0) sec INR 1.1 (<1.2) APTT 30.0 (22.0-30.0) sec Sodium 139 (137-145) mmol/L Potassium 4.5 (3.5-5.1) mmol/L Chloride 101 (98-107) mmol/L Carbon Dioxide 32 H (22-30) mmol/L Anion Gap 6 mmol/L BUN 13 (9-20) mg/dL Creatinine 0.74 (0.66-1.25) mg/dL Est GFR (CKD-EPI)AfAm >90 (>60 ml/min/1.73 sqM) Est GFR (CKD-EPI)NonAf >90 (>60 ml/min/1.73 sqM) Glucose 117 H (74-99) mg/dL Plasma Lactic Acid Tay[place] 1.1 (0.7-2.0) mmol/L Calcium 8.6 (8.4-10.2) mg/dL Magnesium 2.0 (1.6-2.3) mg/dL Total Bilirubin 1.1 (0.2-1.3) mg/dL AST 25 (17-59) U/L ALT 18 (4-49) U/L Alkaline Phosphatase 72 (38-126) U/L Troponin I (0.000-0.034) ng/mL NT-Pro-B Natriuret Pep pg/mL Total Protein 6.5 (6.3-8.2) g/dL Albumin 3.6 (3.5-5.0) g/dL Urine Color Urine Appearance (Clear) Urine pH (5.0-8.0) Ur Specific [place] (1.001-1.035) Urine Protein (Negative) Urine Glucose (UA) (Negative) Urine Ketones (Negative) Urine Blood (Negative) Urine Nitrite (Negative) Urine Bilirubin (Negative) Urine Urobilinogen (<2.0) mg/dL Ur Leukocyte Esterase (Negative) Urine RBC (0-5) /hpf Urine WBC (0-5) /hpf Urine Bacteria (None) /hpf Urine Mucus (None) /hpf Influenza Type A (PCR) (Not Detectd) Influenza Type B (PCR) (Not Detectd) RSV (PCR) (Not Detectd) SARS-CoV-2 (PCR) (Not Detectd) 02/11/23 02/11/23 Range/Units 14:27 14:27 WBC (3.8-10.6) k/uL RBC (4.30-5.90) m/uL Hgb (13.0-17.5) gm/dL Hct (39.0-53.0) % MCV (80.0-100.0) fL MCH (25.0-35.0) pg MCHC (31.0-37.0) g/dL RDW (11.5-15.5) % Plt Count (150-450) k/uL MPV Neutrophils % (Manual) % Band Neuts % (Manual) % Monocytes % (Manual) % Metamyelocytes % % Myelocytes % % Neutrophils # (Manual) (1.3-7.7) k/uL Monocytes # (Manual) (0-1.0) k/uL Metamyelocytes # (Man) (0) k/uL Myelocytes # (Manual) (0) k/uL Nucleated RBCs (0-0) /100 WBC Manual Slide Review Toxic Granulation Hypochromasia Poikilocytosis Anisocytosis PT (9.0-12.0) sec INR (<1.2) APTT (22.0-30.0) sec Sodium (137-145) mmol/L Potassium (3.5-5.1) mmol/L Chloride (98-107) mmol/L Carbon Dioxide (22-30) mmol/L Anion Gap mmol/L BUN (9-20) mg/dL Creatinine (0.66-1.25) mg/dL Est GFR (CKD-EPI)AfAm (>60 ml/min/1.73 sqM) Est GFR (CKD-EPI)NonAf (>60 ml/min/1.73 sqM) Glucose (74-99) mg/dL Plasma Lactic Acid [place]o (0.7-2.0) mmol/L Calcium (8.4-10.2) mg/dL Magnesium (1.6-2.3) mg/dL Total Bilirubin (0.2-1.3) mg/dL AST (17-59) U/L ALT (4-49) U/L Alkaline Phosphatase (38-126) U/L Troponin I 0.017 (0.000-0.034) ng/mL NT-Pro-B Natriuret Pep 371 pg/mL Total Protein (6.3-8.2) g/dL Albumin (3.5-5.0) g/dL Urine Color Urine Appearance (Clear) Urine pH (5.0-8.0) Ur Specific [place] (1.001-1.035) Urine Protein (Negative) Urine Glucose (UA) (Negative) Urine Ketones (Negative) Urine Blood (Negative) Urine Nitrite (Negative) Urine Bilirubin (Negative) Urine Urobilinogen (<2.0) mg/dL Ur Leukocyte Esterase (Negative) Urine RBC (0-5) /hpf Urine WBC (0-5) /hpf Urine Bacteria (None) /hpf Urine Mucus (None) /hpf Influenza Type A (PCR) (Not Detectd) Influenza Type B (PCR) (Not Detectd) RSV (PCR) (Not Detectd) SARS-CoV-2 (PCR) (Not Detectd) Disposition Clinical Impression: Sepsis, Cellulitis Disposition: ADMITTED IP TO THIS HOSP Condition: Serious Referrals: Niko Valdez MD [Primary Care Provider] - 1-2 days Decision Time: 16:30
[2023-02-11] MEDS ORDERED: ACETAMINOPHEN IV (For NPO) 1,000 MG in EMPTY BAG 1 BAG IVPB STA (13:47)
--- NOTE | 2023-02-11 14:54 | XR ---
EXAMINATION TYPE: XR chest 1V portable DATE OF EXAM: 02/11/2023 COMPARISON: CTA chest September 05, 2022 HISTORY: Dyspnea. TECHNIQUE: Single frontal view of the chest is obtained. FINDINGS: Exam suboptimal due to large body habitus and portable technique. Persistent cardiomegaly w ith mild to moderate central vascular congestion currently. Low lung volumes redemonstrated. Visualiz ed osseous structures are intact. IMPRESSION: Suspect CHF exacerbation as detailed above. Correlate clinically.
[2023-02-11 15:03] LABS: Anisocytosis Slight; HCT 34.4 % (39.0-53.0); HGB 10.7 gm/dL (13.0-17.5); Hypochromasia Moderate; MCH 28.1 pg (25.0-35.0); MCV 90.7 fL (80.0-100.0); Platelet Count 358 k/uL (150-450); Poikilocytosis Moderate; RBC 3.79 m/uL (4.30-5.90); RDW 19.8 % (11.5-15.5); WBC 27.2 k/uL (3.8-10.6)
[2023-02-11 15:16] LABS: INR 1.1 (<1.2); Prothrombin Time 11.4 sec (9.0-12.0)
[2023-02-11 15:24] LABS: ALT 18 U/L (4-49); AST 25 U/L (17-59); African American GFR (CKD) >90 (>60 ml/min/1.73 sqM); Albumin 3.6 g/dL (3.5-5.0); Alkaline Phosphatase 72 U/L (38-126); Anion Gap 6 mmol/L; Blood Urea Nitrogen 13 mg/dL (9-20); Calcium 8.6 mg/dL (8.4-10.2); Carbon Dioxide 32 mmol/L (22-30); Chloride 101 mmol/L (98-107); Glucose 117 mg/dL (74-99); Non-African American GFR(CKD) >90 (>60 ml/min/1.73 sqM); Potassium 4.5 mmol/L (3.5-5.1); Sodium 139 mmol/L (137-145); Total Bilirubin 1.1 mg/dL (0.2-1.3); Total Protein 6.5 g/dL (6.3-8.2)
[2023-02-11 15:29] LABS: Appearance,Urine Cloudy (Clear); Bacteria,Urine Rare /hpf; Bilirubin,Urine Negative (Negative); Blood,Urine Negative (Negative); Color,Urine Yellow; Glucose,Urine (UA) Trace (Negative); Ketones,Urine Negative (Negative); Leukocyte Esterase,Urine Negative (Negative); Mucus,Urine Many /hpf; Nitrite,Urine Negative (Negative); Protein,Urine 1+ (Negative); RBC,Urine 1 /hpf (0-5); Specific Gravity,Urine 1.022 (1.001-1.035); Urobilinogen,Urine <2.0 mg/dL (<2.0); WBC,Urine 1 /hpf (0-5)
[2023-02-11 15:55] LABS: Band Neutrophils % 4 %; Metamyelocytes # (M) 0.54 k/uL (0); Metamyelocytes % 2 %; Monocytes # (M) 0.54 k/uL (0-1.0); Myelocytes # (M) 1.09 k/uL (0); Myelocytes % 4 %; Neutrophils % (M) 89 %; Nucleated Red Blood Cells 0 /100 WBC (0-0); Total Cells Counted 200
[2023-02-11 15:57] LABS: Toxic Granulation Present
[2023-02-11] MEDS ORDERED: VANCOMYCIN IV PER PHARMACY 1 EACH MISC MISCELLANE PRN (16:46)
--- NOTE | 2023-02-11 16:53 | XR ---
EXAMINATION TYPE: XR tibia fibula bilateral DATE OF EXAM: 02/11/2023 4:41 PM INDICATION: Patient age:Male; 72 years old; Reason for study: fever; COMPARISON: None TECHNIQUE: The right tibia/fibula was examined in AP and lateral projections. FINDINGS: No evidence of any acute osseous pathology, joint dislocation, or soft tissue swelling is n oted. IMPRESSION: No evidence of acute fracture.
[2023-02-11] MEDS ORDERED: ONDANSETRON 4 MG/2 ML VIAL IVP PRN (16:54)
[2023-02-11] MEDS ORDERED: NALOXONE 0.4 MG/ML 1 ML VIAL IV PRN (16:54)
[2023-02-11] MEDS: SODIUM CHLORIDE 0.9% 1,000 ML IV SCH (17:00)
[2023-02-11] MEDS ORDERED: VANCOMYCIN 1,750 MG in SODIUM CHLORIDE 0.9% 500 ML 500 ML IVPB ONE (18:00)
[2023-02-12] MEDS ORDERED: HEPARIN SODIUM,PORCINE/PF 5,000 UNIT/0.5 ML SYRINGE SQ SCH
[2023-02-12] MEDS: CEFEPIME 2 GM in SODIUM CHLORIDE 0.9% 100 ML IVPB SCH ×4 (00:56→23:25)
[2023-02-12] MEDS: ACETAMINOPHEN TAB 325 MG TAB PO PRN ×2 (01:15→09:27)
[2023-02-12] MEDS: SODIUM CHLORIDE 0.9% 1,000 ML IV SCH ×2 (02:02→11:18)
[2023-02-12] MEDS ORDERED: VANCOMYCIN 2,250 MG in SODIUM CHLORIDE 0.9% 500 ML 500 ML IVPB SCH (05:00)
[2023-02-12] MEDS ORDERED: VANCOMYCIN 1,500 MG in SODIUM CHLORIDE 0.9% 500 ML 500 ML IVPB SCH (06:00)
[2023-02-12] MEDS: LEVOTHYROXINE 50 MCG TAB PO SCH (09:26)
[2023-02-12] MEDS: ENOXAPARIN 40 MG/0.4 ML SYRINGE SQ SCH (09:26)
[2023-02-12] MEDS: PREGABALIN 75 MG CAP PO SCH (09:26)
[2023-02-12] MEDS: LOSARTAN 25 MG TAB PO SCH (09:27)
[2023-02-12] MEDS: SPIRONOLACTONE 25 MG TAB PO SCH (09:27)
[2023-02-12] MEDS: FUROSEMIDE 10 MG/ML 10 ML VIAL IV SCH ×2 (10:03→23:15)
[2023-02-12 10:05] LABS: Anisocytosis Slight; Basophils # (A) 0.1 k/uL (0-0.2); Basophils % (A) 0 %; Eosinophils # (A) 0.1 k/uL (0-0.7); Eosinophils % (A) 0 %; HGB 10.1 gm/dL (13.0-17.5); Hypochromasia Marked; Lymphocytes # (A) 0.6 k/uL (1.0-4.8); Lymphocytes % (A) 3 %; MCH 29.2 pg (25.0-35.0); MCHC 31.6 g/dL (31.0-37.0); MCV 92.4 fL (80.0-100.0); Macrocytosis Slight; Mean Platelet Volume 7.9; Monocytes # (A) 0.9 k/uL (0-1.0); Monocytes % (A) 4 %; Neutrophils # (A) 18.2 k/uL (1.3-7.7); Neutrophils % (A) 92 %; Platelet Count 266 k/uL (150-450); Poikilocytosis Moderate; RBC 3.46 m/uL (4.30-5.90); RDW 19.7 % (11.5-15.5); WBC 19.9 k/uL (3.8-10.6)
[2023-02-12 10:23] LABS: African American GFR (CKD) >90 (>60 ml/min/1.73 sqM); Blood Urea Nitrogen 16 mg/dL (9-20); Calcium 8.4 mg/dL (8.4-10.2); Carbon Dioxide 31 mmol/L (22-30); Glucose 156 mg/dL (74-99); Non-African American GFR(CKD) >90 (>60 ml/min/1.73 sqM)
[2023-02-12 10:34] LABS: C Reactive Protein 18.8 mg/dL (<1.0)
[2023-02-12 11:08] LABS: Anion Gap 6 mmol/L; Chloride 109 mmol/L (98-107); Potassium 4.4 mmol/L (3.5-5.1); Sodium 146 mmol/L (137-145)
[2023-02-12 11:17] LABS: ABG HCO3 33 mmol/L (21-25); ABG Oxygen Saturation 76.2 % (94-97); ABG PCO2 55 mmHg (35-45); ABG PH 7.39 (7.35-7.45); ABG TCO2 35 mmol/L (19-24); Allen Test Performed? Yes
[2023-02-12] MEDS: methylPREDNISolone SOD SUCCI 125 MG/2 ML VIAL IV SCH ×3 (11:17→23:25)
[2023-02-12 11:24] LABS: ABG PO2 40 mmHg (83-108)
--- NOTE | 2023-02-12 12:17 | P.CNPUL ---
History of Present Illness Consult date: 02/12/23 Reason for consult: dyspnea History of present illness: History of Present Illness: Patient is a 72-year-old male here history is limited secondary to patient's medical status. Patient brought in by EMS from home. Patient allegedly was dyspneic. His recently admitted to the neighboring hospital for similar issue. He is currently being treated for lower extremity cellulitis bilaterally. EMS states that patient was very wheezy. They placed him on noninvasive ventilation and given breathing treatment which improved his symptoms are related allegedly had persistent upper field wheezing. EMS reports hypoxia upon initial arrival with saturations in the mid to low 80s.the patient is morbidly obese and has history of obstructive sleep apnea. He was quite lethargic and short of breath at time of admission and based on that the patient was placed on a BiPAP and currently the patient is a BiPAP settings of 12/6 cm of water and FiO2 of 40%. His chest x-ray showed some mild pulmonary vascular congestion. Hhe has excessive edema in lower extremities along with cellulitis left lower extremity. Based on that, the patient was started on diuretics and the patient is currently on IV Lasix 80 mg every 12 hours and is producing adequate amount of urine output. He is also covered with a combination of cefepime and vancomycin regarding lower extremity cellulitis. He is arousable. He was communicate. He is tachypneic even while in the BiPAP and the patient seems to the BiPAP dependent. the patient was taken off the BiPAP briefly earlier this morning. Failed as the patient became more lethargic and judith nolent. Was placed back on a BiPAP. He is on Lovenox 40 mg subcu portably prophylaxis. He is bronchospastic and wheezy and I added Solu-Medrol. Review of Systems CONSTITUTIONAL: Denies any recent significant weight loss or weight gain. EYES: Denies change in vision. EARS, NOSE, MOUTH, THROAT: Denies headaches, denies sore throat. CARDIOVASCULAR: Positive for chest pain, no palpitations or syncopal episodes. RESPIRATORY: Positive for shortness of breath, cough, congestion no hemoptysis. GASTROINTESTINAL: Denies change in appetite, denies abdominal pain GENITOURINARY: Denies hematuria, denies infections. MUSKULOSKELETAL: Denies pain, denies swelling. INTEGUMENTARY: Denies rash, denies eczema. NEUROLOGICAL: Denies recent memory loss, no recent seizure activity. PSYCHIATRIC: Denies anxiety, denies depression. HEMATOLOGIC/LYMPHATIC: Denies anemia, denies enlarged lymph nodes. Past Medical History Past Medical History: Asthma, Coronary Artery Disease (CAD), Hyperlipidemia, Hypertension, Myocardial Infarction ([place]), Seizure Disorder Additional Past Medical History / Comment(s): restless leg, cardiomyopathy, wounds RT legs, BLE SWOLLEN AND DARK IN COLOR, frequent falls, irritant induced asthma, hand tremors, double visionvision Last Myocardial Infarction Date:: 1989 History of Any Multi-Drug Resistant Organisms: MRSA Date of last positivie culture/infection: 05/12/22 MDRO Source:: Left Leg Past Surgical History: Back Surgery, Cholecystectomy Additional Past Surgical History / Comment(s): brain tumor SX, 2ND DIGIT LT FOOT REMOVED, COLONOSCOPY Past Anesthesia/Blood Transfusion Reactions: No Reported Reaction Past Psychological History: No Psychological Hx Reported Smoking Status: Never smoker Past Alcohol Use History: None Reported Past Drug Use History: None Reported - Past Family History Mother Family Medical History: Cancer Additional Family Medical History / Comment(s): pancreatic Father Family Medical History: Cancer Additional Family Medical History / Comment(s): melanoma Brother(s) Family Medical History: Deep Vein Thrombosis (DVT) Daughter(s) Family Medical History: Deep Vein Thrombosis (DVT), Pulmonary Embolus Medications and Allergies Home Medications Medication Instructions Recorded Confirmed Type Pramipexole [Mirapex] 1 mg PO TID 07/06/16 02/11/23 History carvediloL [Coreg] 3.125 mg PO BID 06/28/18 02/11/23 History Atorvastatin [Lipitor] 40 mg PO HS 05/10/22 02/11/23 History Levothyroxine Sodium [Synthroid] 50 mcg PO DAILY 09/05/22 02/11/23 History Losartan [Cozaar] 25 mg PO DAILY 09/05/22 02/11/23 History OXcarbazepine [Trileptal] 150 mg PO BID 09/05/22 02/11/23 History Pantoprazole [Protonix] 40 mg PO AC-BRKFST 09/05/22 02/11/23 History Spironolactone [Aldactone] 25 mg PO DAILY 09/05/22 02/11/23 History HYDROcodone/APAP 10-325MG [[place] 1 tab PO Q12H PRN 02/11/23 02/11/23 History 10-325] Pregabalin [Lyrica] 150 mg PO DAILY 02/11/23 02/11/23 History Allergies Allergy/AdvReac Type Severity Reaction Status Date / Time codeine Allergy Dyspnea Verified 02/11/23 16:22 Penicillins Allergy Dyspnea Verified 02/11/23 16:22 Physical Exam Vitals: Vital Signs Temp Pulse Pulse Resp BP BP Pulse Ox 02/12/23 09:38 100 F H 79 28 H 144/64 94 L 02/12/23 09:03 94 L 02/12/23 04:00 98.9 F 84 18 134/64 95 02/12/23 03:37 02/12/23 02:09 35 H 02/12/23 01:29 101.2 F H 88 32 H 122/66 02/12/23 01:06 86 18 122/58 96 02/11/23 23:31 02/11/23 21:16 100.1 F H 83 22 126/59 96 02/11/23 20:21 86 20 133/60 95 02/11/23 19:25 02/11/23 18:00 87 18 135/59 96 02/11/23 17:11 99.0 F 86 20 119/54 95 02/11/23 16:14 02/11/23 14:54 92 144/55 99 02/11/23 13:53 28 H 02/11/23 13:50 100 18 98 02/11/23 13:30 02/11/23 13:29 02/11/23 13:23 101.5 F H 108 H 40 H 143/88 93 L FiO2 02/12/23 09:38 50 02/12/23 09:03 02/12/23 04:00 02/12/23 03:37 50 02/12/23 02:09 02/12/23 01:29 02/12/23 01:06 02/11/23 23:31 50 02/11/23 21:16 02/11/23 20:21 02/11/23 19:25 50 02/11/23 18:00 02/11/23 17:11 02/11/23 16:14 50 02/11/23 14:54 02/11/23 13:53 02/11/23 13:50 02/11/23 13:30 50 02/11/23 13:29 50 02/11/23 13:23 Intake and Output 02/11/23 02/12/23 02/12/23 22:59 06:59 14:59 Intake Total 118 Output Total 400 Balance -400 118 Intake: Oral 118 Output: Urine 400 Other: Voiding Method Indwelling Catheter Indwelling Catheter Weight 167 kg 167 kg GENERAL EXAM: Alert, doesn't, obese 72-year-old male patient, on currently on a BiPAP at a pressure of 12/6 cm of water with FiO2 of 50% HEAD: Normocephalic. EYES: Normal reaction of pupils, equal size. NOSE: Clear with pink turbinates. THROAT: No erythema or exudates. NECK: No masses, no JVD. CHEST: No chest wall deformity. LUNGS: Equal air entry with faint crackles in the posterior bases. CVS: S1 and S2 normal with no audible murmur, regular rhythm. ABDOMEN: No hepatosplenomegaly, normal bowel sounds, no guarding or rigidity. SPINE: No scoliosis or deformity SKIN: No rashes CENTRAL NERVOUS SYSTEM: No focal deficits, tone is normal in all 4 extremities. EXTREMITIES: There is no peripheral edema. No clubbing, no cyanosis. Peripheral pulses are intact. Results - Laboratory Findings CBC and BMP: 02/12/23 09:10 02/12/23 09:10 PT/INR, D-dimer PT 11.4 sec (9.0-12.0) 02/11/23 14:27 INR 1.1 (<1.2) 02/11/23 14:27 Abnormal lab findings: Abnormal Labs 02/11/23 02/11/23 02/11/23 14:15 14:27 14:27 WBC 27.2 H RBC 3.79 L Hgb 10.7 L Hct 34.4 L RDW 19.8 H Neutrophils # Neutrophils # (Manual) 25.20 H Lymphocytes # Metamyelocytes # (Man) 0.54 H Myelocytes # (Manual) 1.09 H Carbon Dioxide 32 H Glucose 117 H Urine Protein 1+ H Urine Glucose (UA) Trace H Urine Bacteria Rare H Urine Mucus Many H 02/12/23 09:10 WBC 19.9 H RBC 3.46 L Hgb 10.1 L Hct 32.0 L RDW 19.7 H Neutrophils # 18.2 H Neutrophils # (Manual) Lymphocytes # 0.6 L Metamyelocytes # (Man) Myelocytes # (Manual) Carbon Dioxide Glucose Urine Protein Urine Glucose (UA) Urine Bacteria Urine Mucus Assessment and Plan Plan: acute cellulitis of the lower extremity more so on the left lower superficial ulceration. The wounds are wrapped and the patient is currently on accommodation of cefepime and vancomycin. Lower extremity edema, and signs of fluid overload currently on IV Lasix Acute on chronic hypoxemic respiratory failure, currently on BiPAP for respiratory support and is a component of CHF exacerbation. Acute exacerbation of diastolic heart failure History of mild intermittent chronic bronchial asthma, with secondary exacerbation Hypertension Hypothyroidism Hyperlipidemia History of diastolic congestive heart failure Obesity Obstructive sleep apnea on CPAP History of brain tumor status post surgery History of lower extremity cellulitis with previous MRSA Plan: Keep the patient on BiPAP for now Obtain a blood gas Continue with bronchodilators IV Solu-Medrol 60 mg every 6 hours IV Lasix 80 mg every 12 hours Continue cefepime and vancomycin Blood cultures Resume all medications Transfer the patient to the intensive care unit.
[2023-02-12] MEDS: HYDROcodone/APAP 10-325MG 1 EACH TAB PO PRN (12:58)
[2023-02-12] MEDS: ALPRAZolam 0.25 MG TAB PO PRN (13:48)
[2023-02-12] MEDS: IPRATROPIUM-ALBUTEROL 3 ML NEB INHALATION SCH ×2 (15:11→20:39)
--- NOTE | 2023-02-12 16:34 | P.HPIM ---
History of Present Illness H&P Date: 02/11/23 Chief Complaint: Left lower leg cellulitis with sepsis HISTORY OF PRESENT ILLNESS This is a 71-year-old male patient with past medical history of hypertension, hyperlipidemia, CVA, mild persistent ALLERGIC asthma, seizure disorder, Parkinson's disease, chronic diastolic heart failure, stasis dermatitis of the left lower extremity due to peripheral venous hypertension, spondylosis of the lumbar spine, obstructive sleep apnea, patient was recently hospitalized at [facility] about a few once ago with significant cellulitis of both lower extremity is with venous ulceration that was treated with IV antibiotic due to MRSA at that time he was placed on vancomycin and cefepime then he was switched to Cubicin and he was supposed to go to extended care facility for IV antibiotic however the infectious disease recommended for the patient to go on linezolid 600 mg orally twice every day for 14 days, patient has been following with wound healing center with . and he has been getting would care at home but it was a Tuesday, today his nurse contacted EMS to bring her to the emergency department because of increased shortness breath as well as increased swelling in both lower extremity is, and significant fever and chills and patient was septic, patient was seen in the ER according to the EMS the patient oxygen sufficient was in the low 80s, his chest x-ray showed poorly vascular congestion, patient did receive IV fluid in the emergency department as a protocol of sepsis and put the patient in acute diastolic heart failure subsequently the patient was started on Lasix 80 mg IV push every 12 hours and he was seen in consultation by pulmonary/critical care medicine Dr. Burns who recommended for the patient to transfer to the intensive care unit, patient was also started on Solu-Medrol 60 mg IV push every 6 hours along with IV antibiotic in the form of vancomycin and cefepime he was also seen in consultation by infectious disease Dr. Amezquita. REVIEW OF SYSTEMS Constitutional: positive for fever, chills, no night sweats. No weight change. positive for weakness,positive for fatigue and lethargy. positive for daytime sleepiness. HEENT: No headache. No blurred vision or double vision, no loss of vision. No loss of Hearing, no ringing in the ears, no dizziness. No nasal drainage or congestion. No epistaxis. No sore throat. Lungs:positive for shortness of breath, occasional cough, no sputum production. positive for wheezing.Chronic dyspnea with exertion. Cardiovascular: No chest pain,reports lower extremity edema. positive for palpitations. positive for paroxysmal nocturnal dyspnea. positive for orthopnea. No lightheadedness or dizziness. No syncopal episodes. Abdominal: No abdominal pain. No nausea, vomiting. No diarrhea. No constipation. No bloody or tarry stools. No loss of appetite. Genitourinary: No dysuria, kennedy catheter in place Musculoskeletal: No myalgias. positive for bilateral lower extremities muscle weakness, positive for gait dysfunction, no frequent falls. positive for back pain and neck pain. Integumentary:Reports wounds with venous ulcerations to left lower extremity. No rash or pruritus. No unusual bruising. positive for change in hair and nails. Neurologic: No aphasia. No facial droop. positive for change in mentation. No head injury. No headache. No paralysis. No paresthesia. Psychiatric: positive for depression and anxiety. No mood swings. Endocrine: No abnormal blood sugars. positive for weight change. No excessive sweating or thirst. No cold intolerance. 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 He lives at home with his . FAMILY HISTORY Father at age 73 from metastatic melanoma with history of Parkinson's and coronary artery disease status post CABG. Mother at age 68 from pancreatic cancer and also had diabetes type 2 and coronary artery disease. Patient is 5 brothers and one has history of head and neck cancer and one with sarcoma. Other brothers have no major medical problems. Patient has 2 sisters one has squamous cell cancer and the other has no major medical problems. Patient has 4 daughters and one has SLE. PHYSICAL EXAMINATION Gen: This is a morbidly obese 72-year-old male lying down in bed in moderate respiratory distress HEENT: Head is atraumatic, normocephalic. Pupils equal, round. Sclerae is anicteric, mucous membranes of the mouth are somewhat dry. NECK: Supple. elevated JVD. No lymphadenopathy. No thyromegaly. LUNGS: Decrease breath sounds at the bases with few ronchi , moderate expiratory wheezes, and minimal intercostal retractions. HEART: First heart sound is depressed, second heart sound is normal, there is a 2/6 systolic ejection murmur at the left sternal border, no S3, no S4.. ABDOMEN: Soft. Bowel sounds are present. No masses. No tenderness.obese, positive bowel sounds EXTREMITIES: 3+ bilateral pitting pedal edema with erythema, there is venous ulcerations in the left lower extremity extending into to the calf posteriorly with severe erythema and tenderness to touch, left second toe amputation and DP +1 bilaterally NEUROLOGICAL: Patient is awake, alert and oriented x3. Cranial nerves 2 through 12 are grossly intact, CN II-XII are grossly intact muscle power 4/5 in bilateral upper extremities, and 3/5 in bilateral lower extremities. ASSESSMENT AND PLAN 1. Bilateral lower extremity cellulitis with sepsis present on admission Wound culture is in progress, consult with Dr. Amezquita appreciated, continue patient on vancomycin with pharmacy to dose its peak and trough, cefepime 2 g IV piggyback every 8 hours, continue vancomycin 2250 mg IV piggyback every 12 hours, we will cultures obtained, blood cultures obtained, decrease IV fluid to 50 mL an hour due to the patient acute heart failure. 2. Acute hypoxemic respiratory failure due to acute on chronic diastolic heart failure as well as acute exacerbation of COPD/asthma, Lasix 80 mg IV push every 12 hours, carvedilol 3.125 mg orally twice every day, losartan 25 mg once every day, spironolactone 25 mg orally once every day, Kennedy catheter in place, input and output and daily weight, Solu-Medrol 60 mg IV push every 6 hours, DuoNeb 3 mL nebulization 3 times every day. Pulmonary consultation Dr. Burns 3. Chronic respiratory failure due to Obesity with obstructive sleep apnea and obesity hypoventilation syndrome with underlying COPD/asthma . Continue treatment as in the previous paragraph. 4. Hypertension and hypertensive cardiovascular disease. Continue Coreg 3.125 mg twice daily, continue losartan 25 mg once every day, continue spironolactone 25 mg once every day. 5. Hyperlipidemia. Continue low-cholesterol diet, continue atorvastatin 40 mg once every day, monitor lipid panel, keep LDL 55-70. 6. History of CVA. Continue patient on atorvastatin 40 mg once every day as well as aspirin 81 mg once every day. 7. Parkinson's disease. Continue Mirapex 1 mg 3 times daily. 8. Spondylosis of the lumbar spine. Continue Lyrica 75 mg twice daily. 9. Obstructive sleep apnea. Continue BiPAP 09/28 10. Hypothyroidism. Continue Synthroid 50 g orally once every day monitor TSH and free T4 11. GI prophylaxis. Protonix 40 mg orally once every day.. 12. DVT prophylaxis. Lovenox 40 mg subcutaneously every 24 hours. 13. Admit to inpatient. This made length of stay 2 midnights. 14. Patient is no code Past Medical History Past Medical History: Asthma, Coronary Artery Disease (CAD), Hyperlipidemia, Hypertension, Myocardial Infarction ([place]), Seizure Disorder Additional Past Medical History / Comment(s): restless leg, cardiomyopathy, wounds RT legs, BLE SWOLLEN AND DARK IN COLOR, frequent falls, irritant induced asthma, hand tremors, double visionvision Last Myocardial Infarction Date:: 1989 History of Any Multi-Drug Resistant Organisms: MRSA Date of last positivie culture/infection: 05/12/22 MDRO Source:: Left Leg Past Surgical History: Back Surgery, Cholecystectomy Additional Past Surgical History / Comment(s): brain tumor SX, 2ND DIGIT LT FOOT REMOVED, COLONOSCOPY Past Anesthesia/Blood Transfusion Reactions: No Reported Reaction Past Psychological History: No Psychological Hx Reported Smoking Status: Never smoker Past Alcohol Use History: None Reported Past Drug Use History: None Reported - Past Family History Mother Family Medical History: Cancer Additional Family Medical History / Comment(s): pancreatic Father Family Medical History: Cancer Additional Family Medical History / Comment(s): melanoma Brother(s) Family Medical History: Deep Vein Thrombosis (DVT) Daughter(s) Family Medical History: Deep Vein Thrombosis (DVT), Pulmonary Embolus Medications and Allergies Home Medications Medication Instructions Recorded Confirmed Type Pramipexole [Mirapex] 1 mg PO TID 07/06/16 02/11/23 History carvediloL [Coreg] 3.125 mg PO BID 06/28/18 02/11/23 History Atorvastatin [Lipitor] 40 mg PO HS 05/10/22 02/11/23 History Levothyroxine Sodium [Synthroid] 50 mcg PO DAILY 09/05/22 02/11/23 History Losartan [Cozaar] 25 mg PO DAILY 09/05/22 02/11/23 History OXcarbazepine [Trileptal] 150 mg PO BID 09/05/22 02/11/23 History Pantoprazole [Protonix] 40 mg PO AC-BRKFST 09/05/22 02/11/23 History Spironolactone [Aldactone] 25 mg PO DAILY 09/05/22 02/11/23 History HYDROcodone/APAP 10-325MG [[place] 1 tab PO Q12H PRN 02/11/23 02/11/23 History 10-325] Pregabalin [Lyrica] 150 mg PO DAILY 02/11/23 02/11/23 History Allergies Allergy/AdvReac Type Severity Reaction Status Date / Time codeine Allergy Dyspnea Verified 02/11/23 16:22 Penicillins Allergy Dyspnea Verified 02/11/23 16:22 Physical Exam Vitals: Vital Signs Temp Pulse Pulse Resp BP BP Pulse Ox 02/12/23 09:03 94 L 02/12/23 04:00 98.9 F 84 18 134/64 95 02/12/23 03:37 02/12/23 02:09 35 H 02/12/23 01:29 101.2 F H 88 32 H 122/66 02/12/23 01:06 86 18 122/58 96 02/11/23 23:31 02/11/23 21:16 100.1 F H 83 22 126/59 96 02/11/23 20:21 86 20 133/60 95 02/11/23 19:25 02/11/23 18:00 87 18 135/59 96 02/11/23 17:11 99.0 F 86 20 119/54 95 02/11/23 16:14 02/11/23 14:54 92 144/55 99 02/11/23 13:53 28 H 02/11/23 13:50 100 18 98 02/11/23 13:30 02/11/23 13:29 02/11/23 13:23 101.5 F H 108 H 40 H 143/88 93 L FiO2 02/12/23 09:03 02/12/23 04:00 02/12/23 03:37 50 02/12/23 02:09 02/12/23 01:29 02/12/23 01:06 02/11/23 23:31 50 02/11/23 21:16 02/11/23 20:21 02/11/23 19:25 50 02/11/23 18:00 02/11/23 17:11 02/11/23 16:14 50 02/11/23 14:54 02/11/23 13:53 02/11/23 13:50 02/11/23 13:30 50 02/11/23 13:29 50 02/11/23 13:23 Intake and Output 02/11/23 02/12/23 02/12/23 22:59 06:59 14:59 Intake Total 118 Output Total 400 Balance -400 118 Intake: Oral 118 Output: Urine 400 Other: Voiding Method Indwelling Catheter Weight 167 kg 167 kg Results CBC & Chem 7: 02/12/23 09:10 02/12/23 09:10 Labs: Abnormal Lab Results - Last 24 Hours (Table) 02/11/23 02/11/23 02/11/23 Range/Units 14:15 14:27 14:27 WBC 27.2 H (3.8-10.6) k/uL RBC 3.79 L (4.30-5.90) m/uL Hgb 10.7 L (13.0-17.5) gm/dL Hct 34.4 L (39.0-53.0) % RDW 19.8 H (11.5-15.5) % Neutrophils # (Manual) 25.20 H (1.3-7.7) k/uL Metamyelocytes # (Man) 0.54 H (0) k/uL Myelocytes # (Manual) 1.09 H (0) k/uL Carbon Dioxide 32 H (22-30) mmol/L Glucose 117 H (74-99) mg/dL Urine Protein 1+ H (Negative) Urine Glucose (UA) Trace H (Negative) Urine Bacteria Rare H (None) /hpf Urine Mucus Many H (None) /hpf Thrombosis Risk Factor Assmnt - Choose All That Apply Any of the Below Risk Factors Present?: Yes Each Factor Represents 1 point: Obesity (BMI >25) Other Risk Factors: Yes Each Risk Factor Represents 2 Points: Age 61-74 years Other congenital or acquired thrombophilia - If yes, enter type in comment: No Thrombosis Risk Factor Assessment Total Risk Factor Score: 3 Thrombosis Risk Factor Assessment Level: Moderate Risk
--- NOTE | 2023-02-12 16:37 | P.PN ---
Subjective Progress Note Date: 02/12/23 HISTORY OF PRESENT ILLNESS This is a 71-year-old male patient with past medical history of hypertension, h yperlipidemia, CVA, mild persistent ALLERGIC asthma, seizure disorder, Parkinson's disease, chronic diastolic heart failure, stasis dermatitis of the left lower extremity due to peripheral venous hypertension, spondylosis of the lumbar spine, obstructive sleep apnea, patient was recently hospitalized at [facility] about a few once ago with significant cellulitis of both lower extremity is with venous ulceration that was treated with IV antibiotic due to MRSA at that time he was placed on vancomycin and cefepime then he was switched to Cubicin and he was supposed to go to extended care facility for IV antibiotic however the infectious disease recommended for the patient to go on linezolid 600 mg orally twice every day for 14 days, patient has been following with wound healing center with . and he has been getting would care at home but it was a Tuesday, today his nurse contacted EMS to bring her to the emergency department because of increased shortness breath as well as increased swelling in both lower extremity is, and significant fever and chills and patient was septic, patient was seen in the ER according to the EMS the patient oxygen sufficient was in the low 80s, his chest x-ray showed poorly vascular congestion, patient did receive IV fluid in the emergency department as a protocol of sepsis and put the patient in acute diastolic heart failure subs equently the patient was started on Lasix 80 mg IV push every 12 hours and he was seen in consultation by pulmonary/critical care medicine Dr. Burns who recommended for the patient to transfer to the intensive care unit, patient was also started on Solu-Medrol 60 mg IV push every 6 hours along with IV antibiotic in the form of vancomycin and cefepime he was also seen in consultation by infectious disease Dr. Amezquita. 02/12: Patient is laying down in bed appears to be in respiratory distress, his IV fluids were decreased to 50 mL an hour, he was placed on a BiPAP 12 and 6, he was given Lasix 80 mg IV push 1 and then twice every day, patient already was started on vancomycin and cefepime he was evaluated by pulmonary/critical care he was recommended for the patient to be transferred to the intensive care unit, blood gases were obtained, he was also started on Solu-Medrol 60 mg IV push ev beba 6 hours along with IV antibiotic we'll continue to monitor the patient very closely. REVIEW OF SYSTEMS Constitutional: positive for fever, chills, no night sweats. No weight change. positive for weakness,positive for fatigue and lethargy. positive for daytime sleepiness. HEENT: No headache. No blurred vision or double vision, no loss of vision. No loss of Hearing, no ringing in the ears, no dizziness. No nasal drainage or congestion. No epistaxis. No sore throat. Lungs:positive for shortness of breath, occasional cough, no sputum production. positive for wheezing.Chronic dyspnea with exertion. Cardiovascular: No chest pain,reports lower extremity edema. positive for pa lpitations. positive for paroxysmal nocturnal dyspnea. positive for orthopnea. No lightheadedness or dizziness. No syncopal episodes. Abdominal: No abdominal pain. No nausea, vomiting. No diarrhea. No constipation. No bloody or tarry stools. No loss of appetite. Genitourinary: No dysuria, kennedy catheter in place Musculoskeletal: No myalgias. positive for bilateral lower extremities muscle weakness, positive for gait dysfunction, no frequent falls. positive for back pain and neck pain. Integumentary:Reports wounds with venous ulcerations to left lower extremity. No rash or pruritus. No unusual bruising. positive for change in hair and nails. Neurologic: No aphasia. No facial droop. positive for change in mentation. No head injury. No headache. No paralysis. No paresthesia. Psychiatric: positive for depression and anxiety. No mood swings. Endocrine: No abnormal blood sugars. positive for weight change. No excessive sweating or thirst. No cold intolerance. PHYSICAL EXAMINATION Gen: This is a morbidly obese 72-year-old male lying down in bed in mo derate respiratory distress HEENT: Head is atraumatic, normocephalic. Pupils equal, round. Sclerae is anicteric, mucous membranes of the mouth are somewhat dry. NECK: Supple. elevated JVD. No lymphadenopathy. No thyromegaly. LUNGS: Decrease breath sounds at the bases with few ronchi , moderate expiratory wheezes, and minimal intercostal retractions. HEART: First heart sound is depressed, second heart sound is normal, there is a 2/6 systolic ejection murmur at the left sternal border, no S3, no S4.. ABDOMEN: Soft. Bowel sounds are present. No masses. No tenderness.obese, positive bowel sounds EXTREMITIES: 3+ bilateral pitting pedal edema with erythema, there is venous ulcerations in the left lower extremity extending into to the calf posteriorly with severe erythema and tenderness to touch, left second toe amputation and DP +1 bilaterally NEUROLOGICAL: Patient is awake, alert and oriented x3. Cranial nerves 2 through 12 are grossly intact, CN II-XII are grossly intact muscle power 4/5 in bilateral upper extremities, and 3/5 in bilateral lower extremities. ASSESSMENT AND PLAN 1. Bilateral lower extremity cellulitis with sepsis present on admission Wound culture is in progress, consult with Dr. Amezquita appreciated, continue patient on vancomycin with pharmacy to dose its peak and trough, cefepime 2 g IV piggyback every 8 hours, continue vancomycin 2250 mg IV piggyback every 12 hours, we will cultures obtained, blood cultures obtained, decrease IV fluid to 50 mL an hour d ue to the patient acute heart failure. 2. Acute hypoxemic respiratory failure due to acute on chronic diastolic heart failure as well as acute exacerbation of COPD/asthma, Lasix 80 mg IV push every 12 hours, carvedilol 3.125 mg orally twice every day, losartan 25 mg once every day, spironolactone 25 mg orally once every day, Kennedy catheter in place, input and output and daily weight, Solu-Medrol 60 mg IV push every 6 hours, DuoNeb 3 mL nebulization 3 times every day. Pulmonary consultation Dr. Burns 3. Chronic respiratory failure due to Obesity with obstructive sleep apnea and obesity hypoventilation syndrome with underlying COPD/asthma . Continue treatment as in the previous paragraph. 4. Hypertension and hypertensive cardiovascular disease. Continue Coreg 3.125 mg twice daily, continue losartan 25 mg once every day, continue spironolactone 25 mg once every day. 5. Hyperlipidemia. Continue low-cholesterol diet, continue atorvastatin 40 mg once every day, monitor lipid panel, keep LDL 55-70. 6. History of CVA. Continue patient on atorvastatin 40 mg once every day as well as aspirin 81 mg once every day. 7. Parkinson's disease. Continue Mirapex 1 mg 3 times daily. 8. Spondylosis of the lumbar spine. Continue Lyrica 75 mg twice daily. 9. Obstructive sleep apnea. Continue BiPAP 09/28 10. Hypothyroidism. Continue Synthroid 50 g orally once every day monitor TSH and free T4 11. GI prophylaxis. Protonix 40 mg orally once every day.. 12. DVT prophylaxis. Lovenox 40 mg subcutaneously every 24 hours. 13. Very guarded prognosis. 14. Patient is no CODE STATUS per his own wishes Objective - Vital Signs Vital signs: Vital Signs Temp 98.9 F 02/12/23 04:00 Pulse 84 02/12/23 04:00 Resp 18 02/12/23 04:00 BP 134/64 02/12/23 04:00 Pulse Ox 94 L 02/12/23 09:03 FiO2 50 02/12/23 03:37 Intake & Output 02/11/23 02/12/23 02/12/23 18:59 06:59 18:59 Intake Total 118 Output Total 400 Balance -400 118 Weight 81.647 kg 167 kg Intake: Oral 118 Output: Urine 400 Other: Voiding Method Indwelling Catheter - Labs CBC & Chem 7: 02/12/23 09:10 02/12/23 09:10 Labs: Abnormal Lab Results - Last 24 Hours (Table) 02/11/23 02/11/23 02/11/23 Range/Units 14:15 14:27 14:27 WBC 27.2 H (3.8-10.6) k/uL RBC 3.79 L (4.30-5.90) m/uL Hgb 10.7 L (13.0-17.5) gm/dL Hct 34.4 L (39.0-53.0) % RDW 19.8 H (11.5-15.5) % Neutrophils # (Manual) 25.20 H (1.3-7.7) k/uL Metamyelocytes # (Man) 0.54 H (0) k/uL Myelocytes # (Manual) 1.09 H (0) k/uL Carbon Dioxide 32 H (22-30) mmol/L Glucose 117 H (74-99) mg/dL Urine Protein 1+ H (Negative) Urine Glucose (UA) Trace H (Negative) Urine Bacteria Rare H (None) /hpf Urine Mucus Many H (None) /hpf
[2023-02-12] MEDS: PRAMIPEXOLE 1 MG TAB PO SCH ×2 (16:43→23:26)
[2023-02-12] MEDS: carvediloL 3.125 MG TAB PO SCH (16:43)
[2023-02-12] MEDS: VANCOMYCIN 2,250 MG in SODIUM CHLORIDE 0.9% 500 ML 500 ML IVPB SCH (16:45)
--- NOTE | 2023-02-12 16:49 | P.CONS ---
History of Present Illness - Reason for Consult Consult date: 02/12/23 - History of Present Illness Patient is a 72-year-old male with multiple comorbidities including hypertension hyperlipidemia CVA Parkinson disease and history of recurrent bilateral lower extremity cellulitis and venous stasis ulcer recent admission to [facility] treated for cellulitis and apparent subsequent discharged home on linezolid 600 mg twice a day patient is presenting to the ER for increasing shortness of breath and increasing swelling to both lower extremity patient did have a fever of 101.5 F patient was tachycardic on presentation to the hospital and did have a white count of 27.2 with significant cellulitis especially to the left lower extremity infectious disease was con sulted for further management of antibiotic therapy patient did have a chest x- ray suspect CHF exacerbation patient currently denies having any headache or URI symptoms denies any chest pain has been complaining of shortness of breath mild to moderate intensity did have a cough but not bring up any sputum no nausea vomiting no abdominal pain or diarrhea did have some pain to the left lower extremity with some superficial ulceration and minimal drainage but no foul- smelling, patient was started on vancomycin last night cefepime was added pending evaluation this morning Past Medical History Past Medical History: Asthma, Coronary Artery Disease (CAD), Hyperlipidemia, Hypertension, Myocardial Infarction (VT), Seizure Disorder Additional Past Medical History / Comment(s): restless leg, cardiomyopathy, wounds RT legs, BLE SWOLLEN AND DARK IN COLOR, frequent falls, irritant induced asthma, hand tremors, double visionvision Last Myocardial Infarction Date:: 1989 History of Any Multi-Drug Resistant Organisms: MRSA Year Discovered:: 05/12/22 MDRO Source:: Left Leg Past Surgical History: Back Surgery, Cholecystectomy Additional Past Surgical History / Comment(s): brain tumor SX, 2ND DIGIT LT FOOT REMOVED, COLONOSCOPY Past Anesthesia/Blood Transfusion Reactions: No Reported Reaction Past Psychological History: No Psychological Hx Reported Smoking Status: Never smoker Past Alcohol Use History: None Reported Past Drug Use History: None Reported - Past Family History Mother Family Medical History: Cancer Additional Family Medical History / Comment(s): pancreatic Father Family Medical History: Cancer Additional Family Medical History / Comment(s): melanoma Brother(s) Family Medical History: Deep Vein Thrombosis (DVT) Daughter(s) Family Medical History: Deep Vein Thrombosis (DVT), Pulmonary Embolus Medications and Allergies Home Medications Medication Instructions Recorded Confirmed Type Pramipexole [Mirapex] 1 mg PO TID 07/06/16 02/11/23 History carvediloL [Coreg] 3.125 mg PO BID 06/28/18 02/11/23 History Atorvastatin [Lipitor] 40 mg PO HS 05/10/22 02/11/23 History Levothyroxine Sodium [Synthroid] 50 mcg PO DAILY 09/05/22 02/11/23 History Losartan [Cozaar] 25 mg PO DAILY 09/05/22 02/11/23 History OXcarbazepine [Trileptal] 150 mg PO BID 09/05/22 02/11/23 History Pantoprazole [Protonix] 40 mg PO AC-[id number] 09/05/22 02/11/23 History Spironolactone [Aldactone] 25 mg PO DAILY 09/05/22 02/11/23 History HYDROcodone/APAP 10-325MG [Zenda 1 tab PO Q12H PRN 02/11/23 02/11/23 History 10-325] Pregabalin [Lyrica] 150 mg PO DAILY 02/11/23 02/11/23 History Allergies Allergy/AdvReac Type Severity Reaction Status Date / Time codeine Allergy Dyspnea Verified 02/11/23 16:22 Penicillins Allergy Dyspnea Verified 02/11/23 16:22 Physical Exam Vitals: Vital Signs Temp Pulse Pulse Resp BP BP Pulse Ox 02/12/23 04:00 98.9 F 84 18 134/64 95 02/12/23 03:37 02/12/23 02:09 35 H 02/12/23 01:29 101.2 F H 88 32 H 122/66 02/12/23 01:06 86 18 122/58 96 02/11/23 23:31 02/11/23 21:16 100.1 F H 83 22 126/59 96 02/11/23 20:21 86 20 133/60 95 02/11/23 19:25 02/11/23 18:00 87 18 135/59 96 02/11/23 17:11 99.0 F 86 20 119/54 95 02/11/23 16:14 02/11/23 14:54 92 144/55 99 02/11/23 13:53 28 H 02/11/23 13:50 100 18 98 02/11/23 13:30 02/11/23 13:29 02/11/23 13:23 101.5 F H 108 H 40 H 143/88 93 L FiO2 02/12/23 04:00 02/12/23 03:37 50 02/12/23 02:09 02/12/23 01:29 02/12/23 01:06 02/11/23 23:31 50 02/11/23 21:16 02/11/23 20:21 02/11/23 19:25 50 02/11/23 18:00 02/11/23 17:11 02/11/23 16:14 50 02/11/23 14:54 02/11/23 13:53 02/11/23 13:50 02/11/23 13:30 50 02/11/23 13:29 50 02/11/23 13:23 Intake and Output 02/11/23 02/12/23 02/12/23 22:59 06:59 14:59 Intake Total 118 Output Total 400 Balance -400 118 Intake: Oral 118 Output: Urine 400 Other: Voiding Method Indwelling Catheter Weight 167 kg 167 kg Results CBC & Chem 7: 02/12/23 09:10 02/12/23 09:10 Labs: Abnormal Lab Results - Last 24 Hours (Table) 02/11/23 02/11/23 02/11/23 Range/Units 14:15 14:27 14:27 WBC 27.2 H (3.8-10.6) k/uL RBC 3.79 L (4.30-5.90) m/uL Hgb 10.7 L (13.0-17.5) gm/dL Hct 34.4 L (39.0-53.0) % RDW 19.8 H (11.5-15.5) % Neutrophils # (Manual) 25.20 H (1.3-7.7) k/uL Metamyelocytes # (Man) 0.54 H (0) k/uL Myelocytes # (Manual) 1.09 H (0) k/uL Carbon Dioxide 32 H (22-30) mmol/L Glucose 117 H (74-99) mg/dL Urine Protein 1+ H (Negative) Urine Glucose (UA) Trace H (Negative) Urine Bacteria Rare H (None) /hpf Urine Mucus Many H (None) /hpf Assessment and Plan Plan: 1patient was in the hospital with sepsis in this patient who did have a fever tachycardia elevated white count source is likely bilateral lower extremity cellulitis with left greater than right this patient who did have a history of both MRSA and Pseudomonas infection in the past with the patient failing oral Zyvox concern for possible gram-negative infection 2patient to continue vancomycin and cefepime to be the patient fever seem to have responded and white count are trending down 3-local wound care to the left lower extremity wound with Aquacel silver dressing followed by Moody wrap from just above the toe to below knee and marked area of the redness discussed with the nursing staff We will follow on clinical condition and cultures to further adjust medication if needed Thank you for this consultation we will follow the patient along with you Time with Patient: Greater than 30
[2023-02-12] MEDS: OXcarbazepine 150 MG TAB PO SCH (19:56)
[2023-02-12] MEDS: ATORVASTATIN 40 MG TAB PO SCH (19:56)
[2023-02-12] MEDS ORDERED: FUROSEMIDE 10 MG/ML 10 ML VIAL IV SCH (21:00)
[2023-02-13] MEDS: SODIUM CHLORIDE 0.9% 1,000 ML IV SCH ×2 (04:50→23:51)
[2023-02-13] MEDS: VANCOMYCIN 2,250 MG in SODIUM CHLORIDE 0.9% 500 ML 500 ML IVPB SCH ×3 (04:51→16:51)
[2023-02-13] MEDS: PANTOPRAZOLE 40 MG TABLET PO SCH (05:35)
[2023-02-13] MEDS: LEVOTHYROXINE 50 MCG TAB PO SCH (05:35)
[2023-02-13] MEDS: methylPREDNISolone SOD SUCCI 125 MG/2 ML VIAL IV SCH ×3 (05:35→16:50)
[2023-02-13] MEDS: carvediloL 3.125 MG TAB PO SCH ×2 (05:35→16:50)
[2023-02-13] MEDS: IPRATROPIUM-ALBUTEROL 3 ML NEB INHALATION SCH ×4 (07:48→19:47)
[2023-02-13] MEDS: FUROSEMIDE 10 MG/ML 10 ML VIAL IV SCH ×2 (08:33→20:41)
[2023-02-13] MEDS: CEFEPIME 2 GM in SODIUM CHLORIDE 0.9% 100 ML IVPB SCH ×2 (08:33→16:51)
[2023-02-13] MEDS: ENOXAPARIN 40 MG/0.4 ML SYRINGE SQ SCH (08:33)
[2023-02-13] MEDS: SPIRONOLACTONE 25 MG TAB PO SCH (08:33)
[2023-02-13] MEDS: PREGABALIN 75 MG CAP PO SCH (08:33)
[2023-02-13] MEDS: LOSARTAN 25 MG TAB PO SCH (08:33)
[2023-02-13] MEDS: OXcarbazepine 150 MG TAB PO SCH ×2 (08:34→20:42)
[2023-02-13] MEDS: PRAMIPEXOLE 1 MG TAB PO SCH ×3 (08:34→20:42)
[2023-02-13 08:52] LABS: ALT 18 U/L (4-49); AST 22 U/L (17-59); African American GFR (CKD) >90 (>60 ml/min/1.73 sqM); Alkaline Phosphatase 70 U/L (38-126); Anion Gap 4 mmol/L; Blood Urea Nitrogen 28 mg/dL (9-20); Calcium 8.6 mg/dL (8.4-10.2); Carbon Dioxide 33 mmol/L (22-30); Chloride 103 mmol/L (98-107); Glucose 147 mg/dL (74-99); Non-African American GFR(CKD) >90 (>60 ml/min/1.73 sqM); Potassium 4.7 mmol/L (3.5-5.1); Sodium 140 mmol/L (137-145); Total Bilirubin 0.4 mg/dL (0.2-1.3); Total Protein 5.7 g/dL (6.3-8.2)
[2023-02-13 10:24] LABS: Anisocytosis Slight; Basophils # (A) 0.1 k/uL (0-0.2); Basophils % (A) 0 %; Eosinophils % (A) 0 %; HCT 32.3 % (39.0-53.0); HGB 9.7 gm/dL (13.0-17.5); Hypochromasia Marked; Lymphocytes # (A) 0.5 k/uL (1.0-4.8); Lymphocytes % (A) 2 %; MCH 28.9 pg (25.0-35.0); MCV 96.4 fL (80.0-100.0); Macrocytosis Slight; Monocytes # (A) 0.7 k/uL (0-1.0); Monocytes % (A) 3 %; Neutrophils # (A) 22.4 k/uL (1.3-7.7); Neutrophils % (A) 94 %; Platelet Count 240 k/uL (150-450); Poikilocytosis Moderate; RBC 3.35 m/uL (4.30-5.90); RDW 19.5 % (11.5-15.5); WBC 23.8 k/uL (3.8-10.6)
--- NOTE | 2023-02-13 12:23 | P.PN ---
Subjective Progress Note Date: 02/13/23 History of Present Illness: Patient is a 72-year-old male here history is limited secondary to patient's medical status. Patient brought in by EMS from home. Patient allegedly was dyspneic. His recently admitted to the neighboring hospital for similar issue. He is currently being treated for lower extremity cellulitis bilaterally. EMS states that patient was very wheezy. They placed him on noninvasive ventilation and given breathing treatment which improved his symptoms are related allegedly had persistent upper field wheezing. EMS reports hypoxia upon initial arrival with saturations in the mid to low 80s.the patient is morbidly obese and has history of obstructive sleep apnea. He was quite lethargic and short of breath at time of admission and based on that the patient was placed on a BiPAP and currently the patient is a BiPAP settings of 12/6 cm of water and FiO2 of 40%. His chest x-ray showed some mild pulmonary vascular congestion. Hhe has excessive edema in lower extremities along with cellulitis left lower extremity. Based on that, the patient was started on diuretics and the patient is currently on IV Lasix 80 mg every 12 hours and is producing adequate amount of urine output. He is also covered with a combination of cefepime and vancomycin regarding lower extremity cellulitis. He is arousable. He was communicate. He is tachypneic even while in the BiPAP and the patient seems to the BiPAP dependent. the patient was taken off the BiPAP briefly earlier this morning. Failed as the patient became more lethargic and somnolent. Was placed back on a BiPAP. He is on Lovenox 40 mg subcu portably prophylaxis. He is bronchospastic and wheezy and I added Solu-Medrol. On today's evaluation of 02/12/2023, the patient is still wearing his BiPAP. Slightly improved compared to yesterday. He is diuresing well. Less spastic and wheezy. The patient is currently on Lasix 80 mg IV every 12 hours. Remains on a combination of cefepime and vancomycin. Remains on bronchodilators and steroids. Awake and alert and communicating. He is a DO NOT INTUBATE cor status and the patient did not get transferred to the intensive care unit for t hat reason. White suppository 3.8. Hemoglobin is 9.7. Sodium is at 140 with a potassium level of 4.7, BUN is 28 and a creatinine of 0.7. Fluid balance is - 684 mL and the patient is -1.7 L since yesterday. Objective - Vital Signs Vital signs: Vital Signs Temp 98.7 F 02/13/23 08:32 Pulse 70 02/13/23 08:32 Resp 21 02/13/23 08:32 BP 116/65 02/13/23 08:32 Pulse Ox 93 L 02/13/23 08:32 FiO2 50 02/13/23 07:52 Intake & Output 02/12/23 02/13/23 02/13/23 18:59 06:59 18:59 Intake Total 476 240 358 Output Total 918 372 7996 Balance -762 -040 -0460 Weight 166 kg Intake: Oral 476 240 358 Output: Urine 627 380 7708 Other: Voiding Method Indwelling Catheter Indwelling Catheter Indwelling Catheter - Exam GENERAL EXAM: Alert, doesn't, obese 72-year-old male patient, on currently on a BiPAP at a pressure of 12/6 cm of water with FiO2 of 50% HEAD: Normocephalic. EYES: Normal reaction of pupils, equal size. NOSE: Clear with pink turbinates. THROAT: No erythema or exudates. NECK: No masses, no JVD. CHEST: No chest wall deformity. LUNGS: Equal air entry with faint crackles in the posterior bases. CVS: S1 and S2 normal with no audible murmur, regular rhythm. ABDOMEN: No hepatosplenomegaly, normal bowel sounds, no guarding or rigidity. SPINE: No scoliosis or deformity SKIN: No rashes CENTRAL NERVOUS SYSTEM: No focal deficits, tone is normal in all 4 extremities. EXTREMITIES: There is no peripheral edema. No clubbing, no cyanosis. Peripheral pulses are intact. - Labs CBC & Chem 7: 02/13/23 06:41 02/13/23 06:41 Labs: Abnormal Lab Results - Last 24 Hours (Table) 02/12/23 02/12/23 02/13/23 Range/Units 09:10 11:13 06:41 WBC (3.8-10.6) k/uL RBC (4.30-5.90) m/uL Hgb (13.0-17.5) gm/dL Hct (39.0-53.0) % MCHC (31.0-37.0) g/dL RDW (11.5-15.5) % Neutrophils # (1.3-7.7) k/uL Lymphocytes # (1.0-4.8) k/uL ABG pCO2 55 H (35-45) mmHg ABG pO2 40 L* (83-108) mmHg ABG HCO3 33 H (21-25) mmol/L ABG Total CO2 35 H (19-24) mmol/L ABG O2 Saturation 76.2 L (94-97) % Sodium 146 H (137-145) mmol/L Chloride 109 H (98-107) mmol/L Carbon Dioxide 33 H (22-30) mmol/L BUN 28 H (9-20) mg/dL Glucose 147 H (74-99) mg/dL Total Protein 5.7 L (6.3-8.2) g/dL Albumin 3.0 L (3.5-5.0) g/dL 02/13/23 Range/Units 06:41 WBC 23.8 H (3.8-10.6) k/uL RBC 3.35 L (4.30-5.90) m/uL Hgb 9.7 L (13.0-17.5) gm/dL Hct 32.3 L (39.0-53.0) % MCHC 30.0 L (31.0-37.0) g/dL RDW 19.5 H (11.5-15.5) % Neutrophils # 22.4 H (1.3-7.7) k/uL Lymphocytes # 0.5 L (1.0-4.8) k/uL ABG pCO2 (35-45) mmHg ABG pO2 (83-108) mmHg ABG HCO3 (21-25) mmol/L ABG Total CO2 (19-24) mmol/L ABG O2 Saturation (94-97) % Sodium (137-145) mmol/L Chloride (98-107) mmol/L Carbon Dioxide (22-30) mmol/L BUN (9-20) mg/dL Glucose (74-99) mg/dL Total Protein (6.3-8.2) g/dL Albumin (3.5-5.0) g/dL Microbiology - Last 24 Hours (Table) 02/11/23 14:20 Blood Culture - Preliminary Blood Assessment and Plan Plan: acute cellulitis of the lower extremity more so on the left lower superficial ulceration. The wounds are wrapped and the patient is currently on accommodation of cefepime and vancomycin. Lower extremity edema, and signs of fluid overload currently on IV Lasix Acute on chronic hypoxemic respiratory failure, currently on BiPAP for respiratory support and is a component of CHF exacerbation.12/6, 50% Acute exacerbation of diastolic heart failure History of mild intermittent chronic bronchial asthma, with secondary exacerbation Hypertension Hypothyroidism Hyperlipidemia History of diastolic congestive heart failure Obesity Obstructive sleep apnea on CPAP History of brain tumor status post surgery History of lower extremity cellulitis with previous MRSA Plan: Slightly improved compared to yesterday Keep the patient on BiPAP for now, pressures of 12/6 with an FiO2 of 50%. The patient is getting intermittent breaks of the BiPAP Obtain a blood gas from yesterday was noted and the patient has compensated chronic hypercapnic respiratory failure. Continue with bronchodilators Continue IV Solu-Medrol 60 mg every 6 hours Continue IV Lasix 80 mg every 12 hours Continue cefepime and vancomycin Blood cultures Resume all medications DNR/DNI CODE STATUS
--- NOTE | 2023-02-13 19:59 | P.PN ---
Subjective Progress Note Date: 02/13/23 Principal diagnosis: Bilateral lower extremity cellulitis Patient is a 72-year-old male with multiple comorbidities and did have history of bilateral lower extremity cellulitis and previous infection with both MRSA and pseudomonas presented to hospital with sepsis concerning for left lower extremity cellulitis. On today's evaluation that is 02/13/2023, the patient is afebrile patient is breathing slightly comfortably denies any chest pain or shortness of breath occa sional cough no nausea no vomiting no abdominal pain or any worsening pain to lower extremity Objective - Vital Signs Vital signs: Vital Signs Temp 97.8 F 02/13/23 04:00 Pulse 68 02/13/23 08:01 Resp 28 H 02/13/23 04:00 BP 125/71 02/13/23 04:00 Pulse Ox 96 02/13/23 07:52 FiO2 50 02/13/23 07:52 Intake & Output 02/12/23 02/13/23 02/13/23 18:59 06:59 18:59 Intake Total 476 240 Output Total 700 700 Balance -224 -460 Weight 166 kg Intake: Oral 476 240 Output: Urine 700 700 Other: Voiding Method Indwelling Catheter Indwelling Catheter - Exam GENERAL DESCRIPTION: An elderly male lying in bed in no distress RESPIRATORY SYSTEM: Unlabored breathing , decreased breath sounds at bases HEART: S1 S2 regular rate and rhythm , ABDOMEN: Soft , no tenderness EXTREMITIES: Bilateral lower extremity currently wrapped no drainage on the dressing His have complete with the help of [employer] - Labs CBC & Chem 7: 02/13/23 06:41 02/13/23 06:41 Labs: Abnormal Lab Results - Last 24 Hours (Table) 02/12/23 02/12/23 02/12/23 Range/Units 09:10 09:10 11:13 WBC 19.9 H (3.8-10.6) k/uL RBC 3.46 L (4.30-5.90) m/uL Hgb 10.1 L (13.0-17.5) gm/dL Hct 32.0 L (39.0-53.0) % RDW 19.7 H (11.5-15.5) % Neutrophils # 18.2 H (1.3-7.7) k/uL Lymphocytes # 0.6 L (1.0-4.8) k/uL ABG pCO2 55 H (35-45) mmHg ABG pO2 40 L* (83-108) mmHg ABG HCO3 33 H (21-25) mmol/L ABG Total CO2 35 H (19-24) mmol/L ABG O2 Saturation 76.2 L (94-97) % Sodium 146 H (137-145) mmol/L Chloride 109 H (98-107) mmol/L Carbon Dioxide 31 H (22-30) mmol/L Glucose 156 H (74-99) mg/dL C-Reactive Protein 18.8 H (<1.0) mg/dL Assessment and Plan (1) Sepsis Current Visit: Yes Status: Acute Code(s): A41.9 - SEPSIS, UNSPECIFIED ORGANISM SNOMED Code(s): 77297007 (2) Bilateral lower leg cellulitis Current Visit: No Status: Acute Code(s): L03.116 - CELLULITIS OF LEFT LOWER LIMB; L03.115 - CELLULITIS OF RIGHT LOWER LIMB SNOMED Code(s): 124348724 Plan: 1patient was in the hospital with sepsis in this patient who did have a fever tachycardia elevated white count source is likely bilateral lower extremity cellulitis with left greater than right this patient who did have a history of both MRSA and Pseudomonas infection in the past with the patient failing oral Zyvox concern for possible gram-negative infection 2patient to continue vancomycin and cefepime to be the patient fever seem to have responded and white count slightly up today could be related to steroid the patient is on 3-local wound care to the left lower extremity wound with Aquacel silver dressing followed by Moody wrap from just above the toe to below knee , to be changed daily This was a telehealth visit
[2023-02-13] MEDS: ATORVASTATIN 40 MG TAB PO SCH (20:42)
[2023-02-13] MEDS: ACETAMINOPHEN TAB 325 MG TAB PO PRN (20:42)
[2023-02-14] MEDS: CEFEPIME 2 GM in SODIUM CHLORIDE 0.9% 100 ML IVPB SCH ×4 (01:23→23:37)
[2023-02-14] MEDS: methylPREDNISolone SOD SUCCI 125 MG/2 ML VIAL IV SCH ×3 (01:24→11:11)
[2023-02-14] MEDS: HYDROcodone/APAP 10-325MG 1 EACH TAB PO PRN ×2 (01:30→21:38)
[2023-02-14] MEDS: ALPRAZolam 0.25 MG TAB PO PRN ×2 (01:30→21:39)
[2023-02-14] MEDS ORDERED: VANCOMYCIN TROUGH DUE 1 EACH MISC MISCELLANE ONE (04:00)
[2023-02-14 04:48] LABS: ALT 18 U/L (4-49); AST 23 U/L (17-59); African American GFR (CKD) >90 (>60 ml/min/1.73 sqM); Alkaline Phosphatase 58 U/L (38-126); Anion Gap 2 mmol/L; Blood Urea Nitrogen 34 mg/dL (9-20); Calcium 8.9 mg/dL (8.4-10.2); Carbon Dioxide 37 mmol/L (22-30); Chloride 100 mmol/L (98-107); Glucose 173 mg/dL (74-99); Magnesium 2.6 mg/dL (1.6-2.3); Non-African American GFR(CKD) >90 (>60 ml/min/1.73 sqM); Potassium 4.6 mmol/L (3.5-5.1); Sodium 139 mmol/L (137-145); Total Bilirubin 0.4 mg/dL (0.2-1.3); Total Protein 5.8 g/dL (6.3-8.2)
[2023-02-14 04:52] LABS: Anisocytosis Slight; HCT 31.8 % (39.0-53.0); HGB 9.5 gm/dL (13.0-17.5); Hypochromasia Marked; MCH 28.3 pg (25.0-35.0); MCHC 29.8 g/dL (31.0-37.0); MCV 94.8 fL (80.0-100.0); Macrocytosis Slight; Mean Platelet Volume 8.6; Platelet Count 268 k/uL (150-450); Poikilocytosis Moderate; RBC 3.36 m/uL (4.30-5.90); WBC 18.6 k/uL (3.8-10.6)
[2023-02-14] MEDS: VANCOMYCIN 2,250 MG in SODIUM CHLORIDE 0.9% 500 ML 500 ML IVPB SCH ×2 (05:10→16:16)
[2023-02-14 06:09] LABS: Band Neutrophils % 3 %; Lymphocytes # (M) 0.37 k/uL (1.0-4.8); Monocytes # (M) 0.37 k/uL (0-1.0); Neutrophils % (M) 93 %; Nucleated Red Blood Cells 0 /100 WBC (0-0); RBC Morphology Normal; Total Cells Counted 100
[2023-02-14] MEDS: PANTOPRAZOLE 40 MG TABLET PO SCH (06:34)
[2023-02-14] MEDS: carvediloL 3.125 MG TAB PO SCH ×2 (06:34→16:16)
[2023-02-14] MEDS: LEVOTHYROXINE 50 MCG TAB PO SCH (06:34)
[2023-02-14] MEDS: IPRATROPIUM-ALBUTEROL 3 ML NEB INHALATION SCH ×4 (08:00→21:31)
[2023-02-14] MEDS: LOSARTAN 25 MG TAB PO SCH (08:05)
[2023-02-14] MEDS: ACETAMINOPHEN TAB 325 MG TAB PO PRN (08:05)
[2023-02-14] MEDS: SPIRONOLACTONE 25 MG TAB PO SCH (08:05)
[2023-02-14] MEDS: PREGABALIN 75 MG CAP PO SCH (08:05)
[2023-02-14] MEDS: ENOXAPARIN 40 MG/0.4 ML SYRINGE SQ SCH (08:05)
[2023-02-14] MEDS: FUROSEMIDE 10 MG/ML 10 ML VIAL IV SCH ×2 (08:05→21:39)
[2023-02-14] MEDS: PRAMIPEXOLE 1 MG TAB PO SCH ×3 (08:06→21:40)
[2023-02-14] MEDS: OXcarbazepine 150 MG TAB PO SCH ×2 (08:06→21:40)
--- NOTE | 2023-02-14 11:12 | P.PN ---
Subjective Progress Note Date: 02/14/23 Principal diagnosis: Bilateral lower extremity cellulitis Patient is a 72-year-old male with multiple comorbidities and did have history of bilateral lower extremity cellulitis and previous infection with both MRSA and pseudomonas presented to hospital with sepsis concerning for left lower extremity cellulitis. On today's evaluation that is 02/14/2023, the patient remains to be afebrile patient is breathing slightly comfortably however remains to be BiPAP, the patie nt denies any chest pain or shortness of breath occasional cough no nausea no vomiting no abdominal pain , pain to lower extremity has decreased in intensity Objective - Vital Signs Vital signs: Vital Signs Temp 97.8 F 02/14/23 07:57 Pulse 60 02/14/23 11:03 Resp 22 02/14/23 07:57 BP 148/72 02/14/23 07:57 Pulse Ox 91 L 02/14/23 07:57 FiO2 50 02/14/23 04:00 Intake & Output 02/13/23 02/14/23 02/14/23 18:59 06:59 18:59 Intake Total 716 10 180 Output Total 2750 2900 1300 Balance -2034 -2890 -1120 Weight 162 kg Intake: IV 10 Invasive Line 3 10 Oral 716 180 Output: Urine 2750 2900 1300 Other: Voiding Method Indwelling Catheter Indwelling Catheter Indwelling Catheter - Exam GENERAL DESCRIPTION: An elderly male lying in bed in no distress RESPIRATORY SYSTEM: Unlabored breathing , decreased breath sounds at bases HEART: S1 S2 regular rate and rhythm , ABDOMEN: Soft , no tenderness EXTREMITIES: Bilateral lower extremity currently wrapped no drainage on the dressing, and redness decreased - Labs CBC & Chem 7: 02/14/23 04:16 02/14/23 04:16 Labs: Abnormal Lab Results - Last 24 Hours (Table) 02/14/23 02/14/23 Range/Units 04:16 04:16 WBC 18.6 H (3.8-10.6) k/uL RBC 3.36 L (4.30-5.90) m/uL Hgb 9.5 L (13.0-17.5) gm/dL Hct 31.8 L (39.0-53.0) % MCHC 29.8 L (31.0-37.0) g/dL RDW 19.0 H (11.5-15.5) % Neutrophils # (Manual) 17.80 H (1.3-7.7) k/uL Lymphocytes # (Manual) 0.37 L (1.0-4.8) k/uL Carbon Dioxide 37 H (22-30) mmol/L BUN 34 H (9-20) mg/dL Creatinine 0.63 L (0.66-1.25) mg/dL Glucose 173 H (74-99) mg/dL Magnesium 2.6 H (1.6-2.3) mg/dL Total Protein 5.8 L (6.3-8.2) g/dL Albumin 3.0 L (3.5-5.0) g/dL Microbiology - Last 24 Hours (Table) 02/11/23 14:00 Blood Culture Gram Stain - Final Blood Blood Culture - Final Micrococcus species 02/11/23 14:20 Blood Culture - Preliminary Blood Assessment and Plan (1) Sepsis Current Visit: Yes Status: Acute Code(s): A41.9 - SEPSIS, UNSPECIFIED ORGANISM SNOMED Code(s): 23192013 (2) Bilateral lower leg cellulitis Current Visit: No Status: Acute Code(s): L03.116 - CELLULITIS OF LEFT LOWER LIMB; L03.115 - CELLULITIS OF RIGHT LOWER LIMB SNOMED Code(s): 921885715 Plan: 1patient was in the hospital with sepsis in this patient who did have a fever tachycardia elevated white count source is likely bilateral lower extremity cellulitis with left greater than right this patient who did have a history of both MRSA and Pseudomonas infection in the past with the patient failing oral Zyvox concern for possible gram-negative infection 2patient to continue vancomycin and cefepime to which the patient fever has responded and white count is trending down 3-local wound care to the left lower extremity wound with Aquacel silver dressing followed by Moody wrap from just above the toe to below knee , to be changed daily 4positive blood cultures with a micrococcus likely skin contamination Time with Patient: Less than 30
[2023-02-14 11:33] LABS: Glucose,Whole Blood 208 mg/dL (70-110)
--- NOTE | 2023-02-14 14:02 | CT ---
EXAMINATION TYPE: CT brain wo con DATE OF EXAM: 02/14/2023 COMPARISON: 09/01/2010 HISTORY: Increasing confusion CT DLP: 2518.4 mGycm Automated exposure control for dose reduction was used. FINDINGS: Exam limited by motion artifact. There is no acute intracranial hemorrhage or midline shift identified. Right temporal craniotomy is again seen. 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 There is mild stable hydrocephalus. The globes are intact and the visualized sinuses are clear. IMPRESSION: 1. Stable CT of the head demonstrating agenesis of the corpus callosum with ventricular dilation whic h could represent a degree of hydrocephalus correlate clinically. Findings stable. 2. Large fluid attenuation along the midline paracentral to left mild mass effect upon the left front al lobe is stable from prior exam could be on the basis of arachnoid cyst. Recommend consideration fo r MRI. Findings stable dating back to 2009.
--- NOTE | 2023-02-14 14:18 | P.PN ---
Subjective Progress Note Date: 02/14/23 Principal diagnosis: Acute on chronic hypoxic respiratory failure and acute cellulitis of lower extremities. History of Present Illness: Patient is a 72-year-old male here history is limited secondary to patient's medical status. Patient brought in by EMS from home. Patient allegedly was dyspneic. His recently admitted to the neighboring hospital for similar issue. He is currently being treated for lower extremity cellulitis bilaterally. EMS states that patient was very wheezy. They placed him on noninvasive ventilation and given breathing treatment which improved his symptoms are related allegedly had persistent upper field wheezing. EMS reports hypoxia upon initial arrival with saturations in the mid to low 80s.the patient is morbidly obese and has history of obstructive sleep apnea. He was quite lethargic and short of breath at time of admission and based on that the patient was placed on a BiPAP and currently the patient is a BiPAP settings of 12/6 cm o f water and FiO2 of 40%. His chest x-ray showed some mild pulmonary vascular congestion. Hhe has excessive edema in lower extremities along with cellulitis left lower extremity. Based on that, the patient was started on diuretics and the patient is currently on IV Lasix 80 mg every 12 hours and is producing adequate amount of urine output. He is also covered with a combination of cefepime and vancomycin regarding lower extremity cellulitis. He is arousable. He was communicate. He is tachypneic even while in the BiPAP and the patient seems to the BiPAP dependent. the patient was taken off the BiPAP briefly earlier this morning. Failed as the patient became more lethargic and somnolen t. Was placed back on a BiPAP. He is on Lovenox 40 mg subcu portably prophylaxis. He is bronchospastic and wheezy and I added Solu-Medrol. On today's evaluation of 02/12/2023, the patient is still wearing his BiPAP. Slightly improved compared to yesterday. He is diuresing well. Less spastic and wheezy. The patient is currently on Lasix 80 mg IV every 12 hours. Remains on a combination of cefepime and vancomycin. Remains on bronchodilators and steroids. Awake and alert and communicating. He is a DO NOT INTUBATE cor status and the patient did not get transferred to the intensive care unit for that reason. White suppository 3.8. Hemoglobin is 9.7. Sodium is at 140 with a potassium level of 4.7, BUN is 28 and a creatinine of 0.7. Fluid balance is - 684 mL and the patient is -1.7 L since yesterday. Reevaluated today on 02/14/2023, patient remains on BiPAP, and 50% FiO2. Seems to be comfortable, however he seems to be almost BiPAP dependent. Patient does not seem to be in any distress, he is still receiving antibiotics for his cellulitis, and his WBC count is improving down to 18.6, hemoglobin is 9.5 basic metabolic profile is normal renal profile is normal, his cellulitis is being addressed by infectious disease on the case. Blood cultures are positive for micrococcus species. Patient is on vancomycin. Objective - Vital Signs Vital signs: Vital Signs Temp 97.8 F 02/14/23 07:57 Pulse 64 02/14/23 11:16 Resp 23 02/14/23 11:10 BP 108/51 02/14/23 11:10 Pulse Ox 97 02/14/23 11:10 FiO2 50 02/14/23 11:10 Intake & Output 02/13/23 02/14/23 02/14/23 18:59 06:59 18:59 Intake Total 716 10 180 Output Total 2750 2900 2049 Balance -2033 Weight 162 kg Intake: IV 10 Invasive Line 3 10 Oral 716 180 Output: Urine 2750 2900 2049 Other: Voiding Method Indwelling Catheter Indwelling Catheter Indwelling Catheter - Exam GENERAL EXAM: Alert, doesn't, obese 72-year-old male patient, on currently on a BiPAP at a pressure of 12/6 cm of water with FiO2 of 50% Head: Atraumatic normocephalic. ENT: PERRLA, EOMI, anicteric, short obese neck, no neck masses no JVD no stridor. CHEST: No chest wall deformity. LUNGS: Diminished breath sounds at the bases with crackles. CVS: S1 and S2 normal with no audible murmur, regular rhythm. ABDOMEN: No hepatosplenomegaly, normal bowel sounds, no guarding or rigidity. SKIN: Both lower extremities are wrapped with sterile dressings, could not fully visualize. Patient obviously has cellulitis and lower extremities. CENTRAL NERVOUS SYSTEM: No focal deficits, tone is normal in all 4 extremities. EXTREMITIES: There is 1+ bipedal edema. No clubbing, no cyanosis. Peripheral pulses are intact. - Labs CBC & Chem 7: 02/14/23 04:16 02/14/23 04:16 Labs: Abnormal Lab Results - Last 24 Hours (Table) 02/14/23 02/14/23 02/14/23 Range/Units 04:16 04:16 11:31 WBC 18.6 H (3.8-10.6) k/uL RBC 3.36 L (4.30-5.90) m/uL Hgb 9.5 L (13.0-17.5) gm/dL Hct 31.8 L (39.0-53.0) % MCHC 29.8 L (31.0-37.0) g/dL RDW 19.0 H (11.5-15.5) % Neutrophils # (Manual) 17.80 H (1.3-7.7) k/uL Lymphocytes # (Manual) 0.37 L (1.0-4.8) k/uL Carbon Dioxide 37 H (22-30) mmol/L BUN 34 H (9-20) mg/dL Creatinine 0.63 L (0.66-1.25) mg/dL Glucose 173 H (74-99) mg/dL POC Glucose (mg/dL) 208 H (70-110) mg/dL Magnesium 2.6 H (1.6-2.3) mg/dL Total Protein 5.8 L (6.3-8.2) g/dL Albumin 3.0 L (3.5-5.0) g/dL Microbiology - Last 24 Hours (Table) 02/11/23 14:00 Blood Culture Gram Stain - Final Blood Blood Culture - Final Micrococcus species 02/11/23 14:20 Blood Culture - Preliminary Blood Assessment and Plan Assessment: Impression: Acute lower extremity cellulitis, patient is receiving cefepime and vancomycin. Being addressed by infectious disease on the case. Acute on chronic hypoxic respiratory failure, maintained on BiPAP for now. Acute on chronic diastolic congestive heart failure History of mild intermittent asthma with mild exacerbation. Benign essential hypertension Morbid obesity Obstructive sleep apnea syndrome on CPAP Recurrent cellulitis of lower extremities, previous MRSA infection History of brain tumor and previous craniotomy. History of hypothyroidism on replacement therapy Benign essential hypertension, on treatment. Recommendation: Continue antibiotics as per ID on the case Continue BiPAP and titrate possibly transition to nasal cannula if tolerated Continue bronchodilators. Continue Solu-Medrol. Continue diuretics/Lasix. Continue cefepime and vancomycin. DO NOT RESUSCITATE/DO NOT INTUBATE CODE STATUS. We will continue to 4 Time with Patient: Less than 30
[2023-02-14] MEDS: methylPREDNISolone SOD SUCCI 40 MG/ML 1 ML VIAL IV SCH ×2 (16:16→23:33)
[2023-02-14] MEDS: SODIUM CHLORIDE 0.9% 1,000 ML IV SCH (16:44)
[2023-02-14 16:47] LABS: Glucose,Whole Blood 229 mg/dL (70-110)
[2023-02-14] MEDS: INSULIN ASPART (NovoLOG) 100 UNIT/ML VIAL SQ SCH ×2 (16:50→21:39)
--- NOTE | 2023-02-14 19:32 | P.PN ---
Subjective Progress Note Date: 02/13/23 HISTORY OF PRESENT ILLNESS This is a 71-year-old male patient with past medical history of hypertension, h yperlipidemia, CVA, mild persistent ALLERGIC asthma, seizure disorder, Parkinson's disease, chronic diastolic heart failure, stasis dermatitis of the left lower extremity due to peripheral venous hypertension, spondylosis of the lumbar spine, obstructive sleep apnea, patient was recently hospitalized at [facility] about a few once ago with significant cellulitis of both lower extremity is with venous ulceration that was treated with IV antibiotic due to MRSA at that time he was placed on vancomycin and cefepime then he was switched to Cubicin and he was supposed to go to extended care facility for IV antibiotic however the infectious disease recommended for the patient to go on linezolid 600 mg orally twice every day for 14 days, patient has been following with wound healing center with . and he has been getting would care at home but it was a Tuesday, today his nurse contacted EMS to bring her to the emergency department because of increased shortness breath as well as increased swelling in both lower extremity is, and significant fever and chills and patient was septic, patient was seen in the ER according to the EMS the patient oxygen sufficient was in the low 80s, his chest x-ray showed poorly vascular congestion, patient did receive IV fluid in the emergency department as a protocol of sepsis and put the patient in acute diastolic heart failure subs equently the patient was started on Lasix 80 mg IV push every 12 hours and he was seen in consultation by pulmonary/critical care medicine Dr. Burns who recommended for the patient to transfer to the intensive care unit, patient was also started on Solu-Medrol 60 mg IV push every 6 hours along with IV antibiotic in the form of vancomycin and cefepime he was also seen in consultation by infectious disease Dr. Amezquita. 02/12: Patient is laying down in bed appears to be in respiratory distress, his IV fluids were decreased to 50 mL an hour, he was placed on a BiPAP 12 and 6, he was given Lasix 80 mg IV push 1 and then twice every day, patient already was started on vancomycin and cefepime he was evaluated by pulmonary/critical care he was recommended for the patient to be transferred to the intensive care unit, blood gases were obtained, he was also started on Solu-Medrol 60 mg IV push ev beba 6 hours along with IV antibiotic we'll continue to monitor the patient very closely. 02/13: Patient is laying down in bed currently in respiratory distress on BiPAP, has been getting Lasix 80 mg IV push every 12 hours, his blood cultures are positive for gram-positive cocci currently on cefepime and vancomycin, we will continue to monitor until the final ID of the organism is there, pulmonary swallowing, patient has been followed very closely, he appears to be better today than yesterday, we'll continue to manage the patient along with ID and pulmonary and critical care. REVIEW OF SYSTEMS Constitutional: positive for fever, chills, no night sweats. No weight change. positive for weakness,positive for fatigue and lethargy. positive for daytime sleepiness. HEENT: No headache. No blurred vision or double vision, no loss of vision. No loss of Hearing, no ringing in the ears, no dizziness. No nasal drainage or congestion. No epistaxis. No sore throat. Lungs:positive for shortness of breath, occasional cough, no sputum production. positive for wheezing.Chronic dyspnea with exertion. Cardiovascular: No chest pain,reports lower extremity edema. positive for palpitations. positive for paroxysmal nocturnal dyspnea. positive for orthopnea. No lightheadedness or dizziness. No syncopal episodes. Abdominal: No abdominal pain. No nausea, vomiting. No diarrhea. No constipation. No bloody or tarry stools. No loss of appetite. Genitourinary: No dysuria, kennedy catheter in place Musculoskeletal: No myalgias. positive for bilateral lower extremities muscle weakness, positive for gait dysfunction, no frequent falls. positive for back pain and neck pain. Integumentary:Reports wounds with venous ulcerations to left lower extremity. No rash or pruritus. No unusual bruising. positive for change in hair and nails. Neurologic: No aphasia. No facial droop. positive for change in mentation. No head injury. No headache. No paralysis. No paresthesia. Psychiatric: positive for depression and anxiety. No mood swings. Endocrine: No abnormal blood sugars. positive for weight change. No excessive sweating or thirst. No cold intolerance. PHYSICAL EXAMINATION Gen: This is a morbidly obese 72-year-old male lying down in bed in moderate respiratory distress HEENT: Head is atraumatic, normocephalic. Pupils equal, round. Sclerae is anict elodia, mucous membranes of the mouth are somewhat dry. NECK: Supple. elevated JVD. No lymphadenopathy. No thyromegaly. LUNGS: Decrease breath sounds at the bases with few ronchi , moderate expiratory wheezes, and minimal intercostal retractions. HEART: First heart sound is depressed, second heart sound is normal, there is a 2/6 systolic ejection murmur at the left sternal border, no S3, no S4.. ABDOMEN: Soft. Bowel sounds are present. No masses. No tenderness.obese, positive bowel sounds EXTREMITIES: 3+ bilateral pitting pedal edema with erythema, there is venous ulcerations in the left lower extremity extending into to the calf posteriorly with severe erythema and tenderness to touch, left second toe amputation and DP +1 bilaterally NEUROLOGICAL: Patient is awake, alert and oriented x3. Cranial nerves 2 through 12 are grossly intact, CN II-XII are grossly intact muscle power 4/5 in b ilateral upper extremities, and 3/5 in bilateral lower extremities. ASSESSMENT AND PLAN 1. Bilateral lower extremity cellulitis with sepsis present on admission Wound culture is in progress, consult with Dr. Amezquita appreciated, continue patient on vancomycin with pharmacy to dose its peak and trough, cefepime 2 g IV piggyback every 8 hours, continue vancomycin 2250 mg IV piggyback every 12 hours, we will cultures obtained, blood cultures obtained, decrease IV fluid to 50 mL an hour due to the patient acute heart failure. 2. Acute hypoxemic respiratory failure due to acute on chronic diastolic heart failure as well as acute exacerbation of COPD/asthma, Lasix 80 mg IV push every 12 hours, carvedilol 3.125 mg orally twice every day, losartan 25 mg once every day, spironolactone 25 mg orally once every day, Kennedy catheter in place, input and output and daily weight, Solu-Medrol 60 mg IV push every 6 hours, DuoNeb 3 mL nebulization 3 times every day. Pulmonary consultation Dr. Burns 3. Chronic respiratory failure due to Obesity with obstructive sleep apnea and obesity hypoventilation syndrome with underlying COPD/asthma . Continue treatment as in the previous paragraph. 4. Hypertension and hypertensive cardiovascular disease. Continue Coreg 3.125 mg twice daily, continue losartan 25 mg once every day, continue spironolactone 25 mg once every day. 5. Hyperlipidemia. Continue low-cholesterol diet, continue atorvastatin 40 mg once every day, monitor lipid panel, keep LDL 55-70. 6. History of CVA. Continue patient on atorvastatin 40 mg once every day as well as aspirin 81 mg once every day. 7. Parkinson's disease. Continue Mirapex 1 mg 3 times daily. 8. Spondylosis of the lumbar spine. Continue Lyrica 75 mg twice daily. 9. Obstructive sleep apnea. Continue BiPAP 09/28 10. Hypothyroidism. Continue Synthroid 50 g orally once every day monitor TSH and free T4 11. GI prophylaxis. Protonix 40 mg orally once every day.. 12. DVT prophylaxis. Lovenox 40 mg subcutaneously every 24 hours. 13. Very guarded prognosis. 14. Patient is no CODE STATUS per his own wishes Objective - Vital Signs Vital signs: Vital Signs Temp 98.8 F 02/13/23 11:10 Pulse 68 02/13/23 11:32 Resp 32 H 02/13/23 11:10 BP 106/58 02/13/23 11:10 Pulse Ox 95 02/13/23 11:10 FiO2 50 02/13/23 11:21 Intake & Output 02/12/23 02/13/23 02/13/23 18:59 06:59 18:59 Intake Total 476 240 358 Output Total 723 864 2102 Balance -315 -843 -8237 Weight 166 kg Intake: Oral 476 240 358 Output: Urine 035 653 1538 Other: Voiding Method Indwelling Catheter Indwelling Catheter Indwelling Catheter - Labs CBC & Chem 7: 02/13/23 06:41 02/13/23 06:41 Labs: Abnormal Lab Results - Last 24 Hours (Table) 02/13/23 02/13/23 Range/Units 06:41 06:41 WBC 23.8 H (3.8-10.6) k/uL RBC 3.35 L (4.30-5.90) m/uL Hgb 9.7 L (13.0-17.5) gm/dL Hct 32.3 L (39.0-53.0) % MCHC 30.0 L (31.0-37.0) g/dL RDW 19.5 H (11.5-15.5) % Neutrophils # 22.4 H (1.3-7.7) k/uL Lymphocytes # 0.5 L (1.0-4.8) k/uL Carbon Dioxide 33 H (22-30) mmol/L BUN 28 H (9-20) mg/dL Glucose 147 H (74-99) mg/dL Total Protein 5.7 L (6.3-8.2) g/dL Albumin 3.0 L (3.5-5.0) g/dL Microbiology - Last 24 Hours (Table) 02/11/23 14:00 Blood Culture Gram Stain - Preliminary Blood 02/11/23 14:20 Blood Culture - Preliminary Blood
[2023-02-14 20:11] LABS: Glucose,Whole Blood 179 mg/dL (70-110)
[2023-02-14] MEDS: ATORVASTATIN 40 MG TAB PO SCH (21:39)
[2023-02-15 05:53] LABS: Glucose,Whole Blood 176 mg/dL (70-110)
[2023-02-15] MEDS: VANCOMYCIN 2,250 MG in SODIUM CHLORIDE 0.9% 500 ML 500 ML IVPB SCH (06:07)
[2023-02-15] MEDS: carvediloL 3.125 MG TAB PO SCH ×2 (06:58→16:26)
[2023-02-15] MEDS: PANTOPRAZOLE 40 MG TABLET PO SCH (06:58)
[2023-02-15] MEDS: INSULIN ASPART (NovoLOG) 100 UNIT/ML VIAL SQ SCH ×4 (06:58→21:57)
[2023-02-15] MEDS: LEVOTHYROXINE 50 MCG TAB PO SCH (06:58)
[2023-02-15] MEDS: IPRATROPIUM-ALBUTEROL 3 ML NEB INHALATION SCH ×4 (07:36→22:11)
[2023-02-15] MEDS: PRAMIPEXOLE 1 MG TAB PO SCH ×3 (07:43→21:55)
[2023-02-15] MEDS: LOSARTAN 25 MG TAB PO SCH (07:43)
[2023-02-15] MEDS: PREGABALIN 75 MG CAP PO SCH (07:43)
[2023-02-15] MEDS: SPIRONOLACTONE 25 MG TAB PO SCH (07:43)
[2023-02-15] MEDS: OXcarbazepine 150 MG TAB PO SCH ×2 (07:43→21:55)
[2023-02-15] MEDS: FUROSEMIDE 10 MG/ML 10 ML VIAL IV SCH ×2 (07:44→21:56)
[2023-02-15] MEDS: CEFEPIME 2 GM in SODIUM CHLORIDE 0.9% 100 ML IVPB SCH ×2 (07:44→15:15)
[2023-02-15] MEDS: ALPRAZolam 0.25 MG TAB PO PRN ×2 (07:44→21:54)
[2023-02-15] MEDS: methylPREDNISolone SOD SUCCI 40 MG/ML 1 ML VIAL IV SCH ×2 (07:44→15:15)
[2023-02-15] MEDS: ENOXAPARIN 40 MG/0.4 ML SYRINGE SQ SCH (07:44)
[2023-02-15 11:45] LABS: Glucose,Whole Blood 173 mg/dL (70-110)
[2023-02-15] MEDS: SODIUM CHLORIDE 0.9% 1,000 ML IV SCH (12:15)
--- NOTE | 2023-02-15 12:42 | P.PN ---
Subjective Progress Note Date: 02/15/23 Principal diagnosis: Acute on chronic hypoxic respiratory failure and acute cellulitis of lower extremities. History of Present Illness: Patient is a 72-year-old male here history is limited secondary to patient's medical status. Patient brought in by EMS from home. Patient allegedly was dyspneic. His recently admitted to the neighboring hospital for similar issue. He is currently being treated for lower extremity cellulitis bilaterally. EMS states that patient was very wheezy. They placed him on noninvasive ventilation and given breathing treatment which improved his symptoms are related allegedly had persistent upper field wheezing. EMS reports hypoxia upon initial arrival with saturations in the mid to low 80s.the patient is morbidly obese and has history of obstructive sleep apnea. He was quite lethargic and short of breath at time of admission and based on that the patient was placed on a BiPAP and currently the patient is a BiPAP settings of 12/6 cm o f water and FiO2 of 40%. His chest x-ray showed some mild pulmonary vascular congestion. Hhe has excessive edema in lower extremities along with cellulitis left lower extremity. Based on that, the patient was started on diuretics and the patient is currently on IV Lasix 80 mg every 12 hours and is producing adequate amount of urine output. He is also covered with a combination of cefepime and vancomycin regarding lower extremity cellulitis. He is arousable. He was communicate. He is tachypneic even while in the BiPAP and the patient seems to the BiPAP dependent. the patient was taken off the BiPAP briefly earlier this morning. Failed as the patient became more lethargic and somnolen t. Was placed back on a BiPAP. He is on Lovenox 40 mg subcu portably prophylaxis. He is bronchospastic and wheezy and I added Solu-Medrol. On today's evaluation of 02/12/2023, the patient is still wearing his BiPAP. Slightly improved compared to yesterday. He is diuresing well. Less spastic and wheezy. The patient is currently on Lasix 80 mg IV every 12 hours. Remains on a combination of cefepime and vancomycin. Remains on bronchodilators and steroids. Awake and alert and communicating. He is a DO NOT INTUBATE cor status and the patient did not get transferred to the intensive care unit for that reason. White suppository 3.8. Hemoglobin is 9.7. Sodium is at 140 with a potassium level of 4.7, BUN is 28 and a creatinine of 0.7. Fluid balance is - 684 mL and the patient is -1.7 L since yesterday. Reevaluated today on 02/14/2023, patient remains on BiPAP, and 50% FiO2. Seems to be comfortable, however he seems to be almost BiPAP dependent. Patient does not seem to be in any distress, he is still receiving antibiotics for his cellulitis, and his WBC count is improving down to 18.6, hemoglobin is 9.5 basic metabolic profile is normal renal profile is normal, his cellulitis is being addressed by infectious disease on the case. Blood cultures are positive for micrococcus species. Patient is on vancomycin. Reevaluated today on 02/15/2023, patient remains on BiPAP, 50%, IPAP of 12 and EPAP of 6, doing fairly well, does not seem to be in any distress, I am recommending at least transitioning the patient to airvo intermittently since he desaturates on 4 L nasal cannula. Patient will be placed on 50 L flow and 60% FiO2/airvo intermittently off BiPAP. Remains on antibiotics for his cellulitis. His CT of the brain came back abnormal, and I'm recommending neurology evaluation for possible normal pressure hydrocephalus. WBC count today is coming down to 18.6 from 23.8 yesterday. Basic metabolic profile is unremarkable, bicarb is 37. Chest x-ray on admission showed mostly fluid overload/pulmonary edema. Objective - Vital Signs Vital signs: Vital Signs Temp 97.9 F 02/15/23 11:10 Pulse 70 02/15/23 11:30 Resp 24 02/15/23 11:10 BP 140/56 02/15/23 11:10 Pulse Ox 90 L 02/15/23 11:16 FiO2 55 02/15/23 11:16 Intake & Output 02/14/23 02/15/23 02/15/23 18:59 06:59 18:59 Intake Total 180 540 Output Total 2750 3500 3000 Balance -1752 -0918 -0553 Weight 161 kg Intake: Oral 180 540 Output: Urine 2750 3500 3000 Other: Voiding Method Indwelling Catheter Indwelling Catheter Indwelling Catheter - Exam GENERAL EXAM: Alert, doesn't, obese 72-year-old male patient, on currently on a BiPAP at a pressure of 12/6 cm of water with FiO2 of 50% Head: Atraumatic normocephalic. ENT: PERRLA, EOMI, anicteric, short obese neck, no neck masses no JVD no stridor. CHEST: No chest wall deformity. LUNGS: Diminished breath sounds at the bases with crackles. CVS: S1 and S2 normal with no audible murmur, regular rhythm. ABDOMEN: No hepatosplenomegaly, normal bowel sounds, no guarding or rigidity. SKIN: Both lower extremities are wrapped with sterile dressings, could not fully visualize. Patient obviously has cellulitis and lower extremities. CENTRAL NERVOUS SYSTEM: No focal deficits, tone is normal in all 4 extremities. EXTREMITIES: There is 1+ bipedal edema. No clubbing, no cyanosis. Peripheral pulses are intact. - Labs CBC & Chem 7: 02/14/23 04:16 02/14/23 04:16 Labs: Abnormal Lab Results - Last 24 Hours (Table) 02/14/23 02/14/23 02/15/23 Range/Units 16:40 20:10 05:52 POC Glucose (mg/dL) 229 H 179 H 176 H (70-110) mg/dL 02/15/23 Range/Units 11:43 POC Glucose (mg/dL) 173 H (70-110) mg/dL Microbiology - Last 24 Hours (Table) 02/14/23 04:16 Blood Culture - Preliminary Blood 02/11/23 14:20 Blood Culture - Preliminary Blood 02/11/23 14:00 Blood Culture Gram Stain - Final Blood Blood Culture - Final Micrococcus species Assessment and Plan Assessment: Impression: Acute lower extremity cellulitis, patient is receiving cefepime and vancomycin. Acute on chronic hypoxic respiratory failure, maintained on BiPAP for now. We'll try airvo intermittently with BiPAP. Acute on chronic diastolic congestive heart failure History of mild intermittent asthma with mild exacerbation. Benign essential hypertension Morbid obesity Obstructive sleep apnea syndrome on CPAP Recurrent cellulitis of lower extremities, previous MRSA infection History of brain tumor and previous craniotomy. History of hypothyroidism on replacement therapy Benign essential hypertension, on treatment. Possible normal pressure hydrocephalus as noted on CT of the brain Recommendation: Consult to neurology for abnormal CT of the brain Continue antibiotics Continue BiPAP and titrate possibly transition to airvo intermittently Continue bronchodilators. Continue Solu-Medrol. Continue diuretics/Lasix. Continue cefepime and vancomycin. DO NOT RESUSCITATE/DO NOT INTUBATE CODE STATUS. Will follow Time with Patient: Less than 30
--- NOTE | 2023-02-15 13:41 | P.CNNES ---
History of Present Illness Consult date: 02/15/23 Requesting physician: Kath Thomas Reason for Consult: AMS, hydrocephalus History of Present Illness: This is a 72-year-old gentleman with history of hydrocephalus s/p surgery on the right hemisphere, stroke with residual left lower extremity weakness, seizure who presented emergency department for dyspnea, nausea was cellulitis. Neurology team is consulted for altered mental status and hydrocephalus. Some of the history is obtained from medical record and patient's nurse. Per the primary team seems the patient had the recent cellulitis of lower extremity with venous ulceration was treated with IV antibiotic due to MRSA and was placed on the ankle and 17 at outside facility but is seems the patient was having i ncreased shortness of breath with increased swelling in the lower extremities after discharge and was having fever or chills according to the primary team's note. Per the nurse is seems the patient had worsening confusion yesterday so he had a CT of the brain which was stable finding and that seems the patient and is more awake and responsive. The nurse he's being treated for his cellulitis during this hospital admission. According to patient he has history of focal seizures for a long period of time and the last seizure he had was about a month ago. He cannot tell me what medication he's being treated with 4 seizures but upon looking at the medical record is seems Trileptal 150 mg 1 tablet twice a day. He stated that he is to follow up with a neurologist as an outpatient but could not remember the name. He did acknowledge that he had surgery for his hydrocephalus in the past over the right hemisphere and thinks he had the [employer] shunt and had hydrocephalus since . He feels he is doing drastically better currently. Denies of any headache, any nausea any vomiting. Any new focal weakness. Some of the workup during his hospital visit consisted of: Initial white blood cell is 27.2 thousand and currently to 18.6. It's predominantly neutrophilic. Initially the temperature is T-max of 101.5. His temperature has resolved. Sugar has been in the range of 170s to 220s. 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 Findings stable. Large fluid attenuation along the midline and paracentral left mild mass affect upon the left frontal lobe is stable from prior exam could be M basis arachnoid cyst. Recommend consideration for MRI. Findings stable dating back to 2009. I personally reviewed the CT and there is no bleed or any evidence of any acute subacute ischemia but was somewhat limited because of motion artifact. Appears to patient had an left frontal stroke that old which was with a history and his examination. Review of Systems Review of system: The 12 point system was reviewed and apparent positive and negative per HPI. Past Medical History Past Medical History: Asthma, Coronary Artery Disease (CAD), Hyperlipidemia, Hypertension, Myocardial Infarction ([place]), Seizure Disorder Additional Past Medical History / Comment(s): restless leg, cardiomyopathy, wounds RT legs, BLE SWOLLEN AND DARK IN COLOR, frequent falls, irritant induced asthma, hand tremors, double visionvision Last Myocardial Infarction Date:: 1989 History of Any Multi-Drug Resistant Organisms: MRSA Date of last positivie culture/infection: 05/12/22 MDRO Source:: Left Leg Past Surgical History: Back Surgery, Cholecystectomy Additional Past Surgical History / Comment(s): brain tumor SX, 2ND DIGIT LT FOOT REMOVED, COLONOSCOPY Past Anesthesia/Blood Transfusion Reactions: No Reported Reaction Past Psychological History: No Psychological Hx Reported Smoking Status: Never smoker Past Alcohol Use History: None Reported Past Drug Use History: None Reported - Past Family History Mother Family Medical History: Cancer Additional Family Medical History / Comment(s): pancreatic Father Family Medical History: Cancer Additional Family Medical History / Comment(s): melanoma Brother(s) Family Medical History: Deep Vein Thrombosis (DVT) Daughter(s) Family Medical History: Deep Vein Thrombosis (DVT), Pulmonary Embolus Medications and Allergies Home Medications Medication Instructions Recorded Confirmed Type Pramipexole [Mirapex] 1 mg PO TID 07/06/16 02/11/23 History carvediloL [Coreg] 3.125 mg PO BID 06/28/18 02/11/23 History Atorvastatin [Lipitor] 40 mg PO HS 05/10/22 02/11/23 History Levothyroxine Sodium [Synthroid] 50 mcg PO DAILY 09/05/22 02/11/23 History Losartan [Cozaar] 25 mg PO DAILY 09/05/22 02/11/23 History OXcarbazepine [Trileptal] 150 mg PO BID 09/05/22 02/11/23 History Pantoprazole [Protonix] 40 mg PO [id number] 09/05/22 02/11/23 History Spironolactone [Aldactone] 25 mg PO DAILY 09/05/22 02/11/23 History HYDROcodone/APAP 10-325MG [Iona 1 tab PO Q12H PRN 02/11/23 02/11/23 History 10-325] Pregabalin [Lyrica] 150 mg PO DAILY 02/11/23 02/11/23 History Allergies Allergy/AdvReac Type Severity Reaction Status Date / Time codeine Allergy Dyspnea Verified 02/11/23 16:22 Penicillins Allergy Dyspnea Verified 02/11/23 16:22 Physical Examination - Vital Signs Vital Signs: Vital Signs Temp Pulse Pulse Resp BP Pulse Ox Pulse Ox 02/15/23 11:30 70 02/15/23 11:16 68 90 L 02/15/23 11:10 97.9 F 69 24 140/56 92 L 02/15/23 10:05 90 L 02/15/23 09:10 92 L 02/15/23 07:47 73 02/15/23 07:40 98.1 F 68 22 142/77 91 L 02/15/23 07:37 71 90 L 02/15/23 04:00 97.3 F L 73 25 H 131/57 92 L 02/15/23 02:00 71 30 H 02/15/23 00:00 97.8 F 71 30 H 150/75 94 L 02/14/23 21:42 68 02/14/23 21:31 70 02/14/23 20:00 98.0 F 78 25 H 129/68 93 L 02/14/23 16:09 97.9 F 74 21 141/77 95 02/14/23 15:22 60 02/14/23 15:12 60 02/14/23 14:19 64 FiO2 02/15/23 11:30 02/15/23 11:16 55 02/15/23 11:10 02/15/23 10:05 02/15/23 09:10 60 02/15/23 07:47 02/15/23 07:40 02/15/23 07:37 02/15/23 04:00 02/15/23 02:00 02/15/23 00:00 02/14/23 21:42 02/14/23 21:31 02/14/23 20:00 02/14/23 16:09 50 02/14/23 15:22 02/14/23 15:12 02/14/23 14:19 Intake and Output 02/14/23 02/15/23 02/15/23 22:59 06:59 14:59 Intake Total 540 Output Total 2500 1700 3000 Balance -1960 -1700 -3000 Intake: Oral 540 Output: Urine 2500 1700 3000 Other: Voiding Method Indwelling Catheter Indwelling Catheter Indwelling Catheter Weight 161 kg GENERAL: The patient is sitting in a recliner chair and is not in acute distress. HENT: Has skull defect over the right frontotemporal region with old scar. CHEST: The heart rate is regular rate rhythm. No murmurs to auscultation. LUNG: Clear to auscultation bilaterally no wheezing noted throughout. Not labored breathing. ABDOMEN/GI: Bowel sounds present in all 4 quadrants. No tenderness to palpation throughout. NEUROLOGICAL: Higher mental function: The patient is awake, alert, oriented to self, place and time. He is somewhat slow responding to questions. Patient is following simple commands. No aphasia and no neglect. Cranial nerves: The pupils are round, equal and reactive to light. Visual chase are full to confrontation throughout. Extraocular movement is intact no nystagmus is noted. Facial sensation is normal to touch throughout. The facial strength is normal throughout. Tongue is midline and moved [id number] without any difficulty. No dysarthria is noted. Shoulder shrug is normal bilaterally. Motor: The strength is left lower extremity weakness from old stroke. Limited in lowers. Uppers seems normal. . Normal tone and bulk. Cerebellum: Normal finger to nose bilaterally. Sensation: Decrease to touch over the left side (stated old). Reflexes (right/left): 1+ throughout. Results - Laboratory Findings CBC and BMP: 02/14/23 04:16 02/14/23 04:16 Abnormal Lab Findings: Abnormal Labs 02/11/23 02/11/23 02/11/23 14:15 14:27 14:27 WBC 27.2 H RBC 3.79 L Hgb 10.7 L Hct 34.4 L MCHC RDW 19.8 H Neutrophils # Neutrophils # (Manual) 25.20 H Lymphocytes # Lymphocytes # (Manual) Metamyelocytes # (Man) 0.54 H Myelocytes # (Manual) 1.09 H ABG pCO2 ABG pO2 ABG HCO3 ABG Total CO2 ABG O2 Saturation Sodium Chloride Carbon Dioxide 32 H BUN Creatinine Glucose 117 H POC Glucose (mg/dL) Magnesium C-Reactive Protein Total Protein Albumin Urine Protein 1+ H Urine Glucose (UA) Trace H Urine Bacteria Rare H Urine Mucus Many H 02/12/23 02/12/23 02/12/23 09:10 09:10 11:13 WBC 19.9 H RBC 3.46 L Hgb 10.1 L Hct 32.0 L MCHC RDW 19.7 H Neutrophils # 18.2 H Neutrophils # (Manual) Lymphocytes # 0.6 L Lymphocytes # (Manual) Metamyelocytes # (Man) Myelocytes # (Manual) ABG pCO2 55 H ABG pO2 40 L* ABG HCO3 33 H ABG Total CO2 35 H ABG O2 Saturation 76.2 L Sodium 146 H Chloride 109 H Carbon Dioxide 31 H BUN Creatinine Glucose 156 H POC Glucose (mg/dL) Magnesium C-Reactive Protein 18.8 H Total Protein Albumin Urine Protein Urine Glucose (UA) Urine Bacteria Urine Mucus 02/13/23 02/13/23 02/14/23 06:41 06:41 04:16 WBC 23.8 H 18.6 H RBC 3.35 L 3.36 L Hgb 9.7 L 9.5 L Hct 32.3 L 31.8 L MCHC 30.0 L 29.8 L RDW 19.5 H 19.0 H Neutrophils # 22.4 H Neutrophils # (Manual) 17.80 H Lymphocytes # 0.5 L Lymphocytes # (Manual) 0.37 L Metamyelocytes # (Man) Myelocytes # (Manual) ABG pCO2 ABG pO2 ABG HCO3 ABG Total CO2 ABG O2 Saturation Sodium Chloride Carbon Dioxide 33 H BUN 28 H Creatinine Glucose 147 H POC Glucose (mg/dL) Magnesium C-Reactive Protein Total Protein 5.7 L Albumin 3.0 L Urine Protein Urine Glucose (UA) Urine Bacteria Urine Mucus 02/14/23 02/14/23 02/14/23 04:16 11:31 16:40 WBC RBC Hgb Hct MCHC RDW Neutrophils # Neutrophils # (Manual) Lymphocytes # Lymphocytes # (Manual) Metamyelocytes # (Man) Myelocytes # (Manual) ABG pCO2 ABG pO2 ABG HCO3 ABG Total CO2 ABG O2 Saturation Sodium Chloride Carbon Dioxide 37 H BUN 34 H Creatinine 0.63 L Glucose 173 H POC Glucose (mg/dL) 208 H 229 H Magnesium 2.6 H C-Reactive Protein Total Protein 5.8 L Albumin 3.0 L Urine Protein Urine Glucose (UA) Urine Bacteria Urine Mucus 02/14/23 02/15/23 02/15/23 20:10 05:52 11:43 WBC RBC Hgb Hct MCHC RDW Neutrophils # Neutrophils # (Manual) Lymphocytes # Lymphocytes # (Manual) Metamyelocytes # (Man) Myelocytes # (Manual) ABG pCO2 ABG pO2 ABG HCO3 ABG Total CO2 ABG O2 Saturation Sodium Chloride Carbon Dioxide BUN Creatinine Glucose POC Glucose (mg/dL) 179 H 176 H 173 H Magnesium C-Reactive Protein Total Protein Albumin Urine Protein Urine Glucose (UA) Urine Bacteria Urine Mucus Assessment and Plan Assessment: Altered mental status seems due to underlying cellulitis. 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 Ordered Trileptal level Patient is on Trileptal 150mg [address] head is reported is stable compared to prior imaging per radiology team. I do not see any prior CT's for me to compare. I.D. is on board. Will defer the rest of medical management to primary team. The plan is discussed with patient and his nurse. Thank you for the consultation. Time with Patient: Greater than 30
[2023-02-15 16:19] LABS: Glucose,Whole Blood 165 mg/dL (70-110)
[2023-02-15] MEDS: VANCOMYCIN 2,000 MG in SODIUM CHLORIDE 0.9% 500 ML 500 ML IVPB SCH (16:26)
[2023-02-15 20:04] LABS: Glucose,Whole Blood 198 mg/dL (70-110)
[2023-02-15] MEDS: HYDROcodone/APAP 10-325MG 1 EACH TAB PO PRN (21:53)
[2023-02-15] MEDS: ATORVASTATIN 40 MG TAB PO SCH (21:54)
--- NOTE | 2023-02-15 22:53 | P.PN ---
Subjective Progress Note Date: 02/14/23 HISTORY OF PRESENT ILLNESS This is a 71-year-old male patient with past medical history of hypertension, h yperlipidemia, CVA, mild persistent ALLERGIC asthma, seizure disorder, Parkinson's disease, chronic diastolic heart failure, stasis dermatitis of the left lower extremity due to peripheral venous hypertension, spondylosis of the lumbar spine, obstructive sleep apnea, patient was recently hospitalized at [facility] about a few once ago with significant cellulitis of both lower extremity is with venous ulceration that was treated with IV antibiotic due to MRSA at that time he was placed on vancomycin and cefepime then he was switched to Cubicin and he was supposed to go to extended care facility for IV antibiotic however the infectious disease recommended for the patient to go on linezolid 600 mg orally twice every day for 14 days, patient has been following with wound healing center with . and he has been getting would care at home but it was a Tuesday, today his nurse contacted EMS to bring her to the emergency department because of increased shortness breath as well as increased swelling in both lower extremity is, and significant fever and chills and patient was septic, patient was seen in the ER according to the EMS the patient oxygen sufficient was in the low 80s, his chest x-ray showed poorly vascular congestion, patient did receive IV fluid in the emergency department as a protocol of sepsis and put the patient in acute diastolic heart failure subs equently the patient was started on Lasix 80 mg IV push every 12 hours and he was seen in consultation by pulmonary/critical care medicine Dr. Burns who recommended for the patient to transfer to the intensive care unit, patient was also started on Solu-Medrol 60 mg IV push every 6 hours along with IV antibiotic in the form of vancomycin and cefepime he was also seen in consultation by infectious disease Dr. Amezquita. 02/12: Patient is laying down in bed appears to be in respiratory distress, his IV fluids were decreased to 50 mL an hour, he was placed on a BiPAP 12 and 6, he was given Lasix 80 mg IV push 1 and then twice every day, patient already was started on vancomycin and cefepime he was evaluated by pulmonary/critical care he was recommended for the patient to be transferred to the intensive care unit, blood gases were obtained, he was also started on Solu-Medrol 60 mg IV push ev beba 6 hours along with IV antibiotic we'll continue to monitor the patient very closely. 02/13: Patient is laying down in bed currently in respiratory distress on BiPAP, has been getting Lasix 80 mg IV push every 12 hours, his blood cultures are positive for gram-positive cocci currently on cefepime and vancomycin, we will continue to monitor until the final ID of the organism is there, pulmonary swallowing, patient has been followed very closely, he appears to be better today than yesterday, we'll continue to manage the patient along with ID and pulmonary and critical care. 02/14: Patient is laying down in bed in no apparent distress, he is currently on a BiPAP, his sitting better than yesterday, this was in the bedside, earlier in the morning did have mental status changes and increased confusion, computed tomography scan of the brain was reviewed, did show chronic changes in acute abn ormalities, patient has been maintained on IV Lasix, IV antibiotic, he has been seen by pulmonary medicine as well as by infectious disease REVIEW OF SYSTEMS Constitutional: positive for fever, chills, no night sweats. No weight change. positive for weakness,positive for fatigue and lethargy. positive for daytime sleepiness. HEENT: No headache. No blurred vision or double vision, no loss of vision. No loss of Hearing, no ringing in the ears, no dizziness. No nasal drainage or congestion. No epistaxis. No sore throat. Lungs:positive for shortness of breath, occasional cough, no sputum production. positive for wheezing.Chronic dyspnea with exertion. Cardiovascular: No chest pain,reports lower extremity edema. positive for palpitations. positive for paroxysmal nocturnal dyspnea. positive for orthopnea. No lightheadedness or dizziness. No syncopal episodes. Abdominal: No abdominal pain. No nausea, vomiting. No diarrhea. No constipation. No bloody or tarry stools. No loss of appetite. Genitourinary: No dysuria, kennedy catheter in place Musculoskeletal: No myalgias. positive for bilateral lower extremities muscle weakness, positive for gait dysfunction, no frequent falls. positive for back pain and neck pain. Integumentary:Reports wounds with venous ulcerations to left lower extremity. No rash or pruritus. No unusual bruising. positive for change in hair and nails. Neurologic: No aphasia. No facial droop. positive for change in mentation. No head injury. No headache. No paralysis. No paresthesia. Psychiatric: positive for depression and anxiety. No mood swings. Endocrine: No abnormal blood sugars. positive for weight change. No excessive sweating or thirst. No cold intolerance. PHYSICAL EXAMINATION Gen: This is a morbidly obese 72-year-old male lying down in bed in moderate respiratory distress HEENT: Head is atraumatic, normocephalic. Pupils equal, round. Sclerae is anicteric, mucous membranes of the mouth are somewhat dry. NECK: Supple. elevated JVD. No lymphadenopathy. No thyromegaly. LUNGS: Decrease breath sounds at the bases with few ronchi , moderate expiratory wheezes, and minimal intercostal retractions. HEART: First heart sound is depressed, second heart sound is normal, there is a 2/6 systolic ejection murmur at the left sternal border, no S3, no S4.. ABDOMEN: Soft. Bowel sounds are present. No masses. No tenderness.obese, positive bowel sounds EXTREMITIES: 3+ bilateral pitting pedal edema with erythema, there is venous ulcerations in the left lower extremity extending into to the calf posteriorly with severe erythema and tenderness to touch, left second toe amputation and DP +1 bilaterally NEUROLOGICAL: Patient is awake, alert and oriented x3. Cranial nerves 2 through 12 are grossly intact, CN II-XII are grossly intact muscle power 4/5 in bilateral upper extremities, and 3/5 in bilateral lower extremities. ASSESSMENT AND PLAN 1. Bilateral lower extremity cellulitis with sepsis present on admission Wound culture is in progress, consult with Dr. Alirio thomas, continue patient on vancomycin with pharmacy to dose its peak and trough, cefepime 2 g IV piggyback every 8 hours, continue vancomycin 2000 mg IV piggyback every 12 hours, we will cultures obtained, blood cultures obtained, decrease IV fluid to 50 mL an hour due to the patient acute heart failure. 2. Acute hypoxemic respiratory failure due to acute on chronic diastolic heart failure as well as acute exacerbation of COPD/asthma, Lasix 80 mg IV push every 12 hours, carvedilol 3.125 mg orally twice every day, losartan 25 mg once every day, spironolactone 25 mg orally once every day, Kennedy catheter in place, input and output and daily weight, Solu-Medrol 40 mg IV push every 8 hours, DuoNeb 3 mL nebulization 3 times every day. Pulmonary consultation Dr. Burns 3. Chronic respiratory failure due to Obesity with obstructive sleep apnea and obesity hypoventilation syndrome with underlying COPD/asthma . Continue treatment as in the previous paragraph. 4. Hypertension and hypertensive cardiovascular disease. Continue Coreg 3.125 mg twice daily, continue losartan 25 mg once every day, continue spironolactone 25 mg once every day. 5. Hyperlipidemia. Continue low-cholesterol diet, continue atorvastatin 40 mg once every day, monitor lipid panel, keep LDL 55-70. 6. History of CVA. Continue patient on atorvastatin 40 mg once every day as well as aspirin 81 mg once every day. 7. Parkinson's disease. Continue Mirapex 1 mg 3 times daily. 8. Spondylosis of the lumbar spine. Continue Lyrica 75 mg twice daily. 9. Obstructive sleep apnea. Continue BiPAP 09/28 10. Hypothyroidism. Continue Synthroid 50 g orally once every day monitor TSH and free T4 11. GI prophylaxis. Protonix 40 mg orally once every day.. 12. DVT prophylaxis. Lovenox 40 mg subcutaneously every 24 hours. 13. Very guarded prognosis. 14. Patient is no CODE STATUS per his own wishes Objective - Vital Signs Vital signs: Vital Signs Temp 97.9 F 02/14/23 16:09 Pulse 74 02/14/23 16:09 Resp 21 02/14/23 16:09 BP 141/77 02/14/23 16:09 Pulse Ox 95 02/14/23 16:09 FiO2 50 02/14/23 16:09 Intake & Output 02/14/23 02/14/23 02/15/23 06:59 18:59 06:59 Intake Total 10 180 540 Output Total 2900 2750 Balance -2890 -2570 540 Weight 162 kg Intake: IV 10 Invasive Line 3 10 Oral 180 540 Output: Urine 2900 2750 Other: Voiding Method Indwelling Catheter Indwelling Catheter - Labs CBC & Chem 7: 02/14/23 04:16 02/14/23 04:16 Labs: Abnormal Lab Results - Last 24 Hours (Table) 02/14/23 02/14/23 02/14/23 Range/Units 04:16 04:16 11:31 WBC 18.6 H (3.8-10.6) k/uL RBC 3.36 L (4.30-5.90) m/uL Hgb 9.5 L (13.0-17.5) gm/dL Hct 31.8 L (39.0-53.0) % MCHC 29.8 L (31.0-37.0) g/dL RDW 19.0 H (11.5-15.5) % Neutrophils # (Manual) 17.80 H (1.3-7.7) k/uL Lymphocytes # (Manual) 0.37 L (1.0-4.8) k/uL Carbon Dioxide 37 H (22-30) mmol/L BUN 34 H (9-20) mg/dL Creatinine 0.63 L (0.66-1.25) mg/dL Glucose 173 H (74-99) mg/dL POC Glucose (mg/dL) 208 H (70-110) mg/dL Magnesium 2.6 H (1.6-2.3) mg/dL Total Protein 5.8 L (6.3-8.2) g/dL Albumin 3.0 L (3.5-5.0) g/dL 02/14/23 Range/Units 16:40 WBC (3.8-10.6) k/uL RBC (4.30-5.90) m/uL Hgb (13.0-17.5) gm/dL Hct (39.0-53.0) % MCHC (31.0-37.0) g/dL RDW (11.5-15.5) % Neutrophils # (Manual) (1.3-7.7) k/uL Lymphocytes # (Manual) (1.0-4.8) k/uL Carbon Dioxide (22-30) mmol/L BUN (9-20) mg/dL Creatinine (0.66-1.25) mg/dL Glucose (74-99) mg/dL POC Glucose (mg/dL) 229 H (70-110) mg/dL Magnesium (1.6-2.3) mg/dL Total Protein (6.3-8.2) g/dL Albumin (3.5-5.0) g/dL Microbiology - Last 24 Hours (Table) 02/11/23 14:00 Blood Culture Gram Stain - Final Blood Blood Culture - Final Micrococcus species 02/11/23 14:20 Blood Culture - Preliminary Blood
--- NOTE | 2023-02-15 22:57 | P.PN ---
Subjective Progress Note Date: 02/15/23 HISTORY OF PRESENT ILLNESS This is a 71-year-old male patient with past medical history of hypertension, h yperlipidemia, CVA, mild persistent ALLERGIC asthma, seizure disorder, Parkinson's disease, chronic diastolic heart failure, stasis dermatitis of the left lower extremity due to peripheral venous hypertension, spondylosis of the lumbar spine, obstructive sleep apnea, patient was recently hospitalized at [facility] about a few once ago with significant cellulitis of both lower extremity is with venous ulceration that was treated with IV antibiotic due to MRSA at that time he was placed on vancomycin and cefepime then he was switched to Cubicin and he was supposed to go to extended care facility for IV antibiotic however the infectious disease recommended for the patient to go on linezolid 600 mg orally twice every day for 14 days, patient has been following with wound healing center with . and he has been getting would care at home but it was a Tuesday, today his nurse contacted EMS to bring her to the emergency department because of increased shortness breath as well as increased swelling in both lower extremity is, and significant fever and chills and patient was septic, patient was seen in the ER according to the EMS the patient oxygen sufficient was in the low 80s, his chest x-ray showed poorly vascular congestion, patient did receive IV fluid in the emergency department as a protocol of sepsis and put the patient in acute diastolic heart failure subs equently the patient was started on Lasix 80 mg IV push every 12 hours and he was seen in consultation by pulmonary/critical care medicine Dr. Burns who recommended for the patient to transfer to the intensive care unit, patient was also started on Solu-Medrol 60 mg IV push every 6 hours along with IV antibiotic in the form of vancomycin and cefepime he was also seen in consultation by infectious disease Dr. Amezquita. 02/12: Patient is laying down in bed appears to be in respiratory distress, his IV fluids were decreased to 50 mL an hour, he was placed on a BiPAP 12 and 6, he was given Lasix 80 mg IV push 1 and then twice every day, patient already was started on vancomycin and cefepime he was evaluated by pulmonary/critical care he was recommended for the patient to be transferred to the intensive care unit, blood gases were obtained, he was also started on Solu-Medrol 60 mg IV push ev beab 6 hours along with IV antibiotic we'll continue to monitor the patient very closely. 02/13: Patient is laying down in bed currently in respiratory distress on BiPAP, has been getting Lasix 80 mg IV push every 12 hours, his blood cultures are positive for gram-positive cocci currently on cefepime and vancomycin, we will continue to monitor until the final ID of the organism is there, pulmonary swallowing, patient has been followed very closely, he appears to be better today than yesterday, we'll continue to manage the patient along with ID and pulmonary and critical care. 02/14: Patient is laying down in bed in no apparent distress, he is currently on a BiPAP, his sitting better than yesterday, this was in the bedside, earlier in the morning did have mental status changes and increased confusion, computed tomography scan of the brain was reviewed, did show chronic changes in acute abn ormalities, patient has been maintained on IV Lasix, IV antibiotic, he has been seen by pulmonary medicine as well as by infectious disease 02/15: Patient was seen earlier by neurology today because of increased the encephalopathy reviewed computed tomography scan did not show evidence of acute of normalities just chronic changes, patient was sitting up in chair today with his at bedside, patient appears to be at baseline to me, has been responding very well to the current treatment, he continued to be on Lasix 80 mg IV push every 12 hours, his Solu-Medrol was decreased to 40 mg IV push every 8 hours, we will continue to monitor that, continue to wean down steroid as this may be the reason for the encephalopathy, along with a cellulitis of the left lower extremity more than the right lower extremity, patient has been followed very closely.REVIEW OF SYSTEMS Constitutional: positive for fever, chills, no night sweats. No weight change. positive for weakness,positive for fatigue and lethargy. positive for daytime sleepiness. HEENT: No headache. No blurred vision or double vision, no loss of vision. No loss of Hearing, no ringing in the ears, no dizziness. No nasal drainage or congestion. No epistaxis. No sore throat. Lungs:positive for shortness of breath, occasional cough, no sputum production. positive for wheezing.Chronic dyspnea with exertion. Cardiovascular: No chest pain,reports lower extremity edema. positive for palpitations. positive for paroxysmal nocturnal dyspnea. positive for orthopnea. No lightheadedness or dizziness. No syncopal episodes. Abdominal: No abdominal pain. No nausea, vomiting. No diarrhea. No constipation. No bloody or tarry stools. No loss of appetite. Genitourinary: No dysuria, kennedy catheter in place Musculoskeletal: No myalgias. positive for bilateral lower extremities muscle weakness, positive for gait dysfunction, no frequent falls. positive for back pain and neck pain. Integumentary:Reports wounds with venous ulcerations to left lower extremity. No rash or pruritus. No unusual bruising. positive for change in hair and nails. Neurologic: No aphasia. No facial droop. positive for change in mentation. No head injury. No headache. No paralysis. No paresthesia. Psychiatric: positive for depression and anxiety. No mood swings. Endocrine: No abnormal blood sugars. positive for weight change. No excessive sweating or thirst. No cold intolerance. PHYSICAL EXAMINATION Gen: This is a morbidly obese 72-year-old male lying down in bed in moderate respiratory distress HEENT: Head is atraumatic, normocephalic. Pupils equal, round. Sclerae is anicteric, mucous membranes of the mouth are somewhat dry. NECK: Supple. elevated JVD. No lymphadenopathy. No thyromegaly. LUNGS: Decrease breath sounds at the bases with few ronchi , moderate expiratory wheezes, and minimal intercostal retractions. HEART: First heart sound is depressed, second heart sound is normal, there is a 2/6 systolic ejection murmur at the left sternal border, no S3, no S4.. ABDOMEN: Soft. Bowel sounds are present. No masses. No tenderness.obese, positive bowel sounds EXTREMITIES: 3+ bilateral pitting pedal edema with erythema, there is venous ulcerations in the left lower extremity extending into to the calf posteriorly with severe erythema and tenderness to touch, left second toe amputation and DP +1 bilaterally NEUROLOGICAL: Patient is awake, alert and oriented x3. Cranial nerves 2 through 12 are grossly intact, CN II-XII are grossly intact muscle power 4/5 in bilateral upper extremities, and 3/5 in bilateral lower extremities. ASSESSMENT AND PLAN 1. Bilateral lower extremity cellulitis with sepsis present on admission Wound culture is in progress, consult with Dr. Amezquita appreciated, continue patient on vancomycin with pharmacy to dose its peak and trough, cefepime 2 g IV piggyback every 8 hours, continue vancomycin 2000 mg IV piggyback every 12 hours, we will cultures obtained, blood cultures obtained, decrease IV fluid to 50 mL an hour due to the patient acute heart failure. 2. Acute hypoxemic respiratory failure due to acute on chronic diastolic heart failure as well as acute exacerbation of COPD/asthma, Lasix 80 mg IV push every 12 hours, carvedilol 3.125 mg orally twice every day, losartan 25 mg once every day, spironolactone 25 mg orally once every day, Kennedy catheter in place, input and output and daily weight, Solu-Medrol 40 mg IV push every 8 hours, DuoNeb 3 mL nebulization 3 times every day. Pulmonary consultation Dr. Burns 3. Chronic respiratory failure due to Obesity with obstructive sleep apnea and obesity hypoventilation syndrome with underlying COPD/asthma . Continue treatment as in the previous paragraph. 4. Hypertension and hypertensive cardiovascular disease. Continue Coreg 3.125 mg twice daily, continue losartan 25 mg once every day, continue spironolactone 25 mg once every day. 5. Hyperlipidemia. Continue low-cholesterol diet, continue atorvastatin 40 mg once every day, monitor lipid panel, keep LDL 55-70. 6. History of CVA. Continue patient on atorvastatin 40 mg once every day as well as aspirin 81 mg once every day. 7. Parkinson's disease. Continue Mirapex 1 mg 3 times daily. 8. Spondylosis of the lumbar spine. Continue Lyrica 75 mg twice daily. 9. Obstructive sleep apnea. Continue BiPAP 09/28 10. Hypothyroidism. Continue Synthroid 50 g orally once every day monitor TSH and free T4 11. GI prophylaxis. Protonix 40 mg orally once every day.. 12. DVT prophylaxis. Lovenox 40 mg subcutaneously every 24 hours. 13. metabolic encephalopathy due to multifactorial including bilateral lower extremity Seletz with sepsis, hypercapnic respiratory failure, medication side effects. Neurology evaluation appreciated 14. Patient is no CODE STATUS per his own wishes Objective - Vital Signs Vital signs: Vital Signs Temp 97.6 F 02/15/23 15:12 Pulse 72 02/15/23 22:26 Resp 20 02/15/23 15:12 BP 130/65 02/15/23 15:12 Pulse Ox 92 L 02/15/23 15:13 FiO2 50 02/15/23 22:11 Intake & Output 02/15/23 02/15/23 02/16/23 06:59 18:59 06:59 Intake Total 540 540 Output Total 3500 4725 200 Balance -6761 -2372 340 Weight 161 kg Intake: Oral 540 540 Output: Urine 3500 4725 200 Other: Voiding Method Indwelling Catheter Indwelling Catheter - Labs CBC & Chem 7: 02/14/23 04:16 02/14/23 04:16 Labs: Abnormal Lab Results - Last 24 Hours (Table) 02/15/23 02/15/23 02/15/23 Range/Units 05:52 11:43 16:18 POC Glucose (mg/dL) 176 H 173 H 165 H (70-110) mg/dL 02/15/23 Range/Units 20:03 POC Glucose (mg/dL) 198 H (70-110) mg/dL Microbiology - Last 24 Hours (Table) 02/14/23 04:16 Blood Culture - Preliminary Blood 02/11/23 14:20 Blood Culture - Preliminary Blood
--- NOTE | 2023-02-15 23:25 | EEG ---
ELECTROENCEPHALOGRAM REPORT CLINICAL HISTORY: This is a 72-year-old gentleman with history of seizure, stroke, who has altered mental status. The video EEG is obtained to evaluate for seizure epileptiform activity. RELEVANT MEDICATION: Trileptal. EEG TYPE: A routine 21-channel EEG is performed with video using the 10/20 electrode placement system. DESCRIPTION: The background consists of [id number] voltage of 6 to 7 hertz activity. There was no physiological stage 2 sleep architecture seen. There is rare right hemisphere delta slowing. Interictal and ictal is none. ACTIVATION PROCEDURE: Photic stimulation and hyperventilation are not performed. CLINICAL INTERPRETATION: This is an abnormal routine EEG. The background slowing is suggestive of mild encephalopathy. There is focal slowing over the right hemisphere consistent with focal cerebral dysfunction. Otherwise, there is no epileptiform discharges or seizure on the EEG. Clinical correlation is recommended. MMENOC / ERNESTO: [id number] /
[2023-02-16] MEDS: methylPREDNISolone SOD SUCCI 40 MG/ML 1 ML VIAL IV SCH ×4 (00:03→18:17)
[2023-02-16] MEDS: CEFEPIME 2 GM in SODIUM CHLORIDE 0.9% 100 ML IVPB SCH ×3 (00:04→16:23)
[2023-02-16] MEDS: ACETAMINOPHEN TAB 325 MG TAB PO PRN ×2 (05:20→20:28)
[2023-02-16] MEDS: VANCOMYCIN 2,000 MG in SODIUM CHLORIDE 0.9% 500 ML 500 ML IVPB SCH ×2 (05:20→16:40)
[2023-02-16 06:16] LABS: Glucose,Whole Blood 183 mg/dL (70-110)
[2023-02-16] MEDS: carvediloL 3.125 MG TAB PO SCH ×2 (06:46→16:23)
[2023-02-16] MEDS: LEVOTHYROXINE 50 MCG TAB PO SCH (06:46)
[2023-02-16] MEDS: PANTOPRAZOLE 40 MG TABLET PO SCH (06:46)
[2023-02-16] MEDS: INSULIN ASPART (NovoLOG) 100 UNIT/ML VIAL SQ SCH ×4 (06:46→20:28)
[2023-02-16] MEDS: FUROSEMIDE 10 MG/ML 10 ML VIAL IV SCH (07:32)
[2023-02-16] MEDS: SPIRONOLACTONE 25 MG TAB PO SCH (07:33)
[2023-02-16] MEDS: ENOXAPARIN 40 MG/0.4 ML SYRINGE SQ SCH (07:33)
[2023-02-16] MEDS: ALPRAZolam 0.25 MG TAB PO PRN (07:33)
[2023-02-16] MEDS: PREGABALIN 75 MG CAP PO SCH (07:33)
[2023-02-16] MEDS: OXcarbazepine 150 MG TAB PO SCH ×2 (07:33→20:28)
[2023-02-16] MEDS: LOSARTAN 25 MG TAB PO SCH (07:33)
[2023-02-16] MEDS: PRAMIPEXOLE 1 MG TAB PO SCH ×3 (07:33→20:28)
[2023-02-16] MEDS: SODIUM CHLORIDE 0.9% 1,000 ML IV SCH (07:34)
[2023-02-16] MEDS: IPRATROPIUM-ALBUTEROL 3 ML NEB INHALATION SCH ×4 (07:45→21:45)
[2023-02-16 08:51] LABS: Anisocytosis Slight; Basophils % (A) 0 %; Eosinophils % (A) 0 %; HCT 35.5 % (39.0-53.0); Hypochromasia Marked; Lymphocytes # (A) 0.5 k/uL (1.0-4.8); Lymphocytes % (A) 4 %; MCH 28.1 pg (25.0-35.0); MCHC 30.9 g/dL (31.0-37.0); MCV 90.7 fL (80.0-100.0); Mean Platelet Volume 8.6; Monocytes # (A) 0.5 k/uL (0-1.0); Monocytes % (A) 3 %; Neutrophils # (A) 12.7 k/uL (1.3-7.7); Neutrophils % (A) 92 %; Platelet Count 281 k/uL (150-450); Poikilocytosis Slight; RBC 3.92 m/uL (4.30-5.90); WBC 13.9 k/uL (3.8-10.6)
[2023-02-16 09:08] LABS: ALT 20 U/L (4-49); AST 23 U/L (17-59); African American GFR (CKD) >90 (>60 ml/min/1.73 sqM); Albumin 3.5 g/dL (3.5-5.0); Alkaline Phosphatase 57 U/L (38-126); Blood Urea Nitrogen 44 mg/dL (9-20); Calcium 9.1 mg/dL (8.4-10.2); Chloride 91 mmol/L (98-107); Glucose 144 mg/dL (74-99); Non-African American GFR(CKD) >90 (>60 ml/min/1.73 sqM); Potassium 4.6 mmol/L (3.5-5.1); Sodium 141 mmol/L (137-145); Total Bilirubin 0.9 mg/dL (0.2-1.3); Total Protein 6.4 g/dL (6.3-8.2)
[2023-02-16 09:17] LABS: Anion Gap 6 mmol/L
[2023-02-16 09:19] LABS: Carbon Dioxide 44 mmol/L (22-30)
[2023-02-16] MEDS: HYDROcodone/APAP 10-325MG 1 EACH TAB PO PRN (10:25)
[2023-02-16 11:35] LABS: Glucose,Whole Blood 212 mg/dL (70-110)
--- NOTE | 2023-02-16 14:19 | P.PN ---
Subjective Progress Note Date: 02/15/23 Principal diagnosis: Bilateral lower extremity cellulitis Patient is a 72-year-old male with multiple comorbidities and did have history of bilateral lower extremity cellulitis and previous infection with both MRSA and pseudomonas presented to hospital with sepsis concerning for left lower extremity cellulitis. On today's evaluation that is 02/15/2023, the patient continues to be afebrile, the patient is breathing slightly comfortably and is requiring less supplemental oxygen, the patient denies any chest pain or shortness of breath occasional cough no nausea no vomiting no abdominal pain , pain to lower extremity has decreased in intensity Objective - Vital Signs Vital signs: Vital Signs Temp 97.9 F 02/15/23 11:10 Pulse 70 02/15/23 11:30 Resp 24 02/15/23 11:10 BP 140/56 02/15/23 11:10 Pulse Ox 90 L 02/15/23 11:16 FiO2 55 02/15/23 11:16 Intake & Output 02/14/23 02/15/23 02/15/23 18:59 06:59 18:59 Intake Total 180 540 Output Total 2750 3500 3000 Balance -2570 -2960 -3000 Weight 161 kg Intake: Oral 180 540 Output: Urine 2750 3500 3000 Other: Voiding Method Indwelling Catheter Indwelling Catheter Indwelling Catheter - Exam GENERAL DESCRIPTION: An elderly male lying in bed in no distress RESPIRATORY SYSTEM: Unlabored breathing , decreased breath sounds at bases HEART: S1 S2 regular rate and rhythm , ABDOMEN: Soft , no tenderness EXTREMITIES: Bilateral lower extremity currently wrapped no drainage on the dressing, and redness decreased - Labs CBC & Chem 7: 02/16/23 07:01 02/16/23 07:01 Labs: Abnormal Lab Results - Last 24 Hours (Table) 02/14/23 02/14/23 02/15/23 Range/Units 16:40 20:10 05:52 POC Glucose (mg/dL) 229 H 179 H 176 H (70-110) mg/dL 02/15/23 Range/Units 11:43 POC Glucose (mg/dL) 173 H (70-110) mg/dL Microbiology - Last 24 Hours (Table) 02/14/23 04:16 Blood Culture - Preliminary Blood 02/11/23 14:20 Blood Culture - Preliminary Blood 02/11/23 14:00 Blood Culture Gram Stain - Final Blood Blood Culture - Final Micrococcus species Assessment and Plan (1) Sepsis Current Visit: Yes Status: Acute Code(s): A41.9 - SEPSIS, UNSPECIFIED ORGANISM SNOMED Code(s): 11890649 (2) Bilateral lower leg cellulitis Current Visit: No Status: Acute Code(s): L03.116 - CELLULITIS OF LEFT LOWER LIMB; L03.115 - CELLULITIS OF RIGHT LOWER LIMB SNOMED Code(s): 778542307 Plan: 1patient was in the hospital with sepsis in this patient who did have a fever tachycardia elevated white count source is likely bilateral lower extremity cellulitis with left greater than right this patient who did have a history of both MRSA and Pseudomonas infection in the past with the patient failing oral Zyvox concern for possible gram-negative infection 2patient to continue vancomycin and cefepime to which the patient fever has responded and white count is trending down, was down to 18,000 yesterday however no CBC has been in today 3-local wound care to the left lower extremity wound with Aquacel silver dressing followed by Moody wrap from just above the toe to below knee , to be changed daily 4positive blood cultures with a micrococcus likely skin contamination, repeat blood culture has been negative so far Time with Patient: Less than 30
--- NOTE | 2023-02-16 14:21 | P.PN ---
Subjective Progress Note Date: 02/16/23 Principal diagnosis: Bilateral lower extremity cellulitis Patient is a 72-year-old male with multiple comorbidities and did have history of bilateral lower extremity cellulitis and previous infection with both MRSA and pseudomonas presented to hospital with sepsis concerning for left lower extremity cellulitis. On today's evaluation that is 02/16/2023, the patient remains to be afebrile, the patient is breathing comfortably and is requiring less 50% FiO2, the patie nt denies any chest pain or shortness of breath occasional cough no nausea no vomiting no abdominal pain , pain to lower extremity has decreased in intensity however is complaining of pain mostly at night, no drainage Objective - Vital Signs Vital signs: Vital Signs Temp 98.0 F 02/16/23 07:28 Pulse 63 02/16/23 13:02 Resp 22 02/16/23 11:10 BP 137/64 02/16/23 11:10 Pulse Ox 94 L 02/16/23 11:10 FiO2 60 02/16/23 11:16 Intake & Output 02/15/23 02/16/23 02/16/23 18:59 06:59 18:59 Intake Total 540 1375 Output Total 4725 3150 2250 Balance -8955 -2610 -875 Weight 143.5 kg Intake: Oral 540 1375 Output: Urine 4725 3150 2250 Other: Voiding Method Indwelling Catheter Indwelling Catheter Indwelling Catheter # Voids 3 - Exam GENERAL DESCRIPTION: An elderly male lying in bed in no distress RESPIRATORY SYSTEM: Unlabored breathing , decreased breath sounds at bases HEART: S1 S2 regular rate and rhythm , ABDOMEN: Soft , no tenderness EXTREMITIES: Bilateral lower extremity currently wrapped no drainage on the dressing, and redness decreased - Labs CBC & Chem 7: 02/16/23 07:01 02/16/23 07:01 Labs: Abnormal Lab Results - Last 24 Hours (Table) 02/14/23 02/15/23 02/15/23 Range/Units 15:20 16:18 20:03 WBC (3.8-10.6) k/uL RBC (4.30-5.90) m/uL Hgb (13.0-17.5) gm/dL Hct (39.0-53.0) % MCHC (31.0-37.0) g/dL RDW (11.5-15.5) % Neutrophils # (1.3-7.7) k/uL Lymphocytes # (1.0-4.8) k/uL Chloride (98-107) mmol/L Carbon Dioxide (22-30) mmol/L BUN (9-20) mg/dL Glucose (74-99) mg/dL POC Glucose (mg/dL) 165 H 198 H (70-110) mg/dL Oxcarbazepine 1.6 L (10-35) ug/mL 02/16/23 02/16/23 02/16/23 Range/Units 06:15 07:01 07:01 WBC 13.9 H (3.8-10.6) k/uL RBC 3.92 L (4.30-5.90) m/uL Hgb 11.0 L (13.0-17.5) gm/dL Hct 35.5 L (39.0-53.0) % MCHC 30.9 L (31.0-37.0) g/dL RDW 19.0 H (11.5-15.5) % Neutrophils # 12.7 H (1.3-7.7) k/uL Lymphocytes # 0.5 L (1.0-4.8) k/uL Chloride 91 L (98-107) mmol/L Carbon Dioxide 44 H* (22-30) mmol/L BUN 44 H (9-20) mg/dL Glucose 144 H (74-99) mg/dL POC Glucose (mg/dL) 183 H (70-110) mg/dL Oxcarbazepine (10-35) ug/mL 02/16/23 Range/Units 11:33 WBC (3.8-10.6) k/uL RBC (4.30-5.90) m/uL Hgb (13.0-17.5) gm/dL Hct (39.0-53.0) % MCHC (31.0-37.0) g/dL RDW (11.5-15.5) % Neutrophils # (1.3-7.7) k/uL Lymphocytes # (1.0-4.8) k/uL Chloride (98-107) mmol/L Carbon Dioxide (22-30) mmol/L BUN (9-20) mg/dL Glucose (74-99) mg/dL POC Glucose (mg/dL) 212 H (70-110) mg/dL Oxcarbazepine (10-35) ug/mL Microbiology - Last 24 Hours (Table) 02/14/23 04:16 Blood Culture - Preliminary Blood 02/11/23 14:20 Blood Culture - Preliminary Blood Assessment and Plan (1) Sepsis Current Visit: Yes Status: Acute Code(s): A41.9 - SEPSIS, UNSPECIFIED ORGANISM SNOMED Code(s): 14982317 (2) Bilateral lower leg cellulitis Current Visit: No Status: Acute Code(s): L03.116 - CELLULITIS OF LEFT LOWER LIMB; L03.115 - CELLULITIS OF RIGHT LOWER LIMB SNOMED Code(s): 380194310 Plan: 1patient was in the hospital with sepsis in this patient who did have a fever tachycardia elevated white count source is likely bilateral lower extremity cellulitis with left greater than right this patient who did have a history of both MRSA and Pseudomonas infection in the past with the patient failing oral Zyvox concern for possible gram-negative infection 2local wound care to the left lower extremity wound with Aquacel silver dressing followed by Moody wrap from just above the toe to below knee , to be changed daily 3positive blood cultures with a micrococcus likely skin contamination, repeat blood culture has been negative so far 4-patient to continue vancomycin and cefepime to which the patient fever has responded and white count is trending down, down to 13,000 today and continue supportive care
--- NOTE | 2023-02-16 14:59 | P.PN ---
Subjective Progress Note Date: 02/16/23 Principal diagnosis: Acute on chronic hypoxic respiratory failure and acute cellulitis of lower extremities. History of Present Illness: Patient is a 72-year-old male here history is limited secondary to patient's medical status. Patient brought in by EMS from home. Patient allegedly was dyspneic. His recently admitted to the neighboring hospital for similar issue. He is currently being treated for lower extremity cellulitis bilaterally. EMS states that patient was very wheezy. They placed him on noninvasive ventilation and given breathing treatment which improved his symptoms are related allegedly had persistent upper field wheezing. EMS reports hypoxia upon initial arrival with saturations in the mid to low 80s.the patient is morbidly obese and has history of obstructive sleep apnea. He was quite lethargic and short of breath at time of admission and based on that the patient was placed on a BiPAP and currently the patient is a BiPAP settings of 12/6 cm o f water and FiO2 of 40%. His chest x-ray showed some mild pulmonary vascular congestion. Hhe has excessive edema in lower extremities along with cellulitis left lower extremity. Based on that, the patient was started on diuretics and the patient is currently on IV Lasix 80 mg every 12 hours and is producing adequate amount of urine output. He is also covered with a combination of cefepime and vancomycin regarding lower extremity cellulitis. He is arousable. He was communicate. He is tachypneic even while in the BiPAP and the patient seems to the BiPAP dependent. the patient was taken off the BiPAP briefly earlier this morning. Failed as the patient became more lethargic and somnolen t. Was placed back on a BiPAP. He is on Lovenox 40 mg subcu portably prophylaxis. He is bronchospastic and wheezy and I added Solu-Medrol. On today's evaluation of 02/12/2023, the patient is still wearing his BiPAP. Slightly improved compared to yesterday. He is diuresing well. Less spastic and wheezy. The patient is currently on Lasix 80 mg IV every 12 hours. Remains on a combination of cefepime and vancomycin. Remains on bronchodilators and steroids. Awake and alert and communicating. He is a DO NOT INTUBATE cor status and the patient did not get transferred to the intensive care unit for that reason. White suppository 3.8. Hemoglobin is 9.7. Sodium is at 140 with a potassium level of 4.7, BUN is 28 and a creatinine of 0.7. Fluid balance is - 684 mL and the patient is -1.7 L since yesterday. Reevaluated today on 02/14/2023, patient remains on BiPAP, and 50% FiO2. Seems to be comfortable, however he seems to be almost BiPAP dependent. Patient does not seem to be in any distress, he is still receiving antibiotics for his cellulitis, and his WBC count is improving down to 18.6, hemoglobin is 9.5 basic metabolic profile is normal renal profile is normal, his cellulitis is being addressed by infectious disease on the case. Blood cultures are positive for micrococcus species. Patient is on vancomycin. Reevaluated today on 02/15/2023, patient remains on BiPAP, 50%, IPAP of 12 and EPAP of 6, doing fairly well, does not seem to be in any distress, I am recommending at least transitioning the patient to airvo intermittently since he desaturates on 4 L nasal cannula. Patient will be placed on 50 L flow and 60% FiO2/airvo intermittently off BiPAP. Remains on antibiotics for his cellulitis. His CT of the brain came back abnormal, and I'm recommending neurology evaluation for possible normal pressure hydrocephalus. WBC count today is coming down to 18.6 from 23.8 yesterday. Basic metabolic profile is unremarkable, bicarb is 37. Chest x-ray on admission showed mostly fluid overload/pulmonary edema. Reevaluated today on 02/16/2023, patient seems to be doing well with airvo, off BiPAP, he is on 60% FiO2 and 50 L flow, plan is to continue to titrate his FiO2 down. Patient seems to be comfortable, he likes the airvo better than BiPAP. Bicarb is 44 which is expected, considering his severe chronic hypercapnic respiratory failure patient is metabolically compensating for his chronic respiratory acidosis. WBC count is 13.9 hemoglobin is 11. Patient does not seem to be in distress. Patient was seen by neurology on consultation, recommended EEG, placed on Trileptal 150 mg twice a day. He felt that his CT of the head findings are stable Objective - Vital Signs Vital signs: Vital Signs Temp 98.0 F 02/16/23 07:28 Pulse 63 02/16/23 13:02 Resp 22 02/16/23 11:10 BP 137/64 02/16/23 11:10 Pulse Ox 94 L 02/16/23 11:10 FiO2 60 02/16/23 11:16 Intake & Output 02/15/23 02/16/23 02/16/23 18:59 06:59 18:59 Intake Total 540 1375 Output Total 4725 3150 2250 Balance -2501 -9028 -787 Weight 143.5 kg Intake: Oral 540 1375 Output: Urine 4725 3150 2250 Other: Voiding Method Indwelling Catheter Indwelling Catheter Indwelling Catheter # Voids 3 - Exam GENERAL EXAM: Alert, doesn't, obese 72-year-old male patient, on currently on airvo, not in distress Head: Atraumatic normocephalic. ENT: PERRLA, EOMI, anicteric, short obese neck, no neck masses no JVD no stridor. CHEST: No chest wall deformity. LUNGS: Diminished breath sounds at the bases with crackles. CVS: S1 and S2 normal with no audible murmur, regular rhythm. ABDOMEN: No hepatosplenomegaly, normal bowel sounds, no guarding or rigidity. SKIN: Both lower extremities are wrapped with sterile dressings, could not fully visualize. Patient obviously has cellulitis and lower extremities. CENTRAL NERVOUS SYSTEM: No focal deficits, tone is normal in all 4 extremities. EXTREMITIES: There is 1+ bipedal edema. No clubbing, no cyanosis. Peripheral pulses are intact. - Labs CBC & Chem 7: 02/16/23 07:01 02/16/23 07:01 Labs: Abnormal Lab Results - Last 24 Hours (Table) 02/14/23 02/15/23 02/15/23 Range/Units 15:20 16:18 20:03 WBC (3.8-10.6) k/uL RBC (4.30-5.90) m/uL Hgb (13.0-17.5) gm/dL Hct (39.0-53.0) % MCHC (31.0-37.0) g/dL RDW (11.5-15.5) % Neutrophils # (1.3-7.7) k/uL Lymphocytes # (1.0-4.8) k/uL Chloride (98-107) mmol/L Carbon Dioxide (22-30) mmol/L BUN (9-20) mg/dL Glucose (74-99) mg/dL POC Glucose (mg/dL) 165 H 198 H (70-110) mg/dL Oxcarbazepine 1.6 L (10-35) ug/mL 02/16/23 02/16/23 02/16/23 Range/Units 06:15 07:01 07:01 WBC 13.9 H (3.8-10.6) k/uL RBC 3.92 L (4.30-5.90) m/uL Hgb 11.0 L (13.0-17.5) gm/dL Hct 35.5 L (39.0-53.0) % MCHC 30.9 L (31.0-37.0) g/dL RDW 19.0 H (11.5-15.5) % Neutrophils # 12.7 H (1.3-7.7) k/uL Lymphocytes # 0.5 L (1.0-4.8) k/uL Chloride 91 L (98-107) mmol/L Carbon Dioxide 44 H* (22-30) mmol/L BUN 44 H (9-20) mg/dL Glucose 144 H (74-99) mg/dL POC Glucose (mg/dL) 183 H (70-110) mg/dL Oxcarbazepine (10-35) ug/mL 02/16/23 Range/Units 11:33 WBC (3.8-10.6) k/uL RBC (4.30-5.90) m/uL Hgb (13.0-17.5) gm/dL Hct (39.0-53.0) % MCHC (31.0-37.0) g/dL RDW (11.5-15.5) % Neutrophils # (1.3-7.7) k/uL Lymphocytes # (1.0-4.8) k/uL Chloride (98-107) mmol/L Carbon Dioxide (22-30) mmol/L BUN (9-20) mg/dL Glucose (74-99) mg/dL POC Glucose (mg/dL) 212 H (70-110) mg/dL Oxcarbazepine (10-35) ug/mL Microbiology - Last 24 Hours (Table) 02/14/23 04:16 Blood Culture - Preliminary Blood 02/11/23 14:20 Blood Culture - Preliminary Blood Assessment and Plan Assessment: Impression: Acute lower extremity cellulitis, patient is receiving cefepime and vancomycin. Acute on chronic hypoxic respiratory failure, alternating between BiPAP and airvo. Acute on chronic diastolic congestive heart failure History of mild intermittent asthma with mild exacerbation. Benign essential hypertension Morbid obesity Obstructive sleep apnea syndrome on CPAP Recurrent cellulitis of lower extremities, previous MRSA infection History of brain tumor and previous craniotomy. History of hypothyroidism on replacement therapy Benign essential hypertension, on treatment. Possible normal pressure hydrocephalus as noted on CT of the brain Recommendation: Continue antibiotics Continue airvo titrate the FiO2 accordingly however placed on BiPAP with the patient is sleeping Continue bronchodilators. Continue Solu-Medrol. Continue diuretics/Lasix. patient is on Lasix 80 mg IV push twice a day, he is also on Aldactone 25 mg by mouth daily May have to consider adding Diamox Continue cefepime and vancomycin. DO NOT RESUSCITATE/DO NOT INTUBATE CODE STATUS. Will follow Time with Patient: Less than 30
[2023-02-16 16:30] LABS: Glucose,Whole Blood 152 mg/dL (70-110)
--- NOTE | 2023-02-16 17:10 | P.PN ---
Subjective Progress Note Date: 02/16/23 The patient is seen at bedside and he states he is doing well. Denies of any new neurological issues. Objective - Vital Signs Vital signs: Vital Signs Temp 97.7 F 02/16/23 16:21 Pulse 65 02/16/23 16:21 Resp 22 02/16/23 16:21 BP 122/63 02/16/23 16:21 Pulse Ox 92 L 02/16/23 16:21 FiO2 60 02/16/23 15:22 Intake & Output 02/15/23 02/16/23 02/16/23 18:59 06:59 18:59 Intake Total 540 1375 Output Total 4725 3150 2250 Balance -5110 -2610 -875 Weight 143.5 kg Intake: Oral 540 1375 Output: Urine 4725 3150 2250 Other: Voiding Method Indwelling Catheter Indwelling Catheter Indwelling Catheter # Voids 3 - Exam GENERAL: The patient is sitting in a recliner chair and is not in acute distress. HENT: Has skull defect over the right frontotemporal region with old scar. NEUROLOGICAL: Higher mental function: The patient is awake, alert, oriented to self, place and time. Patient is following simple commands. No aphasia and no neglect. Cranial nerves: The pupils are round, equal and reactive to light. Visual chase are full to confrontation throughout. Extraocular movement is intact no nystagmus is noted. Facial sensation is normal to touch throughout. The facial strength is normal throughout. Tongue is midline and moved [id number] without any difficulty. No dysarthria is noted. Shoulder shrug is normal bilaterally. Motor: The strength is left lower extremity weakness from old stroke. Limited in lowers. Uppers seems normal. . Normal tone and bulk. Some of the workup during his hospital visit consisted of: Initial white blood cell is 27.2 thousand and currently to 18.6. It's pre dominantly neutrophilic. Initially the temperature is T-max of 101.5. His temperature has resolved. Sugar has been in the range of 170s to 220s. 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 Findings stable. Large fluid attenuation along the midline and paracentral left mild mass affect upon the left frontal lobe is stable from prior exam could be M basis arachnoid cyst. Recommend consideration for MRI. Findings stable dating back to 2009. I personally reviewed the CT and there is no bleed or any evidence of any acute subacute ischemia but was somewhat limited because of motion artifact. Appears to patient had an left frontal stroke that old which was with a history and his examination. Routine EEG: Is abnormal. The back was suggestive of mild encephalopathy. There is focal slowing over the right hemisphere consistent with focal cerebral dysfunction. Otherwise there is no epileptiform discharges or seizure on the EEG. Trileptal level is 1.6 (normal is 10-35). - Labs CBC & Chem 7: 02/16/23 07:01 02/16/23 07:01 Labs: Abnormal Lab Results - Last 24 Hours (Table) 02/14/23 02/15/23 02/16/23 Range/Units 15:20 20:03 06:15 WBC (3.8-10.6) k/uL RBC (4.30-5.90) m/uL Hgb (13.0-17.5) gm/dL Hct (39.0-53.0) % MCHC (31.0-37.0) g/dL RDW (11.5-15.5) % Neutrophils # (1.3-7.7) k/uL Lymphocytes # (1.0-4.8) k/uL Chloride (98-107) mmol/L Carbon Dioxide (22-30) mmol/L BUN (9-20) mg/dL Glucose (74-99) mg/dL POC Glucose (mg/dL) 198 H 183 H (70-110) mg/dL Oxcarbazepine 1.6 L (10-35) ug/mL 02/16/23 02/16/23 02/16/23 Range/Units 07:01 07:01 11:33 WBC 13.9 H (3.8-10.6) k/uL RBC 3.92 L (4.30-5.90) m/uL Hgb 11.0 L (13.0-17.5) gm/dL Hct 35.5 L (39.0-53.0) % MCHC 30.9 L (31.0-37.0) g/dL RDW 19.0 H (11.5-15.5) % Neutrophils # 12.7 H (1.3-7.7) k/uL Lymphocytes # 0.5 L (1.0-4.8) k/uL Chloride 91 L (98-107) mmol/L Carbon Dioxide 44 H* (22-30) mmol/L BUN 44 H (9-20) mg/dL Glucose 144 H (74-99) mg/dL POC Glucose (mg/dL) 212 H (70-110) mg/dL Oxcarbazepine (10-35) ug/mL 02/16/23 Range/Units 16:29 WBC (3.8-10.6) k/uL RBC (4.30-5.90) m/uL Hgb (13.0-17.5) gm/dL Hct (39.0-53.0) % MCHC (31.0-37.0) g/dL RDW (11.5-15.5) % Neutrophils # (1.3-7.7) k/uL Lymphocytes # (1.0-4.8) k/uL Chloride (98-107) mmol/L Carbon Dioxide (22-30) mmol/L BUN (9-20) mg/dL Glucose (74-99) mg/dL POC Glucose (mg/dL) 152 H (70-110) mg/dL Oxcarbazepine (10-35) ug/mL Microbiology - Last 24 Hours (Table) 02/14/23 04:16 Blood Culture - Preliminary Blood 02/11/23 14:20 Blood Culture - Preliminary Blood Assessment and Plan Assessment: Altered mental status seems due to underlying cellulitis---mentation is improving. No seizure on the EEG. 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 Recommend rechecking within a few days. Patient is on Trileptal 150mg [address] head is reported is stable compared to prior imaging per radiology team. I do not see any prior CT's for me to compare. I.D. is on board. Will defer the rest of medical management to primary team. The plan is discussed with patient. Time with Patient: Less than 30
--- NOTE | 2023-02-16 18:15 | P.PN ---
Subjective Progress Note Date: 02/16/23 HISTORY OF PRESENT ILLNESS This is a 71-year-old male patient with past medical history of hypertension, h yperlipidemia, CVA, mild persistent ALLERGIC asthma, seizure disorder, Parkinson's disease, chronic diastolic heart failure, stasis dermatitis of the left lower extremity due to peripheral venous hypertension, spondylosis of the lumbar spine, obstructive sleep apnea, patient was recently hospitalized at [facility] about a few once ago with significant cellulitis of both lower extremity is with venous ulceration that was treated with IV antibiotic due to MRSA at that time he was placed on vancomycin and cefepime then he was switched to Cubicin and he was supposed to go to extended care facility for IV antibiotic however the infectious disease recommended for the patient to go on linezolid 600 mg orally twice every day for 14 days, patient has been following with wound healing center with . and he has been getting would care at home but it was a Tuesday, today his nurse contacted EMS to bring her to the emergency department because of increased shortness breath as well as increased swelling in both lower extremity is, and significant fever and chills and patient was septic, patient was seen in the ER according to the EMS the patient oxygen sufficient was in the low 80s, his chest x-ray showed poorly vascular congestion, patient did receive IV fluid in the emergency department as a protocol of sepsis and put the patient in acute diastolic heart failure subs equently the patient was started on Lasix 80 mg IV push every 12 hours and he was seen in consultation by pulmonary/critical care medicine Dr. Burns who recommended for the patient to transfer to the intensive care unit, patient was also started on Solu-Medrol 60 mg IV push every 6 hours along with IV antibiotic in the form of vancomycin and cefepime he was also seen in consultation by infectious disease Dr. Amezquita. 02/12: Patient is laying down in bed appears to be in respiratory distress, his IV fluids were decreased to 50 mL an hour, he was placed on a BiPAP 12 and 6, he was given Lasix 80 mg IV push 1 and then twice every day, patient already was started on vancomycin and cefepime he was evaluated by pulmonary/critical care he was recommended for the patient to be transferred to the intensive care unit, blood gases were obtained, he was also started on Solu-Medrol 60 mg IV push ev beba 6 hours along with IV antibiotic we'll continue to monitor the patient very closely. 02/13: Patient is laying down in bed currently in respiratory distress on BiPAP, has been getting Lasix 80 mg IV push every 12 hours, his blood cultures are positive for gram-positive cocci currently on cefepime and vancomycin, we will continue to monitor until the final ID of the organism is there, pulmonary swallowing, patient has been followed very closely, he appears to be better today than yesterday, we'll continue to manage the patient along with ID and pulmonary and critical care. 02/14: Patient is laying down in bed in no apparent distress, he is currently on a BiPAP, his sitting better than yesterday, this was in the bedside, earlier in the morning did have mental status changes and increased confusion, computed tomography scan of the brain was reviewed, did show chronic changes in acute abn ormalities, patient has been maintained on IV Lasix, IV antibiotic, he has been seen by pulmonary medicine as well as by infectious disease 02/15: Patient was seen earlier by neurology today because of increased the encephalopathy reviewed computed tomography scan did not show evidence of acute of normalities just chronic changes, patient was sitting up in chair today with his at bedside, patient appears to be at baseline to me, has been responding very well to the current treatment, he continued to be on Lasix 80 mg IV push every 12 hours, his Solu-Medrol was decreased to 40 mg IV push every 8 hours, we will continue to monitor that, continue to wean 02/16: Patient is sitting up in bed in no apparent distress, he continues to be on Airvo he is feeling much more comfortable today, he has no chest pain, shortness breath, this coughing, no abdominal pain, no bowel movement today, his lower extremities are much better, specially the left lower extremity, he continues to be on cefepime and vancomycin, we'll decrease his Solu-Medrol to 40 mg IV push every 12 hours, decrease his Lasix to 40 mg IV push every 12 hours, monitor the patient's electrolytes tomorrow morning. down steroid as this may be the reason for the encephalopathy, along with a cellulitis of the left lower extremity more than the right lower extremity, patient has been followed very closely.REVIEW OF SYSTEMS Constitutional: positive for fever, chills, no night sweats. No weight change. positive for weakness,positive for fatigue and lethargy. positive for daytime sleepiness. HEENT: No headache. No blurred vision or double vision, no loss of vision. No loss of Hearing, no ringing in the ears, no dizziness. No nasal drainage or congestion. No epistaxis. No sore throat. Lungs:positive for shortness of breath, occasional cough, no sputum production. positive for wheezing.Chronic dyspnea with exertion. Cardiovascular: No chest pain,reports lower extremity edema. positive for palpitations. positive for paroxysmal nocturnal dyspnea. positive for orthopnea. No lightheadedness or dizziness. No syncopal episodes. Abdominal: No abdominal pain. No nausea, vomiting. No diarrhea. No constipation. No bloody or tarry stools. No loss of appetite. Genitourinary: No dysuria, kennedy catheter in place Musculoskeletal: No myalgias. positive for bilateral lower extremities muscle weakness, positive for gait dysfunction, no frequent falls. positive for back pain and neck pain. Integumentary:Reports wounds with venous ulcerations to left lower extremity. No rash or pruritus. No unusual bruising. positive for change in hair and nails. Neurologic: No aphasia. No facial droop. positive for change in mentation. No head injury. No headache. No paralysis. No paresthesia. Psychiatric: positive for depression and anxiety. No mood swings. Endocrine: No abnormal blood sugars. positive for weight change. No excessive sweating or thirst. No cold intolerance. PHYSICAL EXAMINATION Gen: This is a morbidly obese 72-year-old male lying down in bed in moderate respiratory distress HEENT: Head is atraumatic, normocephalic. Pupils equal, round. Sclerae is anicte lc, mucous membranes of the mouth are somewhat dry. NECK: Supple. elevated JVD. No lymphadenopathy. No thyromegaly. LUNGS: Decrease breath sounds at the bases with few ronchi , moderate expiratory wheezes, and minimal intercostal retractions. HEART: First heart sound is depressed, second heart sound is normal, there is a 2/6 systolic ejection murmur at the left sternal border, no S3, no S4.. ABDOMEN: Soft. Bowel sounds are present. No masses. No tenderness.obese, positive bowel sounds EXTREMITIES: 3+ bilateral pitting pedal edema with erythema, there is venous ulcerations in the left lower extremity extending into to the calf posteriorly with severe erythema and tenderness to touch, left second toe amputation and DP +1 bilaterally NEUROLOGICAL: Patient is awake, alert and oriented x3. Cranial nerves 2 through 12 are grossly intact, CN II-XII are grossly intact muscle power 4/5 in bi lateral upper extremities, and 3/5 in bilateral lower extremities. ASSESSMENT AND PLAN 1. Bilateral lower extremity cellulitis with sepsis present on admission Wound culture is in progress, consult with Dr. Amezquita appreciated, continue patient on vancomycin with pharmacy to dose its peak and trough, cefepime 2 g IV piggyback every 8 hours, continue vancomycin 2000 mg IV piggyback every 12 hours, we will cultures obtained, blood cultures reviewed 2. Acute hypoxemic respiratory failure due to acute on chronic diastolic heart failure as well as acute exacerbation of COPD/asthma, Lasix 40 mg IV push every 12 hours, carvedilol 3.125 mg orally twice every day, losartan 25 mg once every day, spironolactone 25 mg orally once every day, Kennedy catheter in place, input and output and daily weight, Solu-Medrol 40 mg IV push every 12 hours, DuoNeb 3 mL nebulization 3 times every day. currently on Airvo. 3. Chronic respiratory failure due to Obesity with obstructive sleep apnea and obesity hypoventilation syndrome with underlying COPD/asthma . Continue treatment as in the previous paragraph. 4. Hypertension and hypertensive cardiovascular disease. Continue Coreg 3.125 mg twice daily, continue losartan 25 mg once every day, continue spironolactone 25 mg once every day. 5. Hyperlipidemia. Continue low-cholesterol diet, continue atorvastatin 40 mg once every day, monitor lipid panel, keep LDL 55-70. 6. History of CVA. Continue patient on atorvastatin 40 mg once every day as well as aspirin 81 mg once every day. 7. Parkinson's disease. Continue Mirapex 1 mg 3 times daily. 8. Spondylosis of the lumbar spine. Continue Lyrica 75 mg twice daily. 9. Obstructive sleep apnea. Continue Bipap/Airvo. 10. Hypothyroidism. Continue Synthroid 50 g orally once every day monitor TSH and free T4 11. GI prophylaxis. Protonix 40 mg orally once every day.. 12. DVT prophylaxis. Lovenox 40 mg subcutaneously every 24 hours. 13. metabolic encephalopathy due to multifactorial including bilateral lower extremity Seletz with sepsis, hypercapnic respiratory failure, medication side effects. Neurology evaluation appreciated 14. Patient is no CODE STATUS per his own wishes 15. Plan for subacute rehab physician in the next few days. Objective - Vital Signs Vital signs: Vital Signs Temp 97.7 F 02/16/23 16:21 Pulse 65 02/16/23 16:21 Resp 22 02/16/23 16:21 BP 122/63 02/16/23 16:21 Pulse Ox 92 L 02/16/23 16:21 FiO2 60 02/16/23 15:22 Intake & Output 02/15/23 02/16/23 02/16/23 18:59 06:59 18:59 Intake Total 540 1375 Output Total 4725 3150 2250 Balance -4927 -4280 -515 Weight 143.5 kg Intake: Oral 540 1375 Output: Urine 4725 3150 2250 Other: Voiding Method Indwelling Catheter Indwelling Catheter Indwelling Catheter # Voids 3 - Labs CBC & Chem 7: 02/16/23 07:01 02/16/23 07:01 Labs: Abnormal Lab Results - Last 24 Hours (Table) 02/14/23 02/15/23 02/16/23 Range/Units 15:20 20:03 06:15 WBC (3.8-10.6) k/uL RBC (4.30-5.90) m/uL Hgb (13.0-17.5) gm/dL Hct (39.0-53.0) % MCHC (31.0-37.0) g/dL RDW (11.5-15.5) % Neutrophils # (1.3-7.7) k/uL Lymphocytes # (1.0-4.8) k/uL Chloride (98-107) mmol/L Carbon Dioxide (22-30) mmol/L BUN (9-20) mg/dL Glucose (74-99) mg/dL POC Glucose (mg/dL) 198 H 183 H (70-110) mg/dL Oxcarbazepine 1.6 L (10-35) ug/mL 02/16/23 02/16/23 02/16/23 Range/Units 07:01 07:01 11:33 WBC 13.9 H (3.8-10.6) k/uL RBC 3.92 L (4.30-5.90) m/uL Hgb 11.0 L (13.0-17.5) gm/dL Hct 35.5 L (39.0-53.0) % MCHC 30.9 L (31.0-37.0) g/dL RDW 19.0 H (11.5-15.5) % Neutrophils # 12.7 H (1.3-7.7) k/uL Lymphocytes # 0.5 L (1.0-4.8) k/uL Chloride 91 L (98-107) mmol/L Carbon Dioxide 44 H* (22-30) mmol/L BUN 44 H (9-20) mg/dL Glucose 144 H (74-99) mg/dL POC Glucose (mg/dL) 212 H (70-110) mg/dL Oxcarbazepine (10-35) ug/mL 02/16/23 Range/Units 16:29 WBC (3.8-10.6) k/uL RBC (4.30-5.90) m/uL Hgb (13.0-17.5) gm/dL Hct (39.0-53.0) % MCHC (31.0-37.0) g/dL RDW (11.5-15.5) % Neutrophils # (1.3-7.7) k/uL Lymphocytes # (1.0-4.8) k/uL Chloride (98-107) mmol/L Carbon Dioxide (22-30) mmol/L BUN (9-20) mg/dL Glucose (74-99) mg/dL POC Glucose (mg/dL) 152 H (70-110) mg/dL Oxcarbazepine (10-35) ug/mL Microbiology - Last 24 Hours (Table) 02/14/23 04:16 Blood Culture - Preliminary Blood 02/11/23 14:20 Blood Culture - Preliminary Blood
[2023-02-16 19:57] LABS: Glucose,Whole Blood 215 mg/dL (70-110)
[2023-02-16] MEDS: FUROSEMIDE 10 MG/ML 4 ML VIAL IV SCH (20:28)
[2023-02-16] MEDS: ATORVASTATIN 40 MG TAB PO SCH (20:28)
[2023-02-17] MEDS: CEFEPIME 2 GM in SODIUM CHLORIDE 0.9% 100 ML IVPB SCH ×4 (00:07→23:08)
[2023-02-17] MEDS: HYDROcodone/APAP 10-325MG 1 EACH TAB PO PRN ×2 (00:07→14:59)
[2023-02-17] MEDS ORDERED: VANCOMYCIN TROUGH DUE 1 EACH MISC MISCELLANE ONE (04:00)
[2023-02-17 04:42] LABS: Anisocytosis Slight; Basophils # (A) 0.1 k/uL (0-0.2); Basophils % (A) 1 %; Eosinophils # (A) 0.1 k/uL (0-0.7); Eosinophils % (A) 0 %; HCT 36.2 % (39.0-53.0); HGB 11.1 gm/dL (13.0-17.5); Hypochromasia Moderate; Lymphocytes # (A) 0.8 k/uL (1.0-4.8); Lymphocytes % (A) 5 %; MCH 27.6 pg (25.0-35.0); MCHC 30.5 g/dL (31.0-37.0); MCV 90.6 fL (80.0-100.0); Mean Platelet Volume 8.5; Monocytes # (A) 0.9 k/uL (0-1.0); Monocytes % (A) 5 %; Neutrophils # (A) 16.7 k/uL (1.3-7.7); Neutrophils % (A) 89 %; Platelet Count 299 k/uL (150-450); Poikilocytosis Slight; RDW 18.5 % (11.5-15.5); WBC 18.7 k/uL (3.8-10.6)
[2023-02-17 04:51] LABS: ALT 21 U/L (4-49); AST 23 U/L (17-59); African American GFR (CKD) >90 (>60 ml/min/1.73 sqM); Albumin 3.4 g/dL (3.5-5.0); Alkaline Phosphatase 52 U/L (38-126); Blood Urea Nitrogen 43 mg/dL (9-20); Calcium 9.3 mg/dL (8.4-10.2); Chloride 88 mmol/L (98-107); Glucose 132 mg/dL (74-99); Non-African American GFR(CKD) >90 (>60 ml/min/1.73 sqM); Potassium 4.5 mmol/L (3.5-5.1); Sodium 137 mmol/L (137-145); Total Bilirubin 0.8 mg/dL (0.2-1.3); Total Protein 6.2 g/dL (6.3-8.2)
[2023-02-17 04:58] LABS: Anion Gap 1 mmol/L
[2023-02-17 05:12] LABS: Carbon Dioxide 48 mmol/L (22-30)
[2023-02-17] MEDS: VANCOMYCIN 2,000 MG in SODIUM CHLORIDE 0.9% 500 ML 500 ML IVPB SCH ×2 (05:32→16:59)
[2023-02-17] MEDS: SODIUM CHLORIDE 0.9% 1,000 ML IV SCH (05:50)
[2023-02-17 06:04] LABS: Glucose,Whole Blood 146 mg/dL (70-110)
[2023-02-17] MEDS: INSULIN ASPART (NovoLOG) 100 UNIT/ML VIAL SQ SCH ×4 (06:23→20:23)
[2023-02-17] MEDS: LEVOTHYROXINE 50 MCG TAB PO SCH (06:31)
[2023-02-17] MEDS: carvediloL 3.125 MG TAB PO SCH ×2 (06:32→16:58)
[2023-02-17] MEDS: methylPREDNISolone SOD SUCCI 40 MG/ML 1 ML VIAL IV SCH ×2 (06:32→18:40)
[2023-02-17] MEDS: PANTOPRAZOLE 40 MG TABLET PO SCH (06:32)
[2023-02-17] MEDS: IPRATROPIUM-ALBUTEROL 3 ML NEB INHALATION SCH ×4 (07:52→20:20)
[2023-02-17] MEDS: FUROSEMIDE 10 MG/ML 4 ML VIAL IV SCH (08:53)
[2023-02-17] MEDS: PREGABALIN 75 MG CAP PO SCH (08:53)
[2023-02-17] MEDS: ENOXAPARIN 40 MG/0.4 ML SYRINGE SQ SCH (08:53)
[2023-02-17] MEDS: LOSARTAN 25 MG TAB PO SCH (08:54)
[2023-02-17] MEDS: SPIRONOLACTONE 25 MG TAB PO SCH (08:54)
[2023-02-17] MEDS: PRAMIPEXOLE 1 MG TAB PO SCH ×3 (08:54→20:22)
[2023-02-17] MEDS: OXcarbazepine 150 MG TAB PO SCH ×2 (08:54→20:22)
[2023-02-17] MEDS: acetaZOLAMIDE 250 MG TAB PO SCH ×2 (11:05→20:22)
[2023-02-17 11:27] LABS: Glucose,Whole Blood 190 mg/dL (70-110)
--- NOTE | 2023-02-17 13:02 | P.PN ---
Subjective Progress Note Date: 02/17/23 Principal diagnosis: Acute on chronic hypoxic respiratory failure and acute cellulitis of lower extremities. History of Present Illness: Patient is a 72-year-old male here history is limited secondary to patient's medical status. Patient brought in by EMS from home. Patient allegedly was dyspneic. His recently admitted to the neighboring hospital for similar issue. He is currently being treated for lower extremity cellulitis bilaterally. EMS states that patient was very wheezy. They placed him on noninvasive ventilation and given breathing treatment which improved his symptoms are related allegedly had persistent upper field wheezing. EMS reports hypoxia upon initial arrival with saturations in the mid to low 80s.the patient is morbidly obese and has history of obstructive sleep apnea. He was quite lethargic and short of breath at time of admission and based on that the patient was placed on a BiPAP and currently the patient is a BiPAP settings of 12/6 cm o f water and FiO2 of 40%. His chest x-ray showed some mild pulmonary vascular congestion. Hhe has excessive edema in lower extremities along with cellulitis left lower extremity. Based on that, the patient was started on diuretics and the patient is currently on IV Lasix 80 mg every 12 hours and is producing adequate amount of urine output. He is also covered with a combination of cefepime and vancomycin regarding lower extremity cellulitis. He is arousable. He was communicate. He is tachypneic even while in the BiPAP and the patient seems to the BiPAP dependent. the patient was taken off the BiPAP briefly earlier this morning. Failed as the patient became more lethargic and somnolen t. Was placed back on a BiPAP. He is on Lovenox 40 mg subcu portably prophylaxis. He is bronchospastic and wheezy and I added Solu-Medrol. On today's evaluation of 02/12/2023, the patient is still wearing his BiPAP. Slightly improved compared to yesterday. He is diuresing well. Less spastic and wheezy. The patient is currently on Lasix 80 mg IV every 12 hours. Remains on a combination of cefepime and vancomycin. Remains on bronchodilators and steroids. Awake and alert and communicating. He is a DO NOT INTUBATE cor status and the patient did not get transferred to the intensive care unit for that reason. White suppository 3.8. Hemoglobin is 9.7. Sodium is at 140 with a potassium level of 4.7, BUN is 28 and a creatinine of 0.7. Fluid balance is - 684 mL and the patient is -1.7 L since yesterday. Reevaluated today on 02/14/2023, patient remains on BiPAP, and 50% FiO2. Seems to be comfortable, however he seems to be almost BiPAP dependent. Patient does not seem to be in any distress, he is still receiving antibiotics for his cellulitis, and his WBC count is improving down to 18.6, hemoglobin is 9.5 basic metabolic profile is normal renal profile is normal, his cellulitis is being addressed by infectious disease on the case. Blood cultures are positive for micrococcus species. Patient is on vancomycin. Reevaluated today on 02/15/2023, patient remains on BiPAP, 50%, IPAP of 12 and EPAP of 6, doing fairly well, does not seem to be in any distress, I am recommending at least transitioning the patient to airvo intermittently since he desaturates on 4 L nasal cannula. Patient will be placed on 50 L flow and 60% FiO2/airvo intermittently off BiPAP. Remains on antibiotics for his cellulitis. His CT of the brain came back abnormal, and I'm recommending neurology evaluation for possible normal pressure hydrocephalus. WBC count today is coming down to 18.6 from 23.8 yesterday. Basic metabolic profile is unremarkable, bicarb is 37. Chest x-ray on admission showed mostly fluid overload/pulmonary edema. Reevaluated today on 02/16/2023, patient seems to be doing well with airvo, off BiPAP, he is on 60% FiO2 and 50 L flow, plan is to continue to titrate his FiO2 down. Patient seems to be comfortable, he likes the airvo better than BiPAP. Bicarb is 44 which is expected, considering his severe chronic hypercapnic respiratory failure patient is metabolically compensating for his chronic respiratory acidosis. WBC count is 13.9 hemoglobin is 11. Patient does not seem to be in distress. Patient was seen by neurology on consultation, recommended EEG, placed on Trileptal 150 mg twice a day. He felt that his CT of the head findings are stable Reevaluated today on 02/17/2023, patient remains on airvo at 50% FiO2 and 50 L/m. Seems to be quite comfortable, he seems to be much more comfortable with the airvo compared to BiPAP. Breathing easier, denies any shortness of breath at present. Denies any chest discomfort. Continues to have leukocytosis with WBC count of 18.7, patient had initial WBC count on admission of 27.2 basic metabolic profile is normal except bicarb is 48 hence am recommending that we placed the patient back on Diamox. BUN is 43 creatinine 0.65. Objective - Vital Signs Vital signs: Vital Signs Temp 97.6 F 02/17/23 12:00 Pulse 73 02/17/23 12:00 Resp 23 02/17/23 12:00 BP 127/64 02/17/23 12:00 Pulse Ox 91 L 02/17/23 12:00 FiO2 50 02/17/23 10:58 Intake & Output 02/16/23 02/17/23 02/17/23 18:59 06:59 18:59 Intake Total 1615 360 Output Total 2250 2600 2050 Balance -635 -2600 -1690 Weight 155.5 kg Intake: Oral 1615 360 Output: Urine 2250 2600 2050 Other: Voiding Method Indwelling Catheter Indwelling Catheter Indwelling Catheter - Exam GENERAL EXAM: Alert, doesn't, obese 72-year-old male patient, remains on airvo Head: Atraumatic normocephalic. ENT: PERRLA, EOMI, anicteric, short obese neck, no neck masses no JVD no stridor. CHEST: No chest wall deformity. LUNGS: Diminished breath sounds at the bases with crackles. CVS: S1 and S2 normal with no audible murmur, regular rhythm. ABDOMEN: No hepatosplenomegaly, normal bowel sounds, no guarding or rigidity. SKIN: Both lower extremities are wrapped with sterile dressings, could not fully visualize. Patient obviously has cellulitis and lower extremities. CENTRAL NERVOUS SYSTEM: No focal deficits, tone is normal in all 4 extremities. EXTREMITIES: There is 1+ bipedal edema. No clubbing, no cyanosis. Peripheral pulses are intact. - Labs CBC & Chem 7: 02/17/23 04:16 02/17/23 04:16 Labs: Abnormal Lab Results - Last 24 Hours (Table) 02/16/23 02/16/23 02/17/23 Range/Units 16:29 19:55 04:16 WBC (3.8-10.6) k/uL RBC (4.30-5.90) m/uL Hgb (13.0-17.5) gm/dL Hct (39.0-53.0) % MCHC (31.0-37.0) g/dL RDW (11.5-15.5) % Neutrophils # (1.3-7.7) k/uL Lymphocytes # (1.0-4.8) k/uL Chloride 88 L (98-107) mmol/L Carbon Dioxide 48 H* (22-30) mmol/L BUN 43 H (9-20) mg/dL Creatinine 0.65 L (0.66-1.25) mg/dL Glucose 132 H (74-99) mg/dL POC Glucose (mg/dL) 152 H 215 H (70-110) mg/dL Total Protein 6.2 L (6.3-8.2) g/dL Albumin 3.4 L (3.5-5.0) g/dL 02/17/23 02/17/23 02/17/23 Range/Units 04:16 06:02 11:26 WBC 18.7 H (3.8-10.6) k/uL RBC 4.00 L (4.30-5.90) m/uL Hgb 11.1 L (13.0-17.5) gm/dL Hct 36.2 L (39.0-53.0) % MCHC 30.5 L (31.0-37.0) g/dL RDW 18.5 H (11.5-15.5) % Neutrophils # 16.7 H (1.3-7.7) k/uL Lymphocytes # 0.8 L (1.0-4.8) k/uL Chloride (98-107) mmol/L Carbon Dioxide (22-30) mmol/L BUN (9-20) mg/dL Creatinine (0.66-1.25) mg/dL Glucose (74-99) mg/dL POC Glucose (mg/dL) 146 H 190 H (70-110) mg/dL Total Protein (6.3-8.2) g/dL Albumin (3.5-5.0) g/dL Microbiology - Last 24 Hours (Table) 02/11/23 14:20 Blood Culture - Final Blood 04/24/23 04:16 Blood Culture - Preliminary Blood Assessment and Plan Assessment: Impression: Acute lower extremity cellulitis, patient is receiving cefepime and vancomycin. Being addressed by infectious disease. Acute on chronic hypoxic respiratory failure, alternating between BiPAP and airvo. Acute on chronic diastolic congestive heart failure History of mild intermittent asthma with mild exacerbation. Benign essential hypertension Morbid obesity Obstructive sleep apnea syndrome on CPAP Recurrent cellulitis of lower extremities, previous MRSA infection History of brain tumor and previous craniotomy. History of hypothyroidism on replacement therapy Benign essential hypertension, on treatment. Possible normal pressure hydrocephalus as noted on CT of the brain Recommendation: Placed patient back on Diamox 250 mg by mouth twice a day, cut down Lasix to once daily Continue antibiotics as per ID on the case. Continue airvo titrate the FiO2 accordingly however placed on BiPAP with the patient is sleeping Continue bronchodilators. Continue Solu-Medrol. Continue cefepime and vancomycin. DO NOT RESUSCITATE/DO NOT INTUBATE CODE STATUS. Will follow Time with Patient: Less than 30
--- NOTE | 2023-02-17 14:06 | P.PN ---
Subjective Progress Note Date: 02/17/23 Principal diagnosis: Bilateral lower extremity cellulitis Patient is a 72-year-old male with multiple comorbidities and did have history of bilateral lower extremity cellulitis and previous infection with both MRSA and pseudomonas presented to hospital with sepsis concerning for left lower extremity cellulitis. On today's evaluation that is 02/17/2023, the patient continues to be afebrile, the patient is breathing comfortably on high flow nasal cannula oxygen 50% FiO2 , the patient denies any chest pain or shortness of breath occasional cough no nausea no vomiting no abdominal pain , pain to lower extremity has decreased in intensity and no drainage Objective - Vital Signs Vital signs: Vital Signs Temp 97.6 F 02/17/23 12:00 Pulse 73 02/17/23 12:00 Resp 23 02/17/23 12:00 BP 127/64 02/17/23 12:00 Pulse Ox 91 L 02/17/23 12:00 FiO2 50 02/17/23 10:58 Intake & Output 02/16/23 02/17/23 02/17/23 18:59 06:59 18:59 Intake Total 1615 360 Output Total 2250 2600 2049 Balance -813 -8464 -6582 Weight 155.5 kg Intake: Oral 1615 360 Output: Urine 2250 2600 2049 Other: Voiding Method Indwelling Catheter Indwelling Catheter Indwelling Catheter - Exam GENERAL DESCRIPTION: An elderly male lying in bed in no distress RESPIRATORY SYSTEM: Unlabored breathing , decreased breath sounds at bases HEART: S1 S2 regular rate and rhythm , ABDOMEN: Soft , no tenderness EXTREMITIES: Left extremity swelling redness has improved no drainage - Labs CBC & Chem 7: 02/17/23 04:16 02/17/23 04:16 Labs: Abnormal Lab Results - Last 24 Hours (Table) 02/16/23 02/16/23 02/17/23 Range/Units 16:29 19:55 04:16 WBC (3.8-10.6) k/uL RBC (4.30-5.90) m/uL Hgb (13.0-17.5) gm/dL Hct (39.0-53.0) % MCHC (31.0-37.0) g/dL RDW (11.5-15.5) % Neutrophils # (1.3-7.7) k/uL Lymphocytes # (1.0-4.8) k/uL Chloride 88 L (98-107) mmol/L Carbon Dioxide 48 H* (22-30) mmol/L BUN 43 H (9-20) mg/dL Creatinine 0.65 L (0.66-1.25) mg/dL Glucose 132 H (74-99) mg/dL POC Glucose (mg/dL) 152 H 215 H (70-110) mg/dL Total Protein 6.2 L (6.3-8.2) g/dL Albumin 3.4 L (3.5-5.0) g/dL 02/17/23 02/17/23 02/17/23 Range/Units 04:16 06:02 11:26 WBC 18.7 H (3.8-10.6) k/uL RBC 4.00 L (4.30-5.90) m/uL Hgb 11.1 L (13.0-17.5) gm/dL Hct 36.2 L (39.0-53.0) % MCHC 30.5 L (31.0-37.0) g/dL RDW 18.5 H (11.5-15.5) % Neutrophils # 16.7 H (1.3-7.7) k/uL Lymphocytes # 0.8 L (1.0-4.8) k/uL Chloride (98-107) mmol/L Carbon Dioxide (22-30) mmol/L BUN (9-20) mg/dL Creatinine (0.66-1.25) mg/dL Glucose (74-99) mg/dL POC Glucose (mg/dL) 146 H 190 H (70-110) mg/dL Total Protein (6.3-8.2) g/dL Albumin (3.5-5.0) g/dL Microbiology - Last 24 Hours (Table) 02/11/23 14:20 Blood Culture - Final Blood 02/14/23 04:16 Blood Culture - Preliminary Blood Assessment and Plan (1) Sepsis Current Visit: Yes Status: Acute Code(s): A41.9 - SEPSIS, UNSPECIFIED ORGANISM SNOMED Code(s): 45722297 (2) Bilateral lower leg cellulitis Current Visit: No Status: Acute Code(s): L03.116 - CELLULITIS OF LEFT LOWER LIMB; L03.115 - CELLULITIS OF RIGHT LOWER LIMB SNOMED Code(s): 095260415 Plan: 1patient was in the hospital with sepsis in this patient who did have a fever tachycardia elevated white count source is likely bilateral lower extremity cellulitis with left greater than right this patient who did have a history of both MRSA and Pseudomonas infection in the past with the patient failing oral Zyvox concern for possible gram-negative infection 2local wound care to the left lower extremity wound with Aquacel silver dressing followed by Moody wrap from just above the toe to below knee , to be changed daily 3positive blood cultures with a micrococcus likely skin contamination, repeat blood culture has been negative so far 4-patient to continue vancomycin and cefepime to which the patient fever has responded, plan is to get a PICC line and continue with antibiotic for a week on discharged to the group home Time with Patient: Less than 30
[2023-02-17 16:47] LABS: Glucose,Whole Blood 155 mg/dL (70-110)
[2023-02-17 19:43] LABS: Glucose,Whole Blood 180 mg/dL (70-110)
[2023-02-17] MEDS: ATORVASTATIN 40 MG TAB PO SCH (20:22)
[2023-02-17] MEDS: ACETAMINOPHEN TAB 325 MG TAB PO PRN (20:32)
[2023-02-17] MEDS: MELATONIN 3 MG TABLET PO SCH (23:08)
[2023-02-18] MEDS: SODIUM CHLORIDE 0.9% 1,000 ML IV SCH (02:07)
[2023-02-18] MEDS: HYDROcodone/APAP 10-325MG 1 EACH TAB PO PRN ×2 (03:52→17:45)
[2023-02-18 05:49] LABS: Glucose,Whole Blood 209 mg/dL (70-110)
[2023-02-18] MEDS: PANTOPRAZOLE 40 MG TABLET PO SCH (06:30)
[2023-02-18] MEDS: carvediloL 3.125 MG TAB PO SCH ×2 (06:30→17:21)
[2023-02-18] MEDS: INSULIN ASPART (NovoLOG) 100 UNIT/ML VIAL SQ SCH ×4 (06:30→20:07)
[2023-02-18] MEDS: LEVOTHYROXINE 50 MCG TAB PO SCH (06:30)
[2023-02-18 07:03] LABS: Anisocytosis Slight; HCT 36.3 % (39.0-53.0); HGB 11.3 gm/dL (13.0-17.5); Hypochromasia Marked; MCH 28.5 pg (25.0-35.0); MCHC 31.1 g/dL (31.0-37.0); MCV 91.7 fL (80.0-100.0); Mean Platelet Volume 8.2; Platelet Count 293 k/uL (150-450); Poikilocytosis Slight; RBC 3.96 m/uL (4.30-5.90); RDW 18.8 % (11.5-15.5); WBC 21.3 k/uL (3.8-10.6)
[2023-02-18 07:49] VITALS: BMI 44.6
--- NOTE | 2023-02-18 08:15 | P.PN ---
Subjective Progress Note Date: 02/17/23 HISTORY OF PRESENT ILLNESS This is a 71-year-old male patient with past medical history of hypertension, h yperlipidemia, CVA, mild persistent ALLERGIC asthma, seizure disorder, Parkinson's disease, chronic diastolic heart failure, stasis dermatitis of the left lower extremity due to peripheral venous hypertension, spondylosis of the lumbar spine, obstructive sleep apnea, patient was recently hospitalized at [facility] about a few once ago with significant cellulitis of both lower extremity is with venous ulceration that was treated with IV antibiotic due to MRSA at that time he was placed on vancomycin and cefepime then he was switched to Cubicin and he was supposed to go to extended care facility for IV antibiotic however the infectious disease recommended for the patient to go on linezolid 600 mg orally twice every day for 14 days, patient has been following with wound healing center with . and he has been getting would care at home but it was a Tuesday, today his nurse contacted EMS to bring her to the emergency department because of increased shortness breath as well as increased swelling in both lower extremity is, and significant fever and chills and patient was septic, patient was seen in the ER according to the EMS the patient oxygen sufficient was in the low 80s, his chest x-ray showed poorly vascular congestion, patient did receive IV fluid in the emergency department as a protocol of sepsis and put the patient in acute diastolic heart failure subs equently the patient was started on Lasix 80 mg IV push every 12 hours and he was seen in consultation by pulmonary/critical care medicine Dr. Burns who recommended for the patient to transfer to the intensive care unit, patient was also started on Solu-Medrol 60 mg IV push every 6 hours along with IV antibiotic in the form of vancomycin and cefepime he was also seen in consultation by infectious disease Dr. Amezquiat. 02/12: Patient is laying down in bed appears to be in respiratory distress, his IV fluids were decreased to 50 mL an hour, he was placed on a BiPAP 12 and 6, he was given Lasix 80 mg IV push 1 and then twice every day, patient already was started on vancomycin and cefepime he was evaluated by pulmonary/critical care he was recommended for the patient to be transferred to the intensive care unit, blood gases were obtained, he was also started on Solu-Medrol 60 mg IV push ev beba 6 hours along with IV antibiotic we'll continue to monitor the patient very closely. 02/13: Patient is laying down in bed currently in respiratory distress on BiPAP, has been getting Lasix 80 mg IV push every 12 hours, his blood cultures are positive for gram-positive cocci currently on cefepime and vancomycin, we will continue to monitor until the final ID of the organism is there, pulmonary swallowing, patient has been followed very closely, he appears to be better today than yesterday, we'll continue to manage the patient along with ID and pulmonary and critical care. 02/14: Patient is laying down in bed in no apparent distress, he is currently on a BiPAP, his sitting better than yesterday, this was in the bedside, earlier in the morning did have mental status changes and increased confusion, computed tomography scan of the brain was reviewed, did show chronic changes in acute abn ormalities, patient has been maintained on IV Lasix, IV antibiotic, he has been seen by pulmonary medicine as well as by infectious disease 02/15: Patient was seen earlier by neurology today because of increased the encephalopathy reviewed computed tomography scan did not show evidence of acute of normalities just chronic changes, patient was sitting up in chair today with his at bedside, patient appears to be at baseline to me, has been responding very well to the current treatment, he continued to be on Lasix 80 mg IV push every 12 hours, his Solu-Medrol was decreased to 40 mg IV push every 8 hours, we will continue to monitor that, continue to wean 02/16: Patient is sitting up in bed in no apparent distress, he continues to be on Airvo he is feeling much more comfortable today, he has no chest pain, shortness breath, this coughing, no abdominal pain, no bowel movement today, his lower extremities are much better, specially the left lower extremity, he continues to be on cefepime and vancomycin, we'll decrease his Solu-Medrol to 40 mg IV push every 12 hours, decrease his Lasix to 40 mg IV push every 12 hours, monitor the patient's electrolytes tomorrow morning. 02/17: Patient sitting up in bed in no apparent distress, he continues to be on Airvo , decrease Lasix to 40 mg IV push every 24 hours, he was started on Diamox 500 mg orally twice every day due to contraction alkalosis, has been followed by pulmonary medicine as well, he is maintained on gentamicin and cefepime, infectious disease will decide on the timing of the PICC line, patient will be ready to get to the extended care facility with IV antibiotic blood cultures appears to be negative so far. 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 REVIEW OF SYSTEMS Constitutional: positive for fever, chills, no night sweats. No weight change. positive for weakness,positive for fatigue and lethargy. positive for daytime sleepiness. HEENT: No headache. No blurred vision or double vision, no loss of vision. No loss of Hearing, no ringing in the ears, no dizziness. No nasal drainage or congestion. No epistaxis. No sore throat. Lungs:positive for shortness of breath, occasional cough, no sputum production. positive for wheezing.Chronic dyspnea with exertion. Cardiovascular: No chest pain,reports lower extremity edema. positive for palpitations. positive for paroxysmal nocturnal dyspnea. positive for orthopnea. No lightheadedness or dizziness. No syncopal episodes. Abdominal: No abdominal pain. No nausea, vomiting. No diarrhea. No constipation. No bloody or tarry stools. No loss of appetite. Genitourinary: No dysuria, kennedy catheter in place Musculoskeletal: No myalgias. positive for bilateral lower extremities muscle weakness, positive for gait dysfunction, no frequent falls. positive for back pain and neck pain. Integumentary:Reports wounds with venous ulcerations to left lower extremity. No rash or pruritus. No unusual bruising. positive for change in hair and nails. Neurologic: No aphasia. No facial droop. positive for change in mentation. No head injury. No headache. No paralysis. No paresthesia. Psychiatric: positive for depression and anxiety. No mood swings. Endocrine: No abnormal blood sugars. positive for weight change. No excessive sweating or thirst. No cold intolerance. PHYSICAL EXAMINATION Gen: This is a morbidly obese 72-year-old male lying down in bed in moderate respiratory distress HEENT: Head is atraumatic, normocephalic. Pupils equal, round. Sclerae is anicteric, mucous membranes of the mouth are somewhat dry. NECK: Supple. elevated JVD. No lymphadenopathy. No thyromegaly. LUNGS: Decrease breath sounds at the bases with few ronchi , moderate expiratory wheezes, and minimal intercostal retractions. HEART: First heart sound is depressed, second heart sound is normal, there is a 2/6 systolic ejection murmur at the left sternal border, no S3, no S4.. ABDOMEN: Soft. Bowel sounds are present. No masses. No tenderness.obese, positive bowel sounds EXTREMITIES: 3+ bilateral pitting pedal edema with erythema, there is venous ulcerations in the left lower extremity extending into to the calf posteriorly with severe erythema and tenderness to touch, left second toe amputation and DP +1 bilaterally NEUROLOGICAL: Patient is awake, alert and oriented x3. Cranial nerves 2 through 12 are grossly intact, CN II-XII are grossly intact muscle power 4/5 in bilateral upper extremities, and 3/5 in bilateral lower extremities. ASSESSMENT AND PLAN 1. Bilateral lower extremity cellulitis with sepsis present on admission Wound culture is in progress, consult with Dr. Amezquita appreciated, continue patient on vancomycin with pharmacy to dose its peak and trough, cefepime 2 g IV piggyback every 8 hours, continue vancomycin 2000 mg IV piggyback every 12 hours, we will cultures obtained, blood cultures reviewed 2. Acute hypoxemic respiratory failure due to acute on chronic diastolic heart failure as well as acute exacerbation of COPD/asthma, Lasix 40 mg IV push every 24 hours, carvedilol 3.125 mg orally twice every day, losartan 25 mg once every day, spironolactone 25 mg orally once every day, Kennedy catheter in place, input and output and daily weight, Prednisone 40 mg po daily DuoNeb 3 mL nebulization 3 times every day. currently on Airvo. 3. Chronic respiratory failure due to Obesity with obstructive sleep apnea and obesity hypoventilation syndrome with underlying COPD/asthma . Continue treatment as in the previous paragraph. 4. Hypertension and hypertensive cardiovascular disease. Continue Coreg 3.125 mg twice daily, continue losartan 25 mg once every day, continue spironolactone 25 mg once every day. 5. Hyperlipidemia. Continue low-cholesterol diet, continue atorvastatin 40 mg once every day, monitor lipid panel, keep LDL 55-70. 6. History of CVA. Continue patient on atorvastatin 40 mg once every day as well as aspirin 81 mg once every day. 7. Parkinson's disease. Continue Mirapex 1 mg 3 times daily. 8. Spondylosis of the lumbar spine. Continue Lyrica 75 mg twice daily. 9. Obstructive sleep apnea. Continue Bipap/Airvo. 10. Hypothyroidism. Continue Synthroid 50 g orally once every day monitor TSH and free T4 11. GI prophylaxis. Protonix 40 mg orally once every day.. 12. DVT prophylaxis. Lovenox 40 mg subcutaneously every 24 hours. 13. metabolic encephalopathy due to multifactorial including bilateral lower extremity Seletz with sepsis, hypercapnic respiratory failure, medication side effects. Neurology evaluation appreciated 14. Patient is no CODE STATUS per his own wishes 15. Plan for subacute rehab in 1-2 days. Objective - Vital Signs Vital signs: Vital Signs Temp 98.3 F 02/17/23 15:40 Pulse 68 02/17/23 15:40 Resp 22 02/17/23 15:40 BP 115/66 02/17/23 15:40 Pulse Ox 93 L 02/17/23 15:40 FiO2 50 02/17/23 15:22 Intake & Output 02/17/23 02/17/23 02/18/23 06:59 18:59 06:59 Intake Total 1300 Output Total 2600 3050 Balance -2600 -1750 Weight 155.5 kg Intake: Intake, IV Titration 700 Amount Cefepime 2 gm In Sodium 200 Chloride 0.9% 100 ml @ 25 mls/hr IVPB Q8HR [facility] Rx# :[id number] Vancomycin 2,000 mg In 500 Sodium Chloride 0.9% 500 ml 500 ml @ 167 mls/hr IVPB Q12H [facility] Rx#: [id number] Oral 600 Output: Urine 2600 3050 Other: Voiding Method Indwelling Catheter Indwelling Catheter - Labs CBC & Chem 7: 02/18/23 06:44 02/17/23 04:16 Labs: Abnormal Lab Results - Last 24 Hours (Table) 02/16/23 02/17/23 02/17/23 Range/Units 19:55 04:16 04:16 WBC 18.7 H (3.8-10.6) k/uL RBC 4.00 L (4.30-5.90) m/uL Hgb 11.1 L (13.0-17.5) gm/dL Hct 36.2 L (39.0-53.0) % MCHC 30.5 L (31.0-37.0) g/dL RDW 18.5 H (11.5-15.5) % Neutrophils # 16.7 H (1.3-7.7) k/uL Lymphocytes # 0.8 L (1.0-4.8) k/uL Chloride 88 L (98-107) mmol/L Carbon Dioxide 48 H* (22-30) mmol/L BUN 43 H (9-20) mg/dL Creatinine 0.65 L (0.66-1.25) mg/dL Glucose 132 H (74-99) mg/dL POC Glucose (mg/dL) 215 H (70-110) mg/dL Total Protein 6.2 L (6.3-8.2) g/dL Albumin 3.4 L (3.5-5.0) g/dL 02/17/23 02/17/23 02/17/23 Range/Units 06:02 11:26 16:35 WBC (3.8-10.6) k/uL RBC (4.30-5.90) m/uL Hgb (13.0-17.5) gm/dL Hct (39.0-53.0) % MCHC (31.0-37.0) g/dL RDW (11.5-15.5) % Neutrophils # (1.3-7.7) k/uL Lymphocytes # (1.0-4.8) k/uL Chloride (98-107) mmol/L Carbon Dioxide (22-30) mmol/L BUN (9-20) mg/dL Creatinine (0.66-1.25) mg/dL Glucose (74-99) mg/dL POC Glucose (mg/dL) 146 H 190 H 155 H (70-110) mg/dL Total Protein (6.3-8.2) g/dL Albumin (3.5-5.0) g/dL Microbiology - Last 24 Hours (Table) 02/11/23 14:20 Blood Culture - Final Blood 02/14/23 04:16 Blood Culture - Preliminary Blood
[2023-02-18] MEDS: VANCOMYCIN 2,000 MG in SODIUM CHLORIDE 0.9% 500 ML 500 ML IVPB SCH ×2 (08:26→16:06)
[2023-02-18] MEDS: LOSARTAN 25 MG TAB PO SCH (08:27)
[2023-02-18] MEDS: acetaZOLAMIDE 250 MG TAB PO SCH ×2 (08:27→20:07)
[2023-02-18] MEDS: CEFEPIME 2 GM in SODIUM CHLORIDE 0.9% 100 ML IVPB SCH ×2 (08:27→16:06)
[2023-02-18] MEDS: PREGABALIN 75 MG CAP PO SCH (08:27)
[2023-02-18] MEDS: predniSONE 20 MG TAB PO SCH (08:27)
[2023-02-18] MEDS: SPIRONOLACTONE 25 MG TAB PO SCH (08:27)
[2023-02-18] MEDS: ENOXAPARIN 40 MG/0.4 ML SYRINGE SQ SCH (08:27)
[2023-02-18] MEDS: PRAMIPEXOLE 1 MG TAB PO SCH ×3 (08:28→20:07)
[2023-02-18] MEDS: FUROSEMIDE 10 MG/ML 4 ML VIAL IV SCH (08:28)
[2023-02-18] MEDS: OXcarbazepine 150 MG TAB PO SCH ×2 (08:28→20:07)
[2023-02-18] MEDS: IPRATROPIUM-ALBUTEROL 3 ML NEB INHALATION SCH ×4 (09:00→20:39)
[2023-02-18 10:23] LABS: Lymphocytes # (M) 1.28 k/uL (1.0-4.8); Metamyelocytes # (M) 0.64 k/uL (0); Metamyelocytes % 3 %; Monocytes # (M) 0.85 k/uL (0-1.0); Myelocytes # (M) 1.28 k/uL (0); Myelocytes % 6 %; Neutrophils # (M) 17.25 k/uL (1.3-7.7); Neutrophils % (M) 81 %; Nucleated Red Blood Cells 0 /100 WBC (0-0); Promyelocytes # (M) 0.43 k/uL (0); Promyelocytes % 2 %; Total Cells Counted 200
[2023-02-18 11:47] LABS: Glucose,Whole Blood 162 mg/dL (70-110)
[2023-02-18 12:30] LABS: INR 1.1 (<1.2); Prothrombin Time 11.2 sec (9.0-12.0)
--- NOTE | 2023-02-18 12:54 | P.PN ---
Subjective Progress Note Date: 02/18/23 Principal diagnosis: Acute on chronic hypoxic respiratory failure and acute cellulitis of lower extremities. History of Present Illness: Patient is a 72-year-old male here history is limited secondary to patient's medical status. Patient brought in by EMS from home. Patient allegedly was dyspneic. His recently admitted to the neighboring hospital for similar issue. He is currently being treated for lower extremity cellulitis bilaterally. EMS states that patient was very wheezy. They placed him on noninvasive ventilation and given breathing treatment which improved his symptoms are related allegedly had persistent upper field wheezing. EMS reports hypoxia upon initial arrival with saturations in the mid to low 80s.the patient is morbidly obese and has history of obstructive sleep apnea. He was quite lethargic and short of breath at time of admission and based on that the patient was placed on a BiPAP and currently the patient is a BiPAP settings of 12/6 cm o f water and FiO2 of 40%. His chest x-ray showed some mild pulmonary vascular congestion. Hhe has excessive edema in lower extremities along with cellulitis left lower extremity. Based on that, the patient was started on diuretics and the patient is currently on IV Lasix 80 mg every 12 hours and is producing adequate amount of urine output. He is also covered with a combination of cefepime and vancomycin regarding lower extremity cellulitis. He is arousable. He was communicate. He is tachypneic even while in the BiPAP and the patient seems to the BiPAP dependent. the patient was taken off the BiPAP briefly earlier this morning. Failed as the patient became more lethargic and somnolen t. Was placed back on a BiPAP. He is on Lovenox 40 mg subcu portably prophylaxis. He is bronchospastic and wheezy and I added Solu-Medrol. On today's evaluation of 02/12/2023, the patient is still wearing his BiPAP. Slightly improved compared to yesterday. He is diuresing well. Less spastic and wheezy. The patient is currently on Lasix 80 mg IV every 12 hours. Remains on a combination of cefepime and vancomycin. Remains on bronchodilators and steroids. Awake and alert and communicating. He is a DO NOT INTUBATE cor status and the patient did not get transferred to the intensive care unit for that reason. White suppository 3.8. Hemoglobin is 9.7. Sodium is at 140 with a potassium level of 4.7, BUN is 28 and a creatinine of 0.7. Fluid balance is - 684 mL and the patient is -1.7 L since yesterday. Reevaluated today on 02/14/2023, patient remains on BiPAP, and 50% FiO2. Seems to be comfortable, however he seems to be almost BiPAP dependent. Patient does not seem to be in any distress, he is still receiving antibiotics for his cellulitis, and his WBC count is improving down to 18.6, hemoglobin is 9.5 basic metabolic profile is normal renal profile is normal, his cellulitis is being addressed by infectious disease on the case. Blood cultures are positive for micrococcus species. Patient is on vancomycin. Reevaluated today on 02/15/2023, patient remains on BiPAP, 50%, IPAP of 12 and EPAP of 6, doing fairly well, does not seem to be in any distress, I am recommending at least transitioning the patient to airvo intermittently since he desaturates on 4 L nasal cannula. Patient will be placed on 50 L flow and 60% FiO2/airvo intermittently off BiPAP. Remains on antibiotics for his cellulitis. His CT of the brain came back abnormal, and I'm recommending neurology evaluation for possible normal pressure hydrocephalus. WBC count today is coming down to 18.6 from 23.8 yesterday. Basic metabolic profile is unremarkable, bicarb is 37. Chest x-ray on admission showed mostly fluid overload/pulmonary edema. Reevaluated today on 02/16/2023, patient seems to be doing well with airvo, off BiPAP, he is on 60% FiO2 and 50 L flow, plan is to continue to titrate his FiO2 down. Patient seems to be comfortable, he likes the airvo better than BiPAP. Bicarb is 44 which is expected, considering his severe chronic hypercapnic respiratory failure patient is metabolically compensating for his chronic respiratory acidosis. WBC count is 13.9 hemoglobin is 11. Patient does not seem to be in distress. Patient was seen by neurology on consultation, recommended EEG, placed on Trileptal 150 mg twice a day. He felt that his CT of the head findings are stable Reevaluated today on 02/17/2023, patient remains on airvo at 50% FiO2 and 50 L/m. Seems to be quite comfortable, he seems to be much more comfortable with the airvo compared to BiPAP. Breathing easier, denies any shortness of breath at present. Denies any chest discomfort. Continues to have leukocytosis with WBC count of 18.7, patient had initial WBC count on admission of 27.2 basic metabolic profile is normal except bicarb is 48 hence am recommending that we placed the patient back on Diamox. BUN is 43 creatinine 0.65. Patient was reevaluated today on 02/18/2023, today he is on 5 L nasal cannula with O2 sat of 98%, patient is off airvo, off BiPAP, doing well, no specific complaints. Pulmonary-hui is doing great. Hardly any pulmonary symptoms today. Patient is being considered for placement, and pulmonary-hui I'm clearing him for discharge if cleared by other consultants his WBC count is 21.3 hemoglobin is 11.3. Remains on vancomycin. Being followed by infectious disease. Objective - Vital Signs Vital signs: Vital Signs Temp 98.0 F 02/18/23 12:26 Pulse 58 L 02/18/23 12:26 Resp 20 02/18/23 12:26 BP 110/65 02/18/23 12:26 Pulse Ox 92 L 02/18/23 12:26 FiO2 50 02/18/23 09:00 Intake & Output 02/17/23 02/18/23 02/18/23 18:59 06:59 18:59 Intake Total 1300 240 Output Total 3050 1250 1450 Balance -1750 -1250 -1210 Weight 153.5 kg 153.5 kg Intake: Intake, IV Titration 700 Amount Cefepime 2 gm In Sodium 200 Chloride 0.9% 100 ml @ 25 mls/hr IVPB Q8HR [facility] Rx# :[id number] Vancomycin 2,000 mg In 500 Sodium Chloride 0.9% 500 ml 500 ml @ 167 mls/hr IVPB Q12H [facility] Rx#: [id number] Oral 600 240 Output: Urine 3050 1250 1450 Other: Voiding Method Indwelling Catheter Indwelling Catheter - Exam GENERAL EXAM: Alert, doesn't, obese 72-year-old male patient, on 5 L high flow nasal cannula Head: Atraumatic normocephalic. ENT: Short and obese neck. PERRLA, EOMI, anicteric, short obese neck, no neck masses no JVD no stridor. CHEST: No chest wall deformity. LUNGS: Diminished breath sounds at the bases with crackles. CVS: S1 and S2 normal with no audible murmur, regular rhythm. ABDOMEN: No hepatosplenomegaly, normal bowel sounds, no guarding or rigidity. SKIN: Both lower extremities are wrapped with sterile dressings, could not fully visualize. CENTRAL NERVOUS SYSTEM: No focal deficits, tone is normal in all 4 extremities. EXTREMITIES: There is 1+ bipedal edema. No clubbing, no cyanosis. - Labs CBC & Chem 7: 02/18/23 06:44 02/17/23 04:16 Labs: Abnormal Lab Results - Last 24 Hours (Table) 02/17/23 02/17/23 02/18/23 Range/Units 16:35 19:42 05:47 WBC (3.8-10.6) k/uL RBC (4.30-5.90) m/uL Hgb (13.0-17.5) gm/dL Hct (39.0-53.0) % RDW (11.5-15.5) % Neutrophils # (Manual) (1.3-7.7) k/uL Metamyelocytes # (Man) (0) k/uL Myelocytes # (Manual) (0) k/uL Promyelocytes # (Man) (0) k/uL POC Glucose (mg/dL) 155 H 180 H 209 H (70-110) mg/dL 02/18/23 02/18/23 Range/Units 06:44 11:40 WBC 21.3 H (3.8-10.6) k/uL RBC 3.96 L (4.30-5.90) m/uL Hgb 11.3 L (13.0-17.5) gm/dL Hct 36.3 L (39.0-53.0) % RDW 18.8 H (11.5-15.5) % Neutrophils # (Manual) 17.25 H (1.3-7.7) k/uL Metamyelocytes # (Man) 0.64 H (0) k/uL Myelocytes # (Manual) 1.28 H (0) k/uL Promyelocytes # (Man) 0.43 H (0) k/uL POC Glucose (mg/dL) 162 H (70-110) mg/dL Microbiology - Last 24 Hours (Table) 02/14/23 04:16 Blood Culture - Preliminary Blood 02/11/23 14:20 Blood Culture - Final Blood Assessment and Plan Assessment: Impression: Acute lower extremity cellulitis, patient is receiving cefepime and vancomycin. Being addressed by infectious disease. Acute on chronic hypoxic respiratory failure, alternating between BiPAP and airvo. Acute on chronic diastolic congestive heart failure History of mild intermittent asthma with mild exacerbation. Benign essential hypertension Morbid obesity Obstructive sleep apnea syndrome on CPAP Recurrent cellulitis of lower extremities, previous MRSA infection History of brain tumor and previous craniotomy. History of hypothyroidism on replacement therapy Benign essential hypertension, on treatment. Possible normal pressure hydrocephalus as noted on CT of the brain Recommendation: Continue diuretics including Diamox and Lasix. Continue antibiotics as per ID on the case. On cefepime and vancomycin. Titrate oxygen accordingly Continue bronchodilators. Prednisone burst and taper instead of Solu-Medrol., He is now on prednisone at 40 mg daily. DO NOT RESUSCITATE/DO NOT INTUBATE CODE STATUS. Will follow Time with Patient: Less than 30
--- NOTE | 2023-02-18 12:57 | P.PN ---
Subjective Progress Note Date: 02/18/23 The patient is sitting in a recliner chair and he states he's doing well. Denies of any headache, focal weakness numbness. Denies of any confusion. Objective - Vital Signs Vital signs: Vital Signs Temp 98.0 F 02/18/23 12:26 Pulse 58 L 02/18/23 12:26 Resp 20 02/18/23 12:26 BP 110/65 02/18/23 12:26 Pulse Ox 92 L 02/18/23 12:26 FiO2 50 02/18/23 09:00 Intake & Output 02/17/23 02/18/23 02/18/23 18:59 06:59 18:59 Intake Total 1300 240 Output Total 3050 1250 1450 Balance -1750 -1250 -1210 Weight 153.5 kg 153.5 kg Intake: Intake, IV Titration 700 Amount Cefepime 2 gm In Sodium 200 Chloride 0.9% 100 ml @ 25 mls/hr IVPB Q8HR [facility] Rx# :[id number] Vancomycin 2,000 mg In 500 Sodium Chloride 0.9% 500 ml 500 ml @ 167 mls/hr IVPB Q12H [facility] Rx#: [id number] Oral 600 240 Output: Urine 3050 1250 1450 Other: Voiding Method Indwelling Catheter Indwelling Catheter - Exam GENERAL: The patient is sitting in a recliner chair and is not in acute distress. HENT: Has skull defect over the right frontotemporal region with old scar. NEUROLOGICAL: Higher mental function: The patient is awake, alert, oriented to self, place and time. Patient is following simple commands. No aphasia and no neglect. Cranial nerves: The pupils are round, equal and reactive to light. Visual chase are full to confrontation throughout. Extraocular movement is intact no nystagmus is noted. Facial sensation is normal to touch throughout. The facial strength is normal throughout. Tongue is midline and moved [id number] without any difficulty. No dysarthria is noted. Shoulder shrug is normal bilaterally. Motor: The strength is left lower extremity weakness from old stroke. Limited in lowers. Uppers seems normal. . Normal tone and bulk. Some of the workup during his hospital visit consisted of: Initial white blood cell is 27.2 thousand and currently to 18.6. It's predominantly neutrophilic. Initially the temperature is T-max of 101.5. His temperature has resolved. Sugar has been in the range of 170s to 220s. 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 Findings stable. Large fluid attenuation along the midline and paracentral left mild mass affect upon the left frontal lobe is stable from prior exam could be M basis arachnoid cyst. Recommend consideration for MRI. Findings stable dating back to 2009. I personally reviewed the CT and there is no bleed or any evidence of any acute subacute ischemia but was somewhat limited because of motion artifact. Appears to patient had an left frontal stroke that old which was with a history and his examination. Routine EEG: Is abnormal. The back was suggestive of mild encephalopathy. There is focal slowing over the right hemisphere consistent with focal cerebral dysfunction. Otherwise there is no epileptiform discharges or seizure on the EEG. Trileptal level is 1.6 (normal is 10-35). - Labs CBC & Chem 7: 02/18/23 06:44 02/17/23 04:16 Labs: Abnormal Lab Results - Last 24 Hours (Table) 02/17/23 02/17/23 02/18/23 Range/Units 16:35 19:42 05:47 WBC (3.8-10.6) k/uL RBC (4.30-5.90) m/uL Hgb (13.0-17.5) gm/dL Hct (39.0-53.0) % RDW (11.5-15.5) % Neutrophils # (Manual) (1.3-7.7) k/uL Metamyelocytes # (Man) (0) k/uL Myelocytes # (Manual) (0) k/uL Promyelocytes # (Man) (0) k/uL POC Glucose (mg/dL) 155 H 180 H 209 H (70-110) mg/dL 02/18/23 02/18/23 Range/Units 06:44 11:40 WBC 21.3 H (3.8-10.6) k/uL RBC 3.96 L (4.30-5.90) m/uL Hgb 11.3 L (13.0-17.5) gm/dL Hct 36.3 L (39.0-53.0) % RDW 18.8 H (11.5-15.5) % Neutrophils # (Manual) 17.25 H (1.3-7.7) k/uL Metamyelocytes # (Man) 0.64 H (0) k/uL Myelocytes # (Manual) 1.28 H (0) k/uL Promyelocytes # (Man) 0.43 H (0) k/uL POC Glucose (mg/dL) 162 H (70-110) mg/dL Microbiology - Last 24 Hours (Table) 02/14/23 04:16 Blood Culture - Preliminary Blood 02/11/23 14:20 Blood Culture - Final Blood Assessment and Plan Assessment: Altered mental status seems due to underlying cellulitis---mentation is improving. No seizure on the EEG. 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 Ordered repeat of Trileptal level. Patient is on Trileptal 150mg [address] head is reported is stable compared to prior imaging per radiology team. I do not see any prior CT's for me to compare. I.D. is on board. Will defer the rest of medical management to primary team. Recommend the patient to follow-up with a neurologist in outpatient within 2-3 weeks The plan is discussed with patient. Otherwise no additional neurological workup. We'll continue to follow up sporadically. Time with Patient: Less than 30
[2023-02-18 16:08] LABS: ALT 21 U/L (4-49); AST 19 U/L (17-59); African American GFR (CKD) >90 (>60 ml/min/1.73 sqM); Albumin 3.3 g/dL (3.5-5.0); Alkaline Phosphatase 55 U/L (38-126); Anion Gap 4 mmol/L; Blood Urea Nitrogen 33 mg/dL (9-20); Calcium 9.4 mg/dL (8.4-10.2); Carbon Dioxide 38 mmol/L (22-30); Chloride 95 mmol/L (98-107); Glucose 158 mg/dL (74-99); Non-African American GFR(CKD) 87 (>60 ml/min/1.73 sqM); Potassium 4.5 mmol/L (3.5-5.1); Sodium 137 mmol/L (137-145); Total Bilirubin 0.3 mg/dL (0.2-1.3); Total Protein 5.9 g/dL (6.3-8.2)
[2023-02-18 17:06] LABS: Glucose,Whole Blood 207 mg/dL (70-110)
--- NOTE | 2023-02-18 17:06 | CT ---
EXAMINATION TYPE: CT brain wo con CT DLP: 1442.6 mGycm, Automated exposure control for dose reduction was used. DATE OF EXAM: 02/18/2023 4:54 PM COMPARISON: Multiple CTs most recent 02/14/2023 CLINICAL INDICATION:Male, 72 years old with history of right upper extremity weakness, ams TECHNIQUE: Brain: Axial CT images of the brain were obtained with coronal and sagittal reformats created and rev iewed. Contrast used: None. Oral contrast used: None. FINDINGS: Brain: Extra-axial spaces: No abnormal extra-axial fluid collections. Ventricular system: Mild dilation of the ventricular systems is unchanged from prior Cerebral parenchyma: Similar right temporal lobe craniotomy. 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 With cleft along the left frontal region again present. . No acute intraparenchymal hemorrhage or mass effect. The storm-white junction is well differentiated. Cerebellum: Unremarkable. Mass effect: No evidence of midline shift. Intracranial vasculature: unremarkable Soft tissues: Normal. Calvarium/osseous structures: No depressed skull fracture. Paranasal sinuses and mastoid air cells: Mild scattered paranasal sinus disease. Visualized orbits: Orbital contents are intact. IMPRESSION: 1. No acute intracranial process. No significant change from prior. 2. Mild dilation of the ventricular system since is unchanged from prior.
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
--- NOTE | 2023-02-18 18:04 | CT ---
EXAMINATION TYPE: CT angio head neck CT DLP: 1197.6 mGycm, Automated exposure control for dose reduction was used. DATE OF EXAM: 02/18/2023 5:21 PM COMPARISON: CT brain same day. CLINICAL INDICATION:Male, 72 years old with history of right upper extremity weakness, ams TECHNIQUE: Axially acquired helical CT angiogram of the head and neck was obtained with contrast. Axi al images are supplemented with 3D reconstructions which [facility] NASCET criteria used. Contrast used:65cc mL of Isovue 370 with IV Contrast, Oral contrast used: None. FINDINGS: CTA HEAD: No evidence of acute intracranial hemorrhage, mass effect, or midline shift. The ventricles, sulci, a nd cisterns are unremarkable. The visualized portions of the internal carotid arteries, middle cerebral arteries, anterior cerebral arteries, and posterior cerebral arteries are patent. The basilar and vertebral arteries are patent. CTA NECK: Internal common carotid arteries have a medialized course posterior to the pharynx. Right Carotid System: The common carotid artery and external carotid artery are patent. The carotid bifurcation demonstrate s no evidence of hemodynamically significant stenosis. The remaining portions of the internal carotid artery demonstrate normal size without significant narrowing. Left Carotid System: The common carotid artery and external carotid artery are patent. The carotid bifurcation demonstrate s no evidence of hemodynamically significant stenosis. The remaining portions of the internal carotid artery demonstrate normal size without significant narrowing. Vertebral arteries are patent without evidence hemodynamically significant stenosis. There is a three-vessel aortic arch. The origins of the great vessels are patent. No evidence of hemo dynamically significant stenosis. IMPRESSION: 1. No evidence of dissection of the cervical internal carotid arteries or vertebral arteries or any e vidence of significant stenosis at the carotid bifurcations. 2. No evidence of intracranial high-grade stenosis or intracranial aneurysm.
[2023-02-18 19:38] LABS: Glucose,Whole Blood 205 mg/dL (70-110)
[2023-02-18] MEDS: ATORVASTATIN 40 MG TAB PO SCH (20:07)
[2023-02-18] MEDS: MELATONIN 3 MG TABLET PO SCH (20:08)
[2023-02-19] MEDS: CEFEPIME 2 GM in SODIUM CHLORIDE 0.9% 100 ML IVPB SCH ×4 (00:16→23:20)
[2023-02-19] MEDS: SODIUM CHLORIDE 0.9% 1,000 ML IV SCH ×2 (00:18→18:46)
[2023-02-19] MEDS: VANCOMYCIN 2,000 MG in SODIUM CHLORIDE 0.9% 500 ML 500 ML IVPB SCH ×2 (04:50→16:49)
[2023-02-19 06:13] LABS: Glucose,Whole Blood 137 mg/dL (70-110)
[2023-02-19] MEDS: INSULIN ASPART (NovoLOG) 100 UNIT/ML VIAL SQ SCH ×4 (06:19→20:05)
[2023-02-19] MEDS: LEVOTHYROXINE 50 MCG TAB PO SCH (06:19)
[2023-02-19] MEDS: PANTOPRAZOLE 40 MG TABLET PO SCH (06:19)
[2023-02-19] MEDS: carvediloL 3.125 MG TAB PO SCH ×2 (06:19→16:49)
[2023-02-19] MEDS: HYDROcodone/APAP 10-325MG 1 EACH TAB PO PRN ×2 (06:24→20:04)
--- NOTE | 2023-02-19 06:52 | P.PN ---
Subjective Progress Note Date: 02/18/23 HISTORY OF PRESENT ILLNESS This is a 71-year-old male patient with past medical history of hypertension, h yperlipidemia, CVA, mild persistent ALLERGIC asthma, seizure disorder, Parkinson's disease, chronic diastolic heart failure, stasis dermatitis of the left lower extremity due to peripheral venous hypertension, spondylosis of the lumbar spine, obstructive sleep apnea, patient was recently hospitalized at [facility] about a few once ago with significant cellulitis of both lower extremity is with venous ulceration that was treated with IV antibiotic due to MRSA at that time he was placed on vancomycin and cefepime then he was switched to Cubicin and he was supposed to go to extended care facility for IV antibiotic however the infectious disease recommended for the patient to go on linezolid 600 mg orally twice every day for 14 days, patient has been following with wound healing center with . and he has been getting would care at home but it was a Tuesday, today his nurse contacted EMS to bring her to the emergency department because of increased shortness breath as well as increased swelling in both lower extremity is, and significant fever and chills and patient was septic, patient was seen in the ER according to the EMS the patient oxygen sufficient was in the low 80s, his chest x-ray showed poorly vascular congestion, patient did receive IV fluid in the emergency department as a protocol of sepsis and put the patient in acute diastolic heart failure subs equently the patient was started on Lasix 80 mg IV push every 12 hours and he was seen in consultation by pulmonary/critical care medicine Dr. Burns who recommended for the patient to transfer to the intensive care unit, patient was also started on Solu-Medrol 60 mg IV push every 6 hours along with IV antibiotic in the form of vancomycin and cefepime he was also seen in consultation by infectious disease Dr. Amezquita. 02/12: Patient is laying down in bed appears to be in respiratory distress, his IV fluids were decreased to 50 mL an hour, he was placed on a BiPAP 12 and 6, he was given Lasix 80 mg IV push 1 and then twice every day, patient already was started on vancomycin and cefepime he was evaluated by pulmonary/critical care he was recommended for the patient to be transferred to the intensive care unit, blood gases were obtained, he was also started on Solu-Medrol 60 mg IV push ev beba 6 hours along with IV antibiotic we'll continue to monitor the patient very closely. 02/13: Patient is laying down in bed currently in respiratory distress on BiPAP, has been getting Lasix 80 mg IV push every 12 hours, his blood cultures are positive for gram-positive cocci currently on cefepime and vancomycin, we will continue to monitor until the final ID of the organism is there, pulmonary swallowing, patient has been followed very closely, he appears to be better today than yesterday, we'll continue to manage the patient along with ID and pulmonary and critical care. 02/14: Patient is laying down in bed in no apparent distress, he is currently on a BiPAP, his sitting better than yesterday, this was in the bedside, earlier in the morning did have mental status changes and increased confusion, computed tomography scan of the brain was reviewed, did show chronic changes in acute abn ormalities, patient has been maintained on IV Lasix, IV antibiotic, he has been seen by pulmonary medicine as well as by infectious disease 02/15: Patient was seen earlier by neurology today because of increased the encephalopathy reviewed computed tomography scan did not show evidence of acute of normalities just chronic changes, patient was sitting up in chair today with his at bedside, patient appears to be at baseline to me, has been responding very well to the current treatment, he continued to be on Lasix 80 mg IV push every 12 hours, his Solu-Medrol was decreased to 40 mg IV push every 8 hours, we will continue to monitor that, continue to wean 02/16: Patient is sitting up in bed in no apparent distress, he continues to be on Airvo he is feeling much more comfortable today, he has no chest pain, shortness breath, this coughing, no abdominal pain, no bowel movement today, his lower extremities are much better, specially the left lower extremity, he continues to be on cefepime and vancomycin, we'll decrease his Solu-Medrol to 40 mg IV push every 12 hours, decrease his Lasix to 40 mg IV push every 12 hours, monitor the patient's electrolytes tomorrow morning. 02/17: Patient sitting up in bed in no apparent distress, he continues to be on Airvo , decrease Lasix to 40 mg IV push every 24 hours, he was started on Diamox 500 mg orally twice every day due to contraction alkalosis, has been followed by pulmonary medicine as well, he is maintained on gentamicin and cefepime, infectious disease will decide on the timing of the PICC line, patient will be ready to get to the extended care facility with IV antibiotic blood cultures appears to be negative so far. recording studio set up worker is on the case. 02/18: Patient is laying down in bed in no apparent distress, history of lumbar today, he denies any chest pain at this time, the short of breath, he continues to be on Airvo, he pulled his midline yesterday, we will need PICC line insertion of antibiotic, we'll continue total physical therapy social services manager to try to get the patient to the extended care facility hopefully at the beginning of the week. REVIEW OF SYSTEMS Constitutional: positive for fever, chills, no night sweats. No weight change. positive for weakness,positive for fatigue and lethargy. positive for daytime sleepiness. HEENT: No headache. No blurred vision or double vision, no loss of vision. No loss of Hearing, no ringing in the ears, no dizziness. No nasal drainage or congestion. No epistaxis. No sore throat. Lungs:positive for shortness of breath, occasional cough, no sputum production. positive for wheezing.Chronic dyspnea with exertion. Cardiovascular: No chest pain,reports lower extremity edema. positive for palpitations. positive for paroxysmal nocturnal dyspnea. positive for orthopnea. No lightheadedness or dizziness. No syncopal episodes. Abdominal: No abdominal pain. No nausea, vomiting. No diarrhea. No constipation. No bloody or tarry stools. No loss of appetite. Genitourinary: No dysuria, kennedy catheter in place Musculoskeletal: No myalgias. positive for bilateral lower extremities muscle weakness, positive for gait dysfunction, no frequent falls. positive for back pain and neck pain. Integumentary:Reports wounds with venous ulcerations to left lower extremity. No rash or pruritus. No unusual bruising. positive for change in hair and nails. Neurologic: No aphasia. No facial droop. positive for change in mentation. No head injury. No headache. No paralysis. No paresthesia. Psychiatric: positive for depression and anxiety. No mood swings. Endocrine: No abnormal blood sugars. positive for weight change. No excessive sweating or thirst. No cold intolerance. PHYSICAL EXAMINATION Gen: This is a morbidly obese 72-year-old male lying down in bed in moderate respiratory distress HEENT: Head is atraumatic, normocephalic. Pupils equal, round. Sclerae is anicteric, mucous membranes of the mouth are somewhat dry. NECK: Supple. elevated JVD. No lymphadenopathy. No thyromegaly. LUNGS: Decrease breath sounds at the bases with few ronchi , moderate expiratory wheezes, and minimal intercostal retractions. HEART: First heart sound is depressed, second heart sound is normal, there is a 2/6 systolic ejection murmur at the left sternal border, no S3, no S4.. ABDOMEN: Soft. Bowel sounds are present. No masses. No tenderness.obese, positive bowel sounds EXTREMITIES: 3+ bilateral pitting pedal edema with erythema, there is venous ulcerations in the left lower extremity extending into to the calf posteriorly with severe erythema and tenderness to touch, left second toe amputation and DP +1 bilaterally NEUROLOGICAL: Patient is awake, alert and oriented x3. Cranial nerves 2 through 12 are grossly intact, CN II-XII are grossly intact muscle power 4/5 in bilateral upper extremities, and 3/5 in bilateral lower extremities. ASSESSMENT AND PLAN 1. Bilateral lower extremity cellulitis with sepsis present on admission Wound culture is in progress, consult with Dr. Alirio thomas, continue patient on vancomycin with pharmacy to dose its peak and trough, cefepime 2 g IV piggyback every 8 hours, continue vancomycin 2000 mg IV piggyback every 12 hours, we will cultures obtained, blood cultures reviewed 2. Acute hypoxemic respiratory failure due to acute on chronic diastolic heart failure as well as acute exacerbation of COPD/asthma, Lasix 40 mg IV push every 24 hours, carvedilol 3.125 mg orally twice every day, losartan 25 mg once every day, spironolactone 25 mg orally once every day, Kennedy catheter in place, input and output and daily weight, Prednisone 40 mg po daily DuoNeb 3 mL nebulization 3 times every day. currently on Airvo. 3. Chronic respiratory failure due to Obesity with obstructive sleep apnea and obesity hypoventilation syndrome with underlying COPD/asthma . Continue luiza tment as in the previous paragraph. 4. Hypertension and hypertensive cardiovascular disease. Continue Coreg 3.125 mg twice daily, continue losartan 25 mg once every day, continue spironolactone 25 mg once every day. 5. Hyperlipidemia. Continue low-cholesterol diet, continue atorvastatin 40 mg once every day, monitor lipid panel, keep LDL 55-70. 6. History of CVA. Continue patient on atorvastatin 40 mg once every day as well as aspirin 81 mg once every day. 7. Parkinson's disease. Continue Mirapex 1 mg 3 times daily. 8. Spondylosis of the lumbar spine. Continue Lyrica 75 mg twice daily. 9. Obstructive sleep apnea. Continue Bipap/Airvo. 10. Hypothyroidism. Continue Synthroid 50 g orally once every day monitor TSH and free T4 11. GI prophylaxis. Protonix 40 mg orally once every day.. 12. DVT prophylaxis. Lovenox 40 mg subcutaneously every 24 hours. 13. metabolic encephalopathy due to multifactorial including bilateral lower extremity Seletz with sepsis, hypercapnic respiratory failure, medication side effects. Neurology evaluation appreciated 14. Contraction alkalosis. Continue patient on Diamox 250 mg orally twice every day monitor the patient CMP in the next 24 hours. 15. Patient is no CODE STATUS per his own wishes 16. Plan for subacute rehab in 1-2 days. Objective - Vital Signs Vital signs: Vital Signs Temp 98.3 F 02/17/23 15:40 Pulse 62 02/18/23 03:54 Resp 20 02/18/23 03:54 BP 140/68 02/18/23 03:54 Pulse Ox 95 02/18/23 03:54 FiO2 52 02/18/23 03:54 Intake & Output 02/17/23 02/18/23 02/18/23 18:59 06:59 18:59 Intake Total 1300 Output Total 3050 1250 Balance -1750 -1250 Weight 153.5 kg 153.5 kg Intake: Intake, IV Titration 700 Amount Cefepime 2 gm In Sodium 200 Chloride 0.9% 100 ml @ 25 mls/hr IVPB Q8HR [facility] Rx# :[id number] Vancomycin 2,000 mg In 500 Sodium Chloride 0.9% 500 ml 500 ml @ 167 mls/hr IVPB Q12H [facility] Rx#: [id number] Oral 600 Output: Urine 3050 1250 Other: Voiding Method Indwelling Catheter Indwelling Catheter - Labs CBC & Chem 7: 02/18/23 06:44 02/18/23 06:44 Labs: Abnormal Lab Results - Last 24 Hours (Table) 02/17/23 02/17/23 02/17/23 Range/Units 11:26 16:35 19:42 WBC (3.8-10.6) k/uL RBC (4.30-5.90) m/uL Hgb (13.0-17.5) gm/dL Hct (39.0-53.0) % RDW (11.5-15.5) % POC Glucose (mg/dL) 190 H 155 H 180 H (70-110) mg/dL 02/18/23 02/18/23 Range/Units 05:47 06:44 WBC 21.3 H (3.8-10.6) k/uL RBC 3.96 L (4.30-5.90) m/uL Hgb 11.3 L (13.0-17.5) gm/dL Hct 36.3 L (39.0-53.0) % RDW 18.8 H (11.5-15.5) % POC Glucose (mg/dL) 209 H (70-110) mg/dL Microbiology - Last 24 Hours (Table) 02/11/23 14:20 Blood Culture - Final Blood 02/14/23 04:16 Blood Culture - Preliminary Blood
[2023-02-19 06:59] LABS: African American GFR (CKD) >90 (>60 ml/min/1.73 sqM); Non-African American GFR(CKD) 86 (>60 ml/min/1.73 sqM)
[2023-02-19] MEDS: PREGABALIN 75 MG CAP PO SCH (08:19)
[2023-02-19] MEDS: ENOXAPARIN 40 MG/0.4 ML SYRINGE SQ SCH (08:19)
[2023-02-19] MEDS: acetaZOLAMIDE 250 MG TAB PO SCH ×2 (08:19→20:04)
[2023-02-19] MEDS: SPIRONOLACTONE 25 MG TAB PO SCH (08:19)
[2023-02-19] MEDS: predniSONE 20 MG TAB PO SCH (08:19)
[2023-02-19] MEDS: PRAMIPEXOLE 1 MG TAB PO SCH ×3 (08:19→20:04)
[2023-02-19] MEDS: OXcarbazepine 150 MG TAB PO SCH ×2 (08:19→20:04)
[2023-02-19] MEDS: LOSARTAN 25 MG TAB PO SCH (08:19)
[2023-02-19] MEDS: FUROSEMIDE 10 MG/ML 4 ML VIAL IV SCH (08:20)
[2023-02-19] MEDS: IPRATROPIUM-ALBUTEROL 3 ML NEB INHALATION SCH ×4 (08:44→20:23)
[2023-02-19 11:30] LABS: Glucose,Whole Blood 150 mg/dL (70-110)
--- NOTE | 2023-02-19 11:31 | P.PN ---
Subjective Progress Note Date: 02/19/23 HISTORY OF PRESENT ILLNESS This is a 71-year-old male patient with past medical history of hypertension, h yperlipidemia, CVA, mild persistent ALLERGIC asthma, seizure disorder, Parkinson's disease, chronic diastolic heart failure, stasis dermatitis of the left lower extremity due to peripheral venous hypertension, spondylosis of the lumbar spine, obstructive sleep apnea, patient was recently hospitalized at [facility] about a few once ago with significant cellulitis of both lower extremity is with venous ulceration that was treated with IV antibiotic due to MRSA at that time he was placed on vancomycin and cefepime then he was switched to Cubicin and he was supposed to go to extended care facility for IV antibiotic however the infectious disease recommended for the patient to go on linezolid 600 mg orally twice every day for 14 days, patient has been following with wound healing center with . and he has been getting would care at home but it was a Tuesday, today his nurse contacted EMS to bring her to the emergency department because of increased shortness breath as well as increased swelling in both lower extremity is, and significant fever and chills and patient was septic, patient was seen in the ER according to the EMS the patient oxygen sufficient was in the low 80s, his chest x-ray showed poorly vascular congestion, patient did receive IV fluid in the emergency department as a protocol of sepsis and put the patient in acute diastolic heart failure subs equently the patient was started on Lasix 80 mg IV push every 12 hours and he was seen in consultation by pulmonary/critical care medicine Dr. Burns who recommended for the patient to transfer to the intensive care unit, patient was also started on Solu-Medrol 60 mg IV push every 6 hours along with IV antibiotic in the form of vancomycin and cefepime he was also seen in consultation by infectious disease Dr. Amezquita. 02/12: Patient is laying down in bed appears to be in respiratory distress, his IV fluids were decreased to 50 mL an hour, he was placed on a BiPAP 12 and 6, he was given Lasix 80 mg IV push 1 and then twice every day, patient already was started on vancomycin and cefepime he was evaluated by pulmonary/critical care he was recommended for the patient to be transferred to the intensive care unit, blood gases were obtained, he was also started on Solu-Medrol 60 mg IV push ev beba 6 hours along with IV antibiotic we'll continue to monitor the patient very closely. 02/13: Patient is laying down in bed currently in respiratory distress on BiPAP, has been getting Lasix 80 mg IV push every 12 hours, his blood cultures are positive for gram-positive cocci currently on cefepime and vancomycin, we will continue to monitor until the final ID of the organism is there, pulmonary swallowing, patient has been followed very closely, he appears to be better today than yesterday, we'll continue to manage the patient along with ID and pulmonary and critical care. 02/14: Patient is laying down in bed in no apparent distress, he is currently on a BiPAP, his sitting better than yesterday, this was in the bedside, earlier in the morning did have mental status changes and increased confusion, computed tomography scan of the brain was reviewed, did show chronic changes in acute abn ormalities, patient has been maintained on IV Lasix, IV antibiotic, he has been seen by pulmonary medicine as well as by infectious disease 02/15: Patient was seen earlier by neurology today because of increased the encephalopathy reviewed computed tomography scan did not show evidence of acute of normalities just chronic changes, patient was sitting up in chair today with his at bedside, patient appears to be at baseline to me, has been responding very well to the current treatment, he continued to be on Lasix 80 mg IV push every 12 hours, his Solu-Medrol was decreased to 40 mg IV push every 8 hours, we will continue to monitor that, continue to wean 02/16: Patient is sitting up in bed in no apparent distress, he continues to be on Airvo he is feeling much more comfortable today, he has no chest pain, shortness breath, this coughing, no abdominal pain, no bowel movement today, his lower extremities are much better, specially the left lower extremity, he continues to be on cefepime and vancomycin, we'll decrease his Solu-Medrol to 40 mg IV push every 12 hours, decrease his Lasix to 40 mg IV push every 12 hours, monitor the patient's electrolytes tomorrow morning. 02/17: Patient sitting up in bed in no apparent distress, he continues to be on Airvo , decrease Lasix to 40 mg IV push every 24 hours, he was started on Diamox 500 mg orally twice every day due to contraction alkalosis, has been followed by pulmonary medicine as well, he is maintained on gentamicin and cefepime, infectious disease will decide on the timing of the PICC line, patient will be ready to get to the extended care facility with IV antibiotic blood cultures appears to be negative so far. 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 02/18: Patient is laying down in bed in no apparent distress, history of lumbar today, he denies any chest pain at this time, the short of breath, he continues to be on Airvo, he pulled his midline yesterday, we will need PICC line insertion of antibiotic, we'll continue total physical therapy social media project manager to try to get the patient to the extended care facility hopefully at the beginning of the week. 02/19: Patient developed to have clumsiness and weakness in the right upper extremity, neurology was contacted recommended computed tomography scan of the brain without contrast that was negative, this is followed by a CT angiography of the neck and brain that did not show evidence of acute of normalities of high-grade stenosis, a computed tomography scan of the brain did show mild dilatation of the ventricle that was stable from the last CT was done, he was recommended to continue current treatment plan, patient does not appear to have a significant or acute stroke at this point in time. We will plan to have a PICC line placement Tuesday and then the patient can be discharged to extended care facility. REVIEW OF SYSTEMS Constitutional: positive for fever, chills, no night sweats. No weight change. positive for weakness,positive for fatigue and lethargy. positive for daytime sleepiness. HEENT: No headache. No blurred vision or double vision, no loss of vision. No loss of Hearing, no ringing in the ears, no dizziness. No nasal drainage or congestion. No epistaxis. No sore throat. Lungs:positive for shortness of breath, occasional cough, no sputum production. positive for wheezing.Chronic dyspnea with exertion. Cardiovascular: No chest pain,reports lower extremity edema. positive for palpitations. positive for paroxysmal nocturnal dyspnea. positive for orthopnea. No lightheadedness or dizziness. No syncopal episodes. Abdominal: No abdominal pain. No nausea, vomiting. No diarrhea. No constipation. No bloody or tarry stools. No loss of appetite. Genitourinary: No dysuria, kennedy catheter in place Musculoskeletal: No myalgias. positive for bilateral lower extremities muscle weakness, positive for gait dysfunction, no frequent falls. positive for back pain and neck pain. Integumentary:Reports wounds with venous ulcerations to left lower extremity. No rash or pruritus. No unusual bruising. positive for change in hair and nails. Neurologic: No aphasia. No facial droop. positive for change in mentation. No head injury. No headache. No paralysis. No paresthesia. Psychiatric: positive for depression and anxiety. No mood swings. Endocrine: No abnormal blood sugars. positive for weight change. No excessive sweating or thirst. No cold intolerance. PHYSICAL EXAMINATION Gen: This is a morbidly obese 72-year-old male lying down in bed in moderate respiratory distress HEENT: Head is atraumatic, normocephalic. Pupils equal, round. Sclerae is anicteric, mucous membranes of the mouth are somewhat dry. NECK: Supple. elevated JVD. No lymphadenopathy. No thyromegaly. LUNGS: Decrease breath sounds at the bases with few ronchi , moderate expiratory wheezes, and minimal intercostal retractions. HEART: First heart sound is depressed, second heart sound is normal, there is a 2/6 systolic ejection murmur at the left sternal border, no S3, no S4.. ABDOMEN: Soft. Bowel sounds are present. No masses. No tenderness.obese, positive bowel sounds EXTREMITIES: 3+ bilateral pitting pedal edema with erythema, there is venous ulcerations in the left lower extremity extending into to the calf posteriorly with severe erythema and tenderness to touch, left second toe amputation and DP +1 bilaterally NEUROLOGICAL: Patient is awake, alert and oriented x3. Cranial nerves 2 through 12 are grossly intact, CN II-XII are grossly intact muscle power 4/5 in bilateral upper extremities, and 3/5 in bilateral lower extremities. ASSESSMENT AND PLAN 1. Bilateral lower extremity cellulitis with sepsis present on admission. We'll continue patient with the vancomycin as well as cefepime, continue local care, blood cultures are negative. 2. Acute hypoxemic respiratory failure due to acute on chronic diastolic heart failure as well as acute exacerbation of COPD/asthma, Lasix 40 mg IV push every 24 hours, carvedilol 3.125 mg orally twice every day, losartan 25 mg once every day, spironolactone 25 mg orally once every day, Kennedy catheter in place, input and output and daily weight, Prednisone 40 mg po daily DuoNeb 3 mL nebulization 3 times every day. currently on Airvo. 3. Chronic respiratory failure due to Obesity with obstructive sleep apnea and obesity hypoventilation syndrome with underlying COPD/asthma . Continue treatment as in the previous paragraph. 4. Hypertension and hypertensive cardiovascular disease. Continue Coreg 3.125 mg twice daily, continue losartan 25 mg once every day, continue spironolactone 25 mg once every day. 5. Hyperlipidemia. Continue low-cholesterol diet, continue atorvastatin 40 mg once every day, monitor lipid panel, keep LDL 55-70. 6. History of CVA. Continue patient on atorvastatin 40 mg once every day as well as aspirin 81 mg once every day. 7. Parkinson's disease. Continue Mirapex 1 mg 3 times daily. 8. Spondylosis of the lumbar spine. Continue Lyrica 75 mg twice daily. 9. Obstructive sleep apnea. Continue Bipap/Airvo. 10. Hypothyroidism. Continue Synthroid 50 g orally once every day monitor TSH and free T4 11. GI prophylaxis. Protonix 40 mg orally once every day.. 12. DVT prophylaxis. Lovenox 40 mg subcutaneously every 24 hours. 13. metabolic encephalopathy due to multifactorial including bilateral lower extremity Seletz with sepsis, hypercapnic respiratory failure, medication side effects. Neurology evaluation appreciated 14. Contraction alkalosis. Continue patient on Diamox 250 mg orally twice every day monitor the patient CMP in the next 24 hours. 15. Reported weakness of the right upper extremity after midline removal. CT scan of the brain did not show evidence of acute of normalities, CTA of the neck and the brain is negative, continue current treatment plan, neurologist, no ev idence of acute CVA. No further treatment is necessary. 16. Patient is no CODE STATUS per his own wishes 17. PICC line insertion on Tuesday then subacute rehab Objective - Vital Signs Vital signs: Vital Signs Temp 97.8 F 02/18/23 20:00 Pulse 58 L 02/19/23 04:00 Resp 18 02/19/23 04:00 BP 118/60 02/19/23 04:00 Pulse Ox 97 02/19/23 04:00 FiO2 50 02/18/23 09:00 Intake & Output 02/18/23 02/19/23 02/19/23 18:59 06:59 18:59 Intake Total 358 Output Total 2150 1150 Balance -1792 -1150 Weight 153.5 kg 149.5 kg Intake: Oral 358 Output: Urine 2150 1150 Other: Voiding Method Indwelling Catheter Indwelling Catheter # Bowel Movements 0 - Labs CBC & Chem 7: 02/18/23 06:44 02/19/23 05:31 Labs: Abnormal Lab Results - Last 24 Hours (Table) 02/18/23 02/18/23 02/18/23 Range/Units 06:44 06:44 11:40 Neutrophils # (Manual) 17.25 H (1.3-7.7) k/uL Metamyelocytes # (Man) 0.64 H (0) k/uL Myelocytes # (Manual) 1.28 H (0) k/uL Promyelocytes # (Man) 0.43 H (0) k/uL Chloride 95 L (98-107) mmol/L Carbon Dioxide 38 H (22-30) mmol/L BUN 33 H (9-20) mg/dL Glucose 158 H (74-99) mg/dL POC Glucose (mg/dL) 162 H (70-110) mg/dL Total Protein 5.9 L (6.3-8.2) g/dL Albumin 3.3 L (3.5-5.0) g/dL 02/18/23 02/18/23 02/19/23 Range/Units 17:00 19:37 06:12 Neutrophils # (Manual) (1.3-7.7) k/uL Metamyelocytes # (Man) (0) k/uL Myelocytes # (Manual) (0) k/uL Promyelocytes # (Man) (0) k/uL Chloride (98-107) mmol/L Carbon Dioxide (22-30) mmol/L BUN (9-20) mg/dL Glucose (74-99) mg/dL POC Glucose (mg/dL) 207 H 205 H 137 H (70-110) mg/dL Total Protein (6.3-8.2) g/dL Albumin (3.5-5.0) g/dL Microbiology - Last 24 Hours (Table) 02/14/23 04:16 Blood Culture - Preliminary Blood
[2023-02-19] MEDS: LACTULOSE 20 GM/30 ML CUP PO SCH ×2 (12:11→20:05)
[2023-02-19] MEDS: DOCUSATE 100 MG CAP PO SCH ×2 (12:11→20:04)
--- NOTE | 2023-02-19 12:59 | P.PN ---
Subjective Progress Note Date: 02/19/23 Principal diagnosis: Acute on chronic hypoxic respiratory failure and acute cellulitis of lower extremities. History of Present Illness: Patient is a 72-year-old male here history is limited secondary to patient's medical status. Patient brought in by EMS from home. Patient allegedly was dyspneic. His recently admitted to the neighboring hospital for similar issue. He is currently being treated for lower extremity cellulitis bilaterally. EMS states that patient was very wheezy. They placed him on noninvasive ventilation and given breathing treatment which improved his symptoms are related allegedly had persistent upper field wheezing. EMS reports hypoxia upon initial arrival with saturations in the mid to low 80s.the patient is morbidly obese and has history of obstructive sleep apnea. He was quite lethargic and short of breath at time of admission and based on that the patient was placed on a BiPAP and currently the patient is a BiPAP settings of 12/6 cm o f water and FiO2 of 40%. His chest x-ray showed some mild pulmonary vascular congestion. Hhe has excessive edema in lower extremities along with cellulitis left lower extremity. Based on that, the patient was started on diuretics and the patient is currently on IV Lasix 80 mg every 12 hours and is producing adequate amount of urine output. He is also covered with a combination of cefepime and vancomycin regarding lower extremity cellulitis. He is arousable. He was communicate. He is tachypneic even while in the BiPAP and the patient seems to the BiPAP dependent. the patient was taken off the BiPAP briefly earlier this morning. Failed as the patient became more lethargic and somnolen t. Was placed back on a BiPAP. He is on Lovenox 40 mg subcu portably prophylaxis. He is bronchospastic and wheezy and I added Solu-Medrol. On today's evaluation of 02/12/2023, the patient is still wearing his BiPAP. Slightly improved compared to yesterday. He is diuresing well. Less spastic and wheezy. The patient is currently on Lasix 80 mg IV every 12 hours. Remains on a combination of cefepime and vancomycin. Remains on bronchodilators and steroids. Awake and alert and communicating. He is a DO NOT INTUBATE cor status and the patient did not get transferred to the intensive care unit for that reason. White suppository 3.8. Hemoglobin is 9.7. Sodium is at 140 with a potassium level of 4.7, BUN is 28 and a creatinine of 0.7. Fluid balance is - 684 mL and the patient is -1.7 L since yesterday. Reevaluated today on 02/14/2023, patient remains on BiPAP, and 50% FiO2. Seems to be comfortable, however he seems to be almost BiPAP dependent. Patient does not seem to be in any distress, he is still receiving antibiotics for his cellulitis, and his WBC count is improving down to 18.6, hemoglobin is 9.5 basic metabolic profile is normal renal profile is normal, his cellulitis is being addressed by infectious disease on the case. Blood cultures are positive for micrococcus species. Patient is on vancomycin. Reevaluated today on 02/15/2023, patient remains on BiPAP, 50%, IPAP of 12 and EPAP of 6, doing fairly well, does not seem to be in any distress, I am recommending at least transitioning the patient to airvo intermittently since he desaturates on 4 L nasal cannula. Patient will be placed on 50 L flow and 60% FiO2/airvo intermittently off BiPAP. Remains on antibiotics for his cellulitis. His CT of the brain came back abnormal, and I'm recommending neurology evaluation for possible normal pressure hydrocephalus. WBC count today is coming down to 18.6 from 23.8 yesterday. Basic metabolic profile is unremarkable, bicarb is 37. Chest x-ray on admission showed mostly fluid overload/pulmonary edema. Reevaluated today on 02/16/2023, patient seems to be doing well with airvo, off BiPAP, he is on 60% FiO2 and 50 L flow, plan is to continue to titrate his FiO2 down. Patient seems to be comfortable, he likes the airvo better than BiPAP. Bicarb is 44 which is expected, considering his severe chronic hypercapnic respiratory failure patient is metabolically compensating for his chronic respiratory acidosis. WBC count is 13.9 hemoglobin is 11. Patient does not seem to be in distress. Patient was seen by neurology on consultation, recommended EEG, placed on Trileptal 150 mg twice a day. He felt that his CT of the head findings are stable Reevaluated today on 02/17/2023, patient remains on airvo at 50% FiO2 and 50 L/m. Seems to be quite comfortable, he seems to be much more comfortable with the airvo compared to BiPAP. Breathing easier, denies any shortness of breath at present. Denies any chest discomfort. Continues to have leukocytosis with WBC count of 18.7, patient had initial WBC count on admission of 27.2 basic metabolic profile is normal except bicarb is 48 hence am recommending that we placed the patient back on Diamox. BUN is 43 creatinine 0.65. Patient was reevaluated today on 02/18/2023, today he is on 5 L nasal cannula with O2 sat of 98%, patient is off airvo, off BiPAP, doing well, no specific complaints. Pulmonary-hui is doing great. Hardly any pulmonary symptoms today. Patient is being considered for placement, and pulmonary-hui I'm clearing him for discharge if cleared by other consultants his WBC count is 21.3 hemoglobin is 11.3. Remains on vancomycin. Being followed by infectious disease. Patient was reevaluated today on 02/19/2023, pulmonary-hui, the patient is doing well, today the patient developed a sudden episode of weakness in his right upper extremity, and CT angiography of the neck was done, came back basically unremarkable. However since this morning his right upper extremity is back to baseline. Patient was cleared for placement, still waiting for placement on this patient. Patient is now on 4 L nasal cannula with O2 sats of 93%, BiPAP is at bedside. Continues to have a bit of leukocytosis with WBC scan of 21.3 otherwise labs are unremarkable bicarb level has come down to 38 from 48 since he was placed on Diamox Objective - Vital Signs Vital signs: Vital Signs Temp 97.6 F 02/19/23 12:10 Pulse 62 02/19/23 12:10 Resp 18 02/19/23 12:10 BP 93/59 02/19/23 12:10 Pulse Ox 93 L 02/19/23 12:10 FiO2 50 02/18/23 09:00 Intake & Output 02/18/23 02/19/23 02/19/23 18:59 06:59 18:59 Intake Total 358 Output Total 2150 1150 Balance -1792 -1150 Weight 153.5 kg 149.5 kg Intake: Oral 358 Output: Urine 2150 1150 Other: Voiding Method Indwelling Catheter Indwelling Catheter # Bowel Movements 0 - Exam GENERAL EXAM: Alert, doesn't, obese 72-year-old male patient, on 4 L high flow nasal cannula Head: Atraumatic normocephalic. ENT: Short and obese neck. PERRLA, EOMI, anicteric, short obese neck, no neck masses no JVD no stridor. CHEST: No chest wall deformity. LUNGS: Diminished breath sounds at the bases with crackles. CVS: S1 and S2 normal with no audible murmur, regular rhythm. ABDOMEN: No hepatosplenomegaly, normal bowel sounds, no guarding or rigidity. SKIN: Both lower extremities are wrapped with sterile dressings, could not fully visualize. CENTRAL NERVOUS SYSTEM: No focal deficits, tone is normal in all 4 extremities. EXTREMITIES: There is 1+ bipedal edema. No clubbing, no cyanosis. - Labs CBC & Chem 7: 02/18/23 06:44 02/19/23 05:31 Labs: Abnormal Lab Results - Last 24 Hours (Table) 02/18/23 02/18/23 02/18/23 Range/Units 06:44 17:00 19:37 Chloride 95 L (98-107) mmol/L Carbon Dioxide 38 H (22-30) mmol/L BUN 33 H (9-20) mg/dL Glucose 158 H (74-99) mg/dL POC Glucose (mg/dL) 207 H 205 H (70-110) mg/dL Total Protein 5.9 L (6.3-8.2) g/dL Albumin 3.3 L (3.5-5.0) g/dL 02/19/23 02/19/23 Range/Units 06:12 11:26 Chloride (98-107) mmol/L Carbon Dioxide (22-30) mmol/L BUN (9-20) mg/dL Glucose (74-99) mg/dL POC Glucose (mg/dL) 137 H 150 H (70-110) mg/dL Total Protein (6.3-8.2) g/dL Albumin (3.5-5.0) g/dL Microbiology - Last 24 Hours (Table) 02/14/23 04:16 Blood Culture - Final Blood Assessment and Plan Assessment: Impression: Acute lower extremity cellulitis, patient is receiving cefepime and vancomycin. Being addressed by infectious disease. Acute on chronic hypoxic respiratory failure, alternating between BiPAP and airvo. Acute on chronic diastolic congestive heart failure History of mild intermittent asthma with mild exacerbation. Benign essential hypertension Morbid obesity Obstructive sleep apnea syndrome on CPAP Recurrent cellulitis of lower extremities, previous MRSA infection History of brain tumor and previous craniotomy. History of hypothyroidism on replacement therapy Benign essential hypertension, on treatment. Possible normal pressure hydrocephalus as noted on CT of the brain Recommendation: Continue diuretics including Diamox and Lasix. Continue antibiotics as per ID Titrate oxygen accordingly, presently on 4 L Use BiPAP as needed especially when he sleeps. Continue bronchodilators. Continue prednisone taper Cleared from the pulmonary perspective for discharge planning if cleared by other consultants DO NOT RESUSCITATE/DO NOT INTUBATE CODE STATUS. Time with Patient: Less than 30
--- NOTE | 2023-02-19 13:04 | P.PN ---
Subjective Progress Note Date: 02/19/23 The patient seen at bedside and that he was having some right shoulder pain but feels better today compared to yesterday. Any movement the right upper extremity better today compared to yesterday. Denies any new neurological issues. 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 Objective - Vital Signs Vital signs: Vital Signs Temp 97.6 F 02/19/23 12:10 Pulse 62 02/19/23 12:10 Resp 18 02/19/23 12:10 BP 93/59 02/19/23 12:10 Pulse Ox 93 L 02/19/23 12:10 FiO2 50 02/18/23 09:00 Intake & Output 02/18/23 02/19/23 02/19/23 18:59 06:59 18:59 Intake Total 358 Output Total 2150 1150 Balance -1792 -1150 Weight 153.5 kg 149.5 kg Intake: Oral 358 Output: Urine 2150 1150 Other: Voiding Method Indwelling Catheter Indwelling Catheter # Bowel Movements 0 - Exam GENERAL: The patient is sitting in a recliner chair and is not in acute distress. HENT: Has skull defect over the right frontotemporal region with old scar. NEUROLOGICAL: Higher mental function: The patient is awake, alert, oriented to self, place and time. Patient is following simple commands. No aphasia and no neglect. Cranial nerves: The pupils are round, equal and reactive to light. Visual chase are full to confrontation throughout. Extraocular movement is intact no nystagmus is noted. Facial sensation is normal to touch throughout. The facial strength is normal throughout. Tongue is midline and moved [id number] without any difficulty. No dysarthria is noted. Shoulder shrug is normal bilaterally. Motor: The strength is left lower extremity weakness from old stroke. Limited in lowers. Right upper extremity is able to lift above gravity but somewhat limited because of shoulder pain but most improved today compared to yesterday. Otherwise left upper extremity and is normal. U Normal tone and bulk. Some of the workup during his hospital visit consisted of: Initial white blood cell is 27.2 thousand and currently to 18.6. It's predominantly neutrophilic. Initially the temperature is T-max of 101.5. His temperature has resolved. Sugar has been in the range of 170s to 220s. 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 Findings stable. Large fluid attenuation along the midline and paracentral left mild mass affect upon the left frontal lobe is stable from prior exam could be M basis arachnoid cyst. Recommend consideration for MRI. Findings stable dating back to 2009. I personally reviewed the CT and there is no bleed or any evidence of any acute subacute ischemia but was somewhat limited because of motion artifact. Appears to patient had an left frontal stroke that old which was with a history and his examination. Routine EEG: Is abnormal. The back was suggestive of mild encephalopathy. There is focal slowing over the right hemisphere consistent with focal cerebral dysfunction. Otherwise there is no epileptiform discharges or seizure on the EEG. Trileptal level is 1.6 (normal is 10-35). CT of the brain is reported as no acute intracranial processes. No significant change from prior. Mild dilation of the ventricular system since is unchanged from prior. CT angiography of the head and neck and port as negative. - Labs CBC & Chem 7: 02/18/23 06:44 02/19/23 05:31 Labs: Abnormal Lab Results - Last 24 Hours (Table) 02/18/23 02/18/23 02/18/23 Range/Units 06:44 17:00 19:37 Chloride 95 L (98-107) mmol/L Carbon Dioxide 38 H (22-30) mmol/L BUN 33 H (9-20) mg/dL Glucose 158 H (74-99) mg/dL POC Glucose (mg/dL) 207 H 205 H (70-110) mg/dL Total Protein 5.9 L (6.3-8.2) g/dL Albumin 3.3 L (3.5-5.0) g/dL 02/19/23 02/19/23 Range/Units 06:12 11:26 Chloride (98-107) mmol/L Carbon Dioxide (22-30) mmol/L BUN (9-20) mg/dL Glucose (74-99) mg/dL POC Glucose (mg/dL) 137 H 150 H (70-110) mg/dL Total Protein (6.3-8.2) g/dL Albumin (3.5-5.0) g/dL Microbiology - Last 24 Hours (Table) 02/14/23 04:16 Blood Culture - Final Blood Assessment and Plan Assessment: Altered mental status seems due to underlying cellulitis---mentation is improved No seizure on the EEG. Some right upper extremity weakness due to the pain after having the his midline taking off yesterday and his strength is improving but continues to have some right shoulder pain but again drastically better today compared to yesterday. CT head and CT angiography of the head and neck are normal. Does not appear stroke. 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 Pending repeat of Trileptal level. Patient is on Trileptal 150mg 1 tab bid. I spoke with the primary attending and recommended low-dose aspirin 81 mg daily because of his history of ischemia. It seems that the patient had ischemic stroke with hemorrhagic conversion and so we'll go with that low dose and we'll monitor. Patient in the primary are in agreement of the use of aspirin. I.D. is on board. Will defer the rest of medical management to primary team. Recommend the patient to follow-up with a neurologist in outpatient within 2-3 weeks The plan is discussed with patient and primary attending. We'll continue to follow up sporadically. If continues to be doing well and no other issues is clear from neurological perspective. Time with Patient: Less than 30
--- NOTE | 2023-02-19 15:08 | P.PN ---
Subjective Progress Note Date: 02/18/23 Principal diagnosis: Bilateral lower extremity cellulitis Patient is a 72-year-old male with multiple comorbidities and did have history of bilateral lower extremity cellulitis and previous infection with both MRSA and pseudomonas presented to hospital with sepsis concerning for left lower extremity cellulitis. On today's evaluation that is 02/18/2023, the patient remains to be afebrile, the patient is breathing comfortably on nasal cannula oxygen, the patient cheryl es any chest pain or shortness of breath occasional cough no nausea no vomiting no abdominal pain , pain to lower extremity has decreased in intensity Objective - Vital Signs Vital signs: Vital Signs Temp 97.6 F 02/18/23 12:10 Pulse 62 02/18/23 12:10 Resp 18 02/18/23 12:10 BP 93/59 02/18/23 12:10 Pulse Ox 93 L 02/18/23 12:10 FiO2 50 02/18/23 12:10 Intake & Output 02/18/23 12:59 Intake Total 358 Output Total 2150 Balance -1792 Weight 153.5 kg Intake: Oral 358 Output: Urine 2150 Other: Voiding Method Indwelling Catheter # Bowel Movements 0 - Exam GENERAL DESCRIPTION: An elderly male lying in bed in no distress RESPIRATORY SYSTEM: Unlabored breathing , decreased breath sounds at bases HEART: S1 S2 regular rate and rhythm , ABDOMEN: Soft , no tenderness EXTREMITIES: Left extremity swelling redness has improved no drainage - Labs CBC & Chem 7: 02/18/23 06:44 02/19/23 05:31 Labs: Abnormal Lab Results - Last 24 Hours (Table) 02/18/23 02/18/23 02/18/23 Range/Units 06:44 17:00 19:37 Chloride 95 L (98-107) mmol/L Carbon Dioxide 38 H (22-30) mmol/L BUN 33 H (9-20) mg/dL Glucose 158 H (74-99) mg/dL POC Glucose (mg/dL) 207 H 205 H (70-110) mg/dL Total Protein 5.9 L (6.3-8.2) g/dL Albumin 3.3 L (3.5-5.0) g/dL 02/19/23 02/19/23 Range/Units 06:12 11:26 Chloride (98-107) mmol/L Carbon Dioxide (22-30) mmol/L BUN (9-20) mg/dL Glucose (74-99) mg/dL POC Glucose (mg/dL) 137 H 150 H (70-110) mg/dL Total Protein (6.3-8.2) g/dL Albumin (3.5-5.0) g/dL Microbiology - Last 24 Hours (Table) 02/14/23 04:16 Blood Culture - Final Blood Assessment and Plan (1) Sepsis Current Visit: Yes Status: Acute Code(s): A41.9 - SEPSIS, UNSPECIFIED ORGANISM SNOMED Code(s): 68271935 (2) Bilateral lower leg cellulitis Current Visit: No Status: Acute Code(s): L03.116 - CELLULITIS OF LEFT LOWER LIMB; L03.115 - CELLULITIS OF RIGHT LOWER LIMB SNOMED Code(s): 146761004 Plan: 1patient was in the hospital with sepsis in this patient who did have a fever tachycardia elevated white count source is likely bilateral lower extremity cellulitis with left greater than right this patient who did have a history of both MRSA and Pseudomonas infection in the past with the patient failing oral Zyvox concern for possible gram-negative infection 2local wound care to the left lower extremity wound with Aquacel silver dressing followed by Moody wrap from just above the toe to below knee , to be changed daily 3positive blood cultures with a micrococcus likely skin contamination, repeat blood culture has been negative so far 4-patient to continue vancomycin and cefepime for a week and monitor clinical course closely Time with Patient: Less than 30
--- NOTE | 2023-02-19 15:09 | P.PN ---
Subjective Progress Note Date: 02/19/23 Principal diagnosis: Bilateral lower extremity cellulitis Patient is a 72-year-old male with multiple comorbidities and did have history of bilateral lower extremity cellulitis and previous infection with both MRSA and pseudomonas presented to hospital with sepsis concerning for left lower extremity cellulitis. On today's evaluation that is 02/19/2023, the patient continues to be afebrile, the patient is breathing comfortably on 4 L nasal cannula oxygen, the patient denies any chest pain or shortness of breath occasional cough no nausea no vomiting no abdominal pain and no diarrhea has been reported, pain to the leg has decreased Objective - Vital Signs Vital signs: Vital Signs Temp 97.6 F 02/19/23 12:10 Pulse 62 02/19/23 12:10 Resp 18 02/19/23 12:10 BP 93/59 02/19/23 12:10 Pulse Ox 93 L 02/19/23 12:10 FiO2 50 02/18/23 09:00 Intake & Output 02/18/23 02/19/23 02/19/23 18:59 06:59 18:59 Intake Total 358 180 Output Total 2150 1150 Balance -1792 -1150 180 Weight 153.5 kg 149.5 kg Intake: Oral 358 180 Output: Urine 2150 1150 Other: Voiding Method Indwelling Catheter Indwelling Catheter Indwelling Catheter # Bowel Movements 0 - Exam GENERAL DESCRIPTION: An elderly male lying in bed in no distress RESPIRATORY SYSTEM: Unlabored breathing , decreased breath sounds at bases HEART: S1 S2 regular rate and rhythm , ABDOMEN: Soft , no tenderness EXTREMITIES: Left extremity swelling redness has improved no drainage - Labs CBC & Chem 7: 02/18/23 06:44 02/19/23 05:31 Labs: Abnormal Lab Results - Last 24 Hours (Table) 02/18/23 02/18/23 02/18/23 Range/Units 06:44 17:00 19:37 Chloride 95 L (98-107) mmol/L Carbon Dioxide 38 H (22-30) mmol/L BUN 33 H (9-20) mg/dL Glucose 158 H (74-99) mg/dL POC Glucose (mg/dL) 207 H 205 H (70-110) mg/dL Total Protein 5.9 L (6.3-8.2) g/dL Albumin 3.3 L (3.5-5.0) g/dL 02/19/23 02/19/23 Range/Units 06:12 11:26 Chloride (98-107) mmol/L Carbon Dioxide (22-30) mmol/L BUN (9-20) mg/dL Glucose (74-99) mg/dL POC Glucose (mg/dL) 137 H 150 H (70-110) mg/dL Total Protein (6.3-8.2) g/dL Albumin (3.5-5.0) g/dL Microbiology - Last 24 Hours (Table) 02/14/23 04:16 Blood Culture - Final Blood Assessment and Plan (1) Sepsis Current Visit: Yes Status: Acute Code(s): A41.9 - SEPSIS, UNSPECIFIED ORGANISM SNOMED Code(s): 54880608 (2) Bilateral lower leg cellulitis Current Visit: No Status: Acute Code(s): L03.116 - CELLULITIS OF LEFT LOWER LIMB; L03.115 - CELLULITIS OF RIGHT LOWER LIMB SNOMED Code(s): 941573153 Plan: 1patient was in the hospital with sepsis in this patient who did have a fever tachycardia elevated white count source is likely bilateral lower extremity cellulitis with left greater than right this patient who did have a history of both MRSA and Pseudomonas infection in the past with the patient failing oral Zyvox concern for possible gram-negative infection 2local wound care to the left lower extremity wound with Aquacel silver dressing followed by Moody wrap from just above the toe to below knee , to be changed daily 3positive blood cultures with a micrococcus likely skin contamination, repeat blood culture has been negative so far 4-patient has shown clinical improvement and will continue vancomycin and cefepime for another 5-6 days to finish his course of therapy Time with Patient: Less than 30
[2023-02-19 16:28] LABS: Glucose,Whole Blood 202 mg/dL (70-110)
[2023-02-19] MEDS: ASPIRIN 81 MG PO SCH (17:02)
[2023-02-19 19:59] LABS: Glucose,Whole Blood 154 mg/dL (70-110)
[2023-02-19] MEDS: ATORVASTATIN 40 MG TAB PO SCH (20:03)
[2023-02-19] MEDS: MELATONIN 3 MG TABLET PO SCH (20:04)
[2023-02-20] MEDS ORDERED: VANCOMYCIN TROUGH DUE 1 EACH MISC MISCELLANE ONE (04:00)
[2023-02-20] MEDS: VANCOMYCIN 2,000 MG in SODIUM CHLORIDE 0.9% 500 ML 500 ML IVPB SCH ×2 (04:04→17:04)
[2023-02-20 04:13] LABS: Anisocytosis Slight; HCT 34.7 % (39.0-53.0); HGB 10.6 gm/dL (13.0-17.5); Hypochromasia Marked; MCH 28.1 pg (25.0-35.0); MCHC 30.6 g/dL (31.0-37.0); MCV 91.8 fL (80.0-100.0); Mean Platelet Volume 8.1; Platelet Count 229 k/uL (150-450); Poikilocytosis Slight; RBC 3.78 m/uL (4.30-5.90); RDW 18.9 % (11.5-15.5)
[2023-02-20 04:58] LABS: African American GFR (CKD) >90 (>60 ml/min/1.73 sqM); Anion Gap 5 mmol/L; Blood Urea Nitrogen 33 mg/dL (9-20); Calcium 8.8 mg/dL (8.4-10.2); Carbon Dioxide 33 mmol/L (22-30); Chloride 99 mmol/L (98-107); Glucose 117 mg/dL (74-99); Non-African American GFR(CKD) 88 (>60 ml/min/1.73 sqM); Potassium 4.3 mmol/L (3.5-5.1); Sodium 137 mmol/L (137-145)
[2023-02-20 05:47] LABS: Glucose,Whole Blood 149 mg/dL (70-110)
[2023-02-20] MEDS: INSULIN ASPART (NovoLOG) 100 UNIT/ML VIAL SQ SCH ×4 (06:00→20:01)
[2023-02-20] MEDS: PANTOPRAZOLE 40 MG TABLET PO SCH (06:04)
[2023-02-20] MEDS: carvediloL 3.125 MG TAB PO SCH ×2 (06:04→16:58)
[2023-02-20] MEDS: LEVOTHYROXINE 50 MCG TAB PO SCH (06:04)
[2023-02-20 06:51] LABS: Band Neutrophils % 3 %; Eosinophils # (M) 0.57 k/uL (0-0.7); Lymphocytes # (M) 1.71 k/uL (1.0-4.8); Metamyelocytes # (M) 0.76 k/uL (0); Metamyelocytes % 4 %; Monocytes # (M) 0.38 k/uL (0-1.0); Myelocytes # (M) 0.19 k/uL (0); Myelocytes % 1 %; Neutrophils % (M) 79 %; Nucleated Red Blood Cells 0 /100 WBC (0-0); Total Cells Counted 200
[2023-02-20 06:56] LABS: Toxic Vacuolation Present
[2023-02-20] MEDS: IPRATROPIUM-ALBUTEROL 3 ML NEB INHALATION SCH ×4 (08:27→20:17)
[2023-02-20] MEDS: HYDROcodone/APAP 10-325MG 1 EACH TAB PO PRN ×2 (09:43→16:57)
[2023-02-20] MEDS: CEFEPIME 2 GM in SODIUM CHLORIDE 0.9% 100 ML IVPB SCH ×3 (09:44→23:39)
[2023-02-20] MEDS: predniSONE 20 MG TAB PO SCH (09:45)
[2023-02-20] MEDS: DOCUSATE 100 MG CAP PO SCH ×2 (09:45→20:02)
[2023-02-20] MEDS: acetaZOLAMIDE 250 MG TAB PO SCH (09:45)
[2023-02-20] MEDS: PREGABALIN 75 MG CAP PO SCH (09:45)
[2023-02-20] MEDS: PRAMIPEXOLE 1 MG TAB PO SCH ×3 (09:45→22:19)
[2023-02-20] MEDS: OXcarbazepine 150 MG TAB PO SCH ×2 (09:45→20:01)
[2023-02-20] MEDS: SPIRONOLACTONE 25 MG TAB PO SCH (09:45)
[2023-02-20] MEDS: ASPIRIN 81 MG PO SCH (09:45)
[2023-02-20] MEDS: LACTULOSE 20 GM/30 ML CUP PO SCH ×2 (09:46→20:02)
[2023-02-20] MEDS: ENOXAPARIN 40 MG/0.4 ML SYRINGE SQ SCH (09:46)
[2023-02-20] MEDS: FUROSEMIDE 10 MG/ML 4 ML VIAL IV SCH (09:46)
[2023-02-20 11:43] LABS: Glucose,Whole Blood 152 mg/dL (70-110)
--- NOTE | 2023-02-20 12:21 | P.PN ---
Subjective Progress Note Date: 02/20/23 HISTORY OF PRESENT ILLNESS This is a 71-year-old male patient with past medical history of hypertension, h yperlipidemia, CVA, mild persistent ALLERGIC asthma, seizure disorder, Parkinson's disease, chronic diastolic heart failure, stasis dermatitis of the left lower extremity due to peripheral venous hypertension, spondylosis of the lumbar spine, obstructive sleep apnea, patient was recently hospitalized at [facility] about a few once ago with significant cellulitis of both lower extremity is with venous ulceration that was treated with IV antibiotic due to MRSA at that time he was placed on vancomycin and cefepime then he was switched to Cubicin and he was supposed to go to extended care facility for IV antibiotic however the infectious disease recommended for the patient to go on linezolid 600 mg orally twice every day for 14 days, patient has been following with wound healing center with . and he has been getting would care at home but it was a Tuesday, today his nurse contacted EMS to bring her to the emergency department because of increased shortness breath as well as increased swelling in both lower extremity is, and significant fever and chills and patient was septic, patient was seen in the ER according to the EMS the patient oxygen sufficient was in the low 80s, his chest x-ray showed poorly vascular congestion, patient did receive IV fluid in the emergency department as a protocol of sepsis and put the patient in acute diastolic heart failure subs equently the patient was started on Lasix 80 mg IV push every 12 hours and he was seen in consultation by pulmonary/critical care medicine Dr. Burns who recommended for the patient to transfer to the intensive care unit, patient was also started on Solu-Medrol 60 mg IV push every 6 hours along with IV antibiotic in the form of vancomycin and cefepime he was also seen in consultation by infectious disease Dr. Amezquita. 02/12: Patient is laying down in bed appears to be in respiratory distress, his IV fluids were decreased to 50 mL an hour, he was placed on a BiPAP 12 and 6, he was given Lasix 80 mg IV push 1 and then twice every day, patient already was started on vancomycin and cefepime he was evaluated by pulmonary/critical care he was recommended for the patient to be transferred to the intensive care unit, blood gases were obtained, he was also started on Solu-Medrol 60 mg IV push ev beba 6 hours along with IV antibiotic we'll continue to monitor the patient very closely. 02/13: Patient is laying down in bed currently in respiratory distress on BiPAP, has been getting Lasix 80 mg IV push every 12 hours, his blood cultures are positive for gram-positive cocci currently on cefepime and vancomycin, we will continue to monitor until the final ID of the organism is there, pulmonary swallowing, patient has been followed very closely, he appears to be better today than yesterday, we'll continue to manage the patient along with ID and pulmonary and critical care. 02/14: Patient is laying down in bed in no apparent distress, he is currently on a BiPAP, his sitting better than yesterday, this was in the bedside, earlier in the morning did have mental status changes and increased confusion, computed tomography scan of the brain was reviewed, did show chronic changes in acute abn ormalities, patient has been maintained on IV Lasix, IV antibiotic, he has been seen by pulmonary medicine as well as by infectious disease 02/15: Patient was seen earlier by neurology today because of increased the encephalopathy reviewed computed tomography scan did not show evidence of acute of normalities just chronic changes, patient was sitting up in chair today with his at bedside, patient appears to be at baseline to me, has been responding very well to the current treatment, he continued to be on Lasix 80 mg IV push every 12 hours, his Solu-Medrol was decreased to 40 mg IV push every 8 hours, we will continue to monitor that, continue to wean 02/16: Patient is sitting up in bed in no apparent distress, he continues to be on Airvo he is feeling much more comfortable today, he has no chest pain, shortness breath, this coughing, no abdominal pain, no bowel movement today, his lower extremities are much better, specially the left lower extremity, he continues to be on cefepime and vancomycin, we'll decrease his Solu-Medrol to 40 mg IV push every 12 hours, decrease his Lasix to 40 mg IV push every 12 hours, monitor the patient's electrolytes tomorrow morning. 02/17: Patient sitting up in bed in no apparent distress, he continues to be on Airvo , decrease Lasix to 40 mg IV push every 24 hours, he was started on Diamox 500 mg orally twice every day due to contraction alkalosis, has been followed by pulmonary medicine as well, he is maintained on gentamicin and cefepime, infectious disease will decide on the timing of the PICC line, patient will be ready to get to the extended care facility with IV antibiotic blood cultures appears to be negative so far. child welfare caseworker is on the case. 02/18: Patient is laying down in bed in no apparent distress, history of lumbar today, he denies any chest pain at this time, the short of breath, he continues to be on Airvo, he pulled his midline yesterday, we will need PICC line insertion of antibiotic, we'll continue total physical therapy [employer] social [employer] tutor to try to get the patient to the extended care facility hopefully at the beginning of the week. 02/19: Patient developed to have clumsiness and weakness in the right upper extremity, neurology was contacted recommended computed tomography scan of the brain without contrast that was negative, this is followed by a CT angiography of the neck and brain that did not show evidence of acute of normalities of high-grade stenosis, a computed tomography scan of the brain did show mild dilatation of the ventricle that was stable from the last CT was done, he was recommended to continue current treatment plan, patient does not appear to have a significant or acute stroke at this point in time. We will plan to have a PICC line placement Tuesday and then the patient can be discharged to extended care facility. 02/20:Patient is doing better, continues to be afebrile, blood cultures showed micrococcus likely contamination, we will continue with Vancomycin and Cefepime for one more week then discontinue , hopefully will get a PICC line in [place] and then he can be discharged to [facility] [place] REVIEW OF SYSTEMS Constitutional: positive for fever, chills, no night sweats. No weight change. positive for weakness,positive for fatigue and lethargy. positive for daytime sleepiness. HEENT: No headache. No blurred vision or double vision, no loss of vision. No loss of Hearing, no ringing in the ears, no dizziness. No nasal drainage or congestion. No epistaxis. No sore throat. Lungs:positive for shortness of breath, occasional cough, no sputum production. positive for wheezing.Chronic dyspnea with exertion. Cardiovascular: No chest pain,reports lower extremity edema. positive for palpitations. positive for paroxysmal nocturnal dyspnea. positive for orthopnea. No lightheadedness or dizziness. No syncopal episodes. Abdominal: No abdominal pain. No nausea, vomiting. No diarrhea. No constipation. No bloody or tarry stools. No loss of appetite. Genitourinary: No dysuria, kennedy catheter in place Musculoskeletal: No myalgias. positive for bilateral lower extremities muscle weakness, positive for gait dysfunction, no frequent falls. positive for back pain and neck pain. Integumentary:Reports wounds with venous ulcerations to left lower extremity. No rash or pruritus. No unusual bruising. positive for change in hair and nails. Neurologic: No aphasia. No facial droop. positive for change in mentation. No head injury. No headache. No paralysis. No paresthesia. Psychiatric: positive for depression and anxiety. No mood swings. Endocrine: No abnormal blood sugars. positive for weight change. No excessive sweating or thirst. No cold intolerance. PHYSICAL EXAMINATION Gen: This is a morbidly obese 72-year-old male lying down in bed in moderate respiratory distress HEENT: Head is atraumatic, normocephalic. Pupils equal, round. Sclerae is anicteric, mucous membranes of the mouth are somewhat dry. NECK: Supple. elevated JVD. No lymphadenopathy. No thyromegaly. LUNGS: Decrease breath sounds at the bases with few ronchi , moderate expiratory wheezes, and minimal intercostal retractions. HEART: First heart sound is depressed, second heart sound is normal, there is a 2/6 systolic ejection murmur at the left sternal border, no S3, no S4.. ABDOMEN: Soft. Bowel sounds are present. No masses. No tenderness.obese, positive bowel sounds EXTREMITIES: 3+ bilateral pitting pedal edema with erythema, there is venous ulcerations in the left lower extremity extending into to the calf posteriorly with severe erythema and tenderness to touch, left second toe amputation and DP +1 bilaterally NEUROLOGICAL: Patient is awake, alert and oriented x3. Cranial nerves 2 through 12 are grossly intact, CN II-XII are grossly intact muscle power 4/5 in bilateral upper extremities, and 3/5 in bilateral lower extremities. ASSESSMENT AND PLAN 1. Bilateral lower extremity cellulitis with sepsis present on admission. We'll continue patient with the vancomycin as well as cefepime, continue local care, blood cultures are negative. 2. Acute hypoxemic respiratory failure due to acute on chronic diastolic heart failure as well as acute exacerbation of COPD/asthma, Lasix 40 mg IV push every 24 hours, carvedilol 3.125 mg orally twice every day, losartan 25 mg once every day, spironolactone 25 mg orally once every day, Kennedy catheter in place, input and output and daily weight, Prednisone 40 mg po daily DuoNeb 3 mL nebulization 3 times every day. currently on Airvo. 3. Chronic respiratory failure due to Obesity with obstructive sleep apnea and obesity hypoventilation syndrome with underlying COPD/asthma . Continue treatment as in the previous paragraph. 4. Hypertension and hypertensive cardiovascular disease. Continue Coreg 3.125 mg twice daily, continue losartan 25 mg once every day, continue spironolactone 25 mg once every day. 5. Hyperlipidemia. Continue low-cholesterol diet, continue atorvastatin 40 mg once every day, monitor lipid panel, keep LDL 55-70. 6. History of CVA. Continue patient on atorvastatin 40 mg once every day as well as aspirin 81 mg once every day. 7. Parkinson's disease. Continue Mirapex 1 mg 3 times daily. 8. Spondylosis of the lumbar spine. Continue Lyrica 75 mg twice daily. 9. Obstructive sleep apnea. Continue Bipap/Airvo. 10. Hypothyroidism. Continue Synthroid 50 g orally once every day monitor TSH and free T4 11. GI prophylaxis. Protonix 40 mg orally once every day.. 12. DVT prophylaxis. Lovenox 40 mg subcutaneously every 24 hours. 13. metabolic encephalopathy due to multifactorial including bilateral lower extremity cellulitis with sepsis.resolved 14. Contraction alkalosis. resolved we will discontinue Diamox. 15. Reported weakness of the right upper extremity after midline removal. CT scan of the brain did not show evidence of acute of normalities, CTA of the neck and the brain is negative, continue current treatment plan, neurologist, no evidence of acute CVA. No further treatment is necessary.add ASA 81 mg po daily. 16. Patient is no CODE STATUS per his own wishes 17. PICC line insertion on Tuesday then subacute rehab at [facility] tomorrow. Objective - Vital Signs Vital signs: Vital Signs Temp 97.7 F 02/19/23 20:00 Pulse 74 02/20/23 08:43 Resp 18 02/20/23 04:00 BP 110/65 02/20/23 04:00 Pulse Ox 96 02/20/23 04:00 FiO2 50 02/18/23 09:00 Intake & Output 02/19/23 02/20/23 02/20/23 18:59 06:59 18:59 Intake Total 360 Output Total 500 800 400 Balance -140 -800 -400 Weight 150 kg Intake: Oral 360 Output: Urine 500 800 400 Other: Voiding Method Indwelling Catheter Indwelling Catheter # Bowel Movements 1 - Labs CBC & Chem 7: 02/20/23 03:33 02/20/23 03:33 Labs: Abnormal Lab Results - Last 24 Hours (Table) 02/19/23 02/19/23 02/19/23 Range/Units 11:26 16:27 19:58 WBC (3.8-10.6) k/uL RBC (4.30-5.90) m/uL Hgb (13.0-17.5) gm/dL Hct (39.0-53.0) % MCHC (31.0-37.0) g/dL RDW (11.5-15.5) % Neutrophils # (Manual) (1.3-7.7) k/uL Metamyelocytes # (Man) (0) k/uL Myelocytes # (Manual) (0) k/uL Carbon Dioxide (22-30) mmol/L BUN (9-20) mg/dL Glucose (74-99) mg/dL POC Glucose (mg/dL) 150 H 202 H 154 H (70-110) mg/dL 02/20/23 02/20/23 02/20/23 Range/Units 03:33 03:33 05:46 WBC 19.0 H (3.8-10.6) k/uL RBC 3.78 L (4.30-5.90) m/uL Hgb 10.6 L (13.0-17.5) gm/dL Hct 34.7 L (39.0-53.0) % MCHC 30.6 L (31.0-37.0) g/dL RDW 18.9 H (11.5-15.5) % Neutrophils # (Manual) 15.50 H (1.3-7.7) k/uL Metamyelocytes # (Man) 0.76 H (0) k/uL Myelocytes # (Manual) 0.19 H (0) k/uL Carbon Dioxide 33 H (22-30) mmol/L BUN 33 H (9-20) mg/dL Glucose 117 H (74-99) mg/dL POC Glucose (mg/dL) 149 H (70-110) mg/dL Microbiology - Last 24 Hours (Table) 02/14/23 04:16 Blood Culture - Final Blood
[2023-02-20 16:23] LABS: Glucose,Whole Blood 182 mg/dL (70-110)
[2023-02-20] MEDS: SODIUM CHLORIDE 0.9% 1,000 ML IV SCH (16:40)
[2023-02-20] MEDS: LOSARTAN 25 MG TAB PO SCH (16:41)
[2023-02-20 19:58] LABS: Glucose,Whole Blood 237 mg/dL (70-110)
[2023-02-20 19:59] VITALS: TEMP 97.4
[2023-02-20] MEDS: MELATONIN 3 MG TABLET PO SCH (20:02)
[2023-02-20] MEDS: ATORVASTATIN 40 MG TAB PO SCH (20:02)
--- NOTE | 2023-02-20 22:33 | P.PN ---
Subjective Progress Note Date: 02/20/23 Principal diagnosis: Bilateral lower extremity cellulitis Patient is a 72-year-old male with multiple comorbidities and did have history of bilateral lower extremity cellulitis and previous infection with both MRSA and pseudomonas presented to hospital with sepsis concerning for left lower extremity cellulitis. On today's evaluation that is 02/20/2023, the patient is afebrile, the patient is breathing comfortably on 4 L nasal cannula oxygen, the patient denies any chest pain or shortness of breath , pt did have occasional cough no nausea no vomiting no abdominal pain and no diarrhea has been reported, denies pain to the leg Objective - Vital Signs Vital signs: Vital Signs Temp 97.7 F 02/19/23 20:00 Pulse 74 02/20/23 08:43 Resp 18 02/20/23 04:00 BP 110/65 02/20/23 04:00 Pulse Ox 96 02/20/23 04:00 FiO2 50 02/18/23 09:00 Intake & Output 02/19/23 02/20/23 02/20/23 18:59 06:59 18:59 Intake Total 360 480 Output Total 500 800 400 Balance -140 -800 80 Weight 150 kg Intake: Oral 360 480 Output: Urine 500 800 400 Other: Voiding Method Indwelling Catheter Indwelling Catheter # Bowel Movements 1 - Exam GENERAL DESCRIPTION: An elderly male lying in bed in no distress RESPIRATORY SYSTEM: Unlabored breathing , decreased breath sounds at bases HEART: S1 S2 regular rate and rhythm , ABDOMEN: Soft , no tenderness EXTREMITIES: Left extremity swelling redness has improved no drainage - Labs CBC & Chem 7: 02/20/23 03:33 02/20/23 03:33 Labs: Abnormal Lab Results - Last 24 Hours (Table) 02/19/23 02/19/23 02/19/23 Range/Units 11:26 16:27 19:58 WBC (3.8-10.6) k/uL RBC (4.30-5.90) m/uL Hgb (13.0-17.5) gm/dL Hct (39.0-53.0) % MCHC (31.0-37.0) g/dL RDW (11.5-15.5) % Neutrophils # (Manual) (1.3-7.7) k/uL Metamyelocytes # (Man) (0) k/uL Myelocytes # (Manual) (0) k/uL Carbon Dioxide (22-30) mmol/L BUN (9-20) mg/dL Glucose (74-99) mg/dL POC Glucose (mg/dL) 150 H 202 H 154 H (70-110) mg/dL 02/20/23 02/20/23 02/20/23 Range/Units 03:33 03:33 05:46 WBC 19.0 H (3.8-10.6) k/uL RBC 3.78 L (4.30-5.90) m/uL Hgb 10.6 L (13.0-17.5) gm/dL Hct 34.7 L (39.0-53.0) % MCHC 30.6 L (31.0-37.0) g/dL RDW 18.9 H (11.5-15.5) % Neutrophils # (Manual) 15.50 H (1.3-7.7) k/uL Metamyelocytes # (Man) 0.76 H (0) k/uL Myelocytes # (Manual) 0.19 H (0) k/uL Carbon Dioxide 33 H (22-30) mmol/L BUN 33 H (9-20) mg/dL Glucose 117 H (74-99) mg/dL POC Glucose (mg/dL) 149 H (70-110) mg/dL Microbiology - Last 24 Hours (Table) 02/14/23 04:16 Blood Culture - Final Blood Assessment and Plan (1) Sepsis Current Visit: Yes Status: Acute Code(s): A41.9 - SEPSIS, UNSPECIFIED ORGANISM SNOMED Code(s): 67864570 (2) Bilateral lower leg cellulitis Current Visit: No Status: Acute Code(s): L03.116 - CELLULITIS OF LEFT LOWER LIMB; L03.115 - CELLULITIS OF RIGHT LOWER LIMB SNOMED Code(s): 627397872 Plan: 1patient was in the hospital with sepsis in this patient who did have a fever tachycardia elevated white count source is likely bilateral lower extremity cellulitis with left greater than right this patient who did have a history of both MRSA and Pseudomonas infection in the past with the patient failing oral Zyvox concern for possible gram-negative infection 2local wound care to the left lower extremity wound with Aquacel silver dressing followed by Moody wrap from just above the toe to below knee , to be changed daily 3positive blood cultures with a micrococcus likely skin contamination, repeat blood culture has been negative so far 4-patient has shown clinical improvement, white count is still elevated more likely steroid effects, will recheck his inflammatory marker 5- Pt will continue vancomycin and cefepime for another 6 days to finish his course of therapy Time with Patient: Less than 30
[2023-02-21] MEDS: VANCOMYCIN 2,000 MG in SODIUM CHLORIDE 0.9% 500 ML 500 ML IVPB SCH ×2 (04:49→17:34)
[2023-02-21] MEDS: LEVOTHYROXINE 50 MCG TAB PO SCH (05:51)
[2023-02-21 05:56] LABS: Glucose,Whole Blood 195 mg/dL (70-110)
[2023-02-21] MEDS: INSULIN ASPART (NovoLOG) 100 UNIT/ML VIAL SQ SCH ×4 (06:10→20:24)
[2023-02-21] MEDS: PANTOPRAZOLE 40 MG TABLET PO SCH (06:10)
[2023-02-21] MEDS: carvediloL 3.125 MG TAB PO SCH ×2 (06:43→16:20)
[2023-02-21] MEDS: CEFEPIME 2 GM in SODIUM CHLORIDE 0.9% 100 ML IVPB SCH ×3 (08:04→23:39)
[2023-02-21] MEDS: LACTULOSE 20 GM/30 ML CUP PO SCH ×2 (08:04→20:51)
[2023-02-21] MEDS: ENOXAPARIN 40 MG/0.4 ML SYRINGE SQ SCH (08:04)
[2023-02-21] MEDS: SPIRONOLACTONE 25 MG TAB PO SCH (08:04)
[2023-02-21] MEDS: LOSARTAN 25 MG TAB PO SCH (08:04)
[2023-02-21] MEDS: ASPIRIN 81 MG PO SCH (08:04)
[2023-02-21] MEDS: FUROSEMIDE 10 MG/ML 4 ML VIAL IV SCH (08:04)
[2023-02-21] MEDS: DOCUSATE 100 MG CAP PO SCH ×2 (08:04→20:51)
[2023-02-21] MEDS: PREGABALIN 75 MG CAP PO SCH (08:04)
--- NOTE | 2023-02-21 08:34 | P.DS ---
Providers Date of admission: 02/11/23 16:55 Expected date of discharge: 02/21/23 Attending physician: Niko Valdez Consults: 02/11/23 16:54 Consult Physician Routine Consulting Provider: Manny Amezquita Consult Reason/Comments: sepsis Do you want consulting provider notified?: Yes 02/11/23 16:56 Consult Physician Routine Consulting Provider: Job Burns Consult Reason/Comments: hypoxia Do you want consulting provider notified?: Yes 02/12/23 09:34 Consult Physician Routine Consulting Provider: Job Burns Consult Reason/Comments: Respiratory insufficiency Do you want consulting provider notified?: Yes 02/15/23 09:03 Consult Physician Routine Consulting Provider: William Hemphill Consult Reason/Comments: AMS, hydrocephalus Do you want consulting provider notified?: Yes Primary care physician: Niko Valdez [facility] Course: HISTORY OF PRESENT ILLNESS This is a 71-year-old male patient with past medical history of hypertension, hyperlipidemia, CVA, mild persistent ALLERGIC asthma, seizure disorder, Parkinson's disease, chronic diastolic heart failure, stasis dermatitis of the left lower extremity due to peripheral venous hypertension, spondylosis of the lumbar spine, obstructive sleep apnea, patient was recently hospitalized at [facility] about a few once ago with significant cellulitis of both lower extremity is with venous ulceration that was treated with IV antibiotic due to MRSA at that time he was placed on vancomycin and cefepime then he was switched to Cubicin and he was supposed to go to extended care facility for IV antibiotic however the infectious disease recommended for the patient to go on linezolid 600 mg orally twice every day for 14 days, patient has been following with wound healing center with . and he has been getting would care at home but it was a Tuesday, today his nurse contacted EMS to bring her to the emergency department because of increased shortness breath as well as increased swelling in both lower extremity is, and significant fever and chills and patient was septic, patient was seen in the ER according to the EMS the patient oxygen sufficient was in the low 80s, his chest x-ray showed poorly vascular congestion, patient did receive IV fluid in the emergency department as a protocol of sepsis and put the patient in acute diastolic heart failure subsequently the patient was started on Lasix 80 mg IV push every 12 hours and he was seen in consultation by pulmonary/critical care medicine Dr. Burns who recommended for the patient to transfer to the intensive care unit, patient was also started on Solu-Medrol 60 mg IV push every 6 hours along with IV antibiotic in the form of vancomycin and cefepime he was also seen in consultation by infectious disease Dr. Amezquita. 02/12: Patient is laying down in bed appears to be in respiratory distress, his IV fluids were decreased to 50 mL an hour, he was placed on a BiPAP 12 and 6, he was given Lasix 80 mg IV push 1 and then twice every day, patient already was started on vancomycin and cefepime he was evaluated by pulmonary/critical care he was recommended for the patient to be transferred to the intensive care unit, blood gases were obtained, he was also started on Solu-Medrol 60 mg IV push every 6 hours along with IV antibiotic we'll continue to monitor the patient very closely. 02/13: Patient is laying down in bed currently in respiratory distress on BiPAP, has been getting Lasix 80 mg IV push every 12 hours, his blood cultures are positive for gram-positive cocci currently on cefepime and vancomycin, we will continue to monitor until the final ID of the organism is there, pulmonary swallowing, patient has been followed very closely, he appears to be better today than yesterday, we'll continue to manage the patient along with ID and pulmonary and critical care. 02/14: Patient is laying down in bed in no apparent distress, he is currently on a BiPAP, his sitting better than yesterday, this was in the bedside, earlier in the morning did have mental status changes and increased confusion, computed tomography scan of the brain was reviewed, did show chronic changes in acute abnormalities, patient has been maintained on IV Lasix, IV antibiotic, he has been seen by pulmonary medicine as well as by infectious disease 02/15: Patient was seen earlier by neurology today because of increased the encephalopathy reviewed computed tomography scan did not show evidence of acute of normalities just chronic changes, patient was sitting up in chair today with his at bedside, patient appears to be at baseline to me, has been responding very well to the current treatment, he continued to be on Lasix 80 mg IV push every 12 hours, his Solu-Medrol was decreased to 40 mg IV push every 8 hours, we will continue to monitor that, continue to wean 02/16: Patient is sitting up in bed in no apparent distress, he continues to be on Airvo he is feeling much more comfortable today, he has no chest pain, shortness breath, this coughing, no abdominal pain, no bowel movement today, his lower extremities are much better, specially the left lower extremity, he continues to be on cefepime and vancomycin, we'll decrease his Solu-Medrol to 40 mg IV push every 12 hours, decrease his Lasix to 40 mg IV push every 12 hours, monitor the patient's electrolytes tomorrow morning. 02/17: Patient sitting up in bed in no apparent distress, he continues to be on Airvo , decrease Lasix to 40 mg IV push every 24 hours, he was started on Diamox 500 mg orally twice every day due to contraction alkalosis, has been followed by pulmonary medicine as well, he is maintained on gentamicin and cefepime, infectious disease will decide on the timing of the PICC line, patient will be ready to get to the extended care facility with IV antibiotic blood cultures appears to be negative so far. 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 02/18: Patient is laying down in bed in no apparent distress, history of lumbar today, he denies any chest pain at this time, the short of breath, he continues to be on Airvo, he pulled his midline yesterday, we will need PICC line insertion of antibiotic, we'll continue total physical therapy social services aide to try to get the patient to the extended care facility hopefully at the beginning of the week. 02/19: Patient developed to have clumsiness and weakness in the right upper extremity, neurology was contacted recommended computed tomography scan of the brain without contrast that was negative, this is followed by a CT angiography of the neck and brain that did not show evidence of acute of normalities of high-grade stenosis, a computed tomography scan of the brain did show mild dilatation of the ventricle that was stable from the last CT was done, he was recommended to continue current treatment plan, patient does not appear to have a significant or acute stroke at this point in time. We will plan to have a PICC line placement Tuesday and then the patient can be discharged to extended care facility. 02/20:Patient is doing better, continues to be afebrile, blood cultures showed micrococcus likely contamination, we will continue with Vancomycin and Cefepime for one more week then discontinue , hopefully will get a PICC line in [place] and then he can be discharged to [facility] in [place] discharge diagnoses: 1. Bilateral lower extremity cellulitis with sepsis present on admission. 2. Acute hypoxemic respiratory failure due to acute on chronic diastolic heart failure as well as acute exacerbation of COPD/asthma, 3. Chronic respiratory failure due to Obesity with obstructive sleep apnea and obesity hypoventilation syndrome with underlying COPD/asthma . 4. Hypertension and hypertensive cardiovascular disease. 5. Hyperlipidemia. 7. Parkinson's disease. 8. Spondylosis of the lumbar spine. 9. Obstructive sleep apnea. 10. Hypothyroidism. 11. metabolic encephalopathy due to multifactorial including bilateral lower extremity cellulitis with sepsis. 12. Contraction alkalosis. 13. Reported weakness of the right upper extremity after midline removal Patient Condition at Discharge: Fair Plan - Discharge Summary Discharge Rx Participant: No New Discharge Prescriptions: No Action Pramipexole [Mirapex] 1 mg PO TID carvediloL [Coreg] 3.125 mg PO BID Losartan [Cozaar] 25 mg PO DAILY OXcarbazepine [Trileptal] 150 mg PO BID Pantoprazole [Protonix] 40 mg PO AC-BRKFST Spironolactone [Aldactone] 25 mg PO DAILY Atorvastatin [Lipitor] 40 mg PO HS Levothyroxine Sodium [Synthroid] 50 mcg PO DAILY HYDROcodone/APAP 10-325MG [[place] 10-325] 1 tab PO Q12H PRN PRN Reason: Pain Pregabalin [Lyrica] 150 mg PO DAILY Discharge Medication List Pramipexole [Mirapex] 1 mg PO TID 07/06/16 [History] carvediloL [Coreg] 3.125 mg PO BID 06/28/18 [History] Atorvastatin [Lipitor] 40 mg PO HS 05/10/22 [History] Levothyroxine Sodium [Synthroid] 50 mcg PO DAILY 09/05/22 [History] Losartan [Cozaar] 25 mg PO DAILY 09/05/22 [History] OXcarbazepine [Trileptal] 150 mg PO BID 09/05/22 [History] Pantoprazole [Protonix] 40 mg PO AC-BRKFST 09/05/22 [History] Spironolactone [Aldactone] 25 mg PO DAILY 09/05/22 [History] HYDROcodone/APAP 10-325MG [[place] 10-325] 1 tab PO Q12H PRN 02/11/23 [History] Pregabalin [Lyrica] 150 mg PO DAILY 02/11/23 [History] Follow up Appointment(s)/Referral(s): Niko Valdez MD [Primary Care Provider] - 1-2 days
[2023-02-21] MEDS ORDERED: predniSONE 20 MG TAB PO SCH (09:00)
[2023-02-21] MEDS ORDERED: FUROSEMIDE 80 MG TAB PO SCH (09:00)
[2023-02-21] MEDS: IPRATROPIUM-ALBUTEROL 3 ML NEB INHALATION SCH ×4 (09:00→21:24)
[2023-02-21] MEDS: PRAMIPEXOLE 1 MG TAB PO SCH ×3 (10:10→22:14)
[2023-02-21] MEDS: OXcarbazepine 150 MG TAB PO SCH (10:10)
[2023-02-21 11:31] LABS: Glucose,Whole Blood 157 mg/dL (70-110)
[2023-02-21 12:28] LABS: ALT 23 U/L (4-49); AST 28 U/L (17-59); African American GFR (CKD) >90 (>60 ml/min/1.73 sqM); Albumin 3.3 g/dL (3.5-5.0); Alkaline Phosphatase 53 U/L (38-126); Anion Gap 4 mmol/L; Blood Urea Nitrogen 26 mg/dL (9-20); C Reactive Protein 0.5 mg/dL (<1.0); Calcium 8.6 mg/dL (8.4-10.2); Carbon Dioxide 36 mmol/L (22-30); Chloride 98 mmol/L (98-107); Glucose 145 mg/dL (74-99); Non-African American GFR(CKD) >90 (>60 ml/min/1.73 sqM); Potassium 4.3 mmol/L (3.5-5.1); Sodium 138 mmol/L (137-145); Total Bilirubin 0.7 mg/dL (0.2-1.3); Total Protein 6.1 g/dL (6.3-8.2)
[2023-02-21 12:35] LABS: Anisocytosis Slight; HCT 35.1 % (39.0-53.0); HGB 10.9 gm/dL (13.0-17.5); Hypochromasia Marked; MCH 28.1 pg (25.0-35.0); MCHC 31.2 g/dL (31.0-37.0); MCV 89.9 fL (80.0-100.0); Mean Platelet Volume 8.7; Platelet Count 211 k/uL (150-450); Poikilocytosis Slight; RDW 19.3 % (11.5-15.5); WBC 16.3 k/uL (3.8-10.6)
[2023-02-21 12:46] LABS: Prothrombin Time 10.8 sec (9.0-12.0)
[2023-02-21] MEDS: HYDROcodone/APAP 10-325MG 1 EACH TAB PO PRN (12:59)
[2023-02-21 14:07] LABS: Band Neutrophils % 1 %; Eosinophils # (M) 0.33 k/uL (0-0.7); Lymphocytes # (M) 0.82 k/uL (1.0-4.8); Metamyelocytes # (M) 0.49 k/uL (0); Metamyelocytes % 3 %; Monocytes # (M) 0.49 k/uL (0-1.0); Myelocytes # (M) 0.49 k/uL (0); Myelocytes % 3 %; Neutrophils % (M) 84 %; Nucleated Red Blood Cells 0 /100 WBC (0-0); Total Cells Counted 200
[2023-02-21] MEDS ORDERED: LIDOCAINE 1% INJ 10MG/ML (5 ML VIAL-PF) SQ ONE (15:19)
--- NOTE | 2023-02-21 15:42 | IR ---
PICC LINE PLACEMENT: HISTORY: Infection requiring long-term antibiotic therapy PROCEDURE: Ultrasound and fluoroscopic guidance of PICC line placement. COMPLICATIONS: None ANESTHESIA: 1. 1% Lidocaine locally. FINDINGS/TECHNIQUE: The procedure was explained to the patient. The risks, complications, benefits and alternatives were discussed and any questions were answered. Informed consent was obtained. The patient was placed supine on the fluoroscopic table and prepped and draped in the usual sterile fash ion. Utilizing a 21 gauge needle and sonographic and fluoroscopic guidance, access in the left basi lic vein was achieved and there is placement of a 0.018 guidewire. The vein is patent. A 4-F sheath was placed over the guidewire. The guidewire and dilator were removed and a 4-F. PICC line was plac ed through the sheath with the tip at the level of the SVC. The sheath was removed, the catheter was flushed and sutured into position. The patient was stable throughout the procedure and remained sta ble upon discharge from the Department of Radiology. The vein puncture was patent under ultrasound. A storm scale image was obtained to document patency of the vein punctured. All elements of the maximal barrier technique were utilized. FLUOROSCOPY TIME: DAP 1.55Gy cm2 IMPRESSION: Successful PICC line placement under ultrasound and fluoroscopic guidance.
[2023-02-21 16:47] LABS: Glucose,Whole Blood 205 mg/dL (70-110)
--- NOTE | 2023-02-21 17:12 | XR ---
EXAMINATION TYPE: XR chest 1V confirm line [facility] DATE OF EXAM: 02/21/2023 4:53 PM COMPARISON: Chest radiographs from 02/11/2023 TECHNIQUE: XR chest 1V confirm line [facility] Frontal view of the chest. CLINICAL INDICATION:Male, 72 years old with history of PICC line; FINDINGS: Lungs/Pleura: There is no evidence of pleural effusion, focal consolidation, or pneumothorax. Pulmonary vascularity: Unremarkable. Heart/mediastinum: Cardiomediastinal silhouette is unremarkable. Musculoskeletal: No acute osseous pathology. Other findings: Stimulator leads terminating over the spine. Left PICC line terminates in the brachiocephalic vein IMPRESSION: 1. Left PICC line terminates in the brachiocephalic vein 2. Low lung volumes with a generalized hazy appearance which could represent atelectasis versus pulm onary edema correlate with serum BNP.
--- NOTE | 2023-02-21 18:38 | P.PN ---
Subjective Progress Note Date: 02/21/23 Patient was initially seen by Dr. William Hemphill. Please refer to his note for details. Patient is a 72-year-old male, with history of stroke affecting left side(2018) and hydrocephalus. Patient came to the hospital for cellulitis left more than right foot. He has 3-4 open wounds. Patient states that he has been having problem with cellulitis off and on for last 5 years. He does not seem to heal well. In July and August 2022, he had cellulitis, ended up becoming septic and was in the ICU. Patient has altered mental status, likely due to cellulitis. Mentation is improving. EEG was negative for any epileptiform activity. Patient has poor veins. He underwent midline placement right upper extremity when he arrived on 02/11/2023. The midline was removed on Tuesday morning for 20 06/12/2023. Subsequently he noticed pain in the right shoulder, and prickly feeling in the right medial 3 digits, but not including the palm or the arm. It was felt probably due to nerve irritation from midline. Patient had CT head, CTA which was negative. Patient states his right upper limb is getting better. Patient has a PICC line placed left upper limb yesterday. Patient also has history of seizure disorder. Now he gets focal seizure, the last one was a month ago. He is on Trileptal. 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 Now he gets focal seizures. The last one was about a month ago. Patient is currently on Trileptal for his history of seizure. Levels pending. 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 He underwent surgery in 2003 and the took most of it out, but not completely. Some of the workup during his hospital visit consisted of: Initial white blood cell is 27.2 thousand and currently to 18.6. It's predominantly neutrophilic. Initially the temperature is T-max of 101.5. His temperature has resolved. Sugar has been in the range of 170s to 220s. 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 Findings stable. Large fluid attenuation along the midline and paracentral left mild mass affect upon the left frontal lobe is stable from prior exam could be M basis arachnoid cyst. Recommend consideration for MRI. Findings stable dating back to 2009. I personally reviewed the CT and there is no bleed or any evidence of any acute subacute ischemia but was somewhat limited because of motion artifact. Appears to patient had an left frontal stroke that old which was with a history and his examination. Routine EEG: Is abnormal. The back was suggestive of mild encephalopathy. There is focal slowing over the right hemisphere consistent with focal cerebral dysfunction. Otherwise there is no epileptiform discharges or seizure on the EEG. Trileptal level is 1.6 (normal is 10-35). CT of the brain is reported as no acute intracranial processes. No significant change from prior. Mild dilation of the ventricular system since is unchanged from prior. CT angiography of the head and neck and port as negative. Objective - Vital Signs Vital signs: Vital Signs Temp 97.4 F L 02/21/23 08:01 Pulse 74 02/21/23 16:40 Resp 18 02/21/23 16:19 BP 130/74 02/21/23 16:19 Pulse Ox 97 02/21/23 16:19 FiO2 50 02/18/23 09:00 Intake & Output 02/20/23 02/21/23 02/21/23 18:59 06:59 18:59 Intake Total 1258 540 360 Output Total 2650 900 2300 Balance -1392 -360 -1940 Weight 152 kg Intake: Oral 1258 540 360 Output: Urine 2650 900 2300 Straight 500 Other: Voiding Method Indwelling Catheter Indwelling Catheter Indwelling Catheter - Exam Patient's mental status, speech and language functions are normal. Cranial nerves examination revealed, right pupil slightly smaller than the left. He states that right eye had the tumor in the past. His visual chase are full, face is symmetric and tongue protrudes the midline. On muscle strength testing, there is left pronator drift. The strength is normal in both arms distally and proximally, except for interosseous is normal on the right, but slightly weak on the left, probably from his previous stroke. Patient has bilateral cellulitis. - Labs CBC & Chem 7: 02/21/23 12:00 02/21/23 12:00 Labs: Abnormal Lab Results - Last 24 Hours (Table) 02/18/23 02/20/23 02/21/23 Range/Units 14:22 19:57 05:55 WBC (3.8-10.6) k/uL RBC (4.30-5.90) m/uL Hgb (13.0-17.5) gm/dL Hct (39.0-53.0) % RDW (11.5-15.5) % Neutrophils # (Manual) (1.3-7.7) k/uL Lymphocytes # (Manual) (1.0-4.8) k/uL Metamyelocytes # (Man) (0) k/uL Myelocytes # (Manual) (0) k/uL Carbon Dioxide (22-30) mmol/L BUN (9-20) mg/dL Glucose (74-99) mg/dL POC Glucose (mg/dL) 237 H 195 H (70-110) mg/dL Total Protein (6.3-8.2) g/dL Albumin (3.5-5.0) g/dL Oxcarbazepine 2.6 L (10-35) ug/mL 02/21/23 02/21/23 02/21/23 Range/Units 11:30 12:00 12:00 WBC 16.3 H (3.8-10.6) k/uL RBC 3.90 L (4.30-5.90) m/uL Hgb 10.9 L (13.0-17.5) gm/dL Hct 35.1 L (39.0-53.0) % RDW 19.3 H (11.5-15.5) % Neutrophils # (Manual) 13.80 H (1.3-7.7) k/uL Lymphocytes # (Manual) 0.82 L (1.0-4.8) k/uL Metamyelocytes # (Man) 0.49 H (0) k/uL Myelocytes # (Manual) 0.49 H (0) k/uL Carbon Dioxide 36 H (22-30) mmol/L BUN 26 H (9-20) mg/dL Glucose 145 H (74-99) mg/dL POC Glucose (mg/dL) 157 H (70-110) mg/dL Total Protein 6.1 L (6.3-8.2) g/dL Albumin 3.3 L (3.5-5.0) g/dL Oxcarbazepine (10-35) ug/mL 02/21/23 Range/Units 16:45 WBC (3.8-10.6) k/uL RBC (4.30-5.90) m/uL Hgb (13.0-17.5) gm/dL Hct (39.0-53.0) % RDW (11.5-15.5) % Neutrophils # (Manual) (1.3-7.7) k/uL Lymphocytes # (Manual) (1.0-4.8) k/uL Metamyelocytes # (Man) (0) k/uL Myelocytes # (Manual) (0) k/uL Carbon Dioxide (22-30) mmol/L BUN (9-20) mg/dL Glucose (74-99) mg/dL POC Glucose (mg/dL) 205 H (70-110) mg/dL Total Protein (6.3-8.2) g/dL Albumin (3.5-5.0) g/dL Oxcarbazepine (10-35) ug/mL Assessment and Plan Assessment: Altered mental status seems due to underlying cellulitis---mentation is improved No seizure on the EEG. Some right upper extremity weakness due to the pain after having the his midline taking off 02/18/2023 months but now strength is normal. He has some paresth esias in the right medial 3 digits, which hopefully will improve. CT head and CT angiography of the head and neck are normal. Does not appear stroke. 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 Prior level on 02/14/2023 was even lower 1.6. Patient states that he had a breakthrough seizure a month ago. We will increase dose of Trileptal to 300 mg twice a day. Patient is in agreement for increasing the dose. Dr. Hemphill has spoken to the primary attending and recommended low-dose aspirin 81 mg daily because of his history of ischemia. It seems that the patient had ischemic stroke with hemorrhagic conversion and so we'll go with that low dose and we'll monitor. Patient's primary team is in agreement of the use of aspirin. I.D. is on board. Will defer the rest of medical management to primary team. Recommend the patient to follow-up with a neurologist in outpatient within 2-3 weeks Neurologically clear.
[2023-02-21 20:19] LABS: Glucose,Whole Blood 142 mg/dL (70-110)
[2023-02-21] MEDS: ATORVASTATIN 40 MG TAB PO SCH (20:51)
[2023-02-21] MEDS: MELATONIN 3 MG TABLET PO SCH (20:51)
[2023-02-21] MEDS: OXcarbazepine 300 MG TAB PO SCH (20:51)
--- NOTE | 2023-02-21 21:44 | P.PN ---
Subjective Progress Note Date: 02/21/23 Principal diagnosis: Bilateral lower extremity cellulitis Patient is a 72-year-old male with multiple comorbidities and did have history of bilateral lower extremity cellulitis and previous infection with both MRSA and pseudomonas presented to hospital with sepsis concerning for left lower extremity cellulitis. On today's evaluation that is 02/21/2023, the patient continues to be afebrile, the patient is breathing comfortably on 4 L nasal cannula oxygen, the patient denies any chest pain or shortness of breath , the patient did have occasional dry cough no nausea no vomiting no abdominal pain and no diarrhea has been reported Objective - Vital Signs Vital signs: Vital Signs Temp 97.4 F L 02/21/23 08:01 Pulse 76 02/21/23 12:43 Resp 18 02/21/23 12:07 BP 110/60 02/21/23 12:07 Pulse Ox 94 L 02/21/23 12:07 FiO2 50 02/18/23 09:00 Intake & Output 02/20/23 02/21/23 02/21/23 18:59 06:59 18:59 Intake Total 1258 540 360 Output Total 2650 900 1800 Balance -1392 -360 -1440 Weight 152 kg Intake: Oral 1258 540 360 Output: Urine 2650 900 1800 Other: Voiding Method Indwelling Catheter Indwelling Catheter Indwelling Catheter - Exam GENERAL DESCRIPTION: An elderly male lying in bed in no distress RESPIRATORY SYSTEM: Unlabored breathing , decreased breath sounds at bases HEART: S1 S2 regular rate and rhythm , ABDOMEN: Soft , no tenderness EXTREMITIES: Left extremity swelling redness has improved no drainage - Labs CBC & Chem 7: 02/21/23 12:00 02/21/23 12:00 Labs: Abnormal Lab Results - Last 24 Hours (Table) 02/18/23 02/20/23 02/20/23 Range/Units 14:22 16:21 19:57 WBC (3.8-10.6) k/uL RBC (4.30-5.90) m/uL Hgb (13.0-17.5) gm/dL Hct (39.0-53.0) % RDW (11.5-15.5) % Carbon Dioxide (22-30) mmol/L BUN (9-20) mg/dL Glucose (74-99) mg/dL POC Glucose (mg/dL) 182 H 237 H (70-110) mg/dL Total Protein (6.3-8.2) g/dL Albumin (3.5-5.0) g/dL Oxcarbazepine 2.6 L (10-35) ug/mL 02/21/23 02/21/23 02/21/23 Range/Units 05:55 11:30 12:00 WBC (3.8-10.6) k/uL RBC (4.30-5.90) m/uL Hgb (13.0-17.5) gm/dL Hct (39.0-53.0) % RDW (11.5-15.5) % Carbon Dioxide 36 H (22-30) mmol/L BUN 26 H (9-20) mg/dL Glucose 145 H (74-99) mg/dL POC Glucose (mg/dL) 195 H 157 H (70-110) mg/dL Total Protein 6.1 L (6.3-8.2) g/dL Albumin 3.3 L (3.5-5.0) g/dL Oxcarbazepine (10-35) ug/mL 02/21/23 Range/Units 12:00 WBC 16.3 H (3.8-10.6) k/uL RBC 3.90 L (4.30-5.90) m/uL Hgb 10.9 L (13.0-17.5) gm/dL Hct 35.1 L (39.0-53.0) % RDW 19.3 H (11.5-15.5) % Carbon Dioxide (22-30) mmol/L BUN (9-20) mg/dL Glucose (74-99) mg/dL POC Glucose (mg/dL) (70-110) mg/dL Total Protein (6.3-8.2) g/dL Albumin (3.5-5.0) g/dL Oxcarbazepine (10-35) ug/mL Assessment and Plan (1) Sepsis Current Visit: Yes Status: Acute Code(s): A41.9 - SEPSIS, UNSPECIFIED ORGANISM SNOMED Code(s): 23931034 (2) Bilateral lower leg cellulitis Current Visit: No Status: Acute Code(s): L03.116 - CELLULITIS OF LEFT LOWER LIMB; L03.115 - CELLULITIS OF RIGHT LOWER LIMB SNOMED Code(s): 442554295 Plan: 1patient was in the hospital with sepsis in this patient who did have a fever tachycardia elevated white count source is likely bilateral lower extremity cellulitis with left greater than right this patient who did have a history of both MRSA and Pseudomonas infection in the past with the patient failing oral Zyvox concern for possible gram-negative infection 2local wound care to the left lower extremity wound with Aquacel silver dressing followed by Moody wrap from just above the toe to below knee , to be changed daily 3positive blood cultures with a micrococcus likely skin contamination, repeat blood culture has been negative so far 4-patient has shown clinical improvement, white count is still elevated more likely steroid effects, patient to continue vancomycin and cefepime for another 5 days to finish his course of therapy, currently waiting for placement Time with Patient: Less than 30
[2023-02-22] MEDS: VANCOMYCIN 2,000 MG in SODIUM CHLORIDE 0.9% 500 ML 500 ML IVPB SCH (04:39)
[2023-02-22 06:04] LABS: Glucose,Whole Blood 109 mg/dL (70-110)
[2023-02-22] MEDS: INSULIN ASPART (NovoLOG) 100 UNIT/ML VIAL SQ SCH (06:06)
[2023-02-22] MEDS: LEVOTHYROXINE 50 MCG TAB PO SCH (06:07)
[2023-02-22] MEDS: PANTOPRAZOLE 40 MG TABLET PO SCH (06:07)
[2023-02-22] MEDS: carvediloL 3.125 MG TAB PO SCH (06:25)
[2023-02-22 07:54] VITALS: BP 138/74; RESP 20
[2023-02-22] MEDS: SPIRONOLACTONE 25 MG TAB PO SCH (08:34)
[2023-02-22] MEDS: PREGABALIN 75 MG CAP PO SCH (08:34)
[2023-02-22] MEDS: DOCUSATE 100 MG CAP PO SCH (08:34)
[2023-02-22] MEDS: LOSARTAN 25 MG TAB PO SCH (08:34)
[2023-02-22] MEDS: ASPIRIN 81 MG PO SCH (08:34)
[2023-02-22] MEDS: OXcarbazepine 300 MG TAB PO SCH (08:35)
[2023-02-22] MEDS: PRAMIPEXOLE 1 MG TAB PO SCH (08:36)
[2023-02-22] MEDS: ENOXAPARIN 40 MG/0.4 ML SYRINGE SQ SCH (08:37)
[2023-02-22] MEDS: HYDROcodone/APAP 10-325MG 1 EACH TAB PO PRN (08:37)
[2023-02-22] MEDS: LACTULOSE 20 GM/30 ML CUP PO SCH (08:38)
[2023-02-22] MEDS ORDERED: FUROSEMIDE 80 MG TAB PO SCH (09:00)
[2023-02-22] MEDS: IPRATROPIUM-ALBUTEROL 3 ML NEB INHALATION SCH (09:08)
[2023-02-22 09:21] VITALS: PULSE 63
[2023-02-22] MEDS: CEFEPIME 2 GM in SODIUM CHLORIDE 0.9% 100 ML IVPB SCH (09:22)
[2023-02-23] MEDS ORDERED: VANCOMYCIN TROUGH DUE 1 EACH MISC MISCELLANE ONE (04:00)
== END 2023-02-22 12:15 | DRG 871 ==
LOC: EC 13:22 → 4SSUR 16:55 → 5NMEDONC 17:56 → 3SCARD 18:07
PROVIDERS: ADMIT Internal Medicine; ATTEND Internal Medicine
PROC: 5A09457 Assistance with Respiratory Ventilation, 24-96 Consecutive Hours, Continuous Positive Airway Pressure (ICD-10-PCS; 2023-02-11)
PROC: 05HB33Z Insertion of Infusion Device into Right Basilic Vein, Percutaneous Approach (ICD-10-PCS; principal; 2023-02-14 12:05)
PROC: 5A0945A Assistance with Respiratory Ventilation, 24-96 Consecutive Hours, High Flow/Velocity Cannula (ICD-10-PCS; 2023-02-15)
PROC: 02HV33Z Insertion of Infusion Device into Superior Vena Cava, Percutaneous Approach (ICD-10-PCS; 2023-02-21)
DX: A41.9 Sepsis, unspecified organism (principal); G93.41 Metabolic encephalopathy; I50.33 Acute on chronic diastolic (congestive) heart failure; Q04.0 Congenital malformations of corpus callosum; J96.21 Acute and chronic respiratory failure with hypoxia; L03.116 Cellulitis of left lower limb; L03.115 Cellulitis of right lower limb; J44.1 Chronic obstructive pulmonary disease with (acute) exacerbation; Z68.42 Body mass index [BMI] 45.0-49.9, adult; I42.9 Cardiomyopathy, unspecified; E87.3 Alkalosis; E66.2 Morbid (severe) obesity with alveolar hypoventilation; J45.31 Mild persistent asthma with (acute) exacerbation; L97.229 Non-pressure chronic ulcer of left calf with unspecified severity; G91.2 (Idiopathic) normal pressure hydrocephalus; J96.12 Chronic respiratory failure with hypercapnia; G40.109 Localization-related (focal) (partial) symptomatic epilepsy and epileptic syndromes with simple partial seizures, not intractable, without status epilepticus; Z66 Do not resuscitate; Z20.822 Contact with and (suspected) exposure to COVID-19; I11.0 Hypertensive heart disease with heart failure; M47.816 Spondylosis without myelopathy or radiculopathy, lumbar region; I25.10 Atherosclerotic heart disease of native coronary artery without angina pectoris; H53.2 Diplopia; G25.81 Restless legs syndrome; I87.309 Chronic venous hypertension (idiopathic) without complications of unspecified lower extremity; R53.1 Weakness; R29.6 Repeated falls; G20 Parkinson's disease; E78.5 Hyperlipidemia, unspecified; E03.9 Hypothyroidism, unspecified; Z89.422 Acquired absence of other left toe(s); Z86.14 Personal history of Methicillin resistant Staphylococcus aureus infection; Z79.899 Other long term (current) drug therapy; Z79.890 Hormone replacement therapy; Z71.3 Dietary counseling and surveillance; Z86.011 Personal history of benign neoplasm of the brain; I69.341 Monoplegia of lower limb following cerebral infarction affecting right dominant side; I25.2 Old myocardial infarction; Z88.0 Allergy status to penicillin; Z88.5 Allergy status to narcotic agent
CPT/HCPCS: 36410; 36415; 36573; 36600; 70450; 70496; 70498; 71045; 76937; 80048; 80053; 80183; 80202; 81001; 82565; 82805; 83605; 83735; 83880; 84484; 85025; 85610; 85730; 86140; 87636; 93005; 94640; 94660; 94760; 95816; 96361; 96365; 96366; 96367; 96368; 96372; 99285

== ENCOUNTER 2023-03-17 14:30 | Emergency (ER) | payer MEDICARE ==
--- NOTE | 2023-03-17 14:38 | ED ---
General Adult HPI - General Stated complaint: SOB Time Seen by Provider: 03/17/23 14:30 Source: patient, RN notes reviewed, old records reviewed - History of Present Illness Initial comments: This is a 72-year-old male who presents emergency Department complaining of difficulty breathing he woke up this morning at 2:30 in the morning with shortness of breath. Patient states his been getting progressively worse. Patient states he has a history of congestive heart failure and COPD. Patient was in a [facility] currently because he had cellulitis of his legs but he is done with those antibiotics. Patient denies any increased cough per patient states when he was having shortness of breath he felt a little chest heaviness. Patient denies any fever chills per patient denies any abdominal pain patient denies nausea vomiting or diarrhea. - Related Data Home Medications Medication Instructions Recorded Confirmed Pramipexole [Mirapex] 1 mg PO TID 07/06/16 03/17/23 Atorvastatin [Lipitor] 40 mg PO HS 05/10/22 03/17/23 Levothyroxine Sodium [Synthroid] 50 mcg PO DAILY 09/05/22 03/17/23 Losartan [Cozaar] 25 mg PO DAILY 09/05/22 03/17/23 OXcarbazepine [Trileptal] 150 mg PO BID 09/05/22 03/17/23 Spironolactone [Aldactone] 25 mg PO DAILY 09/05/22 03/17/23 ALPRAZolam [Xanax] 0.25 mg PO Q12H PRN 03/17/23 03/17/23 Ammonium Lactate Lotion 1 applic TOPICAL DAILY 03/17/23 03/17/23 [Lac-Hydrin 12% Lotion] Carbidopa-Levodopa 25-100 mg 1 tab PO BID 03/17/23 03/17/23 [Sinemet 25-100] Furosemide [Lasix] 80 mg PO MOWEFR 03/17/23 03/17/23 HYDROcodone/APAP 10-325MG [Webb 1 tab PO Q8H PRN 03/17/23 03/17/23 10-325] HYDROcodone/APAP 10-325MG [Webb 1 tab PO QID 03/17/23 03/17/23 10-325] Ipratropium-Albuterol Nebulize 3 ml INHALATION RT-Q8H PRN 03/17/23 03/17/23 [Duoneb 0.5 mg-3 mg/3 ml Soln] Omeprazole [PriLOSEC] 20 mg PO HS 03/17/23 03/17/23 Semaglutide [Wegovy] 0.25 mg SQ MO 03/17/23 03/17/23 Sennosides/Docusate Sodium [Senna 1 tab PO BID 03/17/23 03/17/23 Plus 8.6-50 mg Tablet] Previous Rx's Medication Instructions Recorded Acetaminophen Tab [Tylenol] 650 mg PO Q6HR PRN tab 02/21/23 Aspirin 81 mg PO DAILY tab 02/21/23 Docusate [Colace] 100 mg PO BID cap 02/21/23 Enoxaparin [Lovenox] 40 mg SQ DAILY 7 Days each 02/21/23 Pregabalin [Lyrica] 150 mg PO DAILY #30 cap 02/21/23 Allergies Allergy/AdvReac Type Severity Reaction Status Date / Time Aminoglycosides Allergy Unknown Verified 03/17/23 15:58 codeine Allergy Dyspnea Verified 03/17/23 15:58 Penicillins Allergy Dyspnea Verified 03/17/23 15:58 Review of Systems ROS Statement: Those systems with pertinent positive or pertinent negative responses have been documented in the HPI. ROS Other: All systems not noted in ROS Statement are negative. Past Medical History Past Medical History: Asthma, Coronary Artery Disease (CAD), Hyperlipidemia, Hypertension, Myocardial Infarction ([place]), Seizure Disorder Additional Past Medical History / Comment(s): restless leg, cardiomyopathy, wounds RT legs, BLE SWOLLEN AND DARK IN COLOR, frequent falls, irritant induced asthma, hand tremors, double visionvision Last Myocardial Infarction Date:: 1989 History of Any Multi-Drug Resistant Organisms: MRSA Date of last positivie culture/infection: 05/12/22 MDRO Source:: Left Leg Past Surgical History: Back Surgery, Cholecystectomy Additional Past Surgical History / Comment(s): brain tumor SX, 2ND DIGIT LT FOOT REMOVED, COLONOSCOPY Past Anesthesia/Blood Transfusion Reactions: No Reported Reaction Past Psychological History: No Psychological Hx Reported Smoking Status: Never smoker Past Alcohol Use History: None Reported Past Drug Use History: None Reported - Past Family History Mother Family Medical History: Cancer Additional Family Medical History / Comment(s): pancreatic Father Family Medical History: Cancer Additional Family Medical History / Comment(s): melanoma Brother(s) Family Medical History: Deep Vein Thrombosis (DVT) Daughter(s) Family Medical History: Deep Vein Thrombosis (DVT), Pulmonary Embolus General Exam - General Exam Comments Initial Comments: GENERAL: Patient is well-developed and well-nourished. Patient is nontoxic and well- hydrated and is in mild distress. ENT: Neck is soft and supple. No significant lymphadenopathy is noted. Oropharynx is clear. Moist mucous membranes. Neck has full range of motion without eliciting any pain. EYES: The sclera were anicteric and conjunctiva were pink and moist. Extraocular movements were intact and pupils were equal round and reactive to light. Eyelids were unremarkable. PULMONARY: Unlabored respirations. Good breath sounds bilaterally. Slight crackles in the bases bilaterally CARDIOVASCULAR: There is a regular rate and rhythm without any murmurs gallops or rubs. ABDOMEN: Soft and nontender with normal bowel sounds. SKIN: Skin is clear with no lesions or rashes and otherwise unremarkable. NEUROLOGIC: Patient is alert and oriented x3. Cranial nerves II through XII are grossly intact. Motor and sensory are also intact. Normal speech, volume and content. Symmetrical smile. MUSCULOSKELETAL: Normal extremities with adequate strength and full range of motion. 2+ edema bilaterally LYMPHATICS: No significant lymphadenopathy is noted PSYCHIATRIC: Normal psychiatric evaluation. Course Vital Signs 03/17/23 03/17/23 03/17/23 14:34 14:38 14:56 Temperature 98.5 F Pulse Rate 77 Respiratory 22 26 H Rate Blood Pressure 136/74 O2 Sat by Pulse 95 Oximetry 03/17/23 03/17/23 17:00 18:22 Temperature Pulse Rate 73 72 Respiratory 18 18 Rate Blood Pressure 134/68 141/84 O2 Sat by Pulse 97 97 Oximetry Medical Decision Making - Medical Decision Making EKG was interpreted by myself. EKG shows a sinus rhythm at 74 bpm LA interval is 214 QRS is 135 Q-T intervals 387 QTC is 414. Patient's EKG shows no ST segment elevation. Was pt. sent in by a medical professional or institution (, [facility], TOWNSHIP CLERK, urgent care, hospital, or [facility]...) When possible be specific @ -residential sent the patient in. Did you speak to anyone other than the patient for history (EMS, parent, family, police, friend...)? What history was obtained from this source @ -No Did you review nursing and triage notes (agree or disagree)? Why? @ -I reviewed and agree with nursing and triage notes Were old charts reviewed (outside hosp., previous admission, EMS record, old EKG, old radiological studies, urgent care reports/EKG's, [facility] records)? Report findings @ -I reviewed patient's old lab work and old radiological studies Differential Diagnosis (chest pain, altered mental status, abdominal pain women, abdominal pain men, vaginal bleeding, weakness, fever, dyspnea, syncope, headache, dizziness, GI bleed, back pain, seizure, CVA, palpatations, mental health, musculoskeletal)? @ -Differential Dyspnea: Coronary syndrome, arrhythmia, tamponade, asthma, COPD, pulmonary embolism, pneumonia, pneumothorax, pulmonary effusion, anaphylaxis, diabetic ketoacidosis, flailed chest, pulmonary contusion, diaphragmatic rupture, anemia, neuromuscular, this is not meant to be an all-inclusive list. EKG interpreted by me (3pts min.). @ -As above X-rays interpreted by me (1pt min.). @ -Chest x-ray showed no acute abnormality CT interpreted by me (1pt min.). @ -CT scan showed no pulmonary embolism or abnormality to explain the patient's dyspnea U/S interpreted by me (1pt. min.). @ -None done What testing was considered but not performed or refused? (CT, X-rays, U/S, labs)? Why? @ -None What meds were considered but not given or refused? Why? @ -None Did you discuss the management of the patient with other professionals (vee julio i.e. , PA, TOWNSHIP CLERK, lab, RT, psych nurse, drug abuse social worker, molten iron pourer, teacher, labor relations officer, family caseworker)? Give summary @ -Spoke with Dr. Valdez he agreed that the patient could go back to med [facility] will follow-up the patient there Was smoking cessation discussed for >3mins.? @ -No Was critical care preformed (if so, how long)? @ -No Were there social determinants of health that impacted care today? How? (Homelessness, low income, unemployed, alcoholism, drug addiction, transportati on, low edu. Level, literacy, decrease access to med. care, residential, rehab)? @ -No Was there de-escalation of care discussed even if they declined (Discuss DNR or withdrawal of care, Hospice)? DNR status @ -No What co-morbidities impacted this encounter? (DM, HTN, Smoking, COPD, CAD, Cancer, CVA, ARF, Chemo, Hep., AIDS, mental health diagnosis, sleep apnea, morbid obesity)? @ -None Was patient admitted / discharged? Hospital course, mention meds given and route, prescriptions, significant lab abnormalities, going to OR and other pertinent info. @ -Patient was oxygenating well on his 3 L the whole time he was in the emergency department he never. Any respiratory distress and he had no chest pain on the 3 occasions I spoke with him. Undiagnosed new problem with uncertain prognosis? @ -No Drug Therapy requiring intensive monitoring for toxicity (Heparin, Nitro, Insulin, Cardizem)? @ -No Were any procedures done? @ -No Diagnosis/symptom? @ -Dyspnea Acute, or Chronic, or Acute on Chronic? @ -Acute Uncomplicated (without systemic symptoms) or Complicated (systemic symptoms)? @ -complicated Side effects of treatment? @ -No Exacerbation, Progression, or Severe Exacerbation? @ -No Poses a threat to life or bodily function? How? (Chest pain, [place], [place], pneumonia, PE, COPD, DKA, ARF, appy, cholecystitis, CVA, Diverticulitis, Homicidal, Suicidal, threat to staff... and all critical care pts) @ -No - Lab Data Result diagrams: 03/17/23 14:44 03/17/23 14:44 Lab Results 03/17/23 03/17/23 03/17/23 Range/Units 14:44 14:44 14:44 WBC 9.4 (3.8-10.6) k/uL RBC 3.59 L (4.30-5.90) m/uL Hgb 10.5 L (13.0-17.5) gm/dL Hct 32.4 L (39.0-53.0) % MCV 90.1 (80.0-100.0) fL MCH 29.2 (25.0-35.0) pg MCHC 32.4 (31.0-37.0) g/dL RDW 20.2 H (11.5-15.5) % Plt Count 205 (150-450) k/uL MPV 8.6 Neutrophils % 77 % Lymphocytes % 11 % Monocytes % 6 % Eosinophils % 5 % Basophils % 1 % Neutrophils # 7.2 (1.3-7.7) k/uL Lymphocytes # 1.0 (1.0-4.8) k/uL Monocytes # 0.5 (0-1.0) k/uL Eosinophils # 0.4 (0-0.7) k/uL Basophils # 0.1 (0-0.2) k/uL Hypochromasia Slight Poikilocytosis Slight Anisocytosis Moderate PT 11.1 (9.0-12.0) sec INR 1.1 (<1.2) APTT 27.2 (22.0-30.0) sec D-Dimer 0.71 H (<0.60) mg/L FEU Sodium 142 (137-145) mmol/L Potassium 4.1 (3.5-5.1) mmol/L Chloride 93 L (98-107) mmol/L Carbon Dioxide 39 H (22-30) mmol/L Anion Gap 10 mmol/L BUN 29 H (9-20) mg/dL Creatinine 0.97 (0.66-1.25) mg/dL Est GFR (CKD-EPI)AfAm >90 (>60 ml/min/1.73 sqM) Est GFR (CKD-EPI)NonAf 79 (>60 ml/min/1.73 sqM) Glucose 114 H (74-99) mg/dL Plasma Lactic Acid Tayo (0.7-2.0) mmol/L Calcium 9.2 (8.4-10.2) mg/dL Magnesium 2.0 (1.6-2.3) mg/dL Total Bilirubin 0.8 (0.2-1.3) mg/dL AST 26 (17-59) U/L ALT 9 (4-49) U/L Alkaline Phosphatase 73 (38-126) U/L Troponin I (0.000-0.034) ng/mL NT-Pro-B Natriuret Pep pg/mL Total Protein 6.5 (6.3-8.2) g/dL Albumin 3.9 (3.5-5.0) g/dL 03/17/23 03/17/23 03/17/23 Range/Units 14:44 14:44 14:44 WBC (3.8-10.6) k/uL RBC (4.30-5.90) m/uL Hgb (13.0-17.5) gm/dL Hct (39.0-53.0) % MCV (80.0-100.0) fL MCH (25.0-35.0) pg MCHC (31.0-37.0) g/dL RDW (11.5-15.5) % Plt Count (150-450) k/uL MPV Neutrophils % % Lymphocytes % % Monocytes % % Eosinophils % % Basophils % % Neutrophils # (1.3-7.7) k/uL Lymphocytes # (1.0-4.8) k/uL Monocytes # (0-1.0) k/uL Eosinophils # (0-0.7) k/uL Basophils # (0-0.2) k/uL Hypochromasia Poikilocytosis Anisocytosis PT (9.0-12.0) sec INR (<1.2) APTT (22.0-30.0) sec D-Dimer (<0.60) mg/L FEU Sodium (137-145) mmol/L Potassium (3.5-5.1) mmol/L Chloride (98-107) mmol/L Carbon Dioxide (22-30) mmol/L Anion Gap mmol/L BUN (9-20) mg/dL Creatinine (0.66-1.25) mg/dL Est GFR (CKD-EPI)AfAm (>60 ml/min/1.73 sqM) Est GFR (CKD-EPI)NonAf (>60 ml/min/1.73 sqM) Glucose (74-99) mg/dL Plasma Lactic Acid Tayo 1.2 (0.7-2.0) mmol/L Calcium (8.4-10.2) mg/dL Magnesium (1.6-2.3) mg/dL Total Bilirubin (0.2-1.3) mg/dL AST (17-59) U/L ALT (4-49) U/L Alkaline Phosphatase (38-126) U/L Troponin I <0.012 (0.000-0.034) ng/mL NT-Pro-B Natriuret Pep 58 pg/mL Total Protein (6.3-8.2) g/dL Albumin (3.5-5.0) g/dL Disposition Clinical Impression: Dyspnea Disposition: HOME SELF-CARE Is patient prescribed a controlled substance at d/c from ED?: No Referrals: Niko Valdez MD [Primary Care Provider] - 1-2 days Time of Disposition: 19:06
[2023-03-17 15:19] LABS: INR 1.1 (<1.2); Partial Thromboplastin Time 27.2 sec (22.0-30.0); Prothrombin Time 11.1 sec (9.0-12.0)
[2023-03-17 15:28] LABS: Anisocytosis Moderate; Basophils # (A) 0.1 k/uL (0-0.2); Basophils % (A) 1 %; Eosinophils # (A) 0.4 k/uL (0-0.7); Eosinophils % (A) 5 %; HCT 32.4 % (39.0-53.0); HGB 10.5 gm/dL (13.0-17.5); Hypochromasia Slight; Lymphocytes % (A) 11 %; MCH 29.2 pg (25.0-35.0); MCHC 32.4 g/dL (31.0-37.0); MCV 90.1 fL (80.0-100.0); Mean Platelet Volume 8.6; Monocytes # (A) 0.5 k/uL (0-1.0); Monocytes % (A) 6 %; Neutrophils # (A) 7.2 k/uL (1.3-7.7); Neutrophils % (A) 77 %; Platelet Count 205 k/uL (150-450); Poikilocytosis Slight; RBC 3.59 m/uL (4.30-5.90); RDW 20.2 % (11.5-15.5); WBC 9.4 k/uL (3.8-10.6)
[2023-03-17 15:32] LABS: ALT 9 U/L (4-49); AST 26 U/L (17-59); African American GFR (CKD) >90 (>60 ml/min/1.73 sqM); Albumin 3.9 g/dL (3.5-5.0); Alkaline Phosphatase 73 U/L (38-126); Blood Urea Nitrogen 29 mg/dL (9-20); Calcium 9.2 mg/dL (8.4-10.2); Chloride 93 mmol/L (98-107); Glucose 114 mg/dL (74-99); Non-African American GFR(CKD) 79 (>60 ml/min/1.73 sqM); Potassium 4.1 mmol/L (3.5-5.1); Sodium 142 mmol/L (137-145); Total Bilirubin 0.8 mg/dL (0.2-1.3); Total Protein 6.5 g/dL (6.3-8.2)
[2023-03-17 15:38] LABS: Anion Gap 10 mmol/L
[2023-03-17 15:50] LABS: Carbon Dioxide 39 mmol/L (22-30)
--- NOTE | 2023-03-17 16:17 | XR ---
EXAMINATION TYPE: XR chest 2V DATE OF EXAM: 03/17/2023 3:38 PM COMPARISON: Chest radiographs from 02/21/2023 TECHNIQUE: XR chest 2V Frontal and lateral views of the chest. CLINICAL INDICATION:Male, 72 years old with history of difficulty breathing; FINDINGS: Lungs/Pleura: There is no evidence of pleural effusion, focal consolidation, or pneumothorax. Pulmonary vascularity: Pulmonary vascular congestion. Heart/mediastinum: Cardiomediastinal silhouette is enlarged and stable. Musculoskeletal: No acute osseous pathology. Stimulator leads terminating over the spine. Other findings: None Lines/Tubes: Left-sided PICC with distal tip at the brachiocephalic vein. IMPRESSION: Low lung volumes with a generalized hazy appearance which could represent atelectasis versus pulmonar y edema correlate with serum BNP.
--- NOTE | 2023-03-17 18:37 | CT ---
CT CHEST FOR PULMONARY EMBOLISM. EXAMINATION TYPE: CT chest angio for PE DATE OF EXAM: 03/17/2023 INDICATION: Shortness of breath. CT DLP: 924.4. mGycm, Automated exposure control for dose reduction was used. CONTRAST: Patient injected with 80ml mL of Isovue 370. COMPARISON: None TECHNIQUE: CT of the chest is performed on a spiral scan at 2 mm thick sections. Study is performed with intravenous contrast timed for evaluation for pulmonary embolism. This will limit additional po rtions of the evaluation. 3-D MIP images reconstructed by the technologist are reviewed on the compu ter in the coronal and sagittal planes. FINDINGS: No persistent filling defects are evident to suggest an acute pulmonary embolism. No mediastinal or hilar adenopathy enlarged by CT criteria is evident. The ascending aorta diameter at the level of the main pulmonary artery is 4.1 cm. The main pulmonary artery diameter at the bifur cation is 3.4 cm. Some coronary artery calcifications likely present. Borderline cardiomegaly may be present. Infiltrates are in the dependent portions of the lungs bilaterally. Correlate for atelectasis. Pneumo jadyn could be considered. Limited CT section through the upper abdomen. Scattered calcified granuloma are within the spleen. IMPRESSIONS: 1. No acute pulmonary embolism. 2. Dependent atelectasis. Left lower lobe pneumonia is not excluded. 3. Ascending thoracic aortic aneurysm of 4.1 cm.
[2023-03-17 19:36] VITALS: TEMP 97.6
[2023-03-17 20:43] VITALS: BP 151/65; PULSE 67; RESP 18
== END 2023-03-17 20:45 | disposition home or self-care (01) ==
LOC: EC 14:30
DX: R06.00 Dyspnea, unspecified (principal); I71.21 Aneurysm of the ascending aorta, without rupture; J45.909 Unspecified asthma, uncomplicated; I25.10 Atherosclerotic heart disease of native coronary artery without angina pectoris; E78.5 Hyperlipidemia, unspecified; I10 Essential (primary) hypertension; I25.2 Old myocardial infarction; Z79.899 Other long term (current) drug therapy; Z88.0 Allergy status to penicillin; Z88.8 Allergy status to other drugs, medicaments and biological substances; Z88.2 Allergy status to sulfonamides
CPT/HCPCS: 36415; 93005; 85379; 83880; 80053; 83605; 83735; 84484; 85025; 85610; 85730; 87040; 71046; 71275; 99285; Q9967

== ENCOUNTER 2025-05-05 16:53 | Observation (INO) | payer MEDICARE ==
--- NOTE | 2025-05-05 17:08 | ED ---
General Adult HPI - General Chief complaint: Chest Pain Stated complaint: Chest pain Time Seen by Provider: 05/05/25 16:55 Source: patient, EMS, RN notes reviewed Mode of arrival: EMS Limitations: no limitations - History of Present Illness Initial comments: Patient is a 74-year-old male present to the emergency department with concerns with chest discomfort. Episode started prior to arrival. Patient has pressure in his chest with associated dyspnea. Patient did have associated syncope. Patient received nitro x 2 by EMS with improvement of symptoms. Discomfort is currently 6/10. Patient does have history of similar symptoms previously associated with cardiac disease. - Related Data Home Medications Medication Instructions Recorded Confirmed Pramipexole [Mirapex] 1 mg PO TID 07/06/16 03/17/23 Atorvastatin [Lipitor] 40 mg PO HS 05/10/22 03/17/23 Levothyroxine Sodium [Synthroid] 50 mcg PO DAILY 09/05/22 03/17/23 Losartan [Cozaar] 25 mg PO DAILY 09/05/22 03/17/23 OXcarbazepine [Trileptal] 150 mg PO BID 09/05/22 03/17/23 Spironolactone [Aldactone] 25 mg PO DAILY 09/05/22 03/17/23 ALPRAZolam [Xanax] 0.25 mg PO Q12H PRN 03/17/23 03/17/23 Ammonium Lactate Lotion 1 applic TOPICAL DAILY 03/17/23 03/17/23 [Lac-Hydrin 12% Lotion] Carbidopa-Levodopa 25-100 mg 1 tab PO BID 03/17/23 03/17/23 [Sinemet 25-100] Furosemide [Lasix] 80 mg PO MOWEFR 03/17/23 03/17/23 HYDROcodone/APAP 10-325MG [[place] 1 tab PO Q8H PRN 03/17/23 03/17/23 10-325] HYDROcodone/APAP 10-325MG [[place] 1 tab PO QID 03/17/23 03/17/23 10-325] Ipratropium-Albuterol Nebulize 3 ml INHALATION RT-Q8H PRN 03/17/23 03/17/23 [Duoneb 0.5 mg-3 mg/3 ml Soln] Omeprazole [PriLOSEC] 20 mg PO HS 03/17/23 03/17/23 Semaglutide [Wegovy] 0.25 mg SQ MO 03/17/23 03/17/23 Sennosides/Docusate Sodium [Senna 1 tab PO BID 03/17/23 03/17/23 Plus 8.6-50 mg Tablet] Previous Rx's Medication Instructions Recorded Acetaminophen Tab [Tylenol] 650 mg PO Q6HR PRN tab 02/21/23 Aspirin 81 mg PO DAILY tab 02/21/23 Docusate [Colace] 100 mg PO BID cap 02/21/23 Enoxaparin [Lovenox] 40 mg SQ DAILY 7 Days each 02/21/23 Pregabalin [Lyrica] 150 mg PO DAILY #30 cap 02/21/23 Allergies Allergy/AdvReac Type Severity Reaction Status Date / Time Aminoglycosides Allergy Unknown Verified 05/05/25 17:00 codeine Allergy Dyspnea Verified 05/05/25 17:00 Penicillins Allergy Dyspnea Verified 05/05/25 17:00 Review of Systems ROS Statement: Those systems with pertinent positive or pertinent negative responses have been documented in the HPI. ROS Other: All systems not noted in ROS Statement are negative. Constitutional: Denies: fever Eyes: Denies: eye pain ENT: Denies: ear pain Respiratory: Reports: as per HPI Cardiovascular: Reports: as per HPI, chest pain Past Medical History Past Medical History: Asthma, Coronary Artery Disease (CAD), CVA/TIA, Hyperlipidemia, Hypertension, Myocardial Infarction ([place]), Seizure Disorder Additional Past Medical History / Comment(s): restless leg, cardiomyopathy, wounds RT legs, BLE SWOLLEN AND DARK IN COLOR, frequent falls, irritant induced asthma, hand tremors, double visionvision Last Myocardial Infarction Date:: 1989 History of Any Multi-Drug Resistant Organisms: MRSA Date of last positivie culture/infection: 05/12/22 MDRO Source:: Left Leg Past Surgical History: Back Surgery, Cholecystectomy Additional Past Surgical History / Comment(s): brain tumor SX, 2ND DIGIT LT FOOT REMOVED, COLONOSCOPY Past Anesthesia/Blood Transfusion Reactions: No Reported Reaction Past Psychological History: No Psychological Hx Reported Smoking Status: Never smoker Past Alcohol Use History: None Reported Past Drug Use History: None Reported - Past Family History Mother Family Medical History: Cancer Additional Family Medical History / Comment(s): pancreatic Father Family Medical History: Cancer Additional Family Medical History / Comment(s): melanoma Brother(s) Family Medical History: Deep Vein Thrombosis (DVT) Daughter(s) Family Medical History: Deep Vein Thrombosis (DVT), Pulmonary Embolus General Exam Limitations: no limitations General appearance: alert, in no apparent distress Head exam: Present: atraumatic Eye exam: Present: normal appearance Neck exam: Present: normal inspection Respiratory exam: Present: normal lung sounds bilaterally Cardiovascular Exam: Present: regular rate, normal rhythm, normal heart sounds Expanded Peripheral pulses: 2+: Radial (R), Radial (L), Posterior Tibialis (R), Posterior Tibialis (L) GI/Abdominal exam: Present: soft. Absent: tenderness, pulsatile mass Extremities exam: Present: pedal edema. Absent: calf tenderness Neurological exam: Present: alert Psychiatric exam: Present: normal affect, normal mood Skin exam: Present: normal color Course Vital Signs 05/05/25 05/05/25 05/05/25 16:55 17:11 17:17 Temperature 98.3 F Pulse Rate 100 94 96 Respiratory 20 24 24 Rate Blood Pressure 135/85 135/85 119/88 O2 Sat by Pulse 97 95 93 L Oximetry 05/05/25 18:01 Temperature Pulse Rate 86 Respiratory 20 Rate Blood Pressure 129/83 O2 Sat by Pulse 96 Oximetry EKG Findings - EKG Results: EKG: interpreted by ERMD (Left axis. Nonspecific intraventricular conduction delay. LVH criteria. Q wave V1. No definitive ST elevation.), sinus rhythm Medical Decision Making - Medical Decision Making Was pt. sent in by a medical professional or institution (, PA, STEEL GRINDER, urgent care, hospital, or correction...) When possible be specific @ -[No] Did you speak to anyone other than the patient for history (EMS, parent, family, police, friend...)? What history was obtained from this source @ -EMS provides history of the event and transfer Did you review nursing and triage notes (agree or disagree)? Why? @ -[I reviewed and agree with nursing and triage notes] Were old charts reviewed (outside hosp., previous admission, EMS record, old EKG, old radiological studies, urgent care reports/EKG's, correction records)? Report findings @ -[No old charts were reviewed] Differential Diagnosis (chest pain, altered mental status, abdominal pain women, abdominal pain men, vaginal bleeding, weakness, fever, dyspnea, syncope, headache, dizziness, GI bleed, back pain, seizure, CVA, palpatations, mental health, musculoskeletal)? @ -Differential Chest Pain: Stable Angina, Unstable Angina, STEMI, NSTEMI Aortic Dissection, Pneumothorax, Musculoskeletal, Esophageal Spasm GERD, Cholecystitis, Pancreatitis, Zoster, this is not meant to be an all-inclusive list. EKG interpreted by me (3pts min.). @ -[As above] X-rays interpreted by me (1pt min.). @ -Chest x-ray shows nonspecific hazy appearance CT interpreted by me (1pt min.). @ -[None done] U/S interpreted by me (1pt. min.). @ -[None done] What testing was considered but not performed or refused? (CT, X-rays, U/S, labs)? Why? @ -[None] What meds were considered but not given or refused? Why? @ -[None] Did you discuss the management of the patient with other professionals (professionals i.e. , PA, STEEL GRINDER, lab, RT, psych nurse, social sciences professor, supervisor tumblers, teacher, chief knowledge officer, egg caser)? Give summary @ -Case was discussed with Dr. Swenson who will admit his patient Was smoking cessation discussed for >3mins.? @ -[No] Was critical care preformed (if so, how long)? @ -[No] Were there social determinants of health that impacted care today? How? (Homelessness, low income, unemployed, alcoholism, drug addiction, transportation, low edu. Level, literacy, decrease access to med. care, senior living, r ehab)? @ -[No] Was there de-escalation of care discussed even if they declined (Discuss DNR or withdrawal of care, Hospice)? DNR status @ -[No] What co-morbidities impacted this encounter? (DM, HTN, Smoking, COPD, CAD, Cancer, CVA, ARF, Chemo, Hep., AIDS, mental health diagnosis, sleep apnea, morb id obesity)? @ -History of previous coronary artery disease Was patient admitted / discharged? Hospital course, mention meds given and route, prescriptions, significant lab abnormalities, going to OR and other pertinent info. @ -Patient presents with chest discomfort and associated syncopal episode. Initial evaluation unremarkable. Patient is still having some discomfort on reevaluation and will be admitted with cardiac consult. Patient and family updated. Admission orders written. Undiagnosed new problem with uncertain prognosis? @ -[No] Drug Therapy requiring intensive monitoring for toxicity (Heparin, Nitro, Insulin, Cardizem)? @ -[No] Were any procedures done? @ -[No] Diagnosis/symptom? @ -Chest pain Acute, or Chronic, or Acute on Chronic? @ -Acute Uncomplicated (without systemic symptoms) or Complicated (systemic symptoms)? @ -[default] Side effects of treatment? @ -[No] Exacerbation, Progression, or Severe Exacerbation? @ -[No] Poses a threat to life or bodily function? How? (Chest pain, [place], [place], pneumonia, PE, COPD, DKA, ARF, appy, cholecystitis, CVA, Diverticulitis, Homicidal, Suicidal, threat to staff... and all critical care pts) @ -Threat to cardiac function - Lab Data Result diagrams: 05/05/25 17:09 05/05/25 17:09 Lab Results 05/05/25 05/05/25 05/05/25 Range/Units 17:09 17:09 17:09 WBC 16.40 H (4.50-10.00) 10*3/uL RBC 4.16 L (4.40-5.60) 10*6/uL Hgb 13.1 (13.0-17.0) g/dL Hct 38.2 L (39.6-50.0) % MCV 91.8 (80.0-97.0) fL MCH 31.5 (27.0-32.0) pg MCHC 34.3 (32.0-37.0) g/dL Plt Count 383 (140-440) 10*3/uL MPV 10.6 (9.5-12.2) fL Immature Gran % (Auto) 3.5 % Neutrophils % 76.0 % Lymphocytes % 9.9 % Monocytes % 7.0 % Eosinophils % 2.6 % Basophils % 1.0 % Immature Gran # 0.57 H (0.00-0.04) 10*3/uL Neutrophils # 12.47 H (1.80-7.70) 10*3/uL Lymphocytes # 1.63 (0.90-5.00) 10*3/uL Monocytes # 1.15 H (0.20-1.00) 10*3/uL Eosinophils # 0.42 H (0.04-0.35) 10*3/uL Basophils # 0.16 H (0.00-0.10) 10*3/uL PT 11.9 (10.0-12.5) sec INR 1.1 (<1.2) APTT 30.6 H (22.0-30.0) sec D-Dimer 0.47 (<0.60) mg/L FEU Sodium 142 (137-145) mmol/L Potassium 4.3 (3.5-5.1) mmol/L Chloride 105 (98-107) mmol/L Carbon Dioxide 25 (22-30) mmol/L Anion Gap 12 mmol/L BUN 16 (9-20) mg/dL Creatinine 0.90 (0.66-1.25) mg/dL Est GFR (CKD-EPI)AfAm >90 (>60 ml/min/1.73 sqM) Est GFR (CKD-EPI)NonAf 85 (>60 ml/min/1.73 sqM) Glucose 97 (74-99) mg/dL Calcium 9.7 (8.4-10.2) mg/dL Magnesium 2.1 (1.6-2.3) mg/dL Total Bilirubin 1.1 (0.2-1.3) mg/dL AST 36 (17-59) U/L ALT 23 (4-49) U/L Alkaline Phosphatase 86 (38-126) U/L Troponin I (0.000-0.034) ng/mL Total Protein 7.2 (6.3-8.2) g/dL Albumin 4.5 (3.5-5.0) g/dL Lipase 120 (23-300) U/L 05/05/25 Range/Units 17:09 WBC (4.50-10.00) 10*3/uL RBC (4.40-5.60) 10*6/uL Hgb (13.0-17.0) g/dL Hct (39.6-50.0) % MCV (80.0-97.0) fL MCH (27.0-32.0) pg MCHC (32.0-37.0) g/dL Plt Count (140-440) 10*3/uL MPV (9.5-12.2) fL Immature Gran % (Auto) % Neutrophils % % Lymphocytes % % Monocytes % % Eosinophils % % Basophils % % Immature Gran # (0.00-0.04) 10*3/uL Neutrophils # (1.80-7.70) 10*3/uL Lymphocytes # (0.90-5.00) 10*3/uL Monocytes # (0.20-1.00) 10*3/uL Eosinophils # (0.04-0.35) 10*3/uL Basophils # (0.00-0.10) 10*3/uL PT (10.0-12.5) sec INR (<1.2) APTT (22.0-30.0) sec D-Dimer (<0.60) mg/L FEU Sodium (137-145) mmol/L Potassium (3.5-5.1) mmol/L Chloride (98-107) mmol/L Carbon Dioxide (22-30) mmol/L Anion Gap mmol/L BUN (9-20) mg/dL Creatinine (0.66-1.25) mg/dL Est GFR (CKD-EPI)AfAm (>60 ml/min/1.73 sqM) Est GFR (CKD-EPI)NonAf (>60 ml/min/1.73 sqM) Glucose (74-99) mg/dL Calcium (8.4-10.2) mg/dL Magnesium (1.6-2.3) mg/dL Total Bilirubin (0.2-1.3) mg/dL AST (17-59) U/L ALT (4-49) U/L Alkaline Phosphatase (38-126) U/L Troponin I <0.012 (0.000-0.034) ng/mL Total Protein (6.3-8.2) g/dL Albumin (3.5-5.0) g/dL Lipase (23-300) U/L Disposition Clinical Impression: Chest pain Disposition: ADMITTED IP TO THIS HOSP Is patient prescribed a controlled substance at d/c from ED?: No Referrals: Niko Valdez MD [Primary Care Provider] - 1-2 days Time of Disposition: 18:46
[2025-05-05] MEDS: ASPIRIN 81 MG PO STA (17:11)
[2025-05-05] MEDS: NITROGLYCERIN SL TABS 0.4 MG TAB SUBLINGUAL STA (17:12)
--- NOTE | 2025-05-05 17:37 | XR ---
EXAMINATION TYPE: XR chest 1V portable DATE OF EXAM: 05/05/2025 5:12 PM COMPARISON: Chest radiographs from 03/17/2023 CLINICAL INDICATION: Male, 74 years old with history of chest pain; [facility] TECHNIQUE: XR chest 1V portable Frontal view of the chest. FINDINGS: Lungs/Pleura: Low lung volumes are present. There is no evidence of pleural effusion, focal consolida tion, or pneumothorax. Pulmonary vascularity: Unremarkable. Heart/mediastinum: Cardiomediastinal silhouette is unremarkable. Musculoskeletal: No acute osseous pathology. Stimulator leads project over the spine. Other findings: None Lines/Tubes: IMPRESSION: Low lung volumes with a generalized hazy appearance which could represent atelectasis versus pulmonar y edema correlate with serum BNP. [facility], , 05/05/2025 5:35 PM
[2025-05-05 17:40] LABS: Basophils # (A) 0.16 10*3/uL (0.00-0.10); Basophils % (A) 1.0 %; Eosinophils # (A) 0.42 10*3/uL (0.04-0.35); Eosinophils % (A) 2.6 %; HCT 38.2 % (39.6-50.0); HGB 13.1 g/dL (13.0-17.0); Lymphocytes # (A) 1.63 10*3/uL (0.90-5.00); Lymphocytes % (A) 9.9 %; MCH 31.5 pg (27.0-32.0); MCHC 34.3 g/dL (32.0-37.0); MCV 91.8 fL (80.0-97.0); Monocytes # (A) 1.15 10*3/uL (0.20-1.00); Monocytes % (A) 7.0 %; Neutrophils # (A) 12.47 10*3/uL (1.80-7.70); Neutrophils % (A) 76.0 %; Platelet Count 383 10*3/uL (140-440); RBC 4.16 10*6/uL (4.40-5.60); RDW 17.4 % (11.5-14.5); WBC 16.40 10*3/uL (4.50-10.00)
[2025-05-05 17:55] LABS: INR 1.1 (<1.2); Partial Thromboplastin Time 30.6 sec (22.0-30.0); Prothrombin Time 11.9 sec (10.0-12.5)
[2025-05-05] MEDS: NITROGLYCERIN OINT 1 INCH/GM PACKET TOPICAL STA (18:03)
[2025-05-05] MEDS: MORPHINE SULFATE 4 MG/ML SYRINGE IVP STA (18:05)
[2025-05-05 18:12] LABS: ALT 23 U/L (4-49); AST 36 U/L (17-59); African American GFR (CKD) >90 (>60 ml/min/1.73 sqM); Albumin 4.5 g/dL (3.5-5.0); Alkaline Phosphatase 86 U/L (38-126); Anion Gap 12 mmol/L; Blood Urea Nitrogen 16 mg/dL (9-20); Calcium 9.7 mg/dL (8.4-10.2); Carbon Dioxide 25 mmol/L (22-30); Chloride 105 mmol/L (98-107); Glucose 97 mg/dL (74-99); Lipase 120 U/L (23-300); Magnesium 2.1 mg/dL (1.6-2.3); Non-African American GFR(CKD) 85 (>60 ml/min/1.73 sqM); Potassium 4.3 mmol/L (3.5-5.1); Sodium 142 mmol/L (137-145); Total Protein 7.2 g/dL (6.3-8.2)
[2025-05-05] MEDS ORDERED: NITROGLYCERIN SL TABS 0.4 MG TAB SUBLINGUAL PRN (18:47)
[2025-05-05] MEDS: CARBIDOPA-LEVODOPA 25-100 MG 1 EACH TAB PO SCH (22:19)
[2025-05-05] MEDS: ATORVASTATIN 40 MG TAB PO SCH (22:19)
[2025-05-05] MEDS: HYDROcodone/APAP 10-325MG 1 EACH TAB PO SCH (22:20)
[2025-05-05] MEDS: NITROGLYCERIN OINT 1 INCH/GM PACKET TOPICAL SCH (23:36)
[2025-05-06 08:07] LABS: Cholesterol 85.00 mg/dL (0.00-200.00); HDL Cholesterol 24.30 mg/dL (40.00-60.00); LDL Cholesterol,Calculated 11.1 mg/dL (0.0-131.0); Triglycerides 248.00 mg/dL (0.00-149.00); VLDL Calculation 49.60 mg/dL (5.00-40.00)
[2025-05-06] MEDS: FUROSEMIDE 40 MG TAB PO SCH (09:33)
[2025-05-06] MEDS: GABAPENTIN 300 MG CAP PO SCH (09:33)
[2025-05-06] MEDS: MULTIVITAMINS, THERA 1 EACH TAB PO SCH (09:33)
[2025-05-06] MEDS: LOSARTAN 25 MG TAB PO SCH (09:33)
[2025-05-06] MEDS: SPIRONOLACTONE 25 MG TAB PO SCH (09:33)
[2025-05-06] MEDS: ASPIRIN 325 MG TAB PO SCH (09:49)
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
--- NOTE | 2025-05-06 13:14 | CA ---
Transthoracic Echo Report Name: Tahir Sanchez Age: 74 Gender: M : 1950 Exam Date: 05/06/2025 09:16 Exam Location: [facility] Ht (in): 75 Wt (lb): 350 Ordering Physician: Liban Ventura DO Attending/Referring Phys: Samples And Repairs Preparer Cary Guerra RDCS Procedure CPT: Indications: cp, syncope Cardiac Hx: Technical Quality: Fair Contrast 1: Total Dose (mL): Contrast 2: Total Dose (mL): MEASUREMENTS (Male / Female) Normal Values 2D ECHO LV Diastolic Diameter PLAX 5.0 cm 4.2 - 5.9 / 3.9 - 5.3 cm LV Systolic Diameter PLAX 2.7 cm IVS Diastolic Thickness 1.4 cm 0.6 - 1.0 / 0.6 - 0.9 cm LVPW Diastolic Thickness 1.4 cm 0.6 - 1.0 / 0.6 - 0.9 cm LV Relative Wall Thickness 0.6 RV Internal Dim ED PLAX 3.9 cm LVOT Diameter 2.5 cm Aortic Root Diameter 4.4 cm LA Systolic Diameter LX 4.7 cm 3.0 - 4.0 / 2.7 - 3.8 cm LV Diastolic Volume MOD 4C 73.5 cm??? LV Systolic Volume MOD 4C 45.7 cm??? LV Ejection Fraction MOD 4C 37.9 % LV Cardiac Index MOD 4C 609.9 cm???/min???m??? LV Diastolic Length 4C 8.1 cm LV Systolic Length 4C 7.1 cm M-MODE Aortic Root Diameter MM 3.8 cm LA Systolic Diameter MM 5.3 cm LA Ao Ratio MM 1.4 AV Cusp Separation MM 2.3 cm DOPPLER AV Peak Velocity 187.2 cm/s AV Peak Gradient 14.0 mmHg AV Mean Velocity 138.3 cm/s AV Mean Gradient 8.4 mmHg AV Velocity Time Integral 40.4 cm Mitral E Point Velocity 71.5 cm/s Mitral A Point Velocity 100.8 cm/s Mitral E to A Ratio 0.7 MV Deceleration Time 349.1 ms MV E' Velocity 4.9 cm/s Mitral E to MV E' Ratio 14.7 TR Peak Velocity 231.1 cm/s TR Peak Gradient 21.4 mmHg FINDINGS Left Ventricle Left ventricular ejection fraction is estimated at 55-60 %. Moderately increased septal wall thickness. Normal left ventricular systolic function with no obvious regional wall motion abnormalities. Left ventricle not well visualized. Right Ventricle Moderate right ventricular dilatation. Right ventricular systolic pressure within normal limits. Right Atrium Mild right atrial dilatation. Left Atrium Moderately increased left atrial diameter. Mitral Valve Structurally normal mitral valve. Trace mitral regurgitation. Mitral annular calcification. Aortic Valve Trileaflet aortic valve. Diffuse thickening (sclerosis) of the aortic valve cusps without reduced excursion. No aortic regurgitation. Tricuspid Valve Structurally normal tricuspid valve. Trace tricuspid regurgitation. No tricuspid stenosis. Pulmonic Valve Structurally normal pulmonic valve. No pulmonic stenosis. Trace pulmonic regurgitation. Pericardium No pericardial or pleural effusion. Echo free space anterior to the right ventricle likely represents a fat pad. Aorta Moderate aortic dilatation at the level of the sinuses of valsalva (root) 4.4cm CONCLUSIONS Normal LV systolic function Aortic sclerosis with no stenosis or insufficiency Mitral annular calcifications with mild MR Dilated aorta at the level of sinus of Valsalva at 4.4 cm Previewed by: Dr. Karson Garsia MD (Electronically Signed) Final Date: 06 May 2025 13:13
--- NOTE | 2025-05-06 18:59 | P.HPIM ---
History of Present Illness H&P Date: 05/06/25 Chief Complaint: Chest pain/dyspnea on exertion/syncope HISTORY OF PRESENT ILLNESS This is a 74-year-old male patient with past medical history of hypertension and hypertensive cardiovascular disease, hyperlipidemia, CVA, mild persistent ALLERGIC asthma, seizure disorder, Parkinson's disease, chronic diastolic heart failure, stasis dermatitis of the left lower extremity due to peripheral venous hypertension, spondylosis of the lumbar spine, obstructive sleep apnea, patient was last seen at [facility] in February 2023 after he was admitted bilateral lower extremity cellulitis due to venous ulceration with metabolic encephalopathy patient presented to the emergency department at [facility] yesterday because of chest pain associated with dyspnea exertion, apparently the patient took 2 nitroglycerin that helped and he had a syncopal episode as well at home, he was seen and evaluated in the emergency department and because of the presentation he was admitted to the hospital for evaluation by cardiology, his chest x-ray showed low lung volume, his twelve-lead EKG showed evidence of normal sinus rhythm with Q waves in the septal area with poor R wave progression and interventricular conduction delay, cardiac exams are negative, will follow-up with the patient very closely REVIEW OF SYSTEMS Constitutional: positive for fever, chills, no night sweats. No weight change. positive for weakness,positive for fatigue and lethargy. positive for daytime sleepiness. HEENT: No headache. No blurred vision or double vision, no loss of vision. No loss of Hearing, no ringing in the ears, no dizziness. No nasal drainage or congestion. No epistaxis. No sore throat. Lungs:positive for shortness of breath, occasional cough, no sputum production. positive for wheezing.Chronic dyspnea with exertion. Cardiovascular: positive for chest pain,reports lower extremity edema. positive for palpitations. positive for paroxysmal nocturnal dyspnea. positive for orthopnea. No lightheadedness or dizziness. Positive for syncopal episodes. Abdominal: No abdominal pain. No nausea, vomiting. No diarrhea. No constipation. No bloody or tarry stools. No loss of appetite. Genitourinary: No dysuria, kennedy catheter in place Musculoskeletal: No myalgias. positive for bilateral lower extremities muscle weakness, positive for gait dysfunction, no frequent falls. positive for back pain and neck pain. Integumentary:Reports wounds with venous ulcerations to left lower extremity. No rash or pruritus. No unusual bruising. positive for change in hair and nails. Neurologic: No aphasia. No facial droop. positive for change in mentation. No head injury. No headache. No paralysis. No paresthesia. Psychiatric: positive for depression and anxiety. No mood swings. Endocrine: No abnormal blood sugars. positive for weight change. No excessive sweating or thirst. No cold intolerance. MEDICAL HISTORY Hypertension Hyperlipidemia CVA Mild persistent ALLERGIC asthma Seizure disorder Parkinson's disease Chronic diastolic heart failure Stasis dermatitis Peripheral venous hypertension Spondylosis of the lumbar spine Obstructive sleep apnea MRSA in left lower extremity chronic venous ulcers left more than right Depression Anxiety Hypothyroidism SURGICAL HISTORY Meningioma brain tumor removal with right-sided craniotomy in 2003 Laminectomy in 2005 followed by PLDF in 2008 Cholecystectomy 1992 Left foot second toe amputation 1981 Colonoscopy and EGD 2016 Spinal cord stimulator 2011 SOCIAL HISTORY Patient is a nonsmoker, no alcohol use, no illicit drug use. He lives at home with his . FAMILY HISTORY Father at age 73 from metastatic melanoma with history of Parkinson's and coronary artery disease status post CABG. Mother at age 68 from pancreatic cancer and also had diabetes type 2 and coronary artery disease. Patient is 5 brothers and one has history of head and neck cancer and one with sarcoma. Ot her brothers have no major medical problems. Patient has 2 sisters one has squamous cell cancer and the other has no major medical problems. Patient has 4 daughters and one has SLE. PHYSICAL EXAMINATION Gen: This is a morbidly obese 74-year-old male lying down in bed in no distress. HEENT: Head is atraumatic, normocephalic. Pupils equal, round. Sclerae is anicteric, mucous membranes of the mouth are somewhat dry. NECK: Supple. elevated JVD. No lymphadenopathy. No thyromegaly. LUNGS: Decrease breath sounds at the bases with few ronchi , no expiratory wheezes, no intercostal retractions. HEART: First heart sound is depressed, second heart sound is normal, there is a 2/6 systolic ejection murmur at the left sternal border, no S3, no S4.. ABDOMEN: Soft. Bowel sounds are present. No masses. No tenderness.obese, positive bowel sounds EXTREMITIES: 2+ bilateral pitting pedal edema with erythema, there is venous ulcerations in the left lower extremity extending into to the calf posteriorly with severe erythema and tenderness to touch, left second toe amputation and DP +1 bilaterally NEUROLOGICAL: Patient is awake, alert and oriented x3. Cranial nerves 2 through 12 are grossly intact, CN II-XII are grossly intact muscle power 4/5 in bilateral upper extremities, and 3/5 in bilateral lower extremities. ASSESSMENT AND PLAN 1. Chest pain with dyspnea on exertion associated with a syncopal episode rule out underlying coronary artery disease with catheter arrhythmias. EKG is abnormal, admit the patient to hospital as an observation, follow-up with cardiology as indicated, cardiac enzymes are negative, further recommendations to follow the patient progression and the automation consultant recommendation. 2. Chronic hypoxemic respiratory failure due to chronic diastolic heart failure as well as COPD/asthma continue patient on losartan 25 mg once every day, continue wit frusemide 40 mg once every day as well as spironolactone 25 mg once every day monitor the patienth very closely. 3. Chronic respiratory failure due to Obesity with obstructive sleep apnea and obesity hypoventilation syndrome with underlying COPD/asthma . Continue treatment as in the previous paragraph. 4. Hypertension and hypertensive cardiovascular disease. continue losartan 25 mg once every day, continue spironolactone 25 mg once every day. 5. Hyperlipidemia. Continue low-cholesterol diet, continue atorvastatin 40 mg once every day, monitor lipid panel, keep LDL 55-70. 6. History of CVA. Continue patient on atorvastatin 40 mg once every day as well as aspirin 81 mg once every day. 7. Parkinson's disease. Continue Sinemet 25/101 tablet orally 3 times every day. 8. Spondylosis of the lumbar spine. Continue gabapentin 300 mg at bedtime. 9. Obstructive sleep apnea. Continue on his CPAP. 10. Hypothyroidism. Continue Synthroid 50 g orally once every day monitor TSH and free T4 11. GI prophylaxis. Protonix 40 mg orally once every day.. 12. DVT prophylaxis. Lovenox 40 mg subcutaneously every 24 hours. 13. Observation. 14. No code. Past Medical History Past Medical History: Asthma, Coronary Artery Disease (CAD), CVA/TIA, Hyperlipidemia, Hypertension, Myocardial Infarction ([place]), Seizure Disorder Additional Past Medical History / Comment(s): restless leg, cardiomyopathy, wounds RT legs, BLE SWOLLEN AND DARK IN COLOR, frequent falls, irritant induced asthma, hand tremors, double vision, Sepsis, Per patient [place] x 2 Last Myocardial Infarction Date:: 2023 History of Any Multi-Drug Resistant Organisms: MRSA Date of last positivie culture/infection: 05/12/22 MDRO Source:: Left Leg Past Surgical History: Back Surgery, Cholecystectomy, Heart Catheterization Additional Past Surgical History / Comment(s): brain tumor SX, 2ND DIGIT LT FOOT REMOVED, COLONOSCOPY, pt claims clean cath Past Anesthesia/Blood Transfusion Reactions: No Reported Reaction Past Psychological History: No Psychological Hx Reported Smoking Status: Never smoker Past Alcohol Use History: None Reported Past Drug Use History: None Reported - Past Family History Mother Family Medical History: Cancer Additional Family Medical History / Comment(s): pancreatic Father Family Medical History: Cancer Additional Family Medical History / Comment(s): melanoma Brother(s) Family Medical History: Deep Vein Thrombosis (DVT) Daughter(s) Family Medical History: Deep Vein Thrombosis (DVT), Pulmonary Embolus Medications and Allergies Home Medications Medication Instructions Recorded Confirmed Type Atorvastatin [Lipitor] 40 mg PO HS 05/10/22 05/05/25 History Losartan [Cozaar] 25 mg PO DAILY 09/05/22 05/05/25 History OXcarbazepine [Trileptal] 150 mg PO BID 09/05/22 05/05/25 History Spironolactone [Aldactone] 25 mg PO DAILY 09/05/22 05/05/25 History Carbidopa-Levodopa 25-100 mg 1 tab PO TID 03/17/23 05/05/25 History [Sinemet 25-100] HYDROcodone/APAP 10-325MG [[place] 1 tab PO BID 03/17/23 05/05/25 History 10-325] Furosemide [Lasix] 40 mg PO DAILY 05/05/25 05/05/25 History Gabapentin [Neurontin] 300 mg PO DAILY 05/05/25 05/05/25 History Mv-Min/Folic/K1/Lycopen/Lutein 1 tab PO DAILY 05/05/25 05/05/25 History [Centrum Silver Men Tablet] Allergies Allergy/AdvReac Type Severity Reaction Status Date / Time Aminoglycosides Allergy Unknown Verified 05/05/25 19:49 codeine Allergy Dyspnea Verified 05/05/25 19:49 Penicillins Allergy Dyspnea Verified 05/05/25 19:49 Physical Exam Vitals: Vital Signs Temp Pulse Pulse Resp BP BP Pulse Ox 05/06/25 08:26 95 05/06/25 07:00 98.2 F 62 20 123/66 95 05/06/25 02:00 98.1 F 60 16 121/67 99 05/05/25 22:53 67 19 05/05/25 22:19 98.7 F 67 16 110/68 96 05/05/25 20:09 73 18 119/70 93 L 05/05/25 18:59 78 22 127/95 96 05/05/25 18:01 86 20 129/83 96 05/05/25 17:17 96 24 119/88 93 L 05/05/25 17:11 94 24 135/85 95 05/05/25 16:55 98.3 F 100 20 135/85 97 Intake and Output 05/05/25 05/06/25 05/06/25 22:59 06:59 14:59 Other: # Voids 0 1 Weight 158.757 kg Results CBC & Chem 7: 05/05/25 17:09 05/05/25 17:09 Labs: Abnormal Lab Results - Last 24 Hours (Table) 05/05/25 05/05/25 05/05/25 Range/Units 17:09 17:09 17:09 WBC 16.40 H (4.50-10.00) 10*3/uL RBC 4.16 L (4.40-5.60) 10*6/uL Hct 38.2 L (39.6-50.0) % Immature Gran # 0.57 H (0.00-0.04) 10*3/uL Neutrophils # 12.47 H (1.80-7.70) 10*3/uL Monocytes # 1.15 H (0.20-1.00) 10*3/uL Eosinophils # 0.42 H (0.04-0.35) 10*3/uL Basophils # 0.16 H (0.00-0.10) 10*3/uL APTT 30.6 H (22.0-30.0) sec Triglycerides (0.00-149.00) mg/dL VLDL Cholesterol, Calc (5.00-40.00) mg/dL HDL Cholesterol (40.00-60.00) mg/dL Carbamazepine <2.0 L (4.0-12.0) UG/ML 05/05/25 Range/Units 17:09 WBC (4.50-10.00) 10*3/uL RBC (4.40-5.60) 10*6/uL Hct (39.6-50.0) % Immature Gran # (0.00-0.04) 10*3/uL Neutrophils # (1.80-7.70) 10*3/uL Monocytes # (0.20-1.00) 10*3/uL Eosinophils # (0.04-0.35) 10*3/uL Basophils # (0.00-0.10) 10*3/uL APTT (22.0-30.0) sec Triglycerides 248.00 H (0.00-149.00) mg/dL VLDL Cholesterol, Calc 49.60 H (5.00-40.00) mg/dL HDL Cholesterol 24.30 L (40.00-60.00) mg/dL Carbamazepine (4.0-12.0) UG/ML Thrombosis Risk Factor Assmnt - Choose All That Apply Any of the Below Risk Factors Present?: Yes Each Factor Represents 1 point: Heart failure (<1month), Obesity (BMI >25), Swollen legs (current) Other Risk Factors: Yes Each Risk Factor Represents 2 Points: Age 61-74 years Other congenital or acquired thrombophilia - If yes, enter type in comment: No Thrombosis Risk Factor Assessment Total Risk Factor Score: 5 Thrombosis Risk Factor Assessment Level: High Risk
[2025-05-07 07:30] VITALS: BP 122/72; PULSE 60; RESP 20; TEMP 98.1
[2025-05-07 08:44] LABS: ALT 9 U/L (10-49); AST 25 U/L (14-35); Albumin 4.2 g/dL (3.8-4.9); Albumin/Globulin Ratio 1.75 Ratio (1.60-3.17); Alkaline Phosphatase 94 U/L (41-126); Anion Gap 10.70 mmol/L (4.00-12.00); BUN/Creat Ratio 19.29 Ratio (12.00-20.00); Blood Urea Nitrogen 13.5 mg/dL (9.0-27.0); Calcium 9.3 mg/dL (8.7-10.3); Carbon Dioxide 27.3 mmol/L (21.6-31.8); Chloride 106 mmol/L (96-109); Globulin 2.4 g/dL (1.6-3.3); Glucose 84 mg/dL (70-110); Potassium 4.3 mmol/L (3.5-5.5); Sodium 144 mmol/L (135-145); Total Protein 6.6 g/dL (6.2-8.2)
[2025-05-07] MEDS: ENOXAPARIN 40 MG/0.4 ML SYRINGE SQ SCH (09:02)
[2025-05-07] MEDS: ASPIRIN 81 MG PO SCH (09:03)
[2025-05-07 10:36] LABS: Basophils # (A) 0.08 X 10*3/uL (0.00-0.10); Basophils % (A) 0.7 %; Eosinophils # (A) 0.46 X 10*3/uL (0.04-0.35); Eosinophils % (A) 3.8 %; HCT 40.0 % (39.6-50.0); HGB 12.8 g/dL (13.0-17.0); Immature Grans, Automated 4.00 %; Lymphocytes # (A) 1.61 X 10*3/uL (0.90-5.00); Lymphocytes % (A) 13.3 %; MCH 30.4 pg (27.0-32.0); MCHC 32.0 g/dL (32.0-37.0); MCV 95.0 FL (80.0-97.0); Monocytes # (A) 0.86 X 10*3/uL (0.20-1.00); Monocytes % (A) 7.1 %; NRBC Per 100 WBC 0 X 10*3/uL (0.00-0.01); Neutrophils # (A) 8.60 X 10*3/uL (1.80-7.70); Neutrophils % (A) 71.1 %; Platelet Count 337 X 10*3/uL (140-440); RBC 4.21 X 10*6/uL (4.40-5.60); RDW 17.9 % (11.5-14.5); WBC 12.10 X 10*3/uL (4.50-10.00)
--- NOTE | 2025-05-07 12:43 | P.PN ---
Subjective HISTORY OF PRESENT ILLNESS: This is a 74-year-old male with a past medical history significant for hypertension, hyperlipidemia, myocardial infarction without stenting per patient and morbid obesity. Patient does not follow with a alemite operator. We have been asked to see the patient in consultation for chest pain and syncope. Patient examined at the bedside. Patient states that he was at a family alliance party when he went to use the bathroom. He states afterwards he felt like somebody punched him in the chest. He reports there was pain right in the middle of his chest. He states that he started to fall to the floor but was caught by a family member. He does report losing consciousness. He states that the Nitropaste that was applied helped with his chest pain and he denies any chest pain or pressure this morning. Patient thought he had a cardiac catheterization performed at [facility] about a year ago. However according to the unit director she spoke with [facility] and patient does not have any records of a cardiac catheterization being performed there. DIAGNOSTICS: - EKG reveals sinus mechanism with no signs of acute ischemia. - Chest xray no lung volumes with generalized hazy appearance could represent atelectasis versus pulmonary edema. - Laboratory data: Troponin negative x 3 - Current home cardiac medications include Lasix 40 mg daily, Aldactone 25 mg daily, losartan 25 mg daily, Lipitor 40 mg at night. - Most recent echocardiogram obtained in August 2022 revealing ejection fraction 55 to 60%, mild MR, trace to mild TR - Cardiac catheterization history: August 2022 revealing normal coronary arteries, right dominant system, normal LVEDP 05/07/2025 Patient examined this morning at bedside. Patient currently denies any chest pain or pressure. Denies shortness of breath. Echocardiogram performed revealing ejection fraction 55 to 60% with trace MR and trace TR. Vital signs are stable. PHYSICAL EXAM: VITAL SIGNS: Reviewed. GENERAL: Well-developed in no acute distress. HEENT: Head is normocephalic. Pupils are equal, round. Sclerae anicteric. Mucous membranes of the mouth are moist. Neck supple. No JVD or thyromegaly LUNGS: Respirations even and unlabored. Lungs essentially clear to auscultation bilaterally. HEART: Regular rate and rhythm. S1 and S2 heard. ABDOMEN: Soft. Nondistended. Nontender. EXTREMITIES: Normal range of motion. No clubbing or cyanosis. Peripheral pulses intact. Bilateral lower extremity edema and chronic skin discoloration noted NEUROLOGIC: Awake and alert. Oriented x 3. ASSESSMENT: Chest pain Syncope Normal coronary arteries, per cath 2021 Hypertension Hyperlipidemia Reported myocardial infarction without stenting, per patient Chronic hypoxic respiratory failure on home oxygen Morbid obesity: BMI 43.7 PLAN: Continue current cardiac medications Will plan for outpatient stress testing Patient is stable for discharge home today from a cardiac standpoint Patient to follow-up in the office with Dr. Garsia We will sign off. Please reconsult if needed. Nurse practitioner note has been reviewed by physician. Signing provider agrees with the documented findings, assessment, and plan of care documented by DRY ROOM ATTENDANT as a scribe. Objective - Vital Signs Vital signs: Vital Signs Temp 98.1 F 05/07/25 07:00 Pulse 60 05/07/25 07:00 Resp 20 05/07/25 07:00 BP 122/72 05/07/25 07:00 Pulse Ox 96 05/07/25 08:10 FiO2 Intake & Output 05/06/25 05/07/25 05/07/25 18:59 06:59 18:59 Intake Total 120 Output Total 1100 500 Balance -980 -500 Intake: Oral 120 Output: Urine 1100 500 Other: # Voids 1 - Labs CBC & Chem 7: 05/07/25 05:17 05/07/25 05:17 Labs: Abnormal Lab Results - Last 24 Hours (Table) 05/07/25 05/07/25 Range/Units 05:17 05:17 WBC 12.10 H (4.50-10.00) X 10*3/uL RBC 4.21 L (4.40-5.60) X 10*6/uL Hgb 12.8 L (13.0-17.0) g/dL RDW 17.9 H (11.5-14.5) % Immature Gran # 0.49 H (0.00-0.04) X 10*3/uL Neutrophils # 8.60 H (1.80-7.70) X 10*3/uL Eosinophils # 0.46 H (0.04-0.35) X 10*3/uL ALT 9 L (10-49) U/L
--- NOTE | 2025-05-07 13:11 | P.DS ---
Providers Date of admission: 05/05/25 18:47 Expected date of discharge: 05/07/25 Attending physician: Niko Valdez Consults: 05/05/25 18:47 Consult Physician Urgent Consulting Provider: Yonis Hayes Consult Reason/Comments: cp, syncope Do you want consulting provider notified?: Yes Primary care physician: Niko Valdez [facility] Course: HISTORY OF PRESENT ILLNESS This is a 74-year-old male patient with past medical history of hypertension and hypertensive cardiovascular disease, hyperlipidemia, CVA, mild persistent ALLERGIC asthma, seizure disorder, Parkinson's disease, chronic diastolic heart failure, stasis dermatitis of the left lower extremity due to peripheral venous hypertension, spondylosis of the lumbar spine, obstructive sleep apnea, patient was last seen at [facility] in February 2023 after he was admitted bilateral lower extremity cellulitis due to venous ulceration with metabolic encephalopathy patient presented to the emergency department at [facility] yesterday because of chest pain associated with dyspnea exertion, apparently the patient took 2 nitroglycerin that helped and he had a syncopal episode as well at home, he was seen and evaluated in the emergency department and because of the presentation he was admitted to the hospital for evaluation by cardiology, his chest x-ray showed low lung volume, his twelve-lead EKG showed evidence of normal sinus rhythm with Q waves in the septal area with poor R wave progression and interventricular conduction delay, cardiac exams are negative, will follow-up with the patient very closely 05/07: Patient is sitting up in bed in no apparent distress, he denies any chest pain, shortness of breath, he underwent echocardiogram that did not show evidence of any wall motion abnormalities, normal LV function, mild mitral regurgitation and tricuspid regurgitation, patient is cleared to be discharged home, he is to follow-up with cardiology as an outpatient next week Discharge diagnoses: 1. Chest pain with dyspnea on exertion associated with a syncopal episode likely vasovagal syncope 2. Chronic hypoxemic respiratory failure due to chronic diastolic heart failure as well as COPD/asthma 3. Chronic respiratory failure due to Obesity with obstructive sleep apnea and obesity hypoventilation syndrome with underlying COPD/asthma . 4. Hypertension and hypertensive cardiovascular disease. 5. Hyperlipidemia. 6. History of CVA. 7. Parkinson's disease. 8. Spondylosis of the lumbar spine. 9. Obstructive sleep apnea. 10. Hypothyroidism. Patient Condition at Discharge: Stable Plan - Discharge Summary New Discharge Prescriptions: No Action Losartan [Cozaar] 25 mg PO DAILY OXcarbazepine [Trileptal] 150 mg PO BID Spironolactone [Aldactone] 25 mg PO DAILY Carbidopa-Levodopa 25-100 mg [Sinemet 25-100] 1 tab PO TID Furosemide [Lasix] 40 mg PO DAILY Atorvastatin [Lipitor] 40 mg PO HS HYDROcodone/APAP 10-325MG [[place] 10-325] 1 tab PO BID Gabapentin [Neurontin] 300 mg PO DAILY Mv-Min/Folic/K1/Lycopen/Lutein [Centrum Silver Men Tablet] 1 tab PO DAILY Discharge Medication List Atorvastatin [Lipitor] 40 mg PO HS 05/10/22 [History] Losartan [Cozaar] 25 mg PO DAILY 09/05/22 [History] OXcarbazepine [Trileptal] 150 mg PO BID 09/05/22 [History] Spironolactone [Aldactone] 25 mg PO DAILY 09/05/22 [History] Carbidopa-Levodopa 25-100 mg [Sinemet 25-100] 1 tab PO TID 03/17/23 [History] HYDROcodone/APAP 10-325MG [[place] 10-325] 1 tab PO BID 03/17/23 [History] Furosemide [Lasix] 40 mg PO DAILY 05/05/25 [History] Gabapentin [Neurontin] 300 mg PO DAILY 05/05/25 [History] Mv-Min/Folic/K1/Lycopen/Lutein [Centrum Silver Men Tablet] 1 tab PO DAILY 0 05/05/25 [History] Follow up Appointment(s)/Referral(s): Niko Valdez MD [Primary Care Provider] - 1-2 days Karson Garsia MD [STAFF PHYSICIAN] - 1 Week
== END 2025-05-07 14:46 | disposition home or self-care (01) ==
LOC: EC 16:53 → 6NMEDSUR 18:47
PROVIDERS: ADMIT Internal Medicine; ATTEND Internal Medicine
DX: R07.89 Other chest pain (principal); R55 Syncope and collapse; J96.11 Chronic respiratory failure with hypoxia; I25.10 Atherosclerotic heart disease of native coronary artery without angina pectoris; E78.5 Hyperlipidemia, unspecified; I25.2 Old myocardial infarction; I11.0 Hypertensive heart disease with heart failure; I50.32 Chronic diastolic (congestive) heart failure; E03.9 Hypothyroidism, unspecified; F41.9 Anxiety disorder, unspecified; F32.A Depression, unspecified; G20.A1 Parkinson's disease without dyskinesia, without mention of fluctuations; M47.816 Spondylosis without myelopathy or radiculopathy, lumbar region; J44.89 Other specified chronic obstructive pulmonary disease; E66.2 Morbid (severe) obesity with alveolar hypoventilation; Z68.41 Body mass index [BMI] 40.0-44.9, adult; Z86.73 Personal history of transient ischemic attack (TIA), and cerebral infarction without residual deficits; Z99.81 Dependence on supplemental oxygen; Z79.899 Other long term (current) drug therapy; Z79.890 Hormone replacement therapy; Z79.82 Long term (current) use of aspirin; Z88.0 Allergy status to penicillin; Z88.5 Allergy status to narcotic agent
CPT/HCPCS: 96372; 96374; 99285; 36415; 94760 ×2; 93005; 93306; 85379; 80156; 80061; 80053 ×2; 83690; 83735; 84484; 85025 ×2; 85610; 85730; 71045; G0378 ×3; J2270; J1650